=== PATIENT | female | born 1985 | race African-American/Black ===

== ENCOUNTER 2017-12-08 09:35 | Emergency (ER) | payer SELFPAY ==
[2017-12-08 10:33] LABS: Urine Blood 2+ (NEG); Urine Glucose NEGATIVE (NEG); Urine Protein 1+ (NEG); Urine Specific Gravity 1.025 (1.005-1.030); Urine pH 6.5 (5.0-7.0)
--- NOTE | 2017-12-08 11:09 | RAD REPORT ---
EXAM DESCRIPTION: US - Transvaginal Study Probe - 12/08/2017 10:53 am CLINICAL HISTORY: Vaginal bleeding, abdomen and pelvic pain COMPARISON: None. TECHNIQUE: Endovaginal sonography was performed. FINDINGS: Nabothian cysts are identifiable. No discrete endometrial mass or polyp identifiable. In t he anterior lower uterine segment of the uterus a a 2.2 x 1.5 cm oval mass is present slightly hypoec hoic to the remaining myometrium. This extends from serosal to submucosal margin. No mass effect on t he endometrial cavity. No additional myometrial mass is seen. This is most likely an incidental fibro id. No comparison is available to establish stability or growth. Both ovaries are identifiable. No suspicious ovarian or adnexal finding. Doppler evaluation shows a n ormal blood flow pattern within the ovarian stroma. IMPRESSION: Normal-sized uterus shows a 2.2 x 1.5 centimeter anterior lower uterine segment mass mos t likely an incidental fibroid. No comparison imaging available to establish stability or growth of this finding. No other endometrial or myometrial abnormality. No ovarian or adnexal significant finding.
[2017-12-08 11:19] LABS: Absolute Lymphocytes (CBC) 1.2 K/uL (0.7-4.9); Absolute Monocytes 0.5 K/uL (0.1-1.3); Absolute Neutrophil 3.8 K/uL (1.8-8.0); Basophils % 0.7 % (0-1.3); Eosinophils % 0.8 % (0-4.4); Hematocrit 34.5 % (36.0-45.0); Lymphocytes % 21.1 % (15.3-44.8); MCH 30.9 pg (27.0-35.0); MCV 94.4 fL (80-100); MPV 9.5 fL (7.6-11.3); Monocytes % 8.7 % (3.3-12.3); RBC Red Blood Cell Count 3.66 M/uL (3.86-4.86)
[2017-12-08 11:24] LABS: Urine Bacteria <20 /HPF (<20); Urine Culture Reflex Order NOT NEEDED; Urine RBC 20-50 /HPF (NONE SEEN)
[2017-12-08 11:37] LABS: BUN Blood Urea Nitrogen 9 mg/dL (6-20); Bicarbonate 28 mEq/L (21-31); Glucose Level 105 mg/dL (65-120); Potassium 3.6 mEq/L (3.6-5.0); Sodium Level 140 mEq/L (135-145)
[2017-12-08 11:38] LABS: Protime INR 1.1
--- NOTE | 2017-12-08 11:43 | EDPHYS ---
Physician Documentation [facility] Name: Steven Ortega Age: 32 yrs Sex: Female : 1985 Arrival Date: 12/08/2017 Time: 09:38 Bed 23 Private MD: ED Physician Alvarado Bass HPI: 12/08 10:32 This 32 yrs old Black Female presents to ER via Ambulatory with complaints of HEAVY rn PERIOD. 10:32 The patient presents with vaginal bleeding that is moderate, with clots. Onset: The rn symptoms/episode began/occurred 2 day(s) ago. Associated signs and symptoms: Pertinent positives: vaginal bleeding. Severity of symptoms: At their worst the symptoms were moderate, in the emergency department the symptoms are unchanged. The patient has not experienced similar symptoms in the past. 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 - Social history:: Smoking status: Patient uses tobacco products, denies chronic smoking, but will smoke occasionally. - Family history:: not pertinent. - Hospitalizations: : No recent hospitalization is reported. ROS: 10:32 Constitutional: Negative for fever, chills, and weight loss, Eyes: Negative for injury, rn pain, redness, and discharge, Cardiovascular: Negative for chest pain, palpitations, and edema, Respiratory: Negative for shortness of breath, cough, wheezing, and pleuritic chest pain, Abdomen/GI: Negative for nausea, vomiting, diarrhea, and constipation, Back: Negative for injury and pain, : + vaginal bleeding MS/Extremity: Negative for injury and deformity, Skin: Negative for injury, rash, and discoloration, Neuro: Negative for headache, weakness, numbness, tingling, and seizure. Exam: 10:32 Constitutional: This is a well developed, well nourished patient who is awake, alert, rn and in no acute distress. Abdomen/GI: Soft, non-tender, with normal bowel sounds. No distension or tympany. No guarding or rebound. No evidence of tenderness throughout. Back: No spinal tenderness. No costovertebral tenderness. Full range of motion. MS/ Extremity: Pulses equal, no cyanosis. Neurovascular intact. Full, normal range of motion. Equal circumference. Neuro: Awake and alert, GCS 15, oriented to person, place, time, and situation. Cranial nerves II-XII grossly intact. Motor strength 5/5 in all extremities. Sensory grossly intact. Cerebellar exam normal. Normal gait. Vital Signs: 10:09 BP 129 / 80; Pulse 62; Resp 18; Pulse Ox 99% on R/A; Weight 104.78 kg (R); Height 5 ft. aj1 7 in. (170.18 cm); Pain 10/10; 11:12 BP 117 / 72; Pulse 77; Resp 19; Pulse Ox 100% on R/A; aj1 12:11 BP 113 / 66; Pulse 82; Resp 18; Pulse Ox 100% on R/A; aj1 10:09 Body Mass Index 36.18 (104.78 kg, 170.18 cm) aj1 MDM: 10:08 Patient medically screened. rn 11:41 Differential diagnosis: dysmenorrhea, menometrorrhagia, uterine fibroids. Data rn reviewed: vital signs, nurses notes, lab test result(s), radiologic studies, and as a result, I will discharge patient. Counseling: I had a detailed discussion with the patient and/or guardian regarding: the historical points, exam findings, and any diagnostic results supporting the discharge/admit diagnosis, lab results, radiology results, the need for outpatient follow up, to return to the emergency department if symptoms worsen or persist or if there are any questions or concerns that arise at home. Special discussion: I discussed with the patient/guardian in detail that at this point there is no indication for admission to the hospital. It is understood, however, that if the symptoms persist or worsen the patient needs to return immediately for re-evaluation. Based on the history and exam findings, there is no indication for further emergent testing or inpatient evaluation. I discussed with the patient/guardian the need to see the OB Gyne specialist for further evaluation of the symptoms. 12/08 10:16 Order name: CBC with Diff; Complete Time: 11: rn 12/08 10:16 Order name: Basic Metabolic Panel; Complete Time: : rn 12/08 10:16 Order name: Protime (+inr); Complete Time: : rn 12/08 10:16 Order name: Ptt, Activated; Complete Time: rn 12/08 10:16 Order name: Urine Microscopic Only; Complete Time: 11: rn 12/08 10:28 Order name: Urine Dipstick--Ancillary (enter results); Complete Time: 11: bd 12/08 10:16 Order name: IV Start; Complete Time: 11: rn 12/08 10:16 Order name: Urine Test (obtain specimen); Complete Time: : rn 12/08 10:16 Order name: Urine Dipstick-Ancillary (obtain specimen); Complete Time: rn 12/08 10:28 Order name: Urine --Ancillary (enter results); Complete Time: 11: bd 12/08 10:53 Order name: Transvaginal Study Probe; Complete Time: 11:23 EDMS Administered Medications: No medications were administered Disposition: 12/08/17 11:42 Discharged to Home. Impression: Uterine Fibroid, Other specified abnormal uterine and vaginal bleeding. - Condition is Stable. - Prescriptions for Provera 10 mg Oral tablet - take 1 tablet by ORAL route once daily for 10 days; 10 tablet. - Work release form, Medication Reconciliation Form, Thank You Letter, Antibiotic Education, Prescription Opioid Use form. - Follow up: Timothy Rankin; When: 2 - 3 days; Reason: Recheck today's complaints, Re-evaluation by your physician. - Problem is new. - Symptoms have improved. Signatures: Dispatcher [employer] EDHI Betina Leonard RN RN aj1 Alvarado Bass MD MD modern languages professor: (The following items were deleted from the chart) 10:53 10:17 Pelvis Complete+US.RAD.BRZ ordered. [facility] EDHI 12:13 11:42 12/08/2017 11:42 Discharged to Home. Impression: Uterine Fibroid; Other specified aj1 abnormal uterine and vaginal bleeding. Condition is Stable. Prescriptions for Provera 10 mg Oral tablet - take 1 tablet by ORAL route once daily for 10 days; 10 tablet. and Forms are Medication Reconciliation Form, Thank You Letter, Antibiotic Education, Prescription Opioid Use. Follow up: Timothy Rankin; When: 2 - 3 days; Reason: Recheck today's complaints, Re-evaluation by your physician. Problem is new. Symptoms have improved. rn
--- NOTE | 2017-12-08 11:43 | ER ---
Nurse's Notes [facility] Name: Steven Ortega Age: 32 yrs Sex: Female : 1985 Arrival Date: 12/08/2017 Time: 09:38 Bed 23 Private MD: Diagnosis: Uterine Fibroid;Other specified abnormal uterine and vaginal bleeding Presentation: 12/08 10:06 Presenting complaint: Patient states: Heavy vaginal bleeding with large clots for the aj1 past 3 days. Reports urinary frequency, dizziness, and diffuse abdominal and pelvic pain that radiates to the buttocks. Denies dysuria, fever. Transition of care: patient was not received from another setting of care. Onset of symptoms was December 05, 2017. Initial Sepsis Screen: Does the patient meet any 2 criteria? No. Patient's initial sepsis screen is negative. Does the patient have a suspected source of infection? No. Patient's initial sepsis screen is negative. Care prior to arrival: None. 10:06 Method Of Arrival: Ambulatory aj1 10:06 Acuity: HOANG 3 aj1 Triage Assessment: 10:09 General: Appears in no apparent distress. uncomfortable, Behavior is calm, cooperative, aj1 appropriate for age. Pain: Complains of pain in abdomen diffusely and pelvis Pain radiates to buttocks Pain currently is 10 out of 10 on a pain scale. Quality of pain is described as sharp, Pain began 2-3 days ago. Is continuous, Alleviated by rest, Aggravated by walking. 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 - Social history:: Smoking status: Patient uses tobacco products, denies chronic smoking, but will smoke occasionally. - Family history:: not pertinent. - Hospitalizations: : No recent hospitalization is reported. Screenin:11 Abuse screen: Denies threats or abuse. Denies injuries from another. Nutritional aj1 screening: No deficits noted. Tuberculosis screening: No symptoms or risk factors identified. 12:11 Fall Risk None identified. aj1 Assessment: 10:11 General: Appears in no apparent distress. uncomfortable, Behavior is calm, cooperative, aj1 appropriate for age. Pain: Complains of pain in pelvis and abdomen diffusely Pain radiates to buttocks Pain currently is 10 out of 10 on a pain scale. Quality of pain is described as sharp, Pain began 2-3 days ago. Is continuous, Alleviated by rest, Aggravated by walking. Neuro: Level of Consciousness is awake, alert, obeys commands, Oriented to person, place, time, situation, Speech is normal, Facial symmetry appears normal, Reports dizziness. Cardiovascular: Patient's skin is warm and dry. Respiratory: Airway is patent Respiratory effort is even, unlabored, Respiratory pattern is regular, symmetrical. GI: Abdomen is non-distended, Bowel sounds present X 4 quads. Abd is soft X 4 quads Abdomen is tender to palpation X 4 quads. : Reports urinary frequency, vaginal bleeding that is bright red, with clots, heavy flow Denies burning with urination. EENT: No signs and/or symptoms were reported regarding the EENT system. Derm: No signs and/or symptoms reported regarding the dermatologic system. Skin is pink, warm \T\ dry. normal. Musculoskeletal: No signs and/or symptoms reported regarding the musculoskeletal system. Circulation, motion, and sensation intact. 10:28 Reassessment: Ultrasound at bedside. aj1 11:12 Reassessment: Patient appears in no apparent distress at this time. No changes from aj1 previously documented assessment. Patient and/or family updated on plan of care and expected duration. Pain level reassessed. Patient is alert, oriented x 3, equal unlabored respirations, skin warm/dry/pink. 12:10 Reassessment: Patient appears in no apparent distress at this time. No changes from aj1 previously documented assessment. Patient and/or family updated on plan of care and expected duration. Pain level reassessed. Patient is alert, oriented x 3, equal unlabored respirations, skin warm/dry/pink. Vital Signs: 10:09 BP 129 / 80; Pulse 62; Resp 18; Pulse Ox 99% on R/A; Weight 104.78 kg (R); Height 5 ft. aj1 7 in. (170.18 cm); Pain 10/10; 11:12 BP 117 / 72; Pulse 77; Resp 19; Pulse Ox 100% on R/A; aj1 12:11 BP 113 / 66; Pulse 82; Resp 18; Pulse Ox 100% on R/A; aj1 10:09 Body Mass Index 36.18 (104.78 kg, 170.18 cm) aj1 ED Course: 09:38 Patient arrived in ED. sb2 09:57 Betina Leonard, RN is Primary Nurse. aj1 10:08 Alvarado Bass MD is Attending Physician. rn 10:08 Triage completed. aj1 10:09 Arm band placed on. aj1 10:11 Patient has correct armband on for positive identification. Bed in low position. Call aj1 light in reach. Side rails up X 1. 10:11 No provider procedures requiring assistance completed. aj1 10:53 Ultrasound completed. hr 10:54 Transvaginal Study Probe In Process Unspecified. EDMS 11:05 Initial lab(s) drawn, by me, sent to lab. Inserted saline lock: 20 gauge in right aj1 antecubital area, using aseptic technique. Blood collected. 11:42 Timothy Rankin MD is Referral Physician. rn 11:58 IV discontinued, intact, bleeding controlled, No redness/swelling at site. Pressure em1 dressing applied. 12:13 IV discontinued, as documented above. aj1 Administered Medications: No medications were administered Outcome: 11:42 Discharge ordered by MD. rn 12:12 Discharged to home ambulatory. aj1 12:12 Condition: good 12:12 Discharge instructions given to patient, Instructed on discharge instructions, follow up and referral plans. medication usage, Demonstrated understanding of instructions, follow-up care, medications, Prescriptions given X 1. 12:13 Patient left the ED. aj1 Signatures: Dispatcher [employer] EDWV Betina Leonard, RN RN aj1 Jennifer Fish hr Alvarado Bass MD MD rn Martinez, Eric em1 Vanessa Ogden sb2 Corrections: (The following items were deleted from the chart) 11:13 11:12 BP 117 / 72; Pulse 50bpm; Resp 19bpm; Pulse Ox 100% RA; aj1 aj1
== END 2017-12-08 12:13 | disposition home or self-care (01) ==
LOC: ER 09:35
DX: D25.9 Leiomyoma of uterus, unspecified (principal); Z72.0 Tobacco use; Z88.8 Allergy status to other drugs, medicaments and biological substances
CPT/HCPCS: 36415; 76830; 80048; 81003; 81015; 81025; 85025; 85610; 85730; 99284

== ENCOUNTER 2018-02-15 07:53 | Emergency (ER) | payer SELFPAY ==
[2018-02-15] MEDS ORDERED: KETOROLAC 30 MG/ML INJ ONE (08:07)
[2018-02-15] MEDS ORDERED: DIAZEPAM 5 MG TABLET ONE (08:07)
--- NOTE | 2018-02-15 08:07 | EDPHYS ---
Physician Documentation [facility] Name: Steven Ortega Age: 32 yrs Sex: Female : 1985 Arrival Date: 02/15/2018 Time: 07:54 Bed 18 Private MD: None, None ED Physician Erick De Souza HPI: 02/15 08:03 This 32 yrs old Black Female presents to ER via Ambulatory with complaints of Back Pain.snw 08:03 The patient presents with pain that is acute, with no known mechanism of injury, and snw decreased range of motion. The symptoms are located in the low back. Onset: The symptoms/episode began/occurred suddenly, today. The pain radiates to the right gluteus raymundo. Associated signs and symptoms: The patient has no apparent associated signs or symptoms. The problem was sustained from unknown cause. Modifying factors: The patient symptoms are alleviated by nothing, the patient symptoms are aggravated by movement. Severity of symptoms: At their worst the symptoms were severe, incapacitating, in the emergency department the symptoms are unchanged. The patient has experienced similar episodes in the past, multiple times. The patient has not recently seen a physician. 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 - Social history:: Smoking status: Patient/guardian denies using tobacco. - Ebola Screening: : No symptoms or risks identified at this time. ROS: 08:03 Constitutional: Negative for fever, chills, and weight loss, Eyes: Negative for injury, snw pain, redness, and discharge, ENT: Negative for injury, pain, and discharge, Neck: Negative for injury, pain, and swelling, Cardiovascular: Negative for chest pain, palpitations, and edema, Respiratory: Negative for shortness of breath, cough, wheezing, and pleuritic chest pain, Abdomen/GI: Negative for abdominal pain, nausea, vomiting, diarrhea, and constipation, : Negative for injury, bleeding, discharge, and swelling, MS/Extremity: Negative for injury and deformity, Skin: Negative for injury, rash, and discoloration, Neuro: Negative for headache, weakness, numbness, tingling, and seizure. 08:03 Back: Positive for decreased range of motion, pain at rest, pain with movement, radiated pain, of the low back area and right low back, radiation down right buttock. Exam: 08:00 Constitutional: This is a well developed, well nourished patient who is awake, alert, snw and in no acute distress. Head/Face: Normocephalic, atraumatic. Eyes: Pupils equal round and reactive to light, extra-ocular motions intact. Lids and lashes normal. Conjunctiva and sclera are non-icteric and not injected. Cornea within normal limits. Periorbital areas with no swelling, redness, or edema. ENT: Nares patent. No nasal discharge, no septal abnormalities noted. Tympanic membranes are normal and external auditory canals are clear. Oropharynx with no redness, swelling, or masses, exudates, or evidence of obstruction, uvula midline. Mucous membranes moist. Neck: Trachea midline, no thyromegaly or masses palpated, and no cervical lymphadenopathy. Supple, full range of motion without nuchal rigidity, or vertebral point tenderness. No Meningismus. Chest/axilla: Normal chest wall appearance and motion. Nontender with no deformity. No lesions are appreciated. Cardiovascular: Regular rate and rhythm with a normal S1 and S2. No gallops, murmurs, or rubs. Normal PMI, no JVD. No pulse deficits. Respiratory: Lungs have equal breath sounds bilaterally, clear to auscultation and percussion. No rales, rhonchi or wheezes noted. No increased work of breathing, no retractions or nasal flaring. Abdomen/GI: Soft, non-tender, with normal bowel sounds. No distension or tympany. No guarding or rebound. No evidence of tenderness throughout. Skin: Warm, dry with normal turgor. Normal color with no rashes, no lesions, and no evidence of cellulitis. MS/ Extremity: Pulses equal, no cyanosis. Neurovascular intact. Full, normal range of motion. Neuro: Awake and alert, GCS 15, oriented to person, place, time, and situation. Cranial nerves II-XII grossly intact. Motor strength 5/5 in all extremities. Sensory grossly intact. Cerebellar exam normal. Normal gait. 08:00 Back: pain, that is moderate, that is severe, of the lumbar area, left low back and right low back, ROM is painful, decreased, with flexion, CVA tenderness, is absent, muscle spasm, is appreciated in the right low back. Vital Signs: 08:02 BP 104 / 81; Pulse 58; Resp 16; Temp 98.2; Pulse Ox 100% on R/A; Pain 10/10; hb MDM: 08:03 Patient medically screened. snw 08:08 Data reviewed: vital signs, nurses notes. Data interpreted: Pulse oximetry: on room air snw is 100 %. Interpretation: normal. Counseling: I had a detailed discussion with the patient and/or guardian regarding: the historical points, exam findings, and any diagnostic results supporting the discharge/admit diagnosis, the presence of at least one elevated blood pressure reading (>120/80) during this emergency department visit, the need for outpatient follow up, to return to the emergency department if symptoms worsen or persist or if there are any questions or concerns that arise at home. Special discussion: I have referred the patient to see his PCP for further evaluation of high blood pressure. Based on the history and exam findings, there is no indication for further emergent testing or inpatient evaluation. I discussed with the patient/guardian the need to see the back specialist for further evaluation of the symptoms. I discussed with the patient/guardian the need to see the primary care provider for further evaluation of the symptoms. 02/15 08:19 Order name: Urine Dipstick--Ancillary (enter results) ag 02/15 08:19 Order name: Urine --Ancillary (enter results) ag Administered Medications: 08:02 Drug: TORadol 60 mg Route: IM; Site: right deltoid; hj 08:14 Follow up: Response: No adverse reaction; Anxiety decreased hj 08:15 Follow up: Response: No adverse reaction; Pain is decreased hj 08:02 Drug: Valium 5 mg Route: PO; hj 08:15 Follow up: Response: No adverse reaction; Pain is decreased hj Disposition: 15:23 Co-signature as Attending Physician, Erick De Souza MD I agree with the assessment and darcie plan of care. Disposition: 02/15/18 08:07 Discharged to Home. Impression: Low back pain, Sciatica, right side. - Condition is Stable. - Discharge Instructions: Back Pain, Adult, Chronic Back Pain, Hypertension, Musculoskeletal Pain, Sciatica, Back Injury Prevention, Nmbk-[id number], Back Exercises, [id number], Cryotherapy, Heat Therapy. - Prescriptions for Diclofenac Sodium 75 mg Oral Tablet Sustained Release - take 1 tablet by ORAL route 2 times per day; 30 tablet. orphenadrine citrate 100 mg Oral Tablet Sustained Release - take 1 tablet by ORAL route 2 times per day As needed; 20 tablet. - Work release form, Medication Reconciliation Form, Thank You Letter, Antibiotic Education, Prescription Opioid Use form. - Follow up: Emergency Department; When: As needed; Reason: Worsening of condition. Follow up: Private Physician; When: 1 - 2 days; Reason: Recheck today's complaints, Continuance of care, Re-evaluation by your physician. Signatures: Dispatcher [employer] EDMS Erick De Souza MD MD cha Therrien, Shelly, FLASK MAKER-C FLASK MAKER-Csnw Kendall Gonzalez RN RN Nasra Rios RN RN Corrections: (The following items were deleted from the chart) 08:32 08:07 02/15/2018 08:07 Discharged to Home. Impression: Low back pain; Sciatica, right hj side. Condition is Stable. Forms are Medication Reconciliation Form, Thank You Letter, Antibiotic Education, Prescription Opioid Use. Follow up: Emergency Department; When: As needed; Reason: Worsening of condition. Follow up: Private Physician; When: 1 - 2 days; Reason: Recheck today's complaints, Continuance of care, Re-evaluation by your physician. snw
--- NOTE | 2018-02-15 08:07 | ER ---
Nurse's Notes [facility] Name: Steven Ortega Age: 32 yrs Sex: Female : 1985 Arrival Date: 02/15/2018 Time: 07:54 Bed 18 Private MD: None, None Diagnosis: Low back pain;Sciatica, right side Presentation: 02/15 07:57 Presenting complaint: Patient states: Low back pain, worse on right side since this hb morning. Hx sciatica. Transition of care: patient was not received from another setting of care. Onset of symptoms was February 15, 2018. Risk Assessment: Do you want to hurt yourself or someone else? Patient reports no desire to harm self or others. Initial Sepsis Screen: Does the patient meet any 2 criteria? No. Patient's initial sepsis screen is negative. Does the patient have a suspected source of infection? No. Patient's initial sepsis screen is negative. Care prior to arrival: None. 07:57 Method Of Arrival: Ambulatory hb 07:57 Acuity: HOANG 4 hb Triage Assessment: 07:57 General: Appears in no apparent distress. uncomfortable, Behavior is calm, cooperative, hj appropriate for age. Pain: Complains of pain in buttocks and right gluteus raymundo and low back area and right low back and left low back and lumbar area. EENT: No signs and/or symptoms were reported regarding the EENT system. Neuro: Level of Consciousness is awake, alert, obeys commands, Oriented to person, place, time, situation, Appropriate for age. Cardiovascular: Capillary refill < 3 seconds Patient's skin is warm and dry. Respiratory: Airway is patent Respiratory effort is even, unlabored, Respiratory pattern is regular, symmetrical. GI: No signs and/or symptoms were reported involving the gastrointestinal system. : No signs and/or symptoms were reported regarding the genitourinary system. Derm: No signs and/or symptoms reported regarding the dermatologic system. Musculoskeletal: Circulation, motion, and sensation intact. Capillary refill < 3 seconds, Reports pain in buttocks and right gluteus raymundo and low back area and right low back and left low back and lumbar area. 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 - Social history:: Smoking status: Patient/guardian denies using tobacco. - Ebola Screening: : No symptoms or risks identified at this time. Screenin:57 Abuse screen: Denies threats or abuse. Denies injuries from another. Nutritional hj screening: No deficits noted. Tuberculosis screening: No symptoms or risk factors identified. Fall Risk None identified. Assessment: 07:57 Reassessment: see triage assessment;. hj 08:31 Reassessment: D/C instructions given;. hj 08:31 Neuro: Level of Consciousness is awake, alert, obeys commands, Oriented to person, hj place, time, situation, Appropriate for age. Vital Signs: 08:02 BP 104 / 81; Pulse 58; Resp 16; Temp 98.2; Pulse Ox 100% on R/A; Pain 10/10; hb ED Course: 07:54 Patient arrived in ED. sb2 07:54 None, None is Private Physician. sb2 07:56 Kendall Gonzalez, OLEG is Primary Nurse. hj 08:00 Gabbie Regalado FNP-C is PHCP. snw 08:00 Erick De Souza MD is Attending Physician. snw 08:02 Triage completed. hb 08:02 Arm band placed on right wrist. hb 08:31 Patient has correct armband on for positive identification. Bed in low position. Call hj light in reach. Side rails up X 1. 08:31 No provider procedures requiring assistance completed. Patient did not have IV access hj during this emergency room visit. Administered Medications: 08:02 Drug: TORadol 60 mg Route: IM; Site: right deltoid; hj 08:14 Follow up: Response: No adverse reaction; Anxiety decreased hj 08:15 Follow up: Response: No adverse reaction; Pain is decreased hj 08:02 Drug: Valium 5 mg Route: PO; hj 08:15 Follow up: Response: No adverse reaction; Pain is decreased hj Outcome: 08:07 Discharge ordered by . snw 08:31 Discharged to home ambulatory. hj 08:31 Condition: stable 08:31 Discharge instructions given to patient, Instructed on discharge instructions, follow up and referral plans. medication usage, Demonstrated understanding of instructions, follow-up care, medications, Prescriptions given X 2. 08:32 Patient left the ED. hj Signatures: Gabbie Regalado, NURSERY RN-C NURSERY RN-Csnw Kendall Gonzalez RN RN Nasra Elizabeth, OLEG RN Vanessa Pace sb2
[2018-02-15 09:00] LABS: Urine Blood TRACE (NEG); Urine Glucose NEGATIVE (NEG); Urine Protein 1+ (NEG); Urine Specific Gravity >1.030 (1.005-1.030)
== END 2018-02-15 08:32 | disposition home or self-care (01) ==
LOC: ER 07:53
DX: M54.41 Lumbago with sciatica, right side (principal); Z91.048 Other nonmedicinal substance allergy status
CPT/HCPCS: 81003; 81025; 96372; 99283

== ENCOUNTER 2019-07-12 14:59 | Emergency (ER) | payer SELFPAY ==
--- NOTE | 2019-07-12 15:17 | ER ---
Nurse's Notes [facility] Name: Steven Ortega Age: 33 yrs Sex: Female : 1985 Arrival Date: 07/12/2019 Time: 15:02 Bed 28 Private MD: Diagnosis: Muscle spasm of back Presentation: 07/12 15:02 Presenting complaint: Patient states: i think i pulled a muscle in my back, i was using tw2 a jacquelyn lift to get a pt off the floor and i had to lift her manually, it happened last night sometime. Transition of care: patient was not received from another setting of care. Onset of symptoms was July 12, 2019. Risk Assessment: Do you want to hurt yourself or someone else? Patient reports no desire to harm self or others. Initial Sepsis Screen: Does the patient meet any 2 criteria? No. Patient's initial sepsis screen is negative. Does the patient have a suspected source of infection? No. Patient's initial sepsis screen is negative. Care prior to arrival: None. 15:02 Method Of Arrival: Wheelchair tw2 15:02 Acuity: HOANG 4 tw2 Triage Assessment: 15:04 General: Appears in no apparent distress. Behavior is calm, cooperative, appropriate tw2 for age. Pain: Complains of pain in lumbar area, right mid back and right low back. Musculoskeletal: Circulation, motion, and sensation intact. 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 - Social history:: Smoking status: . - Ebola Screening: : Patient denies travel to an Ebola-affected area in the 21 days before illness onset. Screenin:32 Abuse screen: Denies threats or abuse. Denies injuries from another. Nutritional mg2 screening: No deficits noted. Tuberculosis screening: No symptoms or risk factors identified. Fall Risk None identified. Assessment: 15:32 General: Appears in no apparent distress. comfortable, Behavior is calm, cooperative. mg2 Pain: Complains of pain in right low back and right mid back Pain does not radiate. Pain currently is 5 out of 10 on a pain scale. Quality of pain is described as aching, Pain began gradually. Neuro: Level of Consciousness is awake, alert, obeys commands, Oriented to person, place, time, situation. Cardiovascular: Capillary refill < 3 seconds Patient's skin is warm and dry. Respiratory: Airway is patent Respiratory effort is even, unlabored, Respiratory pattern is regular, symmetrical. GI: No signs and/or symptoms were reported involving the gastrointestinal system. : No signs and/or symptoms were reported regarding the genitourinary system. EENT: No deficits noted. Derm: Skin is intact, is healthy with good turgor, Skin is pink, warm \T\ dry. normal. Musculoskeletal: Circulation, motion, and sensation intact. Capillary refill < 3 seconds. Vital Signs: 15:03 BP 112 / 60; Pulse 67; Resp 17; Temp 97.8(O); Pulse Ox 100% on R/A; Weight 108.86 kg tw2 (R); Height 5 ft. 7 in. (170.18 cm); Pain 9/10; 15:03 Body Mass Index 37.59 (108.86 kg, 170.18 cm) tw2 ED Course: 15:02 Patient arrived in ED. am2 15:03 Triage completed. tw2 15:03 Arm band placed on. tw2 15:05 Toby Holley PA is PHCP. jr8 15:06 Zach Fuller MD is Attending Physician. jr8 15:06 José Miguel Perry, OLEG is Primary Nurse. mg2 15:33 Patient has correct armband on for positive identification. mg2 15:33 No provider procedures requiring assistance completed. Patient did not have IV access mg2 during this emergency room visit. Administered Medications: 15:24 Drug: TORadol - Ketorolac 15 mg Route: IM; Site: right gluteus; mg2 15:25 Follow up: Response: No adverse reaction; Medication administered at discharge. mg2 15:24 Drug: Burleson 10 mg-325 mg 1 tabs Route: PO; mg2 15:24 Follow up: Response: No adverse reaction; Medication administered at discharge. mg2 Outcome: 15:16 Discharge ordered by . jr8 15:33 Discharged to home via wheelchair. mg2 15:33 Condition: stable 15:33 Discharge instructions given to patient, Instructed on discharge instructions, follow up and referral plans. medication usage, Demonstrated understanding of instructions, follow-up care, medications, Prescriptions given X 3. 15:34 Patient left the ED. mg2 Signatures: Toby Holley PA PA jr8 Vilma Georges, RN RN tw2 Pina Daly am2 José Miguel Perry RN RN mg2
--- NOTE | 2019-07-12 15:17 | EDPHYS ---
Physician Documentation [facility] Name: Steven Ortega Age: 33 yrs Sex: Female : 1985 Arrival Date: 07/12/2019 Time: 15:02 Bed 28 Private MD: ED Physician Zach Fuller HPI: 07/12 15:13 This 33 yrs old Black Female presents to ER via Wheelchair with complaints of Back Pain.jr8 15:13 The patient presents with pain that is acute. The symptoms are located in the right mid jr8 back and right low back. Onset: The symptoms/episode began/occurred acutely, today. The pain does not radiate. Associated signs and symptoms: The patient has no apparent associated signs or symptoms. The problem was sustained when lifting patient. Modifying factors: The patient symptoms are alleviated by nothing, the patient symptoms are aggravated by any movement. Severity of symptoms: At their worst the symptoms were moderate, in the emergency department the symptoms are unchanged. The patient has not experienced similar symptoms in the past. The patient has not recently seen a physician. 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 - Social history:: Smoking status: . - Ebola Screening: : Patient denies travel to an Ebola-affected area in the 21 days before illness onset. ROS: 15:13 Eyes: Negative for injury, pain, redness, and discharge, ENT: Negative for injury, jr8 pain, and discharge, Neck: Negative for injury, pain, and swelling, Cardiovascular: Negative for chest pain, palpitations, and edema, Respiratory: Negative for shortness of breath, cough, wheezing, and pleuritic chest pain, Abdomen/GI: Negative for abdominal pain, nausea, vomiting, diarrhea, and constipation, MS/Extremity: Negative for injury and deformity, Skin: Negative for injury, rash, and discoloration, Neuro: Negative for headache, weakness, numbness, tingling, and seizure. 15:13 Back: Positive for pain at rest, pain with movement, Negative for radiated pain. Exam: 15:13 Eyes: Pupils equal round and reactive to light, extra-ocular motions intact. Lids and jr8 lashes normal. Conjunctiva and sclera are non-icteric and not injected. Cornea within normal limits. Periorbital areas with no swelling, redness, or edema. ENT: Nares patent. No nasal discharge, no septal abnormalities noted. Tympanic membranes are normal and external auditory canals are clear. Oropharynx with no redness, swelling, or masses, exudates, or evidence of obstruction, uvula midline. Mucous membranes moist. Neck: Trachea midline, no thyromegaly or masses palpated, and no cervical lymphadenopathy. Supple, full range of motion without nuchal rigidity, or vertebral point tenderness. No Meningismus. Cardiovascular: Regular rate and rhythm with a normal S1 and S2. No gallops, murmurs, or rubs. Normal PMI, no JVD. No pulse deficits. Respiratory: Lungs have equal breath sounds bilaterally, clear to auscultation and percussion. No rales, rhonchi or wheezes noted. No increased work of breathing, no retractions or nasal flaring. Abdomen/GI: Soft, non-tender, with normal bowel sounds. No distension or tympany. No guarding or rebound. No evidence of tenderness throughout. Skin: Warm, dry with normal turgor. Normal color with no rashes, no lesions, and no evidence of cellulitis. MS/ Extremity: Pulses equal, no cyanosis. Neurovascular intact. Full, normal range of motion. Neuro: Awake and alert, GCS 15, oriented to person, place, time, and situation. Cranial nerves II-XII grossly intact. Motor strength 5/5 in all extremities. Sensory grossly intact. Cerebellar exam normal. Normal gait. 15:13 Back: pain, that is moderate, of the right mid back, ROM is painful, normal spinal alignment noted, CVA tenderness, is absent, muscle spasm, is appreciated in the right mid back. Vital Signs: 15:03 BP 112 / 60; Pulse 67; Resp 17; Temp 97.8(O); Pulse Ox 100% on R/A; Weight 108.86 kg tw2 (R); Height 5 ft. 7 in. (170.18 cm); Pain 9/10; 15:03 Body Mass Index 37.59 (108.86 kg, 170.18 cm) tw2 MDM: 15:06 Patient medically screened. jr8 15:13 Data reviewed: vital signs, nurses notes, and as a result, I will discharge patient. jr8 Data interpreted: Pulse oximetry: on room air is 100 %. Interpretation: normal. Counseling: I had a detailed discussion with the patient and/or guardian regarding: the historical points, exam findings, and any diagnostic results supporting the discharge/admit diagnosis, the need for outpatient follow up, a family practitioner, to return to the emergency department if symptoms worsen or persist or if there are any questions or concerns that arise at home. 15:13 ED course: Discussed with patient. No heavy lifting for next few days. Utilize heating jr8 pad if she has one. Will treat with NSAIDs and muscle relaxant. If worse to come back. Otherwise to f/u with PCP . Administered Medications: 15:24 Drug: TORadol - Ketorolac 15 mg Route: IM; Site: right gluteus; mg2 15:25 Follow up: Response: No adverse reaction; Medication administered at discharge. mg2 15:24 Drug: Ashton 10 mg-325 mg 1 tabs Route: PO; mg2 15:24 Follow up: Response: No adverse reaction; Medication administered at discharge. mg2 Disposition: 17:20 Co-signature as Attending Physician, Zach Fuller MD. ma2 Disposition: 07/12/19 15:16 Discharged to Home. Impression: Muscle spasm of back. - Condition is Stable. - Discharge Instructions: Back Pain, Adult, Back Exercises, [id number], Heat Therapy. - Prescriptions for Ibuprofen 800 mg Oral Tablet - take 1 tablet by ORAL route every 12 hours As needed take with food; 20 tablet. Zanaflex 4 mg Oral Tablet - take 1 tablet by ORAL route every 8 hours As needed; 20 tablet. Medrol (Parveen) 4 mg Oral Tablets, Dose Pack - take 1 tablet by ORAL route as directed - follow package instructions; 1 packet. - Medication Reconciliation Form, Thank You Letter, Antibiotic Education, Prescription Opioid Use, Work release form form. - Follow up: Private Physician; When: 5 - 6 days; Reason: Recheck today's complaints, Continuance of care, Re-evaluation by your physician. - Problem is new. - Symptoms have improved. Signatures: Toby Holley PA PA jr8 Vilma Georges RN RN tw2 Zach Fuller MD MD ma2 José Miguel Perry RN RN mg2 Corrections: (The following items were deleted from the chart) 15:33 15:16 07/12/2019 15:16 Discharged to Home. Impression: Muscle spasm of back. Condition mg2 is Stable. Forms are Medication Reconciliation Form, Thank You Letter, Antibiotic Education, Prescription Opioid Use. Follow up: Private Physician; When: 5 - 6 days; Reason: Recheck today's complaints, Continuance of care, Re-evaluation by your physician. Problem is new. Symptoms have improved. jr8 15:34 15:33 07/12/2019 15:16 Discharged to Home. Impression: Muscle spasm of back. Condition mg2 is Stable. Discharge Instructions: Back Pain, Adult, Back Exercises, [id number], Heat Therapy. Prescriptions for Ibuprofen 800 mg Oral Tablet - take 1 tablet by ORAL route every 12 hours As needed take with food; 20 tablet, Zanaflex 4 mg Oral Tablet - take 1 tablet by ORAL route every 8 hours As needed; 20 tablet, Medrol (Parveen) 4 mg Oral Tablets, Dose Pack - take 1 tablet by ORAL route as directed - follow package instructions; 1 packet. and Forms are Medication Reconciliation Form, Thank You Letter, Antibiotic Education, Prescription Opioid Use, Work release form. Follow up: Private Physician; When: 5 - 6 days; Reason: Recheck today's complaints, Continuance of care, Re-evaluation by your physician. Problem is new. Symptoms have improved. mg2
[2019-07-12] MEDS ORDERED: KETOROLAC 30 MG/ML INJ ONE (15:19)
[2019-07-12] MEDS ORDERED: HYDROCODONE/APAP 10/325 TAB ONE (15:19)
[2019-07-12 15:40] VITALS: BP 112/60; TEMP 97.8; O2SAT 100
== END 2019-07-12 15:34 | disposition home or self-care (01) ==
LOC: ER 14:59
DX: M62.830 Muscle spasm of back (principal); X50.0XXA Overexertion from strenuous movement or load, initial encounter; Y93.89 Activity, other specified; Y92.9 Unspecified place or not applicable; Z87.820 Personal history of traumatic brain injury; Z91.048 Other nonmedicinal substance allergy status
CPT/HCPCS: 96372; 99283

== ENCOUNTER 2019-11-14 12:28 | Emergency (ER) | payer SELFPAY ==
[2019-11-14 13:06] LABS: Urine Blood NEGATIVE (NEG); Urine Glucose NEGATIVE (NEG); Urine Protein NEGATIVE (NEG); Urine Specific Gravity >1.030 (1.005-1.030); Urine pH 6.5 (5.0-7.0)
--- NOTE | 2019-11-14 13:28 | RAD REPORT ---
EXAM DESCRIPTION: CT - Stone Protocol - 11/14/2019 1:12 pm CLINICAL HISTORY: Abdominal pain. COMPARISON: None. TECHNIQUE: Computed axial tomography of the abdomen pelvis was obtained without oral or IV contrast. Lack of IV and oral contrast limits evaluation of solid organs, bowel, and vessels. Coronal reformat bakari images were obtained and reviewed. All CT scans are performed using dose optimization technique as appropriate and may include automated exposure control or mA/KV adjustment according to patient size. FINDINGS: A renal calculus is not seen. An ureteral calculus is not noted. A bladder calculus is not present. The liver, spleen, pancreas and adrenals appear grossly normal There is no evidence of diverticulitis. The appendix appears normal The inferior endplate of the L5 vertebral body is mostly sclerotic IMPRESSION: Negative for a genitourinary calculus Inferior vertebral endplate of the L5 vertebral body is mostly sclerotic. This probably is degenerati ve in nature. An inflammatory/infectious process can also result in this appearance and should be cor related clinically
[2019-11-14] MEDS ORDERED: KETOROLAC 30 MG/ML INJ ONE (13:55)
--- NOTE | 2019-11-14 13:58 | ER ---
Nurse's Notes [facility] Name: Steven Ortega Age: 33 yrs Sex: Female : 1985 Arrival Date: 11/14/2019 Time: 12:30 Bed 14 Private MD: Diagnosis: Low back pain;Muscle spasm Presentation: 11/13 12:40 Chief complaint: Patient states: L side and back pain x approx 3 weeks, reports hx of ph back pain, also c/o R upper arm pain. Coronavirus screen: Patient denies a cough. Patient denies shortness of breath or difficulty breathing. Patient denies measured and/or subjective temperature greater than 100.4F prior to today's visit. Patient denies travel on a cruise ship or to a country the [facility] currently lists as an affected area. Patient denies contact with known and/or suspected case of COVID-19. Ebola Screen: No symptoms or risks identified at this time. Initial Sepsis Screen: Does the patient meet any 2 criteria? No. Patient's initial sepsis screen is negative. Does the patient have a suspected source of infection? No. Patient's initial sepsis screen is negative. Risk Assessment: Do you want to hurt yourself or someone else? Patient reports no desire to harm self or others. Onset of symptoms was November 14, 2019. 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 - Social history:: Smoking status: Patient reports the use of cigarette tobacco products, denies chronic smoking, but will smoke occasionally. Screenin:43 Abuse screen: Denies threats or abuse. Denies injuries from another. Nutritional ph screening: No deficits noted. Tuberculosis screening: No symptoms or risk factors identified. Fall Risk None identified. Assessment: 13:38 General: Appears in no apparent distress. Behavior is calm, cooperative, appropriate ll1 for age. Pain: Complains of pain in left lower back Quality of pain is described as aching, Is intermittent. Neuro: No deficits noted. Level of Consciousness is awake, alert, obeys commands, Oriented to person, place, time, situation, Appropriate for age Director Data are equal bilaterally Moves all extremities. Full function Gait is steady, Speech is normal, Facial symmetry appears normal. Cardiovascular: No deficits noted. Respiratory: No deficits noted. : Reports pain flank(s), intermettant. Musculoskeletal: Reports pain in left lower back. 14:15 Reassessment: No changes from previously documented assessment. Patient and/or family ll1 updated on plan of care and expected duration. Pain level reassessed. Patient is alert, oriented x 3, equal unlabored respirations, skin warm/dry/pink. Vital Signs: 12:40 BP 113 / 96; Pulse 68; Resp 18; Temp 97.9(TE); Pulse Ox 98% on R/A; Weight 108.86 kg; ph Height 5 ft. 10 in. (177.80 cm); Pain 6/10; 14:12 BP 139 / 88; Pulse 55; Resp 16; Pulse Ox 98% ; Pain 5/10; ll1 12:40 Body Mass Index 34.44 (108.86 kg, 177.80 cm) ph ED Course: 12:30 Patient arrived in ED. mr 12:36 Cynthia Bustos, OLEG is Primary Nurse. ll1 12:39 Gabbie Regalado FNP-C is [facility]. snw 12:39 Alvarado Bass MD is Attending Physician. snw 12:43 Triage completed. ph 12:43 Arm band placed on Patient placed in an exam room, on a stretcher. ph 13:12 CT Stone Protocol In Process Unspecified. EDMS 13:40 Patient has correct armband on for positive identification. Bed in low position. Call ll1 light in reach. Side rails up X 1. 14:13 No provider procedures requiring assistance completed. Patient did not have IV access ll1 during this emergency room visit. Administered Medications: 13:54 Drug: TORadol 30 mg Route: IM; Site: right gluteus; ll1 14:12 Follow up: Response: No adverse reaction; RASS: Alert and Calm (0) ll1 14:14 Follow up: Response: No adverse reaction; Pain is decreased; RASS: Alert and Calm (0) ll1 Outcome: 13:57 Discharge ordered by . snw 14:13 Discharged to home ambulatory. ll1 14:13 Condition: stable 14:13 Discharge instructions given to patient, Instructed on discharge instructions, follow up and referral plans. medication usage, Demonstrated understanding of instructions, follow-up care, medications, Prescriptions given X 2. 14:15 Patient left the ED. ll1 Signatures: Dispatcher [employer] EDMS Gabbie Regalado, MAX-C MASTER SHIP-Adelaw Padma Dean Patricia, RN RN Cynthia Bustos RN RN 1
--- NOTE | 2019-11-14 13:58 | EDPHYS ---
Physician Documentation [facility] Name: Steven Ortega Age: 33 yrs Sex: Female : 1985 Arrival Date: 11/14/2019 Time: 12:30 Bed 14 Private MD: ED Physician Alvarado Bass HPI: 11/13 13:49 This 33 yrs old Black Female presents to ER via Ambulatory with complaints of Back Pain.snw 13:49 The patient presents with pain that is acute. The symptoms are located in the lateral snw left side and back. Onset: The symptoms/episode began/occurred gradually, 3 week(s) ago, and became worse 2 day(s) ago. The pain does not radiate. The problem was sustained when lifting patient. Modifying factors: The patient symptoms are alleviated by nothing, the patient symptoms are aggravated by movement. Severity of symptoms: At their worst the symptoms were moderate. It is unknown whether or not the patient has had similar symptoms in the past. It is unknown whether or not the patient has recently seen a physician. hx of TBI, partial left sided paralysis. 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 - Social history:: Smoking status: Patient reports the use of cigarette tobacco products, denies chronic smoking, but will smoke occasionally. ROS: 13:48 Constitutional: Negative for fever, chills, and weight loss, Eyes: Negative for injury, snw pain, redness, and discharge, ENT: Negative for injury, pain, and discharge, Neck: Negative for injury, pain, and swelling, Cardiovascular: Negative for chest pain, palpitations, and edema, Respiratory: Negative for shortness of breath, cough, wheezing, and pleuritic chest pain, Abdomen/GI: Negative for abdominal pain, nausea, vomiting, diarrhea, and constipation, : Negative for injury, bleeding, discharge, and swelling, MS/Extremity: Negative for injury and deformity, Skin: Negative for injury, rash, and discoloration, Neuro: Negative for headache, weakness, numbness, tingling, and seizure. 13:48 Back: Positive for pain at rest, pain with movement. 13:48 Abdomen/GI: Positive for lateral left chest, abdomen, back tenderness. snw Exam: 13:43 Constitutional: This is a well developed, well nourished patient who is awake, alert, snw and in no acute distress. Head/Face: Normocephalic, atraumatic. Eyes: Pupils equal round and reactive to light, extra-ocular motions intact. Lids and lashes normal. Conjunctiva and sclera are non-icteric and not injected. Cornea within normal limits. Periorbital areas with no swelling, redness, or edema. ENT: Nares patent. No nasal discharge, no septal abnormalities noted. Tympanic membranes are normal and external auditory canals are clear. Oropharynx with no redness, swelling, or masses, exudates, or evidence of obstruction, uvula midline. Mucous membranes moist. Neck: Trachea midline, no thyromegaly or masses palpated, and no cervical lymphadenopathy. Supple, full range of motion without nuchal rigidity, or vertebral point tenderness. No Meningismus. Chest/axilla: Normal chest wall appearance and motion. Nontender with no deformity. No lesions are appreciated. Cardiovascular: Regular rate and rhythm with a normal S1 and S2. No gallops, murmurs, or rubs. Normal PMI, no JVD. No pulse deficits. Respiratory: Lungs have equal breath sounds bilaterally, clear to auscultation and percussion. No rales, rhonchi or wheezes noted. No increased work of breathing, no retractions or nasal flaring. Skin: Warm, dry with normal turgor. Normal color with no rashes, no lesions, and no evidence of cellulitis. MS/ Extremity: Pulses equal, no cyanosis. Neurovascular intact. Full, normal range of motion. Neuro: Awake and alert, GCS 15, oriented to person, place, time, and situation. Cranial nerves II-XII grossly intact. Motor strength 5/5 in all extremities. Sensory grossly intact. Cerebellar exam normal. Normal gait. Psych: Awake, alert, with orientation to person, place and time. Behavior, mood, and affect are within normal limits. 13:43 Abdomen/GI: Inspection: abdomen appears normal, Bowel sounds: normal, Palpation: mild abdominal tenderness, moderate abdominal tenderness, in the posterior aspect of left lateral abdomen, anterior aspect of left lateral abdomen, left upper quadrant and left lower quadrant. 13:43 Back: pain, that is moderate, of the lumbar area, left low back and right low back, ROM is normal, normal spinal alignment noted, CVA tenderness, is absent, muscle spasm, is not present. Vital Signs: 12:40 BP 113 / 96; Pulse 68; Resp 18; Temp 97.9(TE); Pulse Ox 98% on R/A; Weight 108.86 kg; ph Height 5 ft. 10 in. (177.80 cm); Pain 6/10; 14:12 BP 139 / 88; Pulse 55; Resp 16; Pulse Ox 98% ; Pain 5/10; ll1 12:40 Body Mass Index 34.44 (108.86 kg, 177.80 cm) ph MDM: 12:39 Patient medically screened. snw 13:58 Data reviewed: vital signs, nurses notes. Data interpreted: Pulse oximetry: on room air snw is 98 %. Interpretation: normal. Counseling: I had a detailed discussion with the patient and/or guardian regarding: the historical points, exam findings, and any diagnostic results supporting the discharge/admit diagnosis, the presence of at least one elevated blood pressure reading (>120/80) during this emergency department visit, lab results, radiology results, the need for outpatient follow up, to return to the emergency department if symptoms worsen or persist or if there are any questions or concerns that arise at home. Response to treatment: the patient's symptoms have markedly improved after treatment. Special discussion: I have referred the patient to see his PCP for further evaluation of high blood pressure. Based on the history and exam findings, there is no indication for further emergent testing or inpatient evaluation. I discussed with the patient/guardian the need to see the primary care provider for further evaluation of the symptoms. 11/13 12:56 Order name: Urine Dipstick--Ancillary (enter results); Complete Time: 13:08 bd 11/13 12:56 Order name: Urine --Ancillary (enter results); Complete Time: 13:08 bd 11/13 12:57 Order name: CT Stone Protocol; Complete Time: 13:37 snw Administered Medications: 13:54 Drug: TORadol 30 mg Route: IM; Site: right gluteus; ll1 14:12 Follow up: Response: No adverse reaction; RASS: Alert and Calm (0) ll1 14:14 Follow up: Response: No adverse reaction; Pain is decreased; RASS: Alert and Calm (0) ll1 Disposition: 14:25 Co-signature as Attending Physician, Alvarado Bass MD. rn Disposition: 11/14/19 13:57 Discharged to Home. Impression: Low back pain, Muscle spasm. - Condition is Stable. - Discharge Instructions: Back Pain, Adult, Hypertension, Musculoskeletal Pain, Back Injury Prevention, Otbo-si-Dddr, Cryotherapy, Rehydration, Adult, Heat Therapy. - Prescriptions for Diclofenac Sodium 75 mg Oral Tablet Sustained Release - take 1 tablet by ORAL route 2 times per day; 30 tablet. orphenadrine citrate 100 mg Oral Tablet Sustained Release - take 1 tablet by ORAL route 2 times per day As needed; 20 tablet. - Work release form, Medication Reconciliation Form, Thank You Letter, Antibiotic Education, Prescription Opioid Use form. - Follow up: Emergency Department; When: As needed; Reason: Worsening of condition. Follow up: Private Physician; When: 1 week; Reason: Recheck today's complaints, Continuance of care, Re-evaluation by your physician. Signatures: Dispatcher [employer] EDMS Gabbie Regalado, STOCK SHAPER-C STOCK SHAPER-Csnw Alvarado Bass MD MD rn Hall, Patricia, RN RN ph Lewis, Lynsay, RN RN ll1 Corrections: (The following items were deleted from the chart) 14:15 13:57 11/14/2019 13:57 Discharged to Home. Impression: Low back pain; Muscle spasm. ll1 Condition is Stable. Forms are Medication Reconciliation Form, Thank You Letter, Antibiotic Education, Prescription Opioid Use. Follow up: Emergency Department; When: As needed; Reason: Worsening of condition. Follow up: Private Physician; When: 1 week; Reason: Recheck today's complaints, Continuance of care, Re-evaluation by your physician. snw
[2019-11-14 14:28] VITALS: TEMP 97.9; O2SAT 98
[2019-11-14 14:33] VITALS: BP 139/88
== END 2019-11-14 14:15 | disposition home or self-care (01) ==
LOC: ER 12:28
DX: M62.830 Muscle spasm of back (principal); F17.210 Nicotine dependence, cigarettes, uncomplicated; Z91.048 Other nonmedicinal substance allergy status; Z87.820 Personal history of traumatic brain injury
CPT/HCPCS: 74176; 76377; 81003; 81025; 96372; 99283

== ENCOUNTER 2019-12-27 15:07 | Emergency (ER) | payer SELFPAY ==
[2019-12-27] MEDS ORDERED: KETOROLAC 30 MG/ML INJ ONE (15:58)
--- NOTE | 2019-12-27 17:05 | RAD REPORT ---
EXAM DESCRIPTION: RAD - Humerus Right - 12/27/2019 4:49 pm CLINICAL HISTORY: Right arm pain FINDINGS: No fracture is seen. No bony lesion noted
--- NOTE | 2019-12-27 17:07 | RAD REPORT ---
EXAM DESCRIPTION: RAD - Lumbar Spine 3 Views - 12/27/2019 4:44 pm CLINICAL HISTORY: Back pain FINDINGS: The alignment of the lumbar spine is satisfactory. No fracture or dislocation is seen. Sclerosis involves the inferior vertebral endplate of L5 without obvious change from in October 2019 ca t scan
--- NOTE | 2019-12-27 17:29 | EDPHYS ---
Physician Documentation [facility] Name: Steven Ortega Age: 34 yrs Sex: Female : 1985 Arrival Date: 12/27/2019 Time: 15:09 Bed 17 Private MD: ED Physician Kyle Johnson HPI: 12/26 16:36 This 34 yrs old Black Female presents to ER via Ambulatory with complaints of Back mh7 Pain, Arm Pain. 16:36 The patient presents with pain that is acute, and an injury. The symptoms are located mh7 in the low back. 16:37 Onset: The symptoms/episode began/occurred 2 week(s) ago. The pain does not radiate. mh7 Associated signs and symptoms: Pertinent negatives: abdominal pain, chest pain, constipation, dysuria, fever, headache, hematuria, incontinence, nausea, numbness, tingling, urinary retention, vomiting, weakness. The problem was sustained when bending over, when lifting patient, from twisting. Modifying factors: The patient symptoms are alleviated by remaining still, the patient symptoms are aggravated by bending, lifting, movement. Severity of symptoms: At their worst the symptoms were moderate, yesterday, in the emergency department the symptoms are unchanged. Patient states she has lower back and right arm pain that started two weeks ago. 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 . Historical: - Allergies: 15:17 Niacin (Hives, burning all over); ph - PMHx: 15:17 partially paralyzed on left side; TBI; ph - PSHx: 15:17 right wrist; left ankle; ph - Immunization history:: Adult Immunizations unknown. ROS: 16:37 Constitutional: Negative for fever, chills, and weight loss, Eyes: Negative for injury, mh7 pain, redness, and discharge, ENT: Negative for injury, pain, and discharge, Neck: Negative for injury, pain, and swelling. 16:40 Cardiovascular: Negative for chest pain, palpitations, and edema, Respiratory: Negative mh7 for shortness of breath, cough, wheezing, and pleuritic chest pain, Abdomen/GI: Negative for abdominal pain, nausea, vomiting, diarrhea, and constipation, : Negative for injury, bleeding, discharge, and swelling, Skin: Negative for injury, rash, and discoloration, Neuro: Negative for headache, weakness, numbness, tingling, and seizure, Psych: Negative for depression, anxiety, suicide ideation, homicidal ideation, and hallucinations, Allergy/Immunology: Negative for hives, rash, and allergies, Endocrine: Negative for neck swelling, polydipsia, polyuria, polyphagia, and marked weight changes, Hematologic/Lymphatic: Negative for swollen nodes, abnormal bleeding, and unusual bruising. Exam: 16:40 Constitutional: This is a well developed, well nourished patient who is awake, alert, mh7 and in no acute distress. Head/Face: Normocephalic, atraumatic. Eyes: Pupils equal round and reactive to light, extra-ocular motions intact. Lids and lashes normal. Conjunctiva and sclera are non-icteric and not injected. Cornea within normal limits. Periorbital areas with no swelling, redness, or edema. Neck: Trachea midline, no thyromegaly or masses palpated, and no cervical lymphadenopathy. Supple, full range of motion without nuchal rigidity, or vertebral point tenderness. No Meningismus. Chest/axilla: Normal chest wall appearance and motion. Nontender with no deformity. No lesions are appreciated. Cardiovascular: Regular rate and rhythm with a normal S1 and S2. No gallops, murmurs, or rubs. Normal PMI, no JVD. No pulse deficits. Respiratory: Lungs have equal breath sounds bilaterally, clear to auscultation and percussion. No rales, rhonchi or wheezes noted. No increased work of breathing, no retractions or nasal flaring. Abdomen/GI: Soft, non-tender, with normal bowel sounds. No distension or tympany. No guarding or rebound. No evidence of tenderness throughout. 16:40 Neuro: Awake and alert, GCS 15, oriented to person, place, time, and situation. Cranial nerves II-XII grossly intact. Motor strength 5/5 in all extremities. Sensory grossly intact. Cerebellar exam normal. Normal gait. Psych: Awake, alert, with orientation to person, place and time. Behavior, mood, and affect are within normal limits. 16:40 Back: pain, that is moderate, of the lumbar area, ROM is painful, with all movement, normal spinal alignment noted, CVA tenderness, is absent, muscle spasm, is appreciated in the lumbar area, Straight leg raises: of both lower extremities does not illicit pain. 16:40 Musculoskeletal/extremity: Extremities: noted in the right arm: pain, tenderness, ROM: intact in all extremities, Circulation is intact in all extremities. Pulses: are normal with no appreciated deficits, Perfusion: the patient is normally perfused throughout, Perfusion: the extremity is normally perfused throughout, Calf tenderness, is absent, Edema, is not appreciated, Sensation intact. Compartment Syndrome exam of affected extremity: is normal. no numbness, no tingling, no sensation deficit, no palor, no weak pulses, Joints: All joints appear normal with full range of motion. Weight bearing: able to fully bear weight, without difficulty, Tendon exam: specific tendon testing normal through active and passive range of motion DVT Exam: no swelling, negative Homans' sign noted on exam, no appreciated bluish discoloration, no erythema, no increased warmth, Calves: are non-tender, have equal circumference. Vital Signs: 15:13 BP 122 / 76; Pulse 76; Resp 18; Temp 98.4; Pulse Ox 100% on R/A; ph MDM: 15:47 Patient medically screened. [facility] 17:26 Differential diagnosis: chronic back pain, Osteoarthritis ruptured disc, sprain, mh7 vertebral fracture. Data reviewed: vital signs, nurses notes, lab test result(s), radiologic studies, plain films. Data interpreted: Pulse oximetry: on room air is 100 %. Interpretation: normal. Counseling: I had a detailed discussion with the patient and/or guardian regarding: the historical points, exam findings, and any diagnostic results supporting the discharge/admit diagnosis, lab results, radiology results, the need for outpatient follow up, to return to the emergency department if symptoms worsen or persist or if there are any questions or concerns that arise at home. 19:56 Response to treatment: the patient's symptoms have markedly improved after treatment. [facility] 12/26 16:01 Order name: Urine Dipstick--Ancillary (enter results) 12/26 16:01 Order name: Urine --Ancillary (enter results) 12/26 15:47 Order name: Lumbar Spine (3 Views) XRAY; Complete Time: 17:11 [facility] 12/26 15:47 Order name: Humerus Right XRAY; Complete Time: 17:11 [facility] Administered Medications: 16:18 Drug: TORadol 60 mg Route: IM; Site: right ventrogluteal; ah Disposition: 12/27/19 17:29 Discharged to Home. Impression: Low back pain, Musculoskeletal pain. - Condition is Stable. - Discharge Instructions: Musculoskeletal Pain, Back Injury Prevention, [id number], Back Pain, Adult, [id number], Form - Excuse from Work, School, or Physical Activity. - Prescriptions for Ibuprofen 800 mg Oral Tablet - take 1 tablet by ORAL route every 8 hours As needed take with food; 15 tablet. Robaxin 500 mg Oral Tablet - take 2 tablets by ORAL route every 6 hours As needed; 40 tablet. - Work release form, Medication Reconciliation Form, Thank You Letter, Antibiotic Education, Prescription Opioid Use form. - Follow up: Private Physician; When: 1 - 2 days; Reason: Worsening of condition, Recheck today's complaints, Re-evaluation by your physician. - Problem is an ongoing problem. - Symptoms have improved. Signatures: Dispatcher [employer] Tiffany Jj RN RN ph Jackson, Kandis kj1 Key Landry RN RN Kyle Johnson MD MD mh7 Corrections: (The following items were deleted from the chart) 18:24 17:29 12/27/2019 17:29 Discharged to Home. Impression: Low back pain; Musculoskeletal kj1 pain. Condition is Stable. Forms are Medication Reconciliation Form, Thank You Letter, Antibiotic Education, Prescription Opioid Use. Follow up: Private Physician; When: 1 - 2 days; Reason: Worsening of condition, Recheck today's complaints, Re-evaluation by your physician. Problem is an ongoing problem. Symptoms have improved. mh7
--- NOTE | 2019-12-27 17:29 | ER ---
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 Coronavirus screen: Patient denies a cough. Patient denies shortness of breath or difficulty breathing. Patient denies measured and/or subjective temperature greater than 100.4F prior to today's visit. Patient denies travel on a cruise ship or to a country the [facility] currently lists as an affected area. Patient denies contact with known and/or suspected case of COVID-19. Ebola Screen: No symptoms or risks identified at this time. Initial Sepsis Screen: Does the patient meet any 2 criteria? No. Patient's initial sepsis screen is negative. Does the patient have a suspected source of infection? No. Patient's initial sepsis screen is negative. Risk Assessment: Do you want to hurt yourself or someone else? Patient reports no desire to harm self or others. Onset of symptoms was December 27, 2019. 15:13 Method Of Arrival: Ambulatory 15:13 Acuity: HOANG 4 ph Historical: - Allergies: 15:17 Niacin (Hives, burning all over); ph - PMHx: 15:17 partially paralyzed on left side; TBI; ph - PSHx: 15:17 right wrist; left ankle; ph - Immunization history:: Adult Immunizations unknown. Screenin:27 Abuse screen: Denies threats or abuse. Nutritional screening: No deficits noted. Tuberculosis screening: No symptoms or risk factors identified. Fall Risk None identified. Assessment: 15:25 General: Appears in no apparent distress. Behavior is calm, cooperative. Pain: Complains of pain in posterior aspect of right shoulder and right tricep Pain currently is 6 out of 10 on a pain scale. Aggravated by pulling/pushing. Neuro: Level of Consciousness is awake, alert, obeys commands. Cardiovascular: Capillary refill < 3 seconds Patient's skin is warm and dry. Respiratory: Respiratory effort is even, unlabored. Musculoskeletal: Circulation, motion, and sensation intact. Capillary refill < 3 seconds, Range of motion: limited in right shoulder Reports over use at work. 16:20 Reassessment: Medications given at this time for pain. Awaiting for xrays. No needs voiced. 17:20 Reassessment: Pt having decreased pain at this time. Awaiting on radiology results. Vital Signs: 15:13 BP 122 / 76; Pulse 76; Resp 18; Temp 98.4; Pulse Ox 100% on R/A; ph ED Course: 15:09 Patient arrived in ED. ag5 15:17 Triage completed. 15:17 Arm band placed on Patient placed in an exam room. 15:27 Key Landry, RN is Primary Nurse. 15:27 Patient has correct armband on for positive identification. Bed in low position. Call light in reach. Side rails up X 1. 15:31 Kyle Johnson MD is Attending Physician. [facility] 16:37 Lumbar Spine (3 Views) XRAY In Process Unspecified. EDMS 16:37 Humerus Right XRAY In Process Unspecified. EDMS 17:00 No provider procedures requiring assistance completed. Patient did not have IV access during this emergency room visit. Administered Medications: 16:18 Drug: TORadol 60 mg Route: IM; Site: right ventrogluteal; Outcome: 17:29 Discharge ordered by . [facility] 17:30 Discharged to home ambulatory. 17:30 Condition: good 17:30 Discharge instructions given to patient, Instructed on discharge instructions, follow up and referral plans. medication usage, Demonstrated understanding of instructions, follow-up care, medications, Prescriptions given X 2. 18:24 Patient left the ED. kj1 Signatures: Dispatcher [employer] EDTiffany Tang RN RN Brisa Wolfe [facility] Patria Irving kj1 Key Landry, RN RN Kyle Johnson MD MD [facility]
[2019-12-27 18:29] VITALS: BP 122/76; TEMP 98.4; O2SAT 100
[2019-12-27 20:46] LABS: Urine Blood NEGATIVE (NEG); Urine Glucose NEGATIVE (NEG); Urine Protein NEGATIVE (NEG)
== END 2019-12-27 18:24 | disposition home or self-care (01) ==
LOC: ER 15:07
DX: M54.9 Dorsalgia, unspecified (principal)
CPT/HCPCS: 72100; 81003; 81025; 96372; 99283

== ENCOUNTER 2020-06-15 03:49 | Emergency (ER) | payer SELFPAY ==
[2020-06-15 04:14] LABS: Urine Blood 3+ (NEG); Urine Glucose NEGATIVE (NEG); Urine Protein 3+ (NEG); Urine Specific Gravity >1.030 (1.005-1.030); Urine pH 6.5 (5.0-7.0)
[2020-06-15 04:21] LABS: Absolute Lymphocytes (CBC) 1.5 K/uL (0.7-4.9); Basophils % 0.6 % (0-1.3); Hematocrit 31.3 % (36.0-45.0); Lymphocytes % 19.5 % (15.3-44.8); RBC Red Blood Cell Count 3.41 M/uL (3.86-4.86)
[2020-06-15 04:29] LABS: Urine Bacteria >50 /HPF (<20); Urine Culture Reflex Order REFLEXED; Urine Mucus 2+ /HPF (NONE SEEN); Urine RBC TNTC /HPF (NONE SEEN)
[2020-06-15] MEDS ORDERED: MORPHINE 4 MG/ML SYR ONE ×2 (04:31→04:38)
[2020-06-15] MEDS ORDERED: NA CHLORIDE 0.9% 0 ML ONE (04:32)
[2020-06-15] MEDS ORDERED: ONDANSETRON 4 MG/2 ML VIAL ONE ×2 (04:32→04:38)
[2020-06-15 04:36] LABS: Albumin 3.6 g/dL (3.4-5.0); Bilirubin Direct 0.1 mg/dL (0-0.2); Bilirubin Total 0.3 mg/dL (0.2-1.0); Potassium 3.9 mmol/L (3.5-5.1); Protein, Total 8.4 g/dL (6.4-8.2)
[2020-06-15] MEDS ORDERED: NA CHLORIDE 0.9% 1,000 ML ONE (04:38)
--- NOTE | 2020-06-15 05:41 | EDPHYS ---
Physician Documentation [facility] Name: Steven Ortega Age: 34 yrs Sex: Female : 1985 Arrival Date: 06/15/2020 Time: 03:53 Bed 8 Private MD: None, None ED Physician Ivan Huang HPI: 06/15 04:24 This 34 yrs old Black Female presents to ER via Ambulatory with complaints of Abdominal pkl Pain. 04:24 The patient presents with abdominal pain in the upper abdomen. Onset: The pkl symptoms/episode began/occurred just prior to arrival, 4 hour(s) ago. The symptoms do not radiate. Associated signs and symptoms: Pertinent positives: diarrhea, for 2 days. 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 - Social history:: Smoking status: unknown. ROS: 04:24 Eyes: Negative for injury, pain, redness, and discharge, ENT: Negative for injury, pkl pain, and discharge, Neck: Negative for injury, pain, and swelling, Cardiovascular: Negative for chest pain, palpitations, and edema, Respiratory: Negative for shortness of breath, cough, wheezing, and pleuritic chest pain. 04:24 Abdomen/GI: Positive for abdominal pain, diarrhea, of the right upper quadrant and left upper quadrant. 04:24 Back: Negative for acute changes. 04:24 : Negative for urinary symptoms. 04:24 MS/extremity: Negative for acute changes. 04:24 Skin: Negative for rash. 04:24 Neuro: Negative for altered mental status, loss of consciousness. Exam: 04:24 Head/Face: Normocephalic, atraumatic. Eyes: Pupils equal round and reactive to light, pkl extra-ocular motions intact. Lids and lashes normal. Conjunctiva and sclera are non-icteric and not injected. Cornea within normal limits. Periorbital areas with no swelling, redness, or edema. ENT: Nares patent. No nasal discharge, no septal abnormalities noted. Tympanic membranes are normal and external auditory canals are clear. Oropharynx with no redness, swelling, or masses, exudates, or evidence of obstruction, uvula midline. Mucous membranes moist. Neck: Trachea midline, no thyromegaly or masses palpated, and no cervical lymphadenopathy. Supple, full range of motion without nuchal rigidity, or vertebral point tenderness. No Meningismus. Chest/axilla: Normal chest wall appearance and motion. Nontender with no deformity. No lesions are appreciated. Cardiovascular: Regular rate and rhythm with a normal S1 and S2. No gallops, murmurs, or rubs. Normal PMI, no JVD. No pulse deficits. Respiratory: Lungs have equal breath sounds bilaterally, clear to auscultation and percussion. No rales, rhonchi or wheezes noted. No increased work of breathing, no retractions or nasal flaring. 04:24 Abdomen/GI: Bowel sounds: active, Palpation: moderate abdominal tenderness, in the right upper quadrant and left upper quadrant. 04:24 Back: Exam negative for acute changes. 04:24 : Exam negative for acute changes. 04:24 Musculoskeletal/extremity: Exam is negative for acute changes. 04:24 Skin: Exam negative for rash. 04:24 Neuro: Orientation: is normal, Mentation: is normal, Cranial nerves: grossly normal, Motor: is normal. Vital Signs: 03:57 Temp 99.7; sg 03:59 BP 128 / 70; Pulse 60; Resp 18; Temp 98.2; Pulse Ox 98% ; ea 04:00 BP 128 / 70; Pulse 76; Resp 18; Temp 99.5(TE); Pulse Ox 100% on R/A; Weight 110.68 kg; oe 05:51 BP 117 / 62; Pulse 70; Resp 16; Temp 98; Pulse Ox 99% ; rr5 MDM: 04:08 Patient medically screened. pkl 05:34 Data reviewed: vital signs, nurses notes, lab test result(s), radiologic studies, CT pkl scan. ED course: Patient feeling better. Abdominal pain resolved. Discussed lab and CT Scan results with patient. Advised to follow up with her PCP in 2 to 3 days. Patient understood instructions. 06/15 04:01 Order name: Basic Metabolic Panel; Complete Time: 04:44 ea 06/15 04:01 Order name: CBC with Diff; Complete Time: 04:44 ea 06/15 04:01 Order name: Hepatic Function; Complete Time: 04:44 ea 06/15 04:01 Order name: Lipase; Complete Time: 04:44 ea 06/15 04:12 Order name: Urine --Ancillary (enter results); Complete Time: 04:18 tt3 06/15 04:12 Order name: Urine Dipstick--Ancillary (enter results); Complete Time: 04:18 tt3 06/15 04:12 Order name: Urine Microscopic Only; Complete Time: 04:44 rr5 06/15 04:23 Order name: CT Abd/Pelvis - IV Contrast Only pkl 06/15 04:31 Order name: Urine Culture EDMS 06/15 04:01 Order name: IV Saline Lock; Complete Time: 04:14 ea 06/15 04:01 Order name: Labs collected and sent; Complete Time: 04:14 ea 06/15 04:01 Order name: Urine Dipstick-Ancillary (obtain specimen); Complete Time: 04:14 ea Administered Medications: 04:25 Drug: Zofran (Ondansetron) 4 mg Route: IVP; Site: right antecubital; rr5 05:47 Follow up: Response: No adverse reaction ea 04:27 Drug: NS 0.9% 500 ml Route: IV; Rate: bolus; Site: right antecubital; rr5 04:45 Follow up: Response: No adverse reaction; IV Status: Completed infusion; IV Intake: rr5 500ml 04:27 Drug: morphine 4 mg {Note: rass 0.} Route: IVP; Site: right antecubital; rr5 05:47 Follow up: Response: No adverse reaction; Pain is decreased ea 04:45 Drug: NS 0.9% 1000 ml Route: IV; Rate: 125 ml/hr; Site: right antecubital; rr5 05:50 Follow up: Response: No adverse reaction; IV Status: Order to discontinue infusion; IV rr5 Intake: 125ml 05:46 Drug: Cipro 500 mg Route: PO; ea 05:50 Follow up: Response: Medication administered at discharge. rr5 05:46 Drug: Pyridium 200 mg Route: PO; ea 05:50 Follow up: Response: Medication administered at discharge. rr5 Disposition: 06/15/20 05:40 Discharged to Home. Impression: Abdominal pain. Cystitis. Gastreneritis. - Condition is Stable. - Prescriptions for Pyridium 200 mg Oral Tablet - take 1 tablet by ORAL route every 8 hours for 3 days; 9 tablet. Cipro 500 mg Oral Tablet - take 1 tablet by ORAL route every 12 hours for 7 days; 14 tablet. - Medication Reconciliation Form, Thank You Letter, Antibiotic Education, Prescription Opioid Use, Work release form form. - Follow up: Private Physician; When: 2 - 3 days; Reason: Re-evaluation by your physician. - Problem is new. - Symptoms have improved. Signatures: Dispatcher [employer] EDKY Ivan Huang MD MD pkl Puja Morales, RN RN Haroon Pascual RN RN rr5 Corrections: (The following items were deleted from the chart) 05:53 05:40 06/15/2020 05:40 Discharged to Home. Impression: Abdominal pain. Cystitis. rr5 Gastreneritis. Condition is Stable. Forms are Medication Reconciliation Form, Thank You Letter, Antibiotic Education, Prescription Opioid Use. Follow up: Private Physician; When: 2 - 3 days; Reason: Re-evaluation by your physician. Problem is new. Symptoms have improved. pkl
--- NOTE | 2020-06-15 05:41 | ER ---
Nurse's Notes [facility] Name: Steven Ortega Age: 34 yrs Sex: Female : 1985 Arrival Date: 06/15/2020 Time: 03:53 Bed 8 Private MD: None, None Diagnosis: Abdominal pain. Cystitis. Gastreneritis Presentation: 06/15 03:57 Chief complaint: Patient states: I woke up about an hour or two ago with worsening sg abdominal pain. pt states pain began yesterday and has just been getting worse, reports nausea that comes and goes, no other symptoms reported for triage at this time. Coronavirus screen: nausea, Client presents with at least one sign or symptom that may indicate coronavirus-19. Standard/surgical mask placed on the client. Provider contacted for isolation considerations. Ebola Screen: Patient negative for fever greater than or equal to 101.5 degrees Fahrenheit, and additional compatible Ebola Virus Disease symptoms Patient denies exposure to infectious person. Patient denies travel to an Ebola-affected area in the 21 days before illness onset. No symptoms or risks identified at this time. Initial Sepsis Screen: Does the patient meet any 2 criteria? No. Patient's initial sepsis screen is negative. Does the patient have a suspected source of infection? Yes: Acute abdominal pain. Risk Assessment: Do you want to hurt yourself or someone else? Patient reports no desire to harm self or others. Onset of symptoms was June 14, 2020. Care prior to arrival: None. Transition of care: patient was not received from another setting of care. 03:57 Acuity: HOANG 3 sg 03:57 Method Of Arrival: Ambulatory sg 03:59 Onset of symptoms was June 15, 2020. ea 04:01 Acuity: HOANG 3 ea 04:01 Ebola Screen: No symptoms or risks identified at this time. 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 - Social history:: Smoking status: unknown. Screenin:56 Abuse screen: Denies threats or abuse. Nutritional screening: No deficits noted. ea Tuberculosis screening: No symptoms or risk factors identified. Fall Risk None identified. Assessment: 03:58 General: Appears in no apparent distress. Behavior is appropriate for age. Pain: ea Complains of pain in abdomen. Neuro: Level of Consciousness is awake, alert, obeys commands, Oriented to person, place, time, situation. Cardiovascular: Patient's skin is warm and dry. Respiratory: Airway is patent Respiratory effort is even, unlabored, Respiratory pattern is regular, symmetrical. GI: Abdomen is non-distended. Derm: Skin is dry, Skin is normal, Skin temperature is warm. 04:46 Reassessment: Patient appears in no apparent distress at this time. Patient is alert, rr5 oriented x 3, equal unlabored respirations, skin warm/dry/pink. Patient states symptoms have improved. 05:50 Reassessment: Patient appears in no apparent distress at this time. Patient is alert, rr5 oriented x 3, equal unlabored respirations, skin warm/dry/pink. discharge instruction given and explained without complaints made Patient states feeling better. Patient states symptoms have improved. Vital Signs: 03:57 Temp 99.7; sg 03:59 BP 128 / 70; Pulse 60; Resp 18; Temp 98.2; Pulse Ox 98% ; ea 04:00 BP 128 / 70; Pulse 76; Resp 18; Temp 99.5(TE); Pulse Ox 100% on R/A; Weight 110.68 kg; oe 05:51 BP 117 / 62; Pulse 70; Resp 16; Temp 98; Pulse Ox 99% ; rr5 ED Course: 03:53 Patient arrived in ED. ag3 03:56 Puja Morales, RN is Primary Nurse. ea 03:56 Arm band placed on right wrist. Patient placed in an exam room, on a stretcher, on ea pulse oximetry. 03:57 Patient has correct armband on for positive identification. Bed in low position. Call ea light in reach. Side rails up X 1. Pulse ox on. NIBP on. 04:01 Triage completed. ea 04:08 Ivna Huang MD is Attending Physician. pkl 04:14 Inserted saline lock: 20 gauge in right antecubital area, using aseptic technique. ea Blood collected. 04:15 Urine collected: clean catch specimen, blood tinged, sediment noted. rr5 04:39 None, None is Private Physician. sg 05:11 CT Abd/Pelvis - IV Contrast Only In Process Unspecified. EDMS 05:47 No provider procedures requiring assistance completed. IV discontinued, intact, ea bleeding controlled, No redness/swelling at site. Pressure dressing applied. Administered Medications: 04:25 Drug: Zofran (Ondansetron) 4 mg Route: IVP; Site: right antecubital; rr5 05:47 Follow up: Response: No adverse reaction ea 04:27 Drug: NS 0.9% 500 ml Route: IV; Rate: bolus; Site: right antecubital; rr5 04:45 Follow up: Response: No adverse reaction; IV Status: Completed infusion; IV Intake: rr5 500ml 04:27 Drug: morphine 4 mg {Note: rass 0.} Route: IVP; Site: right antecubital; rr5 05:47 Follow up: Response: No adverse reaction; Pain is decreased ea 04:45 Drug: NS 0.9% 1000 ml Route: IV; Rate: 125 ml/hr; Site: right antecubital; rr5 05:50 Follow up: Response: No adverse reaction; IV Status: Order to discontinue infusion; IV rr5 Intake: 125ml 05:46 Drug: Cipro 500 mg Route: PO; ea 05:50 Follow up: Response: Medication administered at discharge. rr5 05:46 Drug: Pyridium 200 mg Route: PO; ea 05:50 Follow up: Response: Medication administered at discharge. rr5 Intake: 04:45 IV: 500ml; Total: 500ml. rr5 05:50 IV: 125ml; Total: 625ml. rr5 Outcome: 05:40 Discharge ordered by . pksindi 05:52 Discharged to home ambulatory. rr5 05:52 Condition: stable 05:52 Discharge instructions given to patient, Instructed on discharge instructions, follow up and referral plans. medication usage, Demonstrated understanding of instructions, follow-up care, medications, Prescriptions given X 2. 05:53 Patient left the ED. rr5 Addendum: 06/18/2020 07:31 Addendum: Culture Results: Positive urine culture. No further action required. Bacteria i w sensitive to prescribed antibiotic. Signatures: Dispatcher [employer] EDMS Gavin Khan RN RN sg Lam, Pin, MD MD pkCarol Lopez RN RN iw Espinosa, [place] oe Morales, Puja, RN Lenore Nath ea ag3 Haroon Cabrera RN RN rr5 Corrections: (The following items were deleted from the chart) 06/15 04:22 04:00 BP 128 / 70; Pulse 76bpm; Resp 18bpm; Pulse Ox 100% RA; Temp 99.5F Temporal; oe oe
[2020-06-15] MEDS ORDERED: CIPROFLOXACIN HCL 500 MG TAB ONE (05:57)
[2020-06-15] MEDS ORDERED: PHENAZOPYRIDINE 100MG TAB PO ONE (05:57)
--- NOTE | 2020-06-15 21:07 | RAD REPORT ---
EXAM DESCRIPTION: CT Abdomen and Pelvis With Intravenous Contrast CLINICAL HISTORY: The patient is 34 years old and is Female; ABD PAIN TECHNIQUE: Axial computed tomography images of the abdomen and pelvis with intravenous contrast. S agittal and coronal reformatted images were created and reviewed. This CT exam was performed using one or more of the following dose reduction techniques: automated exposure control, adjustment of t he mA and/or kV according to patient size, and/or use of iterative reconstruction technique. COMPARISON: CT of the abdomen and pelvis November 14, 2019 FINDINGS: LUNG BASES: Unremarkable. No mass. No consolidation. ABDOMEN: LIVER: Unremarkable. No mass. GALLBLADDER AND BILE DUCTS: No calcified stones. No ductal dilation. PANCREAS: No ductal dilation. No mass. SPLEEN: Unremarkable. ADRENALS: Unremarkable. No mass. KIDNEYS AND URETERS: Unremarkable. The kidneys enhance symmetrically. No obstructing renal or ure teral calculus is seen. No hydronephrosis or hydroureter. No perinephric fluid or stranding. STOMACH AND BOWEL: The stomach is distended with food contents. The small bowel is normal in anabell petr. A moderate amount stool is present throughout colon. There is no mucosal thickening or evidence of bowel obstruction. PELVIS: APPENDIX: The appendix is normal in caliber without surrounding inflammation. BLADDER: Diffuse bladder wall thickening is present. The bladder is not well distended. REPRODUCTIVE: Unremarkable as visualized. ABDOMEN and PELVIS: INTRAPERITONEAL SPACE: Unremarkable. No free air. No significant fluid collection. BONES/JOINTS: Minimal degenerative change at L5-S1 is present. SOFT TISSUES: The soft tissues are normal. VASCULATURE: Unremarkable. No abdominal aortic aneurysm. LYMPH NODES: Unremarkable. No enlarged lymph nodes. IMPRESSION: Diffuse bladder wall thickening out of proportion to the degree of distention and concer nikky for cystitis. Electronically signed by: Becca Rose MD 06/15/2020 5:20 AM RETAIL GENERAL MANAGER Due to temporary technical issues with the PACS/Fluency reporting system, reports are being signed by the in house radiologists without review as a courtesy to insure prompt reporting. The interpreting radiologist is fully responsible for the content of the report.
[2020-06-15 21:40] VITALS: BP 117/62; TEMP 98; O2SAT 99
== END 2020-06-15 05:53 | disposition home or self-care (01) ==
LOC: ER 03:49
DX: N30.90 Cystitis, unspecified without hematuria (principal); K52.9 Noninfective gastroenteritis and colitis, unspecified; Z91.048 Other nonmedicinal substance allergy status; Z87.820 Personal history of traumatic brain injury
CPT/HCPCS: 36415; 74177; 80048; 80076; 81003; 81015; 81025; 83690; 85025; 87077; 87086; 87088; 87186; 96361; 96374; 96375; 99284; J2405; J7030; Q9967

== ENCOUNTER 2020-12-03 08:44 | Emergency (ER) | payer SELFPAY ==
--- NOTE | 2020-12-03 11:49 | EDPHYS ---
Physician Documentation [facility] Name: Steven Ortega Age: 35 yrs Sex: Female : 1985 Arrival Date: 12/03/2020 Time: 08:47 Bed 23 Private MD: ED Physician Alvarado Bass HPI: 12/03 11:25 This 35 yrs old Black Female presents to ER via Ambulatory with complaints of Foot Pain.pm1 11:25 The patient presents with pain, that is acute. The complaints affect the ball of left pm1 foot. Context: The problem was sustained at an unknown site, resulted from an unknown cause, the patient can fully bear weight, the patient is able to ambulate, Patient with history of partial paralysis to left foot. Her lesser toes are flexed and she started walking at the age of [age]. Onset: The symptoms/episode began/occurred 1 month(s) ago. Modifying factors: The symptoms are alleviated by nothing. the symptoms are aggravated by weight bearing. Associated signs and symptoms: Pertinent negatives calf tenderness, fever, numbness, swelling, tingling. Treatment prior to arrival includes: over the counter medications, NSAIDS, are ineffective. Severity of symptoms: in the emergency department the symptoms are unchanged. The patient has not experienced similar symptoms in the past. The patient has not recently seen a physician. 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 - Social history:: Smoking status: Patient denies any tobacco usage or history of. ROS: 11:25 Constitutional: Negative for fever, chills, and weight loss, Cardiovascular: Negative pm1 for chest pain, palpitations, and edema, Respiratory: Negative for shortness of breath, cough, wheezing, and pleuritic chest pain. 11:25 Abdomen/GI: Negative for abdominal pain, nausea, vomiting, diarrhea, and constipation, Back: Negative for injury and pain, Skin: Negative for injury and discoloration, rash to soles of feet have been present for many months and her family members have the same rash on their feet. No rash present to hands Neuro: Negative for headache, weakness, numbness, tingling, and seizure. 11:25 MS/extremity: Positive for pain, of the ball of left foot, Negative for injury or acute deformity, deformity. Exam: 11:25 Constitutional: This is a well developed, well nourished patient who is awake, alert, pm1 and in no acute distress. Head/Face: Normocephalic, atraumatic. Eyes: Pupils equal round and reactive to light, extra-ocular motions intact. Lids and lashes normal. Conjunctiva and sclera are non-icteric and not injected. Cornea within normal limits. Periorbital areas with no swelling, redness, or edema. 11:25 Neck: Trachea midline, no thyromegaly or masses palpated, and no cervical lymphadenopathy. Supple, full range of motion without nuchal rigidity, or vertebral point tenderness. No Meningismus. 11:25 ENT: Mouth: Lips: normal, moist, Oral mucosa: normal, pink and intact, moist. 11:25 Cardiovascular: Rate: normal, Rhythm: regular, Pulses: no pulse deficits are appreciated. 11:25 Respiratory: Exam negative for Breath sounds: are clear throughout. 11:25 Musculoskeletal/extremity: Extremities: grossly normal except: noted in the ball of left foot: tenderness, There is no evidence of deformity, erythema, Circulation is intact in all extremities. 11:25 Skin: Appearance: normal except for affected area. 11:25 Neuro: Exam negative for acute changes, Orientation: is normal, Mentation: is normal, Motor: is normal, moves all fours. Vital Signs: 08:52 BP 119 / 71; Pulse 72; Resp 17 S; Temp 98.5(TE); Pulse Ox 99% on R/A; Weight 108.86 kg jd3 (R); Height 5 ft. 7 in. (170.18 cm) (R); Pain 10/10; 11:00 BP 109 / 71; Pulse 76; Resp 16 S; Pulse Ox 100% on R/A; ca1 08:52 Body Mass Index 37.59 (108.86 kg, 170.18 cm) jd3 MDM: 09:57 Patient medically screened. pm1 11:47 Data reviewed: vital signs. Data interpreted: Pulse oximetry: on room air is 100 %. pm1 Interpretation: normal. Counseling: I had a detailed discussion with the patient and/or guardian regarding: the historical points, exam findings, and any diagnostic results supporting the discharge/admit diagnosis, radiology results, the need for outpatient follow up, to return to the emergency department if symptoms worsen or persist or if there are any questions or concerns that arise at home. 12/03 10:26 Order name: Foot Left 3 View XRAY pm1 Administered Medications: 11:34 Drug: Decadron (dexamethasone) 10 mg Route: IM; Site: right gluteus; ca1 11:55 Follow up: Response: No adverse reaction ca1 11:34 Drug: [place] (HYDROcodone-acetaminophen) 5 mg-325 mg 1 tabs {Note: rass 0.} Route: PO; ca1 11:55 Follow up: Response: No adverse reaction; Pain is decreased; RASS: Alert and Calm (0) ca1 Disposition: 15:58 Co-signature as Attending Physician, Alvarado Bass MD. rn Disposition: 12/03/20 11:48 Discharged to Home. Impression: Pain in left foot. - Condition is Stable. - Discharge Instructions: Foot Sprain, Foot Pain. - Prescriptions for Tylenol- Codeine #3 300-30 mg Oral Tablet - take 2 tablets by ORAL route every 4-6 hours As needed; 20 tablet. Medrol (Parveen) 4 mg Oral Tablets, Dose Pack - take 1 tablet by ORAL route as directed - follow package instructions; 1 packet. - Medication Reconciliation Form, Thank You Letter, Antibiotic Education, Prescription Opioid Use, Work release form form. - Follow up: Emergency Department; When: As needed; Reason: Worsening of condition. Follow up: Private Physician; When: 2 - 3 days; Reason: Recheck today's complaints, Continuance of care, Re-evaluation by your physician. - Problem is new. - Symptoms have improved. Signatures: Dispatcher [employer] EDMS Alvarado Bass MD MD rn Marinas, Patrick, NP [employer] pm1 Braeden Galarza RN RN jd3 Atiya Rolon RN RN ca1 Corrections: (The following items were deleted from the chart) 11:57 11:48 12/03/2020 11:48 Discharged to Home. Impression: Pain in left foot. Condition is ca1 Stable. Forms are Medication Reconciliation Form, Thank You Letter, Antibiotic Education, Prescription Opioid Use. Follow up: Emergency Department; When: As needed; Reason: Worsening of condition. Follow up: Private Physician; When: 2 - 3 days; Reason: Recheck today's complaints, Continuance of care, Re-evaluation by your physician. Problem is new. Symptoms have improved. pm1
--- NOTE | 2020-12-03 11:49 | ER ---
Nurse's Notes [facility] Name: Steven Ortega Age: 35 yrs Sex: Female : 1985 Arrival Date: 12/03/2020 Time: 08:47 Bed 23 Private MD: Diagnosis: Pain in left foot Presentation: 12/03 08:50 Chief complaint: Patient states: "I haven't had a flair up in forever, but I do have jd3 gout. I am not sure that is what it is, but my left foot feels like it is on fire when standing or putting pressure on it.". Coronavirus screen: At this time, the client does not indicate any symptoms associated with coronavirus-19. Ebola Screen: Patient negative for fever greater than or equal to 101.5 degrees Fahrenheit, and additional compatible Ebola Virus Disease symptoms. Initial Sepsis Screen: Does the patient meet any 2 criteria? No. Patient's initial sepsis screen is negative. Does the patient have a suspected source of infection? No. Patient's initial sepsis screen is negative. Risk Assessment: Do you want to hurt yourself or someone else? Patient reports no desire to harm self or others. Onset of symptoms was November 30, 2020. 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 - Social history:: Smoking status: Patient denies any tobacco usage or history of. Screenin:05 Abuse screen: Denies threats or abuse. Denies injuries from another. Nutritional ca1 screening: No deficits noted. Tuberculosis screening: No symptoms or risk factors identified. Fall Risk None identified. Assessment: 10:05 General: Appears in no apparent distress. comfortable, Behavior is calm, cooperative, ca1 appropriate for age. Pain: Complains of pain in ball of left foot Pain currently is 10 out of 10 on a pain scale. Pain began 2 weeks. Pain: Aggravated by weight bearing. Neuro: Level of Consciousness is awake, alert, obeys commands, Oriented to person, place, time, situation. Derm: Skin is intact, is healthy with good turgor, Skin is pink, warm \\T\\ dry. Rash noted that is on right foot and left foot dark spots/patchy on sole of alok feet. Musculoskeletal: Circulation, motion, and sensation intact. Capillary refill < 3 seconds. 11:00 Reassessment: Patient appears in no apparent distress at this time. Patient and/or ca1 family updated on plan of care and expected duration. Pain level reassessed. Patient is alert, oriented x 3, equal unlabored respirations, skin warm/dry/pink. Vital Signs: 08:52 BP 119 / 71; Pulse 72; Resp 17 S; Temp 98.5(TE); Pulse Ox 99% on R/A; Weight 108.86 kg jd3 (R); Height 5 ft. 7 in. (170.18 cm) (R); Pain 10/10; 11:00 BP 109 / 71; Pulse 76; Resp 16 S; Pulse Ox 100% on R/A; ca1 08:52 Body Mass Index 37.59 (108.86 kg, 170.18 cm) jd3 ED Course: 08:47 Patient arrived in ED. am2 08:51 Triage completed. jd3 08:53 Arm band placed on. jd3 09:43 Abdullahi Manzano NP is PHCP. pm1 09:44 Alvarado Bass MD is Attending Physician. pm1 09:56 Atiya Rolon, OLEG is Primary Nurse. ca1 10:05 Patient has correct armband on for positive identification. Bed in low position. Call ca1 light in reach. Side rails up X 1. Pulse ox on. NIBP on. Warm blanket given. 11:17 Foot Left 3 View XRAY In Process Unspecified. EDMS 11:57 No provider procedures requiring assistance completed. Patient did not have IV access ca1 during this emergency room visit. Administered Medications: 11:34 Drug: Decadron (dexamethasone) 10 mg Route: IM; Site: right gluteus; ca1 11:55 Follow up: Response: No adverse reaction ca1 11:34 Drug: [place] (HYDROcodone-acetaminophen) 5 mg-325 mg 1 tabs {Note: rass 0.} Route: PO; ca1 11:55 Follow up: Response: No adverse reaction; Pain is decreased; RASS: Alert and Calm (0) ca1 Outcome: 11:48 Discharge ordered by . pm1 11:57 Discharged to home ambulatory, with family. ca1 11:57 Condition: stable 11:57 Discharge instructions given to patient, Instructed on discharge instructions, follow up and referral plans. no drinking with medication, no driving heavy equipment, medication usage, Demonstrated understanding of instructions, follow-up care, medications, Prescriptions given X 2. 11:57 Patient left the ED. ca1 Signatures: Dispatcher [employer] EDMS Abdullahi Manzano NP CUSTOMER SUPPORT ADVISOR pm1 Pina Daly am2 Braeden Galarza RN RN jd3 Atiya Rolon RN RN ca1
[2020-12-03] MEDS ORDERED: HYDROCODONE/APAP 5/325 MG TAB ONE (11:51)
[2020-12-03] MEDS ORDERED: dexAMETHasone 10 MG/ML VIAL ONE (11:51)
[2020-12-03 12:02] VITALS: TEMP 98.5
[2020-12-03 12:04] VITALS: BP 109/71; O2SAT 100
--- NOTE | 2020-12-03 13:34 | RAD REPORT ---
EXAM DESCRIPTION: RAD - Foot Left 3 View - 12/03/2020 11:17 am CLINICAL HISTORY: PAIN COMPARISON: No comparisons FINDINGS: No fracture, dislocation or periosteal reaction. No acute or destructive bony process. Pa tient indicates pain lateral aspect of foot at the fifth metatarsal base level. In this region no bon e or soft tissue abnormality seen. Patient indicates a history of gout. No radiographic evidence for that disease process. Plantar arch is partially flattening. No plantar spur. No air or foreign body in the soft tissues. IMPRESSION: Negative left foot examination for acute or significant finding.
== END 2020-12-03 11:57 | disposition home or self-care (01) ==
LOC: ER 08:44
DX: M79.672 Pain in left foot (principal); Z87.820 Personal history of traumatic brain injury; Z91.048 Other nonmedicinal substance allergy status
CPT/HCPCS: 96372; 99284; J1100

== ENCOUNTER 2021-01-25 01:02 | Emergency (ER) | payer SELFPAY ==
[2021-01-25] MEDS ORDERED: dexAMETHasone 10 MG/ML VIAL ONE (01:59)
[2021-01-25] MEDS ORDERED: KETOROLAC 30 MG/ML INJ ONE (01:59)
--- NOTE | 2021-01-25 02:00 | EDPHYS ---
Physician Documentation [facility] Name: Steven Ortega Age: 35 yrs Sex: Female : 1985 Arrival Date: 01/25/2021 Time: 01:04 Bed 8 Private MD: ED Physician Alvarado Bass HPI: 01/25 01:21 This 35 yrs old Black Female presents to ER via Unassigned with complaints of Toothache.rn 01:21 The patient presents with broken tooth/teeth, pain. The problem is located in the left rn lower mandibular teeth. Onset: The symptoms/episode began/occurred just prior to arrival. Duration: The symptoms are continuous. Modifying factors: The symptoms are alleviated by nothing, the symptoms are aggravated by chewing. Associated signs and symptoms: Pertinent positives: pain, Pertinent negatives: chills, dysphagia, fever, swelling, vomiting. Severity of symptoms: At their worst the symptoms were moderate, in the emergency department the symptoms are unchanged. The patient has experienced similar episodes in the past. The patient has not recently seen a physician. Reports left lower dental pain, noticed about a month or so ago broke/chipped her tooth, was doing ok recently, but 15 min ago began with acute pain again, no fever/chills/swelling/drainage. [place] pain after eating ice. . 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 - Family history:: not pertinent. - Social history:: Smoking status: Patient denies any tobacco usage or history of. - Hospitalizations: : No recent hospitalization is reported. ROS: 01:21 Constitutional: Negative for fever, chills, and weight loss, ENT: + left lower dental rn pain Neck: Negative for injury, pain, and swelling, Cardiovascular: Negative for chest pain, palpitations, and edema, Respiratory: Negative for shortness of breath, cough, wheezing, and pleuritic chest pain, Abdomen/GI: Negative for abdominal pain, nausea, vomiting, diarrhea, and constipation, MS/Extremity: Negative for injury and deformity, Skin: Negative for injury, rash, and discoloration. Exam: :21 Constitutional: This is a well developed, well nourished patient who is awake, alert, rn appears uncomfortable Head/Face: Normocephalic, atraumatic. Eyes: Pupils equal round and reactive to light, extra-ocular motions intact. Lids and lashes normal. Conjunctiva and sclera are non-icteric and not injected. Cornea within normal limits. Periorbital areas with no swelling, redness, or edema. ENT: + left lower mandibular tooth with large crack and 1/4 of tooth missing, central discoloration, no drainage or swelling. MMM Neck: No neck swelling or masses Vital Signs: 01:30 BP 130 / 62; Pulse 70; Resp 19; Temp 97.6; Pulse Ox 98% ; ea MDM: 01:06 Patient medically screened. rn 01:21 Differential diagnosis: dental caries, gingivitis, dental abscess. rn 01:59 Data reviewed: vital signs, nurses notes, and as a result, I will discharge patient. rn Counseling: I had a detailed discussion with the patient and/or guardian regarding: the historical points, exam findings, and any diagnostic results supporting the discharge/admit diagnosis, the need for outpatient follow up, to return to the emergency department if symptoms worsen or persist or if there are any questions or concerns that arise at home. Response to treatment: the patient's symptoms have mildly improved after treatment, and as a result, I will discharge patient. Special discussion: I discussed with the patient/guardian in detail that at this point there is no indication for admission to the hospital. It is understood, however, that if the symptoms persist or worsen the patient needs to return immediately for re-evaluation. Based on the history and exam findings, there is no indication for further emergent testing or inpatient evaluation. I discussed with the patient/guardian the need to see a dentist for further evaluation of the symptoms. 02:02 ED course: Patient states pain resolved. . rn 01/25 01:21 Order name: IV Start; Complete Time: :51 rn Administered Medications: :51 Drug: Ketorolac 30 mg Route: IVP; Site: right antecubital; ea 02:11 Follow up: Response: No adverse reaction ea 01:51 Drug: Decadron - Dexamethasone 10 mg Route: IVP; Site: right antecubital; ea 02:11 Follow up: Response: No adverse reaction ea Disposition Summary: 07/02/21 01:59 Discharge Ordered Location: Home rn Problem: new rn Symptoms: have improved rn Condition: Stable rn Diagnosis - Dental root caries rn Followup: rn - With: Private Physician - When: As needed - Reason: Recheck today's complaints, Re-evaluation by your physician Discharge Instructions: - Discharge Summary Sheet rn - Dental Caries, Adult rn - Dental Pain rn Forms: - Medication Reconciliation Form rn - Thank You Letter rn - Antibiotic sports management intern - Prescription Opioid Use rn - Work release form ea Signatures: Alvarado Bass MD MD rn Antunez, Elena, RN RN ea Corrections: (The following items were deleted from the chart) 01:25 01:21 Constitutional: This is a well developed, well nourished patient who is awake, rn alert, appears uncomfortable Head/Face: Normocephalic, atraumatic. Eyes: Pupils equal round and reactive to light, extra-ocular motions intact. Lids and lashes normal. Conjunctiva and sclera are non-icteric and not injected. Cornea within normal limits. Periorbital areas with no swelling, redness, or edema. ENT: + left lower mandibular tooth with large crack and 1/4 of tooth missing, central discoloration, no drainage or swelling. MMM rn
--- NOTE | 2021-01-25 02:00 | ER ---
Nurse's Notes [facility] Name: Steven Ortega Age: 35 yrs Sex: Female : 1985 Arrival Date: 01/25/2021 Time: 01:04 Bed 8 Private MD: Diagnosis: Dental root caries Presentation: 01/25 01:24 Coronavirus screen: At this time, the client does not indicate any symptoms associated ea with coronavirus-19. Ebola Screen: No symptoms or risks identified at this time. Initial Sepsis Screen: Does the patient meet any 2 criteria? No. Patient's initial sepsis screen is negative. Does the patient have a suspected source of infection? No. Patient's initial sepsis screen is negative. Risk Assessment: Do you want to hurt yourself or someone else? Patient reports no desire to harm self or others. Onset of symptoms was January 25, 2021. 01:24 Acuity: HOANG 5 ea 01:52 Chief complaint: Patient states: Reports tooth pain that woke her up from her sleep ea tonight. 01:52 Method Of Arrival: Ambulatory ea Triage Assessment: 01:26 General: Appears in no apparent distress. Behavior is calm, cooperative. Pain:. EENT: ea Reports pain. Respiratory: Airway is patent Respiratory effort is even, unlabored, Respiratory pattern is regular, symmetrical. Derm: Skin is pink, warm \T\ dry. 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 - Family history:: not pertinent. - Social history:: Smoking status: Patient denies any tobacco usage or history of. - Hospitalizations: : No recent hospitalization is reported. Screenin:24 Abuse screen: Denies threats or abuse. Nutritional screening: No deficits noted. ea Tuberculosis screening: No symptoms or risk factors identified. Fall Risk None identified. Assessment: 01:51 Reassessment: Patient and/or family updated on plan of care and expected duration. Pain ea level reassessed. Patient is alert, oriented x 3, equal unlabored respirations, skin warm/dry/pink. 02:09 Reassessment: Patient and/or family updated on plan of care and expected duration. Pain ea level reassessed. Patient is alert, oriented x 3, equal unlabored respirations, skin warm/dry/pink. Discharge instruction given to patient verbalized the understanding of instruction. Pt left ED ambulatory tolerating well. Vital Signs: 01:30 BP 130 / 62; Pulse 70; Resp 19; Temp 97.6; Pulse Ox 98% ; ea ED Course: 01:04 Patient arrived in ED. bp1 01:06 Alvarado Bass MD is Attending Physician. rn 01:24 Puja Morales RN is Primary Nurse. ea 01:24 Patient has correct armband on for positive identification. Bed in low position. Call ea light in reach. Side rails up X2. 01:24 Arm band placed on right wrist. Patient placed in an exam room, on a stretcher, on ea pulse oximetry. 01:25 Triage completed. ea 01:50 Inserted saline lock: 20 gauge in right antecubital area, using aseptic technique. ea 02:08 No provider procedures requiring assistance completed. IV discontinued, intact, ea bleeding controlled, No redness/swelling at site. Pressure dressing applied. Administered Medications: 01:51 Drug: Ketorolac 30 mg Route: IVP; Site: right antecubital; ea 02:11 Follow up: Response: No adverse reaction ea 01:51 Drug: Decadron - Dexamethasone 10 mg Route: IVP; Site: right antecubital; ea 02:11 Follow up: Response: No adverse reaction ea Outcome: 01:59 Discharge ordered by . rn 02:08 Discharged to home ambulatory. ea 02:08 Condition: stable 02:08 Discharge instructions given to patient, Instructed on discharge instructions, follow up and referral plans. Demonstrated understanding of instructions, follow-up care. 02:11 Patient left the ED. ea Signatures: Alvarado Bass MD MD rn Antunez, Elena, RN RN ea Pania[place], Brittany bp1 Corrections: (The following items were deleted from the chart) 01:51 01:50 Inserted saline lock: 20 gauge in right antecubital area, using aseptic ea technique. Blood collected. ea
[2021-01-25 05:59] VITALS: BP 130/62; TEMP 97.6; O2SAT 98
== END 2021-01-25 02:11 | disposition home or self-care (01) ==
LOC: ER 01:02
DX: K02.7 Dental root caries (principal); Z91.048 Other nonmedicinal substance allergy status
CPT/HCPCS: 96374; 96375; 99283; J1100

== ENCOUNTER 2021-02-10 22:59 | Emergency (ER) | payer SELFPAY ==
--- NOTE | 2021-02-11 02:19 | ER ---
Nurse's Notes [facility] Name: Steven Ortega Age: 35 yrs Sex: Female : 1985 Arrival Date: 02/10/2021 Time: 23:01 Bed External Waiting Private MD: Diagnosis: Presentation: 02/10 23:20 Chief complaint: Patient states: chest pain that started 1 hour ago, hx of anxiety, em denies any other symptoms, EKG done in triage, sinus rhythm. Coronavirus screen: Client denies travel out of the [place] in the last 14 days. Ebola Screen: Patient negative for fever greater than or equal to 101.5 degrees Fahrenheit, and additional compatible Ebola Virus Disease symptoms Patient denies exposure to infectious person. Patient denies travel to an Ebola-affected area in the 21 days before illness onset. No symptoms or risks identified at this time. Initial Sepsis Screen: Does the patient meet any 2 criteria? No. Patient's initial sepsis screen is negative. Does the patient have a suspected source of infection? No. Patient's initial sepsis screen is negative. Risk Assessment: Do you want to hurt yourself or someone else? Patient reports no desire to harm self or others. Onset of symptoms was February 10, 2021. 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 - Social history:: Smoking status: Patient denies any tobacco usage or history of. Vital Signs: 23:20 BP 112 / 68; Pulse 77; Resp 16; Temp 97.8; Pulse Ox 99% on R/A; Weight 111.13 kg; em Height 5 ft. 7 in. (170.18 cm); Pain 9/10; 23:20 Body Mass Index 38.37 (111.13 kg, 170.18 cm) em ED Course: 23:01 Patient arrived in ED. ag3 23:21 Triage completed. em 23:21 Arm band placed on. em Administered Medications: No medications were administered Outcome: 02/11 02:19 Patient left the ED. ca1 Signatures: Lawrence Mirza, RN RN em Lenore Granados ag3 Atiya Rolon, RN RN ca1
[2021-02-11 02:25] VITALS: BP 112/68; TEMP 97.8; O2SAT 99
== END 2021-02-11 02:19 | disposition left against medical advice (07) ==
LOC: ER 22:59
DX: Z53.21 Procedure and treatment not carried out due to patient leaving prior to being seen by health care provider (principal)
CPT/HCPCS: 93005; 99281

== ENCOUNTER 2021-02-13 17:51 | Emergency (ER) | payer SELFPAY ==
--- NOTE | 2021-02-13 20:58 | ER ---
Nurse's Notes [facility] Name: Steven Ortega Age: 35 yrs Sex: Female : 1985 Arrival Date: 02/13/2021 Time: 17:54 Bed External Waiting Private MD: Diagnosis: Presentation: 02/13 18:01 Chief complaint: Patient states: Sharp pain under the L breast x 3 days. Pain is worse ca1 when deep breathing, laughing or cough. SOB with exertion. Coronavirus screen: Client denies travel out of the [place] in the last 14 days. shortness of breath, Client presents with at least one sign or symptom that may indicate coronavirus-19. Standard/surgical mask placed on the client. Provider contacted for isolation considerations. Ebola Screen: Patient negative for fever greater than or equal to 101.5 degrees Fahrenheit, and additional compatible Ebola Virus Disease symptoms Patient denies exposure to infectious person. Patient denies travel to an Ebola-affected area in the 21 days before illness onset. No symptoms or risks identified at this time. Initial Sepsis Screen: Does the patient meet any 2 criteria? No. Patient's initial sepsis screen is negative. Does the patient have a suspected source of infection? No. Patient's initial sepsis screen is negative. Risk Assessment: Do you want to hurt yourself or someone else? Patient reports no desire to harm self or others. Onset of symptoms was February 13, 2021. 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 - Social history:: Smoking status: Patient reports the use of cigarette tobacco products, denies chronic smoking, but will smoke occasionally. Assessment: 20:22 Reassessment: called back into a room, no answer. em Vital Signs: 18:01 Pulse 62; Resp 15 S; Temp 97.6(TE); Pulse Ox 100% on R/A; Weight 108.86 kg (R); Height ca1 5 ft. 7 in. (170.18 cm) (R); Pain 7/10; 18:03 BP 119 / 72; ca1 18:01 Body Mass Index 37.59 (108.86 kg, 170.18 cm) ca1 ED Course: 17:54 Patient arrived in ED. mr 18:03 Triage completed. ca1 18:03 Arm band placed on right wrist. EKG completed in triage. Results shown to MD. ca1 20:20 Alvarado Bass MD is Attending Physician. rn Administered Medications: No medications were administered Outcome: 20:58 Patient left the ED. em Signatures: Padma Dean mr MirzaLawrence, RN RN em Alvarado Bass MD MD rn Acob, OLEG Rajput RN ca1
--- NOTE | 2021-02-13 20:58 | EDPHYS ---
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 - Social history:: Smoking status: Patient reports the use of cigarette tobacco products, denies chronic smoking, but will smoke occasionally. Vital Signs: 18:01 Pulse 62; Resp 15 S; Temp 97.6(TE); Pulse Ox 100% on R/A; Weight 108.86 kg (R); Height ca1 5 ft. 7 in. (170.18 cm) (R); Pain 7/10; 18:03 BP 119 / 72; ca1 18:01 Body Mass Index 37.59 (108.86 kg, 170.18 cm) ca1 MDM: 20:22 ED course: Pt was going to be brought back, eloped, never seen by provider.. rn 02/13 18:04 Order name: EKG; Complete Time: 18:05 ca1 02/13 18:04 Order name: EKG - Nurse/Tech; Complete Time: 18:04 ca1 Administered Medications: No medications were administered Disposition Summary: 02/13/21 20:58 Eloped Disposition: before being seen by provider em Reason: unknown em Signatures: Lawrence Mirza RN RN em Alvarado Bass MD MD rn AcobAtiya RN RN ca1 Corrections: (The following items were deleted from the chart) 20:22 20:20 Patient medically screened. rn rn
[2021-02-13 21:02] VITALS: TEMP 97.6; O2SAT 100
[2021-02-13 21:04] VITALS: BP 119/72
--- NOTE | 2021-02-14 11:00 | EKG ---
Test Date: 2021-02-13 Test Time: 18:08:04 Mussel Opener: MAGGIE MEASUREMENT RESULTS: Intervals: Rate: 71 MN: 118 QRSD: 94 QT: 394 QTc: 428 [place]: P: 0 MN: 118 QRS: 25 T: 24 INTERPRETIVE STATEMENTS: Normal sinus rhythm Normal ECG Compared to ECG 02/10/2021 23:18:23 No significant changes Electronically Signed On 02-14-21 10:58:44 CDT by Fortunato Sanches
== END 2021-02-13 20:58 | disposition left against medical advice (07) ==
LOC: ER 17:51
DX: Z53.21 Procedure and treatment not carried out due to patient leaving prior to being seen by health care provider (principal)
CPT/HCPCS: 93005; 99281

== ENCOUNTER 2021-02-22 03:08 | Emergency (ER) | payer SELFPAY ==
--- OUTSIDE RECORDS SUMMARY | 2021-02-22 03:11 | XMS REPORT | Continuity of Care Document ---
:1985 Author Organization [facility] t Address [address] [place] [address] Care Team Providers Name Role Phone Krys Saucedo DO Attending Clinician Problems This patient has no known problems. Allergies, Adverse Reactions, Alerts This patient has no known allergies or adverse reactions. Medications This patient has no known medications. Procedures This patient has no known procedures. Encounters Start End Encounter Admission Attending Care Care Encounter Source Date/Time Date/Time Type Type Clinicians Facility Department ID 2021-02-20 2021-02-20 Emergency [facility] [id number] 06:57:00 07:31:00 Clemencia Barron [id number] [place] [id number] [place] [id number] 2021-02-14 2021-02-14 Emergency [facility] [id number] 16:10:00 19:05:00 Clemencia Barron [id number] [place] [id number] [place] [id number] Results This patient has no known results.
--- NOTE | 2021-02-22 03:31 | EDPHYS ---
Physician Documentation [facility] Name: Steven Ortega Age: 35 yrs Sex: Female : 1985 Arrival Date: 02/22/2021 Time: 03:19 Bed Waiting Private MD: ED Physician Zach Fuller HPI: 02/22 03:29 This 35 yrs old Black Female presents to ER via Ambulatory with complaints of Toothache.ma2 03:29 Onset: The symptoms/episode began/occurred gradually, 3 day(s) ago. Associated signs ma2 and symptoms: Pertinent negatives: chills, fever, nausea, pain. Severity of symptoms: At their worst the symptoms were mild. The patient has not experienced similar symptoms in the past. 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 - Social history:: Smoking status: Patient reports the use of cigarette tobacco products, denies chronic smoking, but will smoke occasionally, Patient uses alcohol, occasionally. Patient/guardian denies using street drugs. - Family history:: not pertinent. ROS: 03:29 Constitutional: Negative for fever, chills, and weight loss. ma2 03:29 All other systems are negative. Exam: 03:29 Constitutional: This is a well developed, well nourished patient who is awake, alert, ma2 and in no acute distress. Head/Face: Normocephalic, atraumatic. Eyes: Pupils equal round and reactive to light, extra-ocular motions intact. Lids and lashes normal. Conjunctiva and sclera are non-icteric and not injected. Cornea within normal limits. Periorbital areas with no swelling, redness, or edema. ENT: Dental caries of left lower second molar, otherwise nares patent. No nasal discharge, no septal abnormalities noted. Tympanic membranes are normal and external auditory canals are clear. Oropharynx with no redness, swelling, or masses, exudates, or evidence of obstruction, uvula midline. Mucous membranes moist. Neck: Trachea midline, no thyromegaly or masses palpated, and no cervical lymphadenopathy. Supple, full range of motion without nuchal rigidity, or vertebral point tenderness. No Meningismus. Chest/axilla: Normal chest wall appearance and motion. Nontender with no deformity. No lesions are appreciated. Cardiovascular: Regular rate and rhythm with a normal S1 and S2. No gallops, murmurs, or rubs. Normal PMI, no JVD. No pulse deficits. Respiratory: Lungs have equal breath sounds bilaterally, clear to auscultation and percussion. No rales, rhonchi or wheezes noted. No increased work of breathing, no retractions or nasal flaring. Vital Signs: 03:19 BP 107 / 67; Pulse 72; Resp 16 S; Temp 97.9(TE); Pulse Ox 100% on R/A; Weight 108.86 kg bb (R); Height 5 ft. 7 in. (170.18 cm) (R); Pain 10/10; 03:19 Body Mass Index 37.59 (108.86 kg, 170.18 cm) bb MDM: 03:29 Differential diagnosis: dental caries, gingivitis, dental abscess, pericoronitis, ma2 aphthous ulcers. Data reviewed: vital signs, nurses notes. Counseling: I had a detailed discussion with the patient and/or guardian regarding: the historical points, exam findings, and any diagnostic results supporting the discharge/admit diagnosis, the presence of at least one elevated blood pressure reading (>120/80) during this emergency department visit, the need for outpatient follow up. 03:30 Patient medically screened. ma2 03:31 ED course: Patient has amoxicillin, started yesterday, however she does not have a pain ma2 medicine.. Administered Medications: 03:38 Drug: Ketorolac 60 mg Route: IM; Site: right gluteus; bb 03:38 Follow up: Response: Medication administered at discharge. bb Disposition Summary: 02/22/21 03:30 Discharge Ordered Location: Home ma2 Condition: Fair ma2 Diagnosis - Dental caries, unspecified ma2 Followup: ma2 - With: Private Physician - When: Tomorrow - Reason: Continuance of care Discharge Instructions: - Discharge Summary Sheet ma2 - Dental Caries, Adult ma2 Forms: - Medication Reconciliation Form ma2 - Thank You Letter ma2 - Antibiotic Education ma2 - Prescription Opioid Use ma2 - Work release form tt3 Prescriptions: - Diclofenac Sodium 75 mg Oral Tablet Sustained Release - take 1 tablet by ORAL route 2 times per day; 30 tablet; Refills: 0, Product ma2 Selection Permitted Signatures: Janet Tavera, RN RN Zach Sumner MD MD ma2
--- NOTE | 2021-02-22 03:31 | ER ---
Nurse's Notes [facility] Name: Steven Ortega Age: 35 yrs Sex: Female : 1985 Arrival Date: 02/22/2021 Time: 03:19 Bed Waiting Private MD: Diagnosis: Dental caries, unspecified Presentation: 02/22 03:19 Chief complaint: Patient states: she has a toothache which is painful to the left lower bb jaw was started on amoxicillin and cyclobenzaprine but it is not helping it just makes her go to sleep. Coronavirus screen: At this time, the client does not indicate any symptoms associated with coronavirus-19. Ebola Screen: No symptoms or risks identified at this time. Initial Sepsis Screen: Does the patient meet any 2 criteria? No. Patient's initial sepsis screen is negative. Does the patient have a suspected source of infection? No. Patient's initial sepsis screen is negative. Risk Assessment: Do you want to hurt yourself or someone else? Patient reports no desire to harm self or others. Onset of symptoms was February 22, 2021. 03:19 Method Of Arrival: Ambulatory bb 03:19 Acuity: HOANG 5 bb 03:[address] Fuller in triage for pt evaluation pt to receive IM injection for pain and bb discharged home pt verbalized understanding of and agrees to plan of care. Triage Assessment: 03:21 General: Appears in no apparent distress. uncomfortable, Behavior is calm, cooperative. bb Pain: Complains of pain in left lower jaw. EENT: Reports pain from toothache to left lower jaw. Neuro: Level of Consciousness is awake, alert, obeys commands, Oriented to person, place, time, situation. Cardiovascular: Capillary refill < 3 seconds Patient's skin is warm and dry. Respiratory: Respiratory effort is even, unlabored, Respiratory pattern is regular. GI: No signs and/or symptoms were reported involving the gastrointestinal system. Derm: Skin is dry, Skin is normal, Skin temperature is warm. Musculoskeletal: Circulation, motion, and sensation intact. 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 - Social history:: Smoking status: Patient reports the use of cigarette tobacco products, denies chronic smoking, but will smoke occasionally, Patient uses alcohol, occasionally. Patient/guardian denies using street drugs. - Family history:: not pertinent. Screenin:40 Abuse screen: Denies threats or abuse. Nutritional screening: No deficits noted. bb Tuberculosis screening: No symptoms or risk factors identified. Fall Risk None identified. Assessment: 03:38 Reassessment: pt discharged from triage. bb Vital Signs: 03:19 BP 107 / 67; Pulse 72; Resp 16 S; Temp 97.9(TE); Pulse Ox 100% on R/A; Weight 108.86 kg bb (R); Height 5 ft. 7 in. (170.18 cm) (R); Pain 10/10; 03:19 Body Mass Index 37.59 (108.86 kg, 170.18 cm) bb ED Course: 03:19 Patient arrived in ED. bb 03:21 Triage completed. bb 03:21 Arm band placed on. bb 03:29 Zach Fuller MD is Attending Physician. ma2 03:41 Patient has correct armband on for positive identification. bb 03:41 No provider procedures requiring assistance completed. Patient did not have IV access bb during this emergency room visit. Administered Medications: 03:38 Drug: Ketorolac 60 mg Route: IM; Site: right gluteus; bb 03:38 Follow up: Response: Medication administered at discharge. bb Outcome: 03:30 Discharge ordered by . ma2 03:40 Discharged to home ambulatory. bb 03:40 Condition: stable 03:40 Discharge instructions given to patient, Instructed on discharge instructions, follow up and referral plans. medication usage, Demonstrated understanding of instructions, follow-up care, medications, Prescriptions given X 1. 03:41 Patient left the ED. bb Signatures: Janet Tavera RN RN bb Alzahri, Mohammad, MD MD ma2
[2021-02-22] MEDS ORDERED: KETOROLAC 30 MG/ML INJ ONE (03:53)
[2021-02-22 06:00] VITALS: BP 107/67; TEMP 97.9; O2SAT 100
== END 2021-02-22 03:41 | disposition home or self-care (01) ==
LOC: ER 03:08
DX: K02.9 Dental caries, unspecified (principal); F17.210 Nicotine dependence, cigarettes, uncomplicated; Z87.820 Personal history of traumatic brain injury; G81.94 Hemiplegia, unspecified affecting left nondominant side
CPT/HCPCS: 96372; 99283

== ENCOUNTER 2021-03-23 09:42 | Emergency (ER) | payer SELFPAY ==
--- OUTSIDE RECORDS SUMMARY | 2021-03-23 09:44 | XMS REPORT | Continuity of Care Document ---
:1985 Author Organization [facility] t Address [address] [place] [address] Care Team Providers Name Role Phone Krys [...] Facility Department ID 2021-02-20 2021-02-20 Emergency [facility] [id number] 06:57:00 07:31:00 Clemencia Barron [id number] [place] [id number] [place] [phone] 2021-02-14 2021-02-14 Emergency [facility] [id number] 16:10:00 19:05:00 Clemencia Barron [id number] [place] [id number] [place] [phone] [phone] Results This patient has no known results.
[2021-03-23 10:11] LABS: Urine Blood 2+ (Negative); Urine Glucose Negative (Negative); Urine Protein 1+ (Negative); Urine Specific Gravity 1.025 (1.005-1.030)
--- NOTE | 2021-03-23 10:19 | ER ---
Nurse's Notes [facility] Name: Steven Ortega Age: 35 yrs Sex: Female : 1985 Arrival Date: 03/23/2021 Time: 09:45 Bed 10 Private MD: Diagnosis: UTI/ Urinary tract infection, site not specified Presentation: 03/23 09:57 Chief complaint: Patient states: feels like she still has a uti, was unable to get her iw abx from pharmacy , was diagnosed with UTI a few weeks ago but has been busy, symptoms resolved but now are back , is having pain in mid abd pain and cramping , LMP was 3 weeks ago. Coronavirus screen: At this time, the client does not indicate any symptoms associated with coronavirus-19. Ebola Screen: Patient negative for fever greater than or equal to 101.5 degrees Fahrenheit, and additional compatible Ebola Virus Disease symptoms Patient denies exposure to infectious person. Patient denies travel to an Ebola-affected area in the 21 days before illness onset. No symptoms or risks identified at this time. Initial Sepsis Screen: Does the patient meet any 2 criteria? No. Patient's initial sepsis screen is negative. Does the patient have a suspected source of infection? No. Patient's initial sepsis screen is negative. Risk Assessment: Do you want to hurt yourself or someone else? Patient reports no desire to harm self or others. Onset of symptoms was March 22, 2021. 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 - Social history:: Smoking status: Patient reports the use of cigarette tobacco products, denies chronic smoking, but will smoke occasionally. Vital Signs: 09:57 BP 127 / 62; Pulse 66; Resp 16; Temp 97.9; Pulse Ox 100% on R/A; Weight 113.4 kg; iw Height 5 ft. 7 in. (170.18 cm); 09:57 Body Mass Index 39.16 (113.40 kg, 170.18 cm) iw ED Course: 09:45 Patient arrived in ED. mr 09:55 Anna Irving FNP-C [facility]. kb 09:55 Erick De Souza MD is Attending Physician. kb 09:59 Triage completed. iw 10:00 Arm band placed on. iw 10:28 Carol Saucedo, RN is Primary Nurse. iw Administered Medications: 10:28 Drug: Augmentin (Amoxicillin-Clavulanate) 875 mg Route: PO; iw 10:35 Follow up: Response: No adverse reaction iw 10:29 Drug: Pyridium (phenazopyridine) 100 mg Route: PO; iw 10:35 Follow up: Response: No adverse reaction iw Outcome: 10:18 Discharge ordered by . kb 10:29 Patient left the ED. iw Signatures: Anna Irving FNP-C FNP-Latrice Padma Dean mr Carol Saucedo, RN RN iw
--- NOTE | 2021-03-23 10:19 | EDPHYS ---
Physician Documentation [facility] Name: Steven Ortega Age: 35 yrs Sex: Female : 1985 Arrival Date: 03/23/2021 Time: 09:45 Bed 10 Private MD: ED Physician Erick De Souza HPI: 03/23 10:26 This 35 yrs old Black Female presents to ER via Ambulatory with complaints of Urinary kb Problem. 10:26 The patient presents with urinary symptoms, dysuria, frequency. Onset: The kb symptoms/episode began/occurred last night. Modifying factors: The symptoms are alleviated by nothing, the symptoms are aggravated by urinating. Associated signs and symptoms: Pertinent positives: cramping, dysuria, urinary frequency. Severity of symptoms: At their worst the symptoms were moderate, in the emergency department the symptoms are unchanged. The patient has not experienced similar symptoms in the past. The patient has not recently seen a physician. Pt reports she was told she had a UTI 3 weeks ago, but never picked up the antibiotics. States she started having suprapubic cramping, dysuria and frequency last night. . 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 - Social history:: Smoking status: Patient reports the use of cigarette tobacco products, denies chronic smoking, but will smoke occasionally. ROS: 10:25 Constitutional: Negative for fever, chills, and weight loss. kb 10:25 Abdomen/GI: Positive for abdominal cramps, of the suprapubic area. 10:25 : Positive for urinary symptoms, urinary frequency, burning with urination. 10:25 All other systems are negative. Exam: 10:25 Constitutional: This is a well developed, well nourished patient who is awake, alert, kb and in no acute distress. Head/Face: Normocephalic, atraumatic. ENT: Moist Mucous membranes Respiratory: Respirations even and unlabored. No increased work of breathing, no retractions or nasal flaring. Abdomen/GI: Soft, non-tender. No distention Skin: Warm, dry with normal turgor. Normal color. MS/ Extremity: Pulses equal, no cyanosis. Neurovascular intact. Full, normal range of motion. Neuro: Awake and alert, GCS 15, oriented to person, place, time, and situation. Moves all extremities. Normal gait. Psych: Awake, alert, with orientation to person, place and time. Behavior, mood, and affect are within normal limits. Vital Signs: 09: BP 127 / 62; Pulse 66; Resp 16; Temp 97.9; Pulse Ox 100% on R/A; Weight 113.4 kg; iw Height 5 ft. 7 in. (170.18 cm); :57 Body Mass Index 39.16 (113.40 kg, 170.18 cm) iw MDM: 10:04 [facility] 10:17 Data reviewed: vital signs, nurses notes. Data interpreted: Pulse oximetry: on room air kb is 100 %. Interpretation: normal. Counseling: I had a detailed discussion with the patient and/or guardian regarding: the historical points, exam findings, and any diagnostic results supporting the discharge/admit diagnosis, lab results, the need for outpatient follow up, a family practitioner, to return to the emergency department if symptoms worsen or persist or if there are any questions or concerns that arise at home. 03/23 10:04 Order name: Urine Microscopic Only 03/23 10:10 Order name: Urine Dipstick-Ancillary; Complete Time: 10:15 EDMS 03/23 10:04 Order name: Urine Dipstick-Ancillary (obtain specimen); Complete Time: 10:13 kb 03/23 10:13 Order name: Urine --Ancillary (enter results) 03/23 10:04 Order name: Urine Test (obtain specimen); Complete Time: 10:13 kb Administered Medications: : Drug: Augmentin (Amoxicillin-Clavulanate) 875 mg Route: PO; iw 10:35 Follow up: Response: No adverse reaction iw : Drug: Pyridium (phenazopyridine) 100 mg Route: PO; iw 10:35 Follow up: Response: No adverse reaction iw Disposition: 03/24 08:30 Co-signature as Attending Physician, Erick De Souza MD I agree with the assessment and darcie plan of care. Disposition Summary: 03/23/21 10:18 Discharge Ordered Location: Home kb Condition: Stable kb Diagnosis - UTI/ Urinary tract infection, site not specified kb Followup: kb - With: Emergency Department - When: As needed - Reason: Worsening of condition Followup: kb - With: Private Physician - When: 2 - 3 days - Reason: Recheck today's complaints, Continuance of care, Re-evaluation by your physician Discharge Instructions: - Discharge Summary Sheet kb - Urinary Tract Infection, Adult, [id number] kb - Form - Excuse from Work, School, or Physical Activity 5 - Form - Return To Work mh5 Forms: - Medication Reconciliation Form kb - Thank You Letter kb - Antibiotic Education kb - Prescription Opioid Use kb - Work release form ss Prescriptions: - Augmentin 875-125 mg Oral Tablet - take 1 tablet by ORAL route every 12 hours for 10 days; 20 tablet; Refills: 0, kb Product Selection Permitted - Pyridium 200 mg Oral Tablet - take 1 tablet by ORAL route every 8 hours for 3 days; 9 tablet; Refills: 0, kb Product Selection Permitted Signatures: Dispatcher [employer] Anna Duarte, GEOPHYSICAL OPERATOR-C GEOPHYSICAL OPERATOR-Erick Haq MD MD cha Williams, Irene, RN RN iw
[2021-03-23 10:37] VITALS: BP 127/62; TEMP 97.9; O2SAT 100
[2021-03-23] MEDS ORDERED: AMOX/K CLAV 875 MG TAB ONE (10:44)
[2021-03-23] MEDS ORDERED: PHENAZOPYRIDINE 100MG TAB PO ONE (10:44)
[2021-03-23 11:07] LABS: Urine Bacteria LOADED /HPF (<20); Urine Mucus SLIGHT /HPF (NONE SEEN)
[2021-03-23 12:15] LABS: Urine Specific Gravity/Preg 1.025 (1.005-1.030)
== END 2021-03-23 10:29 | disposition home or self-care (01) ==
LOC: ER 09:42
DX: N39.0 Urinary tract infection, site not specified (principal); F17.210 Nicotine dependence, cigarettes, uncomplicated; Z87.820 Personal history of traumatic brain injury
CPT/HCPCS: 81003; 81015; 81025; 87077; 87086; 87088; 87186; 99282

== ENCOUNTER → 2021-03-31 | Emergency (ER) | payer SELFPAY ==
--- OUTSIDE RECORDS SUMMARY | 2021-03-31 09:05 | XMS REPORT | Continuity of Care Document ---
:1985 Author Organization [facility] t Address [address] [place] [address] Care Team Providers Name Role Phone Krys [...] Clinicians Facility Department ID 2021-02-20 2021-02-20 Emergency [facility] [id number] 06:57:00 07:31:00 Clemencia Barron [id number] [place] [id number] [place] [phone] 2021-02-14 2021-02-14 Emergency [facility] [id number] 16:10:00 19:05:00 Clemencia Barron [id number] [place] [id number] [place] [id number] [phone] Results This patient has no known results.
== END ==
LOC: ER 09:03
DX: Z02.9 Encounter for administrative examinations, unspecified (principal)

== ENCOUNTER 2021-08-01 10:03 | Emergency (ER) | payer SELFPAY ==
--- OUTSIDE RECORDS SUMMARY | 2021-08-01 10:08 | XMS REPORT | Continuity of Care Document ---
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 (test code = 0763592180) Negative Negative LEUK PRAVEEN (test code = Negative Negative 9589545576) RBC/HPF (test code = 8841659153) See_Comment H [Automated message] The system which ge nerated this result transmit bakari reference range: 0 - 3 HP F. The reference range was not used to interpret th is result as normal/abnormal . WBC/HPF (test code = 4811951583) See_Comment [Automated message] The system which ge nerated this result transmit bakari reference range: 0 - 5 HP F. The reference range was not used to interpret th is result as normal/abnormal . BACTERIA (test code = Negative Negative 6999902193) MUCOUS (test code = 9657479227) Slight Negative LPF A SQ EPITH (test code = <1 HPF 7617263137) Lab Interpretation (test code = Abnormal 93956-5) [facility] Test Item Value Reference Range Interpretation Comments APPEARANCE (test code = Clear Clear 5218471323) COLOR (test code = Yellow Yellow 9937152565) PH (test code = 4.8-8.0 8904342803) SP GRAVITY (test code = 1.003-1.030 9341018564) GLU U QUAL (test code = Normal Normal 9185348084) BLOOD (test code = 3+ Negative A 3428890412) KETONES (test code = Negative Negative 0308749280) PROTEIN (test code = Negative Negative 2887-8) UROBILIN (test code = Normal Normal 4206198793) BILIRUBIN (test code = Negative Negative 5765758671) NITRITE (test code = Negative Negative 6726835279) LEUK PRAVEEN (test code = Negative Negative 6422507725) RBC/HPF (test code = See_Comment H [Autom ated message] 9557180700) The system IGG generated this result transmitted ref erence range: 0 - 3 HP F. The reference range was not used to int erpret this result as normal/abnormal . WBC/HPF (test code = See_Comment [Autom ated message] 3768755251) The system IGG generated this result transmitted ref erence range: 0 - 5 HP F. The reference range was not used to int erpret this result as normal/abnormal . BACTERIA (test code = Negative Negative 4765363137) MUCOUS (test code = Slight Negative LPF A 2806853972) SQ EPITH (test code = <1 HPF 2440452713) Lab Interpretation (test Abnormal code = 00368-0) [id number] 15:56:00 Test Item Value Reference Range Interpretation Comments POCT PREG (test code = 1605) negative On board controls acceptable with present C Line (test code = 3574) POCT PREG LOT # (test code = 3575) [id number] POCT PREG TEST DATE (test code = 3576) Lab Interpretation (test code = Normal 38518-9) [facility] [id number] 15:56:00 Test Item Value Reference Range Interpretation Comments POCT PREG (test code = 1605) negative On board controls acceptable with present C Line (test code = 3574) POCT PREG LOT # (test code = 3575) [id number] POCT PREG TEST DATE (test code = 357) Lab Interpretation (test code = Normal 31270-4) [facility] 23:48:16 Test Item Value Reference Range Interpretation Comments APPEARANCE (test code = Cloudy Clear A 1276110181) COLOR (test code = Yellow Yellow 5848245004) PH (test code = 4.8-8.0 4822654571) SP GRAVITY (test code = 1.003-1.030 7670916482) GLU U QUAL (test code = Normal Normal 5187119845) BLOOD (test code = 3+ Negative A 4988102803) KETONES (test code = Negative Negative 4021053827) PROTEIN (test code = 100 mg/dL Negative A 2887-8) UROBILIN (test code = 2.0 mg/dL Normal A 0358153857) BILIRUBIN (test code = Negative Negative 6426925842) NITRITE (test code = Negative Negative 6833981227) LEUK PRAVEEN (test code = 500/uL Negative A 2248108179) RBC/HPF (test code = >182 See_Comment H [Autom ated message] 2677699129) The system IGG generated this result transmit bakari reference range : 0 - 3 HPF. The refe rence range was not u sed to interpret th is result as normal/abnormal . WBC/HPF (test code = >182 See_Comment H [Autom ated message] 7653064443) The system IGG generated this result transmit bakari reference range : 0 - 5 HPF. The refe rence range was not u sed to interpret th is result as normal/abnormal . BACTERIA (test code = Many Negative A 1466784181) MUCOUS (test code = Slight Negative LPF A 5969915021) SQ EPITH (test code = HPF 0756811257) Lab Interpretation (test Abnormal code = 69317-0) [facility] [id number] 23:17:00 Test Item Value Reference Range Interpretation Comments POCT PREG (test code = 1605) NEGATIVE On board controls acceptable with PRESENT C Line (test code = 3574) POCT PREG LOT # (test code = 3575) [id number] POCT PREG TEST DATE (test 07/26/2022 code = 3576) Lab Interpretation (test code = Normal 16358-3) [facility] [id number] 23:08:02 Test Item Value Reference Interpretation Comments Range TROPONIN I (test 0.001 ng/mL See_Comment [Automated code = 8184194214) message] The system which generated this result transmitted reference range : <=0.034. The reference range was not used to interpret this result as normal/abnormal . YAMILETH (test code = Reference (Normal) YAMILETH) Range (defined by the 99th percentile reference limit): <= 0.034 ng/mL Note: Cardiac troponin begins to rise 3-4 hours after the onset of ischemia. Repeat in 4-6 hours if the sample was drawn within 3-4 hours of the onset of the symptom and found normal. Diagnosis of myocardial injury is made with acute changes in cTn concentrations with at least one serial sample above the 99th percentile upper reference limit (URL), taken together with the patient's clinical presentation. Biotin has been reported to cause a negative bias, interpret results relative to patient's use of biotin. Lab Interpretation Normal (test code = 94879-6) [facility] [id number] 23:04:44 Test Item Value Reference Range Interpretation Comments NT-proBNP (test code 111 pg/mL See_Comment [Autom ated = 6086864333) message] The system which generated this result transmitted reference range : <=125. The reference range was not used to interpret this result as normal/abnormal . YAMILETH (test code = YAMILETH) Biotin has been reported to cause a negative bias, interpret results relative to patient's use of biotin. Lab Interpretation Normal (test code = 62184-0) [facility] METABOLIC PANEL (NA, K, CL, CO2, GLUCOSE, BUN, CREATININE, CA)2021-02-14 22:59:22 Test Item Value Reference Range Interpretation Comments NA (test code = 139 mmol/L 135-145 9285001216) K (test code = 3.7 mmol/L 3.5-5.0 1872584873) CL (test code = 104 mmol/L 98-108 5333111286) CO2 TOTAL (test code 26 mmol/L 23-31 = 3584153106) AGAP (test code = 2-16 3397920542) BUN (test code = 10 mg/dL 7-23 2454957005) GLUCOSE (test code = 88 mg/dL 70-110 1326601939) CREATININE (test code 0.76 mg/dL 0.50-1.04 = 8036904231) CALCIUM (test code = 9.7 mg/dL 8.6-10.6 5672728842) eGFR (test code = mL/min/1.73m2 2909791808) YAMILETH (test code = YAMILETH) Association of Glomerular Filtration Rate (GFR) and Staging of Kidney Disease* + + +- +| GFR (mL/min/1.73 m2) ?| With Kidney Damage ?| ?Without Kidney Damage+ ------+ ----+ ------+| ?>90 ?| ?Stage one ?| ? Normal ?+ -+ + -+| ?60-89 ?| ?Stage two ?| ? Decreased GFR ? + + +- +| ?30-59 ?| ?Stage three ?| ? Stage three ? + + +- +| ?15-29 ?| ?Stage four ? | ? Stage four ?+ -+ + -+| ?<15 (or dialysis) ? ?| ?Stage five ? | ? Stage five ?+ -+ + -+ *Each stage assumes the associated GFR level has been in effect for at least three months. ?Stages 1 to 5, with or without kidney disease, indicate chronic kidney disease. Notes: Determination of stages one and two (with eGFR >59mL/min/1.73 m2) requires estimation of kidney damage for at least three months as defined by structural or functional abnormalities of the kidney, manifested by either:Pathological abnormalities or Markers of kidney damage (including abnormalities in the composition of the blood or urine or abnormalities in imaging tests). [facility] (ALB,T.PRO,BILI T,BU/BC,ALT,AST,ALK PHOS)2021-02-14 22:59:22 Test Item Value Reference Range Interpretation Comments TOTAL BILI (test code = 3193478307) 0.5 mg/dL 0.1-1.1 BILI UNCON (test code = 1652104605) 0.3 mg/dL 0.1-1.1 BILI CONJ (test code = 9128518887) 0.0 mg/dL 0.0-0.3 T PROTEIN (test code = 8684174106) 8.6 g/dL 6.3-8.2 H ALBUMIN (test code = 9926744893) 4.6 g/dL 3.5-5.0 ALK PHOS (test code = 8152929949) 82 U/L 34-122 ALTv (test code = 1742-6) 12 U/L 5-35 AST(SGOT) (test code = 6900691801) 23 U/L 13-40 Lab Interpretation (test code = Abnormal 46411-1) [facility] WITH [id number] 22:47:40 Test Item Value Reference Range Interpretation Comments WBC (test code = See_Comment [Automated 5990-2) message] The sy stem which generated this result transmitted reference range : 4.30 - 11.10 10*3/?L. The reference range was not used to interpret this result as normal/abnormal . RBC (test code = See_Comment L [Automated 189-8) message] The sy stem which generated this result transmitted reference range : 3.93 - 5.25 10*6/?L. The reference range was not used to interpret this result as normal/abnormal . HGB (test code = 9.8 g/dL 11.6-15.0 L 718-7) HCT (test code = 30.6 % 35.7-45.2 L 4544-3) MCV (test code = 94.2 fL 80.6-95.5 787-2) MCH (test code = 30.2 pg 25.9-32.8 785-6) MCHC (test code = 32.0 g/dL 31.6-35.1 786-4) RDW-SD (test code = 48.9 fL 39.0-49.9 57833-1) RDW-CV (test code = 14.1 % 12.0-15.5 788-0) PLT (test code = See_Comment [Automated 777-3) message] The sy stem which generated this result transmitted reference range : 166 - 358 10*3/ ?L. The reference r pily was not used to interpret this result as normal/abnormal . MPV (test code = 10.0 fL 9.5-12.9 37004-3) NRBC/100 WBC (test See_Comment [Automat ed code = 2467311259) message] The system which generated this result transmitted reference range : 0.0 - 10.0 /100 WBCs. The refer ence range was not u sed to interpret th is result as normal/abnormal . NRBC x10^3 (test code <0.01 See_Comment [Auto mated = 0227662805) message] The s ystem which generated this result transmitted reference range : 10*3/?L. The reference range was not used to interpret this result as normal/abnormal . GRAN MAT (NEUT) % 76.4 % (test code = 770-8) IMM GRAN % (test code 0.30 % = 3518640634) LYMPH % (test code = 15.4 % 736-9) MONO % (test code = 7.0 % 5905-5) EOS % (test code = 0.4 % 713-8) BASO % (test code = 0.5 % 706-2) GRAN MAT x10^3(ANC) 5.71 10*3/uL 1.88-7.09 (test code = 0724820465) IMM GRAN x10^3 (test <0.03 0.00-0.06 code = 3177360200) LYMPH x10^3 (test code 1.15 10*3/uL 1.32-3.29 L = 731-0) MONO x10^3 (test code 0.52 10*3/uL 0.33-0.92 = 742-7) EOS x10^3 (test code = 0.03 10*3/uL 0.03-0.39 711-2) BASO x10^3 (test code 0.04 10*3/uL 0.01-0.07 = 704-7) Lab Interpretation Abnormal (test code = 42455-5) [facility]
--- NOTE | 2021-08-01 11:27 | ER ---
Nurse's Notes [facility] Name: Steven Ortega Age: 35 yrs Sex: Female : 1985 Arrival Date: 08/01/2021 Time: 10:05 Bed Waiting Private MD: Diagnosis: ED Course: 08/01 10:05 Patient arrived in ED. ds1 11:26 Patient's name was called from ER lobby. No response. Unable to locate patient. Will vg1 disposition as left without being seen by a provider. Administered Medications: No medications were administered Outcome: 11:27 Patient left the ED. vg1 Signatures: Andreea Carlson ds1 Karla Crowe, RN RN vg1
== END 2021-08-01 11:27 | disposition left against medical advice (07) ==
LOC: ER 10:03
DX: Z02.9 Encounter for administrative examinations, unspecified (principal)

== ENCOUNTER 2023-06-22 17:09 | Emergency (ER) | payer OTHER ==
--- OUTSIDE RECORDS SUMMARY | 2023-06-22 17:18 | XMS REPORT | Continuity of Care Document ---
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 400 mg/5 mL (after Branch suspension last 30 mL modificati on) on Thu01/20/23 at 0900, Until Discontinu ed, Routine simethicone 2023-0 Yes 160mg 160 mg, [facility] (GAS RELIEF 01-20 Oral, ity of (SIMETHICON 14:00: [place] E[place] 00 First dose Medical chewable (after Branch tablet 160 last mg modificati on) on Thu01/20/23 at 0900, Until Discontinu ed, Routine magnesium 2023-0 Yes 30mL 30 mL, Univer s hydroxide 01-20 Oral, ity of (MILK OF 14:00: DAILY, [place] MAGNESIA) 00 First dose Medi jose 400 mg/5 mL (after Branch suspension last 30 mL modificati on) on Thu01/20/23 at 0900, Until Discontinu ed, Routine simethicone 2023-0 Yes 160mg 160 mg, [facility] [place] (GAS RELIEF 01-20 Oral, ity of (SIMETHICON 14:00: [place]HS[place] E[place] 00 First dose Medical chewable (after Branch tablet 160 last mg modificati on) on Thu01/20/23 at 0900, Until Discontinu ed, Routine ibuprofen 2023-0 Yes 600mg 600 mg, Univ ers (IBU) 01-20 Oral, Q6H, [place]y of tablet 600 12:00: First dose [place] mg 00 (after Medical last Branch modificati on) on Thu01/20/23 at 0700, Until Discontinu ed, Routine ibuprofen Yes 600mg 600 mg, [facility] ers (IBU) 01-20 Oral, Q6H, [place]y of tablet 600 12:00: First dose [place] mg 00 (after Medical last Branch modificati on) on Thu01/20/23 at 0700, Until Discontinu ed, Routine SERTraline Yes 50mg 50 mg, [facility] (ZOLOFT) 01-19 Oral, ity of tablet 50 14:00: DAILY, [place] mg 00 First dose Medical on Thu01/19/23 at 0900, Until Discontinu ed, Routine SERTraline Yes 50mg 50 mg, [facility] (ZOLOFT) 01-19 Oral, ity of tablet 50 14:00: DAILY, [place] mg 00 First dose Medical on Thu01/19/23 at 0900, Until Discontinu ed, Routine lactated 202- No 1000mL at 125 [facility] ringers IV 01-19 06-26 mL/hr, ity of infusion 10:15: 10:00 1,000 mL, [place] 1,000 mL 00 :00 IV Medical Infusion, Branch ONCE, 1 dose, On Thu01/19/23 at 0515, Routine rho(D) Yes 300ug 300 mcg, [place] [facility] s immune 01-19 Intramuscu ity of globulin 10:04: lar, ONCE, [place] (RHOGAM) 12 For 1 Medical syringe 300 dose, Branch mcg Conditiona l, Routine rho(D) Yes 300ug 300 mcg, [facility] immune 01-19 Intramuscu ity of globulin 10:04: lar, ONCE, [place] (RHOGAM) 12 For 1 Medical syringe 300 dose, Branch mcg Conditiona l, Routine HYDROcodone Yes 2{tbl} 2 tablet, Univers -acetaminop 01-19 Oral, ity of hen (NORCO 10:04: Q6HPRN, [place] 5) 5-325 mg 07 Starting Medi jose tablet 2 on Thu tablet 01/19/23 at 0504, Until Discontinu ed, Routine, Pain (scale 7-10), Alternate with Ibuprofen HYDROcodone 2022-0 Yes 1{tbl} 1 tablet, Univers -acetaminop 01-19 Oral, ity of hen (NORCO 10:04: Q6HPRN, [place] 5) 5-325 mg 07 Starting Medi jose tablet 1 on Thu Branch tablet 01/19/23 at 0504, Until Discontinu ed, Routine, Pain (scale 4-6), Alternate with Ibuprofen diphenhydrA 2022-0 Yes 25mg 25 mg, Univ ers MINE 01-19 Slow IV ity of (BENADRYL) 10:04: Push, [place] injection 07 Q6HPRN, Medical 25 mg Starting Branch on Thu01/19/23 at 0504, Until Discontinu ed, Routine, Itching diphenhydrA 2022-0 Yes 25mg 25 mg, Univ ers MINE 01-19 Oral, ity of (BENADRYL) 10:04: Q6HPRN, [place] tablet 25 07 Starting Medica l mg on Thu Branch 01/19/23 at 0504, Until Discontinu ed, Routine, Sleep, Itching ondansetron 2022-0 Yes 4mg 4 mg, Slow Univers (ZOFRAN 01-19 IV Push, ity of (PF)) 10:04: Q8HPRN, [place] injection 4 07 Starting Medi jose mg on Thu Branch 01/19/23 at 0504, Until Discontinu ed, Routine, Nausea and Vomiting (N/V) bisacodyL 2022-0 Yes 10mg 10 mg, Univer s (DULCOLAX) 01-19 Rectal, ity of suppository 10:04: QDAILYPRN, [place] 10 mg 07 Starting Medical on Thu Branch 01/19/23 at 0504, Until Discontinu ed, Routine, Constipati on docusate 2022-0 Yes 200mg 200 mg, Unive rs (COLACE) 01-19 Oral, ity of capsule 200 10:04: QDAILYPRN, [place] mg 07 Starting Medical on Thu Branch 01/19/23 at 0504, Until Discontinu ed, Routine, Constipati on HYDROcodone 2022-0 Yes 2{tbl} 2 tablet, Univers -acetaminop 01-19 Oral, ity of hen (NORCO 10:04: Q6HPRN, [place] 5) 5-325 mg 07 Starting Medi jose tablet 2 on Thu tablet 01/19/23 at 0504, Until Discontinu ed, Routine, Pain (scale 7-10), Alternate with Ibuprofen HYDROcodone 202-0 Yes 1{tbl} 1 tablet, Univers -acetaminop 01-19 Oral, ity of hen (NORCO 10:04: Q6HPRN, [place] 5) 5-325 mg 07 Starting Medi jose tablet 1 on Thu Branch tablet 01/19/23 at 0504, Until Discontinu ed, Routine, Pain (scale 4-6), Alternate with Ibuprofen diphenhydrA 3-0 Yes 25mg 25 mg, Univ ers MINE 01-19 Slow IV ity of (BENADRYL) 10:04: Push, [place] injection 07 Q6HPRN, Medical 25 mg Starting Branch on Thu01/19/23 at 0504, Until Discontinu ed, Routine, Itching diphenhydrA 2022-0 Yes 25mg 25 mg, Univ ers MINE 01-19 Oral, ity of (BENADRYL) 10:04: Q6HPRN, [place] tablet 25 07 Starting Medica l mg on Thu Branch 01/19/23 at 0504, Until Discontinu ed, Routine, Sleep, Itching ondansetron 2022-0 Yes 4mg 4 mg, Slow Univers (ZOFRAN 01-19 IV Push, ity of (PF)) 10:04: Q8HPRN, [place] injection 4 07 Starting Medi jose mg on Thu Branch 01/19/23 at 0504, Until Discontinu ed, Routine, Nausea and Vomiting (N/V) bisacodyL 2022-0 Yes 10mg 10 mg, Univer s (DULCOLAX) 01-19 Rectal, ity of suppository 10:04: QDAILYPRN, [place] 10 mg 07 Starting Medical on Thu Branch 01/19/23 at 0504, Until Discontinu ed, Routine, Constipati on docusate 202-0 Yes 200mg 200 mg, Unive rs (COLACE) 01-19 Oral, ity of capsule 200 10:04: QDAILYPRN, [place] mg 07 Starting Medical on Thu Branch 01/19/23 at 0504, Until Discontinu ed, Routine, Constipati on ibuprofen 2022- No 600mg 600 mg, Uni vers (IBU) 01-19 Oral, ity of tablet 600 10:04: 11:51 Q6HPRN, [place] mg 07 :54 Starting Medical on Thu Branch 01/19/23 at 0504, Until Thu01/20/23 at 0651, Routine, Pain (scale 1-3) simethicone 2022- No 160mg 160 mg, U nivers (GAS RELIEF 01-19 Oral, ity of (SIMETHICON 10:04: 11:51 PC+HSPRN, [place] E)) 07 :54 Starting Medical chewable on Thu tablet 160 01/19/23 at mg 0504, Until Thu01/20/23 at 0651, Routine, Gas magnesium No 30mL 30 mL, Unive rs hydroxide 01-19 Oral, ity of (MILK OF 10:04: 11:51 QDAILYPRN, [place] MAGNESIA) 07 :54 Starting Medica l 400 mg/5 mL on Thu suspension 01/19/23 at 30 mL 0504, Until Thu01/20/23 at 0651, Routine, Constipati on lactated No 1000mL at 125 Univ ers ringers IV 01-19 mL/hr, ity of infusion 10:04: 20:33 1,000 mL, [place] 1,000 mL 07 :32 IV Medical Infusion, Branch PRN, 1 dose, Starting on Thu01/19/23 at 0504, Until Thu01/19/23 at 1533, Routine naloxone 2022- No .4mg 0.4 mg, Unive rs (NARCAN) 01-19 Slow IV ity of injection 06:57: 06:56 Push, PRN [place] 0.4 mg 01 :01 - SEE Medical INSTRUCTIO Branch NS, Starting on Thu01/19/23 at 0157, Until Thu01/21/23 at 0156, Routine, Analgesia Recovery, PACU diphenhydrA 2022- No 25mg 25 mg, Uni vers MINE 01-19 Slow IV ity of (BENADRYL) 06:57: 06:56 Push, [place] injection 01 :01 Q4HPRN, Medical 25 mg Starting Branch on Thu01/19/23 at 0157, Until Tu01/20/23 at 0156, Routine, Itching, PACU acetaminoph 2022- No 1000mg 1,000 mg, Univers en ADULT 01-19 IV ity of (OFIRMEV) 06:57: 07:38 Infusion, [place] injection 01 :00 at 400 Medical 1,000 mg mL/hr Branch Administer over 15 Minutes, ONCE PRN, 1 dose, Starting on Thu01/19/23 at 0157, Until Thu01/19/23 at 0238, Routine, Pain (scale 4-6), PACU
In dication: Perioperat raffi Patient HYDROcodone 2022- No 1{tbl} 1 tablet, Univers -acetaminop 01-19 Oral, ity of hen (NORCO) 06:52: 07:49 Q6HPRN, 1 [place] 10-325 mg 51 :00 dose, Medical tablet 1 Starting Branch tablet on Thu01/19/23 at 0152, Until Discontinu ed, Routine, Pain (scale 7-10) terbutaline 2022- No .25mg 0.25 mg, Univers (BRETHINE) 01-19 Subcutaneo it y of injection 05:30: 04:41 us, ONCE, [place] 0.25 mg 00 :00 1 dose, On Medica l [facility] Branch 01/19/23 at 0030, Routine alum-mag 2022- No 30mL 30 mL, Univer s hydroxide-s 01-19 Oral, ity of imeth 04:15: 03:41 ONCE, 1 [place] (MAALOX 00 :00 dose, On Medical PLUS / Sun Branch MAG-AL 01/18/23 at PLUS) 2315, 200-200-20 Routine mg/5 mL suspension 30 mL lactated 2022- No 500mL at 999 Unive rs ringers IV 01-19 mL/hr, 500 it y of infusion 04:15: 04:08 mL, [place] 500 mL 00 :00 Intravenou Medical s, ONCE, 1 Branch dose, On 01/18/23 at 2315, Routine acetaminoph No 1000mg 1,000 mg, Univers en 01-19 Oral, ity of (TYLENOL) 03:15: 02:34 ONCE, 1 [place] tablet 00 :00 dose, On Medical 1,000 mg [place] Branch 01/18/23 at 2215, Routine SERTraline 2022- No 50mg 50 mg, [facility] ers (ZOLOFT) 01-19 Oral, ity of tablet 50 02:45: 10:04 DAILY, [place] mg 00 :10 First dose Medical on [place] Branch 01/18/23 at 2145, Until Discontinu ed, Routine lactated No 1000mL at 125 [facility] ringers IV 01-19 mL/hr, ity of infusion 02:45: 10:04 1,000 mL, [place] 1,000 mL 00 :10 IV Medical Infusion, Branch CONTINUOUS , Starting on Thu01/18/23 at 2145, Until Thu01/19/23 at 0504, Routine ceFAZolin 2022- No 2000mg 2,000 mg, Univers (ANCEF) 01-19 IV ity of 2,000 mg in 02:33: 10:04 [facility], [place] NaCl 0.9% 16 :10 O.R. Medical (NS) 100 mL HOLDING Branc h MINI-BAG ONCE, Starting on 01/18/23 at 2133, Until 01/19/23 at 0504, Administer over 30 Minutes, 100 mL
Reas on for Anti-Infec tive: Surgical Prophylaxi s
[place] rgical Prophylaxi s: [employer]
Duration of therapy: within 24 hours of surgery sodium 2022- No 30mL 30 mL, Univers citrate-cit 01-19 Oral, ity of kike acid 02:33: 04:00 PRE-PROCED [place] (BICITRA) 16 :00 URE ONCE, Medic al 500-334 1 dose, Branch mg/5 mL Starting solution 30 on Sun mL 01/18/23 at 2133, Until 01/20/23 at 2359, Routine, Surgery/Pr ocedure fluconazole 2022- No [id number] 150mg Take 1 Univers (DIFLUCAN) 6-08 06-09 tablet by ity of 150 mg 00:00: 04:59 mouth [place] tablet 00 :00 now for 1 Medical dose. Branch acetaminoph No 650mg 650 mg, U nivers en -25 04-25 Oral, ity of (TYLENOL) 01:45: 00:48 ONCE, 1 [place] tablet 650 00 :00 dose, On Medic al mg Mon Branch 11/17/22 at 2045, Routine ascorbic 0 Yes [id number] 500mg Take 1 U nivers acid, 4-04 tablet by ity of vitamin C, 00:00: mouth in [place] 500 mg 00 the Medical tablet morning Branch and 1 tablet at noon and 1 tablet in the evening. ferrous Yes [id number] 325mg Take 1 [place] sulfate 325 4-04 tablet by ity of mg (65 mg 00:00: mouth [place] iron) 00 the Medical tablet morning Branch and 1 tablet in the evening. ascorbic Yes [id number] 500mg Take 1 U nivers acid, 4-04 tablet by ity of vitamin C, 00:00: mouth in [place] 500 mg 00 the Medical tablet morning Branch and 1 tablet at noon and 1 tablet in the evening. ferrous Yes [id number] 325mg Take 1 [place] sulfate 325 4-04 tablet by ity of mg (65 mg 00:00: mouth [place] iron) 00 the Medical tablet morning Branch and 1 tablet in the evening. ascorbic Yes [id number] 500mg Take 1 U nivers acid, 4-04 tablet by ity of vitamin C, 00:00: mouth in [place] 500 mg 00 the Medical tablet morning Branch and 1 tablet at noon and 1 tablet in the evening. ferrous 2022- Yes [id number] 325mg Take 1 [place] sulfate 325 4-04 tablet by ity of mg (65 mg 00:00: mouth [place] iron) 00 the Medical tablet morning Branch and 1 tablet in the evening. ascorbic 2022- Yes [id number] 500mg Take 1 U nivers acid, 4-04 tablet by ity of vitamin C, 00:00: mouth in [place] 500 mg 00 the Medical tablet morning Branch and 1 tablet at noon and 1 tablet in the evening. ferrous 2023-0 Yes [id number] 325mg Take 1 [place] sulfate 325 4-04 tablet by ity of mg (65 mg 00:00: mouth [place] iron) 00 the Medical tablet morning Branch and 1 tablet in the evening. ascorbic 2022-0 Yes [id number] 500mg Take 1 U nivers acid, 4-04 tablet by ity of vitamin C, 00:00: mouth in [place] 500 mg 00 the Medical tablet morning Branch and 1 tablet at noon and 1 tablet in the evening. ferrous 2022-0 Yes [id number] 325mg Take 1 [place] sulfate 325 4-04 tablet by ity of mg (65 mg 00:00: mouth [place] iron) 00 the Medical tablet morning Branch and 1 tablet in the evening. ascorbic 2022-0 Yes [id number] 500mg Take 1 U nivers acid, 4-04 tablet by ity of vitamin C, 00:00: mouth in [place] 500 mg 00 the Medical tablet morning Branch and 1 tablet at noon and 1 tablet in the evening. ferrous 2022-0 Yes [id number] 325mg Take 1 [place] sulfate 325 4-04 tablet by ity of mg (65 mg 00:00: mouth [place] iron) 00 the Medical tablet morning Branch and 1 tablet in the evening. ascorbic 2022-0 Yes [id number] 500mg Take 1 U nivers acid, 4-04 tablet by ity of vitamin C, 00:00: mouth in [place] 500 mg 00 the Medical tablet morning Branch and 1 tablet at noon and 1 tablet in the evening. ferrous 2022-0 Yes [id number] 325mg Take 1 [place] sulfate 325 4-04 tablet by ity of mg (65 mg 00:00: mouth [place] iron) 00 the Medical tablet morning Branch and 1 tablet in the evening. ascorbic 202-0 Yes [id number] 500mg Take 1 U nivers acid, 4-04 tablet by ity of vitamin C, 00:00: mouth in [place] 500 mg 00 the Medical tablet morning Branch and 1 tablet at noon and 1 tablet in the evening. ferrous 2023-0 Yes [id number] 325mg Take 1 [place] sulfate 325 4-04 tablet by ity of mg (65 mg 00:00: mouth [place] iron) 00 the Medical tablet morning Branch and 1 tablet in the evening. ascorbic 2023-0 Yes [id number] 500mg Take 1 U nivers acid, 4-04 tablet by ity of vitamin C, 00:00: mouth in [place] 500 mg 00 the Medical tablet morning Branch and 1 tablet at noon and 1 tablet in the evening. ferrous 2023-0 Yes [id number] 325mg Take 1 [place] sulfate 325 4-04 tablet by ity of mg (65 mg 00:00: mouth [place] iron) 00 the Medical tablet morning Branch and 1 tablet in the evening. ascorbic 2022-0 Yes [id number] 500mg Take 1 U nivers acid, 4-04 tablet by ity of vitamin C, 00:00: mouth in [place] 500 mg 00 the Medical tablet morning Branch and 1 tablet at noon and 1 tablet in the evening. ferrous 2022-0 Yes [id number] 325mg Take 1 [place] sulfate 325 4-04 tablet by ity of mg (65 mg 00:00: mouth [place] iron) 00 the Medical tablet morning Branch and 1 tablet in the evening. ascorbic 2022-0 Yes [id number] 500mg Take 1 U nivers acid, 4-04 tablet by ity of vitamin C, 00:00: mouth in [place] 500 mg 00 the Medical tablet morning Branch and 1 tablet at noon and 1 tablet in the evening. ferrous 2022-0 Yes [id number] 325mg Take 1 [place] sulfate 325 4-04 tablet by ity of mg (65 mg 00:00: mouth [place] iron) 00 the Medical tablet morning Branch and 1 tablet in the evening. ascorbic 2023-0 Yes [id number] 500mg Take 1 U nivers acid, 4-04 tablet by ity of vitamin C, 00:00: mouth in [place] 500 mg 00 the Medical tablet morning Branch and 1 tablet at noon and 1 tablet in the evening. ferrous 2023-0 Yes [id number] 325mg Take 1 [place] sulfate 325 4-04 tablet by ity of mg (65 mg 00:00: mouth [place] iron) 00 the Medical tablet morning Branch and 1 tablet in the evening. ascorbic 2023-0 Yes [id number] 500mg Take 1 U nivers acid, 4-04 tablet by ity of vitamin C, 00:00: mouth in [place] 500 mg 00 the Medical tablet morning Branch and 1 tablet at noon and 1 tablet in the evening. ferrous 2022-0 Yes [id number] 325mg Take 1 [place] sulfate 325 4-04 tablet by ity of mg (65 mg 00:00: mouth [place] iron) 00 the Medical tablet morning Branch and 1 tablet in the evening. ascorbic 2022-0 Yes [id number] 500mg Take 1 U nivers acid, 4-04 tablet by ity of vitamin C, 00:00: mouth in [place] 500 mg 00 the Medical tablet morning Branch and 1 tablet at noon and 1 tablet in the evening. ferrous 2022-0 Yes [id number] 325mg Take 1 [place] sulfate 325 4-04 tablet by ity of mg (65 mg 00:00: mouth [place] iron) 00 the Medical tablet morning Branch and 1 tablet in the evening. ascorbic 2022-0 Yes [id number] 500mg Take 1 U nivers acid, 4-04 tablet by ity of vitamin C, 00:00: mouth in [place] 500 mg 00 the Medical tablet morning Branch and 1 tablet at noon and 1 tablet in the evening. ferrous 2022-0 Yes [id number] 325mg Take 1 [place] sulfate 325 4-04 tablet by ity of mg (65 mg 00:00: mouth [place] iron) 00 the Medical tablet morning Branch and 1 tablet in the evening. ascorbic 2022-0 Yes [id number] 500mg Take 1 U nivers acid, 4-04 tablet by ity of vitamin C, 00:00: mouth in [place] 500 mg 00 the Medical tablet morning Branch and 1 tablet at noon and 1 tablet in the evening. ferrous 2022-0 Yes [id number] 325mg Take 1 [place] sulfate 325 4-04 tablet by ity of mg (65 mg 00:00: mouth [place] iron) 00 the Medical tablet morning Branch and 1 tablet in the evening. PNV 67-iron 2022-0 Yes [id number] 1{each} Take 1 Univers ps-folate 2-09 Each by ity of no.1-dha 00:00: mouth [place] (VITAFOL 00 daily. Medical ULTRA) 29 Branch mg iron- 1 mg-200 mg Cap SERTraline 2022-0 Yes [id number] 50mg Take 1 Univers (ZOLOFT) 50 2-09 100 tablet by ity of mg tablet 00:00: mouth [place] 00 the Medical morning. Branch PNV 67-iron 2023-0 Yes [id number] 1{each} Take 1 Univers ps-folate 2-09 Each by ity of no.1-dha 00:00: mouth [place] (VITAFOL 00 daily. Medical ULTRA) 29 Branch mg iron- 1 mg-200 mg Cap SERTraline 2023-0 Yes [id number] 50mg Take 1 Univers (ZOLOFT) 50 2-09 100 tablet by ity of mg tablet 00:00: mouth [place] the Medical morning. Branch PNV 67-iron 2023-0 Yes [id number] 1{each} Take 1 Univers ps-folate 2-09 Each by ity of no.1-dha 00:00: mouth [place] (VITAFOL 00 daily. Medical ULTRA) 29 Branch mg iron- 1 mg-200 mg Cap SERTraline 2023-0 Yes [id number] 50mg Take 1 Univers (ZOLOFT) 50 2-09 100 tablet by ity of mg tablet 00:00: mouth [place] the Medical morning. Branch PNV 67-iron 2023-0 Yes [id number] 1{each} Take 1 Univers ps-folate 2-09 Each by ity of no.1-dha 00:00: mouth [place] (VITAFOL 00 daily. Medical ULTRA) 29 Branch mg iron- 1 mg-200 mg Cap SERTraline 2023-0 Yes [id number] 50mg Take 1 Univers (ZOLOFT) 50 2-09 100 tablet by ity of mg tablet 00:00: mouth [place] 00 the Medical morning. Branch PNV 67-iron 2023-0 Yes [id number] 1{each} Take 1 Univers ps-folate 2-09 Each by ity of no.1-dha 00:00: mouth [place] (VITAFOL 00 daily. Medical ULTRA) 29 Branch mg iron- 1 mg-200 mg Cap SERTraline 2023-0 Yes [id number] 50mg Take 1 Univers (ZOLOFT) 50 2-09 100 tablet by ity of mg tablet 00:00: mouth [place] 00 the Medical morning. Branch PNV 67-iron 2023-0 Yes [id number] 1{each} Take 1 Univers ps-folate 2-09 Each by ity of no.1-dha 00:00: mouth [place] (VITAFOL 00 daily. Medical ULTRA) 29 Branch mg iron- 1 mg-200 mg Cap SERTraline 2023-0 Yes [id number] 50mg Take 1 Univers (ZOLOFT) 50 2-09 100 tablet by ity of mg tablet 00:00: mouth [place] 00 the Medical morning. Branch PNV 67-iron 2023-0 Yes [id number] 1{each} Take 1 Univers ps-folate 2-09 Each by ity of no.1-dha 00:00: mouth [place] (VITAFOL 00 daily. Medical ULTRA) 29 Branch mg iron- 1 mg-200 mg Cap SERTraline 2023-0 Yes [id number] 50mg Take 1 Univers (ZOLOFT) 50 2-09 100 tablet by ity of mg tablet 00:00: mouth [place] 00 the Medical morning. Branch PNV 67-iron 2023-0 Yes [id number] 1{each} Take 1 Univers ps-folate 2-09 Each by ity of no.1-dha 00:00: mouth [place] (VITAFOL 00 daily. Medical ULTRA) 29 Branch mg iron- 1 mg-200 mg Cap SERTraline 2023-0 Yes [id number] 50mg Take 1 Univers (ZOLOFT) 50 2-09 100 tablet by ity of mg tablet 00:00: mouth [place] 00 the Medical morning. Branch PNV 67-iron 2023-0 Yes [id number] 1{each} Take 1 Univers ps-folate 2-09 Each by ity of no.1-dha 00:00: mouth [place] (VITAFOL 00 daily. Medical ULTRA) 29 Branch mg iron- 1 mg-200 mg Cap SERTraline 2023-0 Yes [id number] 50mg Take 1 Univers (ZOLOFT) 50 2-09 100 tablet by ity of mg tablet 00:00: mouth [place] 00 the Medical morning. Branch PNV 67-iron 2023-0 Yes [id number] 1{each} Take 1 Univers ps-folate 2-09 Each by ity of no.1-dha 00:00: mouth [place] (VITAFOL 00 daily. Medical ULTRA) 29 Branch mg iron- 1 mg-200 mg Cap SERTraline 2023-0 Yes [id number] 50mg Take 1 Univers (ZOLOFT) 50 2-09 100 tablet by ity of mg tablet 00:00: mouth [place] 00 the Medical morning. Branch PNV 67-iron 2023-0 Yes [id number] 1{each} Take 1 Univers ps-folate 2-09 Each by ity of no.1-dha 00:00: mouth [place] (VITAFOL 00 daily. Medical ULTRA) 29 Branch mg iron- 1 mg-200 mg Cap SERTraline 2023-0 Yes [id number] 50mg Take 1 Univers (ZOLOFT) 50 2-09 100 tablet by ity of mg tablet 00:00: mouth [place] 00 the Medical morning. Branch PNV 67-iron 2023-0 Yes [id number] 1{each} Take 1 Univers ps-folate 2-09 Each by ity of no.1-dha 00:00: mouth [place] (VITAFOL 00 daily. Medical ULTRA) 29 Branch mg iron- 1 mg-200 mg Cap SERTraline 2023-0 Yes [id number] 50mg Take 1 Univers (ZOLOFT) 50 2-09 100 tablet by ity of mg tablet 00:00: mouth [place] 00 the Medical morning. Branch PNV 67-iron 3-0 Yes [id number] 1{each} Take 1 Univers ps-folate 2-09 Each by ity of no.1-dha 00:00: mouth [place] (VITAFOL 00 daily. Medical ULTRA) 29 Branch mg iron- 1 mg-200 mg Cap SERTraline 3-0 Yes [id number] 50mg Take 1 Univers (ZOLOFT) 50 2-09 100 tablet by ity of mg tablet 00:00: mouth [place] 00 the Medical morning. Branch PNV 67-iron 2023-0 Yes [id number] 1{each} Take 1 Univers ps-folate 2-09 Each by ity of no.1-dha 00:00: mouth [place] (VITAFOL 00 daily. Medical ULTRA) 29 Branch mg iron- 1 mg-200 mg Cap SERTraline 2023-0 Yes [id number] 50mg Take 1 Univers (ZOLOFT) 50 2-09 100 tablet by ity of mg tablet 00:00: mouth [place] 00 the Medical morning. Branch PNV 67-iron 2023-0 Yes [id number] 1{each} Take 1 [facility] ps-folate 2-09 Each by ity of no.1-dha 00:00: mouth [place] (VITAFOL 00 daily. Medical ULTRA) 29 Branch mg iron- 1 mg-200 mg Cap SERTraline 2023-0 Yes [id number] 50mg Take 1 [facility] (ZOLOFT) 50 2-09 100 tablet by ity of mg tablet 00:00: mouth [place] 00 the Medical morning. Branch PNV 67-iron 2023-0 Yes [id number] 1{each} Take 1 [facility] ps-folate 2-09 Each by ity of no.1-dha 00:00: mouth [place] (VITAFOL 00 daily. Medical ULTRA) 29 Branch mg iron- 1 mg-200 mg Cap SERTraline 2023-0 Yes [id number] 50mg Take 1 [facility] (ZOLOFT) 50 2-09 100 tablet by ity of mg tablet 00:00: mouth [place] 00 the Medical morning. Branch PNV 67-iron 2023-0 Yes [id number] 1{each} Take 1 [facility] ps-folate 2-09 Each by ity of no.1-dha 00:00: mouth [place] (VITAFOL 00 daily. Medical ULTRA) 29 Branch mg iron- 1 mg-200 mg Cap SERTraline 2023-0 Yes [id number] 50mg Take 1 [facility] (ZOLOFT) 50 2-09 100 tablet by ity of mg tablet 00:00: mouth [place] 00 the Medical morning. Branch PNV 67-iron 2023-0 Yes [id number] 1{each} Take 1 [facility] ps-folate 2-09 Each by ity of no.1-dha 00:00: mouth [place] (VITAFOL 00 daily. Medical ULTRA) 29 Branch mg iron- 1 mg-200 mg Cap SERTraline 2023-0 Yes [id number] 50mg Take 1 [facility] (ZOLOFT) 50 2-09 100 tablet by ity of mg tablet 00:00: mouth [place] 00 the Medical morning. Branch PNV 67-iron 2023-0 Yes [id number] 1{each} Take 1 [facility] ps-folate 2-09 Each by ity of no.1-dha 00:00: mouth [place] (VITAFOL 00 daily. Medical ULTRA) 29 Branch mg iron- 1 mg-200 mg Cap SERTraline 2023-0 Yes [id number] 50mg Take 1 Univers (ZOLOFT) 50 2-09 100 tablet by ity of mg tablet 00:00: mouth [place] 00 the Medical morning. Branch PNV 67-iron 2023-0 Yes [id number] 1{each} Take 1 [facility] ps-folate 2-09 Each by ity of no.1-dha 00:00: mouth [place] (VITAFOL 00 daily. Medical ULTRA) 29 Branch mg iron- 1 mg-200 mg Cap SERTraline 2023-0 Yes [id number] 50mg Take 1 Univers (ZOLOFT) 50 2-09 100 tablet by ity of mg tablet 00:00: mouth [place] 00 the Medical morning. Branch PNV 67-iron 2023-0 Yes [id number] 1{each} Take 1 [facility] ps-folate 2-09 Each by ity of no.1-dha 00:00: mouth [place] (VITAFOL 00 daily. Medical ULTRA) 29 Branch mg iron- 1 mg-200 mg Cap SERTraline 2023-0 Yes [id number] 50mg Take 1 Univers (ZOLOFT) 50 2-09 100 tablet by ity of mg tablet 00:00: mouth [place] 00 the Medical morning. Branch PNV 67-iron 2023-0 Yes [id number] 1{each} Take 1 [facility] ps-folate 2-09 Each by ity of no.1-dha 00:00: mouth [place] (VITAFOL 00 daily. Medical ULTRA) 29 Branch mg iron- 1 mg-200 mg Cap SERTraline 3-0 Yes [id number] 50mg Take 1 [facility] (ZOLOFT) 50 2-09 100 tablet by ity of mg tablet 00:00: [place] 00 the Medical morning. Branch PNV 67-iron 2023-0 Yes [id number] 1{each} Take 1 [facility] ps-folate 2-09 Each by ity of no.1-dha 00:00: mouth [place] (VITAFOL 00 daily. Medical ULTRA) 29 Branch mg iron- 1 mg-200 mg Cap SERTraline 2023-0 Yes [id number] 50mg Take 1 [facility] (ZOLOFT) 50 2-09 100 tablet by ity of mg tablet 00:00: mouth [place] 00 the Medical morning. Branch PNV 67-iron 2023-0 Yes [id number] 1{each} Take 1 [facility] ps-folate 2-09 Each by ity of no.1-dha 00:00: mouth [place] (VITAFOL 00 daily. Medical ULTRA) 29 Branch mg iron- 1 mg-200 mg Cap SERTraline 3-0 Yes [id number] 50mg Take 1 [facility] (ZOLOFT) 50 2-09 100 tablet by ity of mg tablet 00:00: mouth [place] 00 the Medical morning. Branch PNV 67-iron 3-0 Yes [id number] 1{each} Take 1 [facility] ps-folate 2-09 Each by ity of no.1-dha 00:00: mouth [place] (VITAFOL 00 daily. Medical ULTRA) 29 Branch mg iron- 1 mg-200 mg Cap SERTraline 3-0 Yes [id number] 50mg Take 1 [facility] (ZOLOFT) 50 2-09 100 tablet by ity of mg tablet 00:00: mouth [place] 00 the Medical morning. Branch PNV 67-iron 3-0 Yes [id number] 1{each} Take 1 [facility] ps-folate 2-09 Each by ity of no.1-dha 00:00: mouth [place] (VITAFOL 00 daily. Medical ULTRA) 29 Branch mg iron- 1 mg-200 mg Cap SERTraline 3-0 Yes [id number] 50mg Take 1 [facility] (ZOLOFT) 50 2-09 100 tablet by ity of mg tablet 00:00: mouth [place] 00 the Medical morning. Branch PNV 67-iron 3-0 Yes [id number] 1{each} Take 1 [facility] ps-folate 2-09 Each by ity of no.1-dha 00:00: mouth [place] (VITAFOL 00 daily. Medical ULTRA) 29 Branch mg iron- 1 mg-200 mg Cap SERTraline 2023-0 Yes [id number] 50mg Take 1 [facility] (ZOLOFT) 50 2-09 100 tablet by ity of mg tablet 00:00: mouth [place] 00 the Medical morning. Branch PNV 67-iron 2023-0 Yes [id number] 1{each} Take 1 [facility] ps-folate 2-09 Each by ity of no.1-dha 00:00: mouth [place] (VITAFOL 00 daily. Medical ULTRA) 29 Branch mg iron- 1 mg-200 mg Cap SERTraline 2023-0 Yes [id number] 50mg Take 1 [facility] (ZOLOFT) 50 2-09 100 tablet by ity of mg tablet 00:00: mouth [place] 00 the Medical morning. Branch PNV 67-iron 2023-0 Yes [id number] 1{each} Take 1 [facility] ps-folate 2-09 Each by ity of no.1-dha 00:00: mouth [place] (VITAFOL 00 daily. Medical ULTRA) 29 Branch mg iron- 1 mg-200 mg Cap SERTraline 3-0 Yes [id number] 50mg Take 1 [facility] (ZOLOFT) 50 2-09 100 tablet by ity of mg tablet 00:00: mouth [place] the Medical morning. Branch PNV 67-iron 2023-0 Yes [id number] 1{each} Take 1 [facility] ps-folate 2-09 Each by ity of no.1-dha 00:00: mouth [place] (VITAFOL 00 daily. Medical ULTRA) 29 Branch mg iron- 1 mg-200 mg Cap SERTraline 3-0 Yes [id number] 50mg Take 1 [facility] (ZOLOFT) 50 2-09 100 tablet by ity of mg tablet 00:00: mouth [place] the Medical morning. Branch PNV 67-iron 3-0 Yes [id number] 1{each} Take 1 [facility] ps-folate 2-09 Each by ity of no.1-dha 00:00: mouth [place] (VITAFOL 00 daily. Medical ULTRA) 29 Branch mg iron- 1 mg-200 mg Cap SERTraline 3-0 Yes [id number] 50mg Take 1 [facility] (ZOLOFT) 50 2-09 100 tablet by ity of mg tablet 00:00: mouth [place] 00 the Medical morning. Branch PNV 67-iron 2023-0 Yes [id number] 1{each} Take 1 [facility] ps-folate 2-09 Each by ity of no.1-dha 00:00: mouth [place] (VITAFOL 00 daily. Medical ULTRA) 29 Branch mg iron- 1 mg-200 mg Cap SERTraline 2023-0 Yes [id number] 50mg Take 1 [facility] (ZOLOFT) 50 2-09 100 tablet by ity of mg tablet 00:00: mouth [place] 00 the Medical morning. Branch PNV 67-iron 3-0 Yes [id number] 1{each} Take 1 [facility] ps-folate 2-09 Each by ity of no.1-dha 00:00: mouth [place] (VITAFOL 00 daily. Medical ULTRA) 29 Branch mg iron- 1 mg-200 mg Cap SERTraline 3-0 Yes [id number] 50mg Take 1 [facility] (ZOLOFT) 50 2-09 100 tablet by ity of mg tablet 00:00: mouth [place] 00 the Medical morning. Branch PNV 67-iron 3-0 Yes [id number] 1{each} Take 1 [facility] ps-folate 2-09 Each by ity of no.1-dha 00:00: mouth [place] (VITAFOL 00 daily. Medical ULTRA) 29 Branch mg iron- 1 mg-200 mg Cap SERTraline 3-0 Yes [id number] 50mg Take 1 [facility] (ZOLOFT) 50 2-09 100 tablet by ity of mg tablet 00:00: mouth [place] 00 the Medical morning. Branch PNV 67-iron 3-0 Yes [id number] 1{each} Take 1 [facility] ps-folate 2-09 Each by ity of no.1-dha 00:00: mouth [place] (VITAFOL 00 daily. Medical ULTRA) 29 Branch mg iron- 1 mg-200 mg Cap SERTraline 3-0 Yes [id number] 50mg Take 1 [facility] (ZOLOFT) 50 2-09 100 tablet by ity of mg tablet 00:00: mouth [place] 00 the Medical morning. Branch PNV 67-iron 3-0 Yes [id number] 1{each} Take 1 [facility] ps-folate 2-09 Each by ity of no.1-dha 00:00: mouth [place] (VITAFOL 00 daily. Medical ULTRA) 29 Branch mg iron- 1 mg-200 mg Cap SERTraline 3-0 Yes [id number] 50mg Take 1 [facility] (ZOLOFT) 50 2-09 100 tablet by ity of mg tablet 00:00: mouth [place] 00 the Medical morning. Branch PNV 67-iron 2023-0 2023- No [id number] 1{each} Take 1 [facility] ps-folate 2-09 06-29 Each by ity of no.1-dha 00:00: 00:00 mouth [place] (VITAFOL 00 :00 daily. Medical ULTRA) 29 Branch mg iron- 1 mg-200 mg Cap SERTraline 2022- No [id number] 50mg Take 1 [facility] (ZOLOFT) 50 09-04 100 tablet by it y of mg tablet 00:00: 00:00 mouth in [place] 00 :00 the Medical morning. Branch ampicillin 2022- No [id number] 500mg Take 1 [facility] 500 mg 09-04 capsule by ity of capsule 00:00: 05:59 mouth 4 [place] 00 :[facility] [place] daily for 10 days. ampicillin 2022- No [id number] 500mg Take 1 [facility] 500 mg 09-04 capsule by ity of capsule 00:00: 05:59 mouth 4 [place] 00 :00 [facility] [place] daily for 10 days. ampicillin 2022- No [id number] 500mg Take 1 [facility] 500 mg 09-04 capsule by ity of capsule 00:00: 05:59 mouth 4 [place] 00 :00 [facility] daily for 10 days. ampicillin 2022- No [id number] 500mg Take 1 [facility] 500 mg 09-04 capsule by ity of capsule 00:00: 05:59 mouth 4 [place] 00 :00 [facility] daily for 10 days. cephALEXin 2022- No [id number] 500mg Take 1 [facility] (KEFLEX) 08-06 capsule by ity of 500 mg 00:00: 05:59 mouth 4 [place] capsule 00 :00 [facility] daily for 10 days. SERTRALINE 2021-07 Yes [id number] TAKE 1 [facility] 50 mg 2-29 100 TABLET BY ity of tablet 00:00: MOUTH [place] 00 EVERY DAY Medical IN THE Branch MORNING SERTRALINE 2021-07 Yes [id number] TAKE 1 [facility] 50 mg 2-29 100 TABLET BY ity of tablet 00:00: MOUTH [place] 00 EVERY DAY Medical IN THE Branch MORNING SERTRALINE 2021-07 Yes [id number] TAKE 1 [facility] 50 mg 2-29 100 TABLET BY ity of tablet 00:00: MOUTH [place] 00 EVERY DAY Medical IN THE Branch MORNING SERTRALINE 2021-07 Yes [id number] TAKE 1 [facility] 50 mg 2-29 100 TABLET BY ity of tablet 00:00: MOUTH [place] 00 EVERY DAY Medical IN THE [facility] SERTRALINE 2021-07 Yes [id number] TAKE 1 [facility] 50 mg 2-29 100 TABLET BY ity of tablet 00:00: MOUTH [place] 00 EVERY DAY Medical IN THE [facility] SERTRALINE 2021-07 Yes [id number] TAKE 1 Univers 50 mg 2-29 100 TABLET BY ity of tablet 00:00: MOUTH [place] 00 EVERY DAY Medical IN THE [facility] SERTRALINE 2021-07 Yes [id number] TAKE 1 [facility] 50 mg 2-29 100 TABLET BY ity of tablet 00:00: MOUTH [place] 00 EVERY DAY Medical IN THE [facility] SERTRALINE 2021-07 Yes [id number] TAKE 1 [facility] 50 mg 2-29 100 TABLET BY ity of tablet 00:00: MOUTH [place] 00 EVERY DAY Medical IN THE [facility] SERTRALINE 2021-07 Yes [id number] TAKE 1 [facility] 50 mg 2-29 100 TABLET BY ity of tablet 00:00: MOUTH [place] 00 EVERY DAY Medical IN THE [facility] SERTRALINE 2021-07 Yes [id number] TAKE 1 [facility] 50 mg 2-29 100 TABLET BY ity of tablet 00:00: MOUTH [place] 00 EVERY DAY Medical IN THE [facility] SERTRALINE 2021-07 Yes [id number] TAKE 1 [facility] 50 mg 2-29 100 TABLET BY ity of tablet 00:00: MOUTH [place] 00 EVERY DAY Medical IN THE [facility] SERTRALINE 2021-07 Yes [id number] TAKE 1 [facility] 50 mg 2-29 100 TABLET BY ity of tablet 00:00: MOUTH [place] 00 EVERY DAY Medical IN THE [facility] SERTRALINE 2021-07 Yes [id number] TAKE 1 [facility] 50 mg 2-29 100 TABLET BY ity of tablet 00:00: MOUTH [place] 00 EVERY DAY Medical IN THE [facility] SERTRALINE 2021-07 Yes [id number] TAKE 1 [facility] 50 mg 2-29 100 TABLET BY ity of tablet 00:00: MOUTH [place] 00 EVERY DAY Medical IN THE [facility] SERTRALINE 2021-07 Yes [id number] TAKE 1 [facility] 50 mg 2-29 100 TABLET BY ity of tablet 00:00: MOUTH [place] 00 EVERY DAY Medical IN THE [facility] SERTRALINE 2021-07 Yes [id number] TAKE 1 [facility] 50 mg 2-29 100 TABLET BY ity of tablet 00:00: MOUTH [place] 00 EVERY DAY Medical IN THE [facility] SERTRALINE 2021-07 Yes [id number] TAKE 1 [facility] 50 mg 2-29 100 TABLET BY ity of tablet 00:00: MOUTH [place] 00 EVERY DAY Medical IN THE [facility] SERTRALINE 2021-07 Yes [id number] TAKE 1 [facility] 50 mg 2-29 100 TABLET BY ity of tablet 00:00: MOUTH [place] 00 EVERY DAY Medical IN THE [facility] SERTRALINE 2021-07 Yes [id number] TAKE 1 [facility] 50 mg 2-29 100 TABLET BY ity of tablet 00:00: MOUTH [place] 00 EVERY DAY Medical IN THE [facility] SERTRALINE 2021-07 Yes [id number] TAKE 1 [facility] 50 mg 2-29 100 TABLET BY ity of tablet 00:00: MOUTH [place] 00 EVERY DAY Medical IN THE [facility] SERTRALINE 2021-07 Yes [id number] TAKE 1 [facility] 50 mg 2-29 100 TABLET BY ity of tablet 00:00: MOUTH [place] 00 EVERY DAY Medical IN THE [facility] SERTRALINE 2021-07 Yes [id number] TAKE 1 [facility] 50 mg 2-29 100 TABLET BY ity of tablet 00:00: MOUTH [place] 00 EVERY DAY Medical IN THE [facility] SERTRALINE 2021-07 Yes [id number] TAKE 1 [facility] 50 mg 2-29 100 TABLET BY ity of tablet 00:00: MOUTH [place] 00 EVERY DAY Medical IN THE [facility] SERTRALINE 2021-07 Yes [id number] TAKE 1 [facility] 50 mg 2-29 100 TABLET BY ity of tablet 00:00: MOUTH [place] 00 EVERY DAY Medical IN THE [facility] SERTRALINE 2021-07 Yes [id number] TAKE 1 [facility] 50 mg 2-29 100 TABLET BY ity of tablet 00:00: MOUTH [place] 00 EVERY DAY Medical IN THE [facility] SERTRALINE 2021-07 Yes [id number] TAKE 1 [facility] 50 mg 2-29 100 TABLET BY ity of tablet 00:00: MOUTH [place] 00 EVERY DAY Medical IN THE [facility] SERTRALINE 2021-07 Yes [id number] TAKE 1 [facility] 50 mg 2-29 100 TABLET BY ity of tablet 00:00: MOUTH [place] 00 EVERY DAY Medical IN THE [facility] SERTRALINE 2021-07 Yes [id number] TAKE 1 [facility] 50 mg 2-29 100 TABLET BY ity of tablet 00:00: MOUTH [place] 00 EVERY DAY Medical IN THE [facility] SERTRALINE 2021-07 Yes [id number] TAKE 1 [facility] 50 mg 2-29 100 TABLET BY ity of tablet 00:00: MOUTH [place] 00 EVERY DAY Medical IN THE [facility] SERTRALINE 2021-07 Yes [id number] TAKE 1 [facility] 50 mg 2-29 100 TABLET BY ity of tablet 00:00: MOUTH [place] 00 EVERY DAY Medical IN THE [facility] SERTRALINE 2021-07 Yes [id number] TAKE 1 [facility] 50 mg 2-29 100 TABLET BY ity of tablet 00:00: MOUTH [place] 00 EVERY DAY Medical IN THE [facility] SERTRALINE 2021-07 Yes [id number] TAKE 1 [facility] 50 mg 2-29 100 TABLET BY ity of tablet 00:00: MOUTH [place] 00 EVERY DAY Medical IN THE [facility] SERTRALINE 2021-07 Yes [id number] TAKE 1 [facility] 50 mg 2-29 100 TABLET BY ity of tablet 00:00: MOUTH [place] 00 EVERY DAY Medical IN THE [facility] SERTRALINE 2021-07 Yes [id number] TAKE 1 [facility] 50 mg 2-29 100 TABLET BY ity of tablet 00:00: MOUTH [place] 00 EVERY DAY Medical IN THE [facility] SERTRALINE 2021-07 Yes [id number] TAKE 1 [facility] 50 mg 2-29 100 TABLET BY ity of tablet 00:00: MOUTH [place] 00 EVERY DAY Medical IN THE [facility] SERTRALINE 2021-07 Yes [id number] TAKE 1 [facility] 50 mg 2-29 100 TABLET BY ity of tablet 00:00: MOUTH [place] 00 EVERY DAY Medical IN THE [facility] SERTRALINE 2021-07 Yes [id number] TAKE 1 [facility] 50 mg 2-29 100 TABLET BY ity of tablet 00:00: MOUTH [place] 00 EVERY DAY Medical IN THE [facility] SERTRALINE 2021-07 Yes [id number] TAKE 1 [facility] 50 mg 2-29 100 TABLET BY ity of tablet 00:00: MOUTH [place] 00 EVERY DAY Medical IN THE [facility] SERTRALINE 2021-07 Yes [id number] TAKE 1 [facility] 50 mg 2-29 100 TABLET BY ity of tablet 00:00: MOUTH [place] 00 EVERY DAY Medical IN THE [facility] SERTRALINE 2021-07 Yes [id number] TAKE 1 [facility] 50 mg 2-29 100 TABLET BY ity of tablet 00:00: MOUTH [place] 00 EVERY DAY Medical IN THE [place] MORNING SERTRALINE 2021-07 Yes [id number] TAKE 1 [facility] 50 mg 2-29 100 TABLET BY ity of tablet 00:00: MOUTH [place] 00 EVERY DAY Medical IN THE [place] MORNING SERTRALINE 2021-07 Yes [id number] TAKE 1 [facility] 50 mg 2-29 100 TABLET BY ity of tablet 00:00: MOUTH [place] 00 EVERY DAY Medical IN THE [place] MORNING SERTRALINE 2021-07- No [id number] TAKE 1 [facility] 50 mg 2-29 06-29 100 TABLET BY ity of tablet 00:00: 00:00 MOUTH [place] 00 :00 EVERY DAY Medical IN THE [place] MORNING cephALEXin 2021-07- No [id number] 500mg Take 1 Univers (KEFLEX) 2-18 - capsule by ity of 500 mg 00:00: 05:59 mouth 4 [place] capsule 00 :00 (four) [facility] daily for 10 days. cephALEXin 2021-07- No [id number] 500mg Take 1 Univers (KEFLEX) 2-18 - capsule by ity of 500 mg 00:00: 05:59 mouth 4 [place] capsule 00 :00 (four) [facility] daily for 10 days. metroNIDAZO 2021-07- No [id number] 500mg Take 1 Univers LE 500 mg 2-18 - tablet by ity of tablet 00:00: 05:59 mouth in [place] 00 :00 the [facility] and 1 tablet in the evening. Do all this for 7 days. metroNIDAZO 2021-07- No [id number] 500mg Take 1 Univers LE 500 mg 2-18 - tablet by ity of tablet 00:00: 05:59 mouth in [place] 00 :00 the [facility] and 1 tablet in the evening. Do all this for 7 days. Iron Fum & 2021-07 Yes [id number] 1{capsu Take 1 Univers P-FA-Vit B 2-15 le} capsule by ity of & C No.9 00:00: mouth [place] (INTEGRA 00 daily. Medical PLUS) 125 Branch mg iron- 1 mg Cap Iron Fum & 2021-07 Yes [id number] 1{capsu Take 1 Univers P-FA-Vit B 2-15 le} capsule by ity of & C No.9 00:00: mouth [place] (INTEGRA 00 daily. Medical PLUS) 125 Branch mg iron- 1 mg Cap Iron Fum & 2021-07 Yes [id number] 1{capsu Take 1 Univers P-FA-Vit B 2-15 le} capsule by ity of & C No.9 00:00: mouth [place] (INTEGRA daily. Medical PLUS) 125 Branch mg iron- 1 mg Cap Iron Fum & 2021-07 Yes [id number] 1{capsu Take 1 Univers P-FA-Vit B 2-15 le} capsule by ity of & C No.9 00:00: mouth [place] (INTEGRA daily. Medical PLUS) 125 Branch mg iron- 1 mg Cap Iron Fum & 2021-07 Yes [id number] 1{capsu Take 1 Univers P-FA-Vit B 2-15 le} capsule by ity of & C No.9 00:00: mouth [place] (INTEGRA daily. Medical PLUS) 125 Branch mg iron- 1 mg Cap Iron Fum & 2021-07 Yes [id number] 1{capsu Take 1 Univers P-FA-Vit B 2-15 le} capsule by ity of & C No.9 00:00: mouth [place] (INTEGRA daily. Medical PLUS) 125 Branch mg iron- 1 mg Cap Iron Fum & 2021-07 Yes [id number] 1{capsu Take 1 Univers P-FA-Vit B 2-15 le} capsule by ity of & C No.9 00:00: mouth [place] (INTEGRA daily. Medical PLUS) 125 Branch mg iron- 1 mg Cap Iron Fum & 2021-07 Yes [id number] 1{capsu Take 1 Univers P-FA-Vit B 2-15 le} capsule by ity of & C No.9 00:00: mouth [place] (INTEGRA daily. Medical PLUS) 125 Branch mg iron- 1 mg Cap Iron Fum & 2021-07 Yes [id number] 1{capsu Take 1 Univers P-FA-Vit B 2-15 le} capsule by ity of & C No.9 00:00: mouth [place] (INTEGRA daily. Medical PLUS) 125 Branch mg iron- 1 mg Cap Iron Fum & 2021-07 Yes [id number] 1{capsu Take 1 Univers P-FA-Vit B 2-15 le} capsule by ity of & C No.9 00:00: mouth [place] (INTEGRA daily. Medical PLUS) 125 Branch mg iron- 1 mg Cap Iron Fum & 2021-07 Yes [id number] 1{capsu Take 1 Univers P-FA-Vit B 2-15 le} capsule by ity of & C No.9 00:00: mouth [place] (INTEGRA daily. Medical PLUS) 125 Branch mg iron- 1 mg Cap Iron Fum & 2021-07 Yes [id number] 1{capsu Take 1 Univers P-FA-Vit B 2-15 le} capsule by ity of & C No.9 00:00: mouth [place] (INTEGRA daily. Medical PLUS) 125 Branch mg iron- 1 mg Cap Iron Fum & 2021-07 Yes [id number] 1{capsu Take 1 Univers P-FA-Vit B 2-15 le} capsule by ity of & C No.9 00:00: mouth [place] (INTEGRA daily. Medical PLUS) 125 Branch mg iron- 1 mg Cap Iron Fum & 2021-07 Yes [id number] 1{capsu Take 1 Univers P-FA-Vit B 2-15 le} capsule by ity of & C No.9 00:00: mouth [place] (INTEGRA daily. Medical PLUS) 125 Branch mg iron- 1 mg Cap Iron Fum & 2021-07 Yes [id number] 1{capsu Take 1 Univers P-FA-Vit B 2-15 le} capsule by ity of & C No.9 00:00: mouth [place] (INTEGRA daily. Medical PLUS) 125 Branch mg iron- 1 mg Cap Iron Fum & 2021-07 Yes [id number] 1{capsu Take 1 Univers P-FA-Vit B 2-15 le} capsule by ity of & C No.9 00:00: mouth [place] (INTEGRA daily. Medical PLUS) 125 Branch mg iron- 1 mg Cap Iron Fum & 2021-07 Yes [id number] 1{capsu Take 1 Univers P-FA-Vit B 2-15 le} capsule by ity of & C No.9 00:00: mouth [place] (INTEGRA daily. Medical PLUS) 125 Branch mg iron- 1 mg Cap Iron Fum & 2021-07 Yes [id number] 1{capsu Take 1 Univers P-FA-Vit B 2-15 le} capsule by ity of & C No.9 00:00: mouth [place] (INTEGRA daily. Medical PLUS) 125 Branch mg iron- 1 mg Cap Iron Fum & 2021-07 Yes [id number] 1{capsu Take 1 Univers P-FA-Vit B 2-15 le} capsule by ity of & C No.9 00:00: mouth [place] (INTEGRA daily. Medical PLUS) 125 Branch mg iron- 1 mg Cap Iron Fum & 2021-07 Yes [id number] 1{capsu Take 1 Univers P-FA-Vit B 2-15 le} capsule by ity of & C No.9 00:00: mouth [place] (INTEGRA daily. Medical PLUS) 125 Branch mg iron- 1 mg Cap Iron Fum & 2021-07 Yes [id number] 1{capsu Take 1 Univers P-FA-Vit B 2-15 le} capsule by ity of & C No.9 00:00: mouth [place] (INTEGRA daily. Medical PLUS) 125 Branch mg iron- 1 mg Cap Iron Fum & 2021-07 Yes [id number] 1{capsu Take 1 Univers P-FA-Vit B 2-15 le} capsule by ity of & C No.9 00:00: mouth [place] (INTEGRA daily. Medical PLUS) 125 Branch mg iron- 1 mg Cap Iron Fum & 2021-07 Yes [id number] 1{capsu Take 1 Univers P-FA-Vit B 2-15 le} capsule by ity of & C No.9 00:00: mouth [place] (INTEGRA daily. Medical PLUS) 125 Branch mg iron- 1 mg Cap Iron Fum & 2021-07 Yes [id number] 1{capsu Take 1 Univers P-FA-Vit B 2-15 le} capsule by ity of & C No.9 00:00: mouth [place] (INTEGRA daily. Medical PLUS) 125 Branch mg iron- 1 mg Cap Iron Fum & 2021-07 Yes [id number] 1{capsu Take 1 Univers P-FA-Vit B 2-15 le} capsule by ity of & C No.9 00:00: mouth [place] (INTEGRA daily. Medical PLUS) 125 Branch mg iron- 1 mg Cap Iron Fum & 2021-07 Yes [id number] 1{capsu Take 1 Univers P-FA-Vit B 2-15 le} capsule by ity of & C No.9 00:00: mouth [place] (INTEGRA daily. Medical PLUS) 125 Branch mg iron- 1 mg Cap Iron Fum & 2021-07 Yes [id number] 1{capsu Take 1 Univers P-FA-Vit B 2-15 le} capsule by ity of & C No.9 00:00: mouth [place] (INTEGRA daily. Medical PLUS) 125 Branch mg iron- 1 mg Cap Iron Fum & 2021-07 Yes [id number] 1{capsu Take 1 Univers P-FA-Vit B 2-15 le} capsule by ity of & C No.9 00:00: mouth [place] (INTEGRA daily. Medical PLUS) 125 Branch mg iron- 1 mg Cap Iron Fum & 2021-07 Yes [id number] 1{capsu Take 1 Univers P-FA-Vit B 2-15 le} capsule by ity of & C No.9 00:00: mouth [place] (INTEGRA daily. Medical PLUS) 125 Branch mg iron- 1 mg Cap Iron Fum & 2021-07 Yes [id number] 1{capsu Take 1 Univers P-FA-Vit B 2-15 le} capsule by ity of & C No.9 00:00: mouth [place] (INTEGRA daily. Medical PLUS) 125 Branch mg iron- 1 mg Cap Iron Fum & 2021-07 Yes [id number] 1{capsu Take 1 Univers P-FA-Vit B 2-15 le} capsule by ity of & C No.9 00:00: mouth [place] (INTEGRA daily. Medical PLUS) 125 Branch mg iron- 1 mg Cap Iron Fum & 2021-07 Yes [id number] 1{capsu Take 1 Univers P-FA-Vit B 2-15 le} capsule by ity of & C No.9 00:00: mouth [place] (INTEGRA daily. Medical PLUS) 125 Branch mg iron- 1 mg Cap Iron Fum & 2021-07 Yes [id number] 1{capsu Take 1 Univers P-FA-Vit B 2-15 le} capsule by ity of & C No.9 00:00: mouth [place] (INTEGRA daily. Medical PLUS) 125 Branch mg iron- 1 mg Cap Iron Fum & 2021-07 Yes [id number] 1{capsu Take 1 Univers P-FA-Vit B 2-15 le} capsule by ity of & C No.9 00:00: mouth [place] (INTEGRA daily. Medical PLUS) 125 Branch mg iron- 1 mg Cap Iron Fum & 2021-07 Yes [id number] 1{capsu Take 1 Univers P-FA-Vit B 2-15 le} capsule by ity of & C No.9 00:00: mouth [place] (INTEGRA daily. Medical PLUS) 125 Branch mg iron- 1 mg Cap Iron Fum & 2021-07 Yes [id number] 1{capsu Take 1 Univers P-FA-Vit B 2-15 le} capsule by ity of & C No.9 00:00: mouth [place] (INTEGRA daily. Medical PLUS) 125 Branch mg iron- 1 mg Cap Iron Fum & 2021-07 Yes [id number] 1{capsu Take 1 Univers P-FA-Vit B 2-15 le} capsule by ity of & C No.9 00:00: mouth [place] (INTEGRA daily. Medical PLUS) 125 Branch mg iron- 1 mg Cap Iron Fum & 2021-07 Yes [id number] 1{capsu Take 1 Univers P-FA-Vit B 2-15 le} capsule by ity of & C No.9 00:00: mouth [place] (INTEGRA daily. Medical PLUS) 125 Branch mg iron- 1 mg Cap Iron Fum & 2021-07 Yes [id number] 1{capsu Take 1 Univers P-FA-Vit B 2-15 le} capsule by ity of & C No.9 00:00: mouth [place] (INTEGRA daily. Medical PLUS) 125 Branch mg iron- 1 mg Cap Iron Fum & 2021-07 Yes [id number] 1{capsu Take 1 [facility] P-FA-Vit B 2-15 le} capsule by ity of & C No.9 00:00: mouth [place] (INTEGRA daily. Medical PLUS) 125 Branch mg iron- 1 mg Cap Iron Fum & 2021-07 Yes [id number] 1{capsu Take 1 [facility] P-FA-Vit B 2-15 le} capsule by ity of & C No.9 00:00: mouth [place] (INTEGRA daily. Medical PLUS) 125 Branch mg iron- 1 mg Cap Iron Fum & 2021-07 Yes [id number] 1{capsu Take 1 [facility] P-FA-Vit B 2-15 le} capsule by ity of & C No.9 00:00: mouth [place] (INTEGRA daily. Medical PLUS) 125 Branch mg iron- 1 mg Cap Iron Fum & 2021-07 Yes [id number] 1{capsu Take 1 Univers P-FA-Vit B 2-15 le} capsule by ity of & C No.9 00:00: mouth [place] (INTEGRA 00 daily. Medical PLUS) 125 Branch mg iron- 1 mg Cap Iron Fum & 2021-07 Yes [id number] 1{capsu Take 1 Univers P-FA-Vit B 2-15 le} capsule by ity of & C No.9 00:00: mouth [place] (INTEGRA 00 daily. Medical PLUS) 125 Branch mg iron- 1 mg Cap Iron Fum & 2021-07 Yes [id number] 1{capsu Take 1 Univers P-FA-Vit B 2-15 le} capsule by ity of & C No.9 00:00: mouth [place] (INTEGRA 00 daily. Medical PLUS) 125 Branch mg iron- 1 mg Cap Iron Fum & 2021-07- No [id number] 1{capsu Take 1 Univers P-FA-Vit B 2-15 06-29 le} capsule by it y of & C No.9 00:00: 00:00 mouth [place] (INTEGRA 00 :00 daily. Medical PLUS) 125 Branch mg iron- 1 mg Cap proMETHazin 2021-07 Yes [id number] 25mg Take 1 Univers e 25 mg 2-14 tablet by ity of tablet 00:00: mouth [place] 00 every 4 Medical (four) Branch hours as needed for Nausea and Vomiting (N/V). clotrimazol 2021-07 Yes [id number] 1{appli Insert 1 Univers e 1 % 2-14 cator} Applicator ity of vaginal 00:00: into [place] cream 00 vagina at Medical bedtime. Branch proMETHazin 2021-07 Yes [id number] 25mg Take 1 Univers e 25 mg 2-14 tablet by ity of tablet 00:00: mouth [place] 00 every 4 Medical (four) Branch hours as needed for Nausea and Vomiting (N/V). clotrimazol 2021-07 Yes [id number] 1{appli Insert 1 Univers e 1 % 2-14 cator} Applicator ity of vaginal 00:00: into [place] cream 00 vagina at Medical bedtime. Branch proMETHazin 2021-07 Yes [id number] 25mg Take 1 Univers e 25 mg 2-14 tablet by ity of tablet 00:00: mouth [place] 00 every 4 Medical (four) Branch hours as needed for Nausea and Vomiting (N/V). clotrimazol 2021-07 Yes [id number] 1{appli Insert 1 Univers e 1 % 2-14 cator} Applicator ity of vaginal 00:00: into [place] cream 00 vagina at Medical bedtime. Branch proMETHazin 2021-07 Yes [id number] 25mg Take 1 [facility] e 25 mg 2-14 tablet by ity of tablet 00:00: mouth [place] 00 every 4 Medical (four) Branch hours as needed for Nausea and Vomiting (N/V). clotrimazol 2021-07 Yes [id number] 1{appli Insert 1 Univers e 1 % 2-14 cator} Applicator ity of vaginal 00:00: into [place] cream 00 vagina at Medical bedtime. Branch proMETHazin 2021-07 Yes [id number] 25mg Take 1 Univers e 25 mg 2-14 tablet by ity of tablet 00:00: mouth [place] 00 every 4 Medical (four) Branch hours as needed for Nausea and Vomiting (N/V). clotrimazol 2021-07 Yes [id number] 1{appli Insert 1 [facility] 1 % 2-14 cator} Applicator ity of vaginal 00:00: into [place] cream 00 vagina at Medical bedtime. Branch proMETHazin 2021-07 Yes [id number] 25mg Take 1 [facility] e 25 mg 2-14 tablet by ity of tablet 00:00: mouth [place] 00 every 4 Medical (four) Branch hours as needed for Nausea and Vomiting (N/V). clotrimazol 2021-07 Yes [id number] 1{appli Insert 1 [facility] e 1 % 2-14 cator} Applicator ity of vaginal 00:00: into [place] cream 00 vagina at Medical bedtime. Branch proMETHazin 2021-07 Yes [id number] 25mg Take 1 [facility] e 25 mg 2-14 tablet by ity of tablet 00:00: mouth [place] 00 every 4 Medical (four) Branch hours as needed for Nausea and Vomiting (N/V). clotrimazol 2021-07 Yes [id number] 1{appli Insert 1 [facility] e 1 % 2-14 cator} Applicator ity of vaginal 00:00: into [place] cream 00 vagina at Medical bedtime. Branch proMETHazin 2021-07 Yes [id number] 25mg Take 1 [facility] e 25 mg 2-14 tablet by ity of tablet 00:00: mouth [place] 00 every 4 Medical (four) Branch hours as needed for Nausea and Vomiting (N/V). clotrimazol 2021-07 Yes [id number] 1{appli Insert 1 [facility] e 1 % 2-14 cator} Applicator ity of vaginal 00:00: into [place] cream 00 vagina at Medical bedtime. Branch proMETHazin 2021-07 Yes [id number] 25mg Take 1 [facility] e 25 mg 2-14 tablet by ity of tablet 00:00: mouth [place] 00 every 4 Medical (four) Branch hours as needed for Nausea and Vomiting (N/V). clotrimazol 2021-07 Yes [id number] 1{appli Insert 1 [facility] e 1 % 2-14 cator} Applicator ity of vaginal 00:00: into [place] cream 00 vagina at Medical bedtime. Branch proMETHazin 2021-07 Yes [id number] 25mg Take 1 [facility] e 25 mg 2-14 tablet by ity of tablet 00:00: mouth [place] 00 every 4 Medical (four) Branch hours as needed for Nausea and Vomiting (N/V). clotrimazol 2021-07 Yes [id number] 1{appli Insert 1 [facility] e 1 % 2-14 cator} Applicator ity of vaginal 00:00: into [place] cream 00 vagina at Medical bedtime. Branch proMETHazin 2021-07 Yes [id number] 25mg Take 1 [facility] e 25 mg 2-14 tablet by ity of tablet 00:00: mouth [place] 00 every 4 Medical (four) Branch hours as needed for Nausea and Vomiting (N/V). proMETHazin 2021-07 Yes [id number] 25mg Take 1 [facility] e 25 mg 2-14 tablet by ity of tablet 00:00: mouth [place] 00 every 4 Medical (four) Branch hours as needed for Nausea and Vomiting (N/V). proMETHazin 2021-07 Yes [id number] 25mg Take 1 [facility] e 25 mg 2-14 tablet by ity of tablet 00:00: mouth [place] 00 every 4 Medical (four) Branch hours as needed for Nausea and Vomiting (N/V). proMETHazin 2021-07 Yes [id number] 25mg Take 1 [facility] e 25 mg 2-14 tablet by ity of tablet 00:00: mouth [place] 00 every 4 Medical (four) Branch hours as needed for Nausea and Vomiting (N/V). proMETHazin 2021-07 Yes [id number] 25mg Take 1 [facility] e 25 mg 2-14 tablet by ity of tablet 00:00: mouth [place] 00 every 4 Medical (four) Branch hours as needed for Nausea and Vomiting (N/V). proMETHazin 2021-07 Yes [id number] 25mg Take 1 [facility] e 25 mg 2-14 tablet by ity of tablet 00:00: mouth [place] 00 every 4 Medical (four) Branch hours as needed for Nausea and Vomiting (N/V). proMETHazin 2021-07 Yes [id number] 25mg Take 1 [facility] e 25 mg 2-14 tablet by ity of tablet 00:00: mouth [place] 00 every 4 Medical (four) Branch hours as needed for Nausea and Vomiting (N/V). clotrimazol 2021-07 Yes [id number] 1{appli Insert 1 [facility] e 1 % 2-14 cator} Applicator ity of vaginal 00:00: into [place] cream 00 vagina at Medical bedtime. Branch proMETHazin 2021-07 Yes [id number] 25mg Take 1 [facility] e 25 mg 2-14 tablet by ity of tablet 00:00: mouth [place] 00 every 4 Medical (four) Branch hours as needed for Nausea and Vomiting (N/V). SERTraline 2021-07 Yes [id number] 50mg Take 1 [facility] (ZOLOFT) 50 2-14 100 tablet by [facility] mg tablet 00:00: mouth [place] 00 the Medical morning. Branch clotrimazol 2021-07 Yes [id number] 1{appli Insert 1 [facility] e 1 % 2-14 cator} Applicator ity of vaginal 00:00: into [place] cream 00 vagina at Medical bedtime. Branch proMETHazin 2021-07 Yes [id number] 25mg Take 1 [facility] e 25 mg 2-14 tablet by ity of tablet 00:00: mouth [place] 00 every 4 Medical (four) Branch hours as needed for Nausea and Vomiting (N/V). SERTraline 2021-07 Yes [id number] 50mg Take 1 [facility] (ZOLOFT) 50 2-14 100 tablet by [facility] mg tablet 00:00: mouth [place] 00 the Medical morning. Branch clotrimazol 2021-07 Yes [id number] 1{appli Insert 1 [facility] e 1 % 2-14 cator} Applicator ity of vaginal 00:00: into [place] cream 00 vagina at Medical bedtime. Branch proMETHazin 2021-07 Yes [id number] 25mg Take 1 [facility] 25 mg 2-14 tablet by ity of tablet 00:00: mouth [place] 00 every 4 Medical (four) Branch hours as needed for Nausea and Vomiting (N/V). SERTraline 2021-07 Yes [id number] 50mg Take 1 [facility] (ZOLOFT) 50 2-14 100 tablet by [facility] mg tablet 00:00: mouth [place] 00 the Medical morning. Branch clotrimazol 2021-07 Yes [id number] 1{appli Insert 1 [facility] e 1 % 2-14 cator} Applicator ity of vaginal 00:00: into [place] cream 00 vagina at Medical bedtime. Branch proMETHazin 2021-07 Yes [id number] 25mg Take 1 [facility] 25 mg 2-14 tablet by ity of tablet 00:00: mouth [place] 00 every 4 Medical (four) Branch hours as needed for Nausea and Vomiting (N/V). SERTraline 2021-07 Yes [id number] 50mg Take 1 [facility] (ZOLOFT) 50 2-14 100 tablet by [facility] mg tablet 00:00: mouth [place] 00 the Medical morning. Branch clotrimazol 2021-07 Yes [id number] 1{appli Insert 1 [facility] 1 % 2-14 cator} Applicator ity of vaginal 00:00: into [place] cream 00 vagina at Medical bedtime. Branch proMETHazin 2021-07 Yes [id number] 25mg Take 1 [facility] 25 mg 2-14 tablet by ity of tablet 00:00: mouth [place] 00 every 4 Medical (four) Branch hours as needed for Nausea and Vomiting (N/V). SERTraline 2021-07 Yes [id number] 50mg Take 1 [facility] (ZOLOFT) 50 2-14 100 tablet by [facility] mg tablet 00:00: mouth [place] 00 the Medical morning. Branch clotrimazol 2021-07 Yes [id number] 1{appli Insert 1 [facility] 1 % 2-14 cator} Applicator ity of vaginal 00:00: into [place] cream 00 vagina at Medical bedtime. Branch proMETHazin 2021-07 Yes [id number] 25mg Take 1 [facility] 25 mg 2-14 tablet by ity of tablet 00:00: mouth [place] 00 every 4 Medical (four) Branch hours as needed for Nausea and Vomiting (N/V). clotrimazol 2021-07 Yes [id number] 1{appli Insert 1 [facility] 1 % 2-14 cator} Applicator ity of vaginal 00:00: into [place] cream 00 vagina at Medical bedtime. Branch proMETHazin 2021-07 Yes [id number] 25mg Take 1 [facility] 25 mg 2-14 tablet by ity of tablet 00:00: mouth [place] 00 every 4 Medical (four) Branch hours as needed for Nausea and Vomiting (N/V). clotrimazol 2021-07 Yes [id number] 1{appli Insert 1 [facility] 1 % 2-14 cator} Applicator ity of vaginal 00:00: into [place] cream 00 vagina at Medical bedtime. Branch proMETHazin 2021-07 Yes [id number] 25mg Take 1 [facility] 25 mg 2-14 tablet by ity of tablet 00:00: mouth [place] 00 every 4 Medical (four) Branch hours as needed for Nausea and Vomiting (N/V). clotrimazol 2021-07 Yes [id number] 1{appli Insert 1 [facility] 1 % 2-14 cator} Applicator ity of vaginal 00:00: into [place] cream 00 vagina at Medical bedtime. Branch proMETHazin 2021-07 Yes [id number] 25mg Take 1 [facility] 25 mg 2-14 tablet by ity of tablet 00:00: mouth [place] 00 every 4 Medical (four) Branch hours as needed for Nausea and Vomiting (N/V). clotrimazol 2021-07 Yes [id number] 1{appli Insert 1 [facility] 1 % 2-14 cator} Applicator ity of vaginal 00:00: into [place] cream 00 vagina at Medical bedtime. Branch proMETHazin 2021-07 Yes [id number] 25mg Take 1 [facility] 25 mg 2-14 tablet by ity of tablet 00:00: mouth [place] 00 every 4 Medical (four) Branch hours as needed for Nausea and Vomiting (N/V). clotrimazol 2021-07 Yes [id number] 1{appli Insert 1 [facility] 1 % 2-14 cator} Applicator ity of vaginal 00:00: into [place] cream 00 vagina at Medical bedtime. Branch proMETHazin 2021-07 Yes [id number] 25mg Take 1 [facility] 25 mg 2-14 tablet by ity of tablet 00:00: mouth [place] 00 every 4 Medical (four) Branch hours as needed for Nausea and Vomiting (N/V). clotrimazol 2021-07 Yes [id number] 1{appli Insert 1 [facility] 1 % 2-14 cator} Applicator ity of vaginal 00:00: into [place] cream 00 vagina at Medical bedtime. Branch proMETHazin 2021-07 Yes [id number] 25mg Take 1 [facility] 25 mg 2-14 tablet by ity of tablet 00:00: mouth [place] 00 every 4 Medical (four) Branch hours as needed for Nausea and Vomiting (N/V). clotrimazol 2021-07 Yes [id number] 1{appli Insert 1 [facility] 1 % 2-14 cator} Applicator ity of vaginal 00:00: into [place] cream 00 vagina at Medical bedtime. Branch proMETHazin 2021-07 Yes [id number] 25mg Take 1 [facility] 25 mg 2-14 tablet by ity of tablet 00:00: mouth [place] 00 every 4 Medical (four) Branch hours as needed for Nausea and Vomiting (N/V). clotrimazol 2021-07 Yes [id number] 1{appli Insert 1 [facility] 1 % 2-14 cator} Applicator ity of vaginal 00:00: into [place] cream 00 vagina at Medical bedtime. Branch proMETHazin 2021-07 Yes [id number] 25mg Take 1 [facility] 25 mg 2-14 tablet by ity of tablet 00:00: mouth [place] 00 every 4 Medical (four) Branch hours as needed for Nausea and Vomiting (N/V). clotrimazol 2021-07 Yes [id number] 1{appli Insert 1 [facility] 1 % 2-14 cator} Applicator ity of vaginal 00:00: into [place] cream 00 vagina at Medical bedtime. Branch proMETHazin 2021-07 Yes [id number] 25mg Take 1 [facility] 25 mg 2-14 tablet by ity of tablet 00:00: mouth [place] 00 every 4 Medical (four) Branch hours as needed for Nausea and Vomiting (N/V). clotrimazol 2021-07 Yes [id number] 1{appli Insert 1 [facility] 1 % 2-14 cator} Applicator ity of vaginal 00:00: into [place] cream 00 vagina at Medical bedtime. Branch proMETHazin 2021-07 Yes [id number] 25mg Take 1 [facility] 25 mg 2-14 tablet by ity of tablet 00:00: mouth [place] 00 every 4 Medical (four) Branch hours as needed for Nausea and Vomiting (N/V). clotrimazol 2021-07 Yes [id number] 1{appli Insert 1 [facility] 1 % 2-14 cator} Applicator ity of vaginal 00:00: into [place] cream 00 vagina at Medical bedtime. Branch proMETHazin 2021-07 Yes [id number] 25mg Take 1 [facility] 25 mg 2-14 tablet by ity of tablet 00:00: mouth [place] 00 every 4 Medical (four) Branch hours as needed for Nausea and Vomiting (N/V). clotrimazol 2021-07 Yes [id number] 1{appli Insert 1 [facility] 1 % 2-14 cator} Applicator ity of vaginal 00:00: into [place] cream 00 vagina at Medical bedtime. Branch proMETHazin 2021-07 Yes [id number] 25mg Take 1 [facility] 25 mg 2-14 tablet by ity of tablet 00:00: mouth [place] 00 every 4 Medical (four) Branch hours as needed for Nausea and Vomiting (N/V). clotrimazol 2021-07 Yes [id number] 1{appli Insert 1 [facility] 1 % 2-14 cator} Applicator ity of vaginal 00:00: into [place] cream 00 vagina at Medical bedtime. Branch proMETHazin 2021-07 Yes [id number] 25mg Take 1 [facility] 25 mg 2-14 tablet by ity of tablet 00:00: mouth [place] 00 every 4 Medical (four) Branch hours as needed for Nausea and Vomiting (N/V). clotrimazol 2021-07 Yes [id number] 1{appli Insert 1 [facility] 1 % 2-14 cator} Applicator ity of vaginal 00:00: into [place] cream 00 vagina at Medical bedtime. Branch proMETHazin 2021-07 Yes [id number] 25mg Take 1 [facility] 25 mg 2-14 tablet by ity of tablet 00:00: mouth [place] 00 every 4 Medical (four) Branch hours as needed for Nausea and Vomiting (N/V). clotrimazol 2021-07 Yes [id number] 1{appli Insert 1 [facility] 1 % 2-14 cator} Applicator ity of vaginal 00:00: into [place] cream 00 vagina at Medical bedtime. Branch proMETHazin 2021-07 Yes [id number] 25mg Take 1 [facility] 25 mg 2-14 tablet by ity of tablet 00:00: mouth [place] 00 every 4 Medical (four) Branch hours as needed for Nausea and Vomiting (N/V). clotrimazol 2021-07 Yes [id number] 1{appli Insert 1 [facility] 1 % 2-14 cator} Applicator ity of vaginal 00:00: into [place] cream 00 vagina at Medical bedtime. Branch proMETHazin 2021-07 Yes [id number] 25mg Take 1 [facility] 25 mg 2-14 tablet by ity of tablet 00:00: mouth [place] 00 every 4 Medical (four) Branch hours as needed for Nausea and Vomiting (N/V). clotrimazol 2021-07 Yes [id number] 1{appli Insert 1 [facility] 1 % 2-14 cator} Applicator ity of vaginal 00:00: into [place] cream 00 vagina at Medical bedtime. Branch proMETHazin 2021-07 Yes [id number] 25mg Take 1 [facility] 25 mg 2-14 tablet by ity of tablet 00:00: mouth [place] 00 every 4 Medical (four) Branch hours as needed for Nausea and Vomiting (N/V). clotrimazol 2021-07 Yes [id number] 1{appli Insert 1 [facility] 1 % 2-14 cator} Applicator ity of vaginal 00:00: into [place] cream 00 vagina at Medical bedtime. Branch proMETHazin 2021-07 Yes [id number] 25mg Take 1 [facility] 25 mg 2-14 tablet by ity of tablet 00:00: mouth [place] 00 every 4 Medical (four) Branch hours as needed for Nausea and Vomiting (N/V). clotrimazol 2021-07 Yes [id number] 1{appli Insert 1 [facility] 1 % 2-14 cator} Applicator ity of vaginal 00:00: into [place] cream 00 vagina at Medical bedtime. Branch proMETHazin 2021-07 Yes [id number] 25mg Take 1 [facility] 25 mg 2-14 tablet by ity of tablet 00:00: mouth [place] 00 every 4 Medical (four) Branch hours as needed for Nausea and Vomiting (N/V). clotrimazol 2021-07 Yes [id number] 1{appli Insert 1 [facility] 1 % 2-14 cator} Applicator ity of vaginal 00:00: into [place] cream 00 vagina at Medical bedtime. Branch proMETHazin 2021-07 Yes [id number] 25mg Take 1 [facility] 25 mg 2-14 tablet by ity of tablet 00:00: mouth [place] 00 every 4 Medical (four) Branch hours as needed for Nausea and Vomiting (N/V). clotrimazol 2021-07 Yes [id number] 1{appli Insert 1 [facility] 1 % 2-14 cator} Applicator ity of vaginal 00:00: into [place] cream 00 vagina at Medical bedtime. Branch proMETHazin 2021-07 Yes [id number] 25mg Take 1 [facility] 25 mg 2-14 tablet by ity of tablet 00:00: mouth [place] 00 every 4 Medical (four) Branch hours as needed for Nausea and Vomiting (N/V). clotrimazol 2021-07 Yes [id number] 1{appli Insert 1 [facility] 1 % 2-14 cator} Applicator ity of vaginal 00:00: into [place] cream 00 vagina at Medical bedtime. Branch proMETHazin 2021-07 Yes [id number] 25mg Take 1 [facility] 25 mg 2-14 tablet by ity of tablet 00:00: mouth [place] 00 every 4 Medical (four) Branch hours as needed for Nausea and Vomiting (N/V). clotrimazol 2021-07 Yes [id number] 1{appli Insert 1 [facility] 1 % 2-14 cator} Applicator ity of vaginal 00:00: into [place] cream 00 vagina at Medical bedtime. Branch proMETHazin 2021-07 Yes [id number] 25mg Take 1 [facility] 25 mg 2-14 tablet by ity of tablet 00:00: mouth [place] 00 every 4 Medical (four) Branch hours as needed for Nausea and Vomiting (N/V). clotrimazol 2021-07 Yes [id number] 1{appli Insert 1 [facility] 1 % 2-14 cator} Applicator ity of vaginal 00:00: into [place] cream 00 vagina at Medical bedtime. Branch proMETHazin 2021-07 Yes [id number] 25mg Take 1 [facility] 25 mg 2-14 tablet by ity of tablet 00:00: mouth [place] 00 every 4 Medical (four) Branch hours as needed for Nausea and Vomiting (N/V). clotrimazol 2021-07 Yes [id number] 1{appli Insert 1 [facility] 1 % 2-14 cator} Applicator ity of vaginal 00:00: into [place] cream 00 vagina at Medical bedtime. Branch proMETHazin 2021-07- No [id number] 25mg Take 1 [facility] 25 mg 2-14 06-29 tablet by ity of tablet 00:00: 00:00 mouth [place] 00 :00 every 4 Medical (four) Branch hours as needed for Nausea and Vomiting (N/V). clotrimazol 2021-07- No [id number] 1{appli Insert 1 [facility] 1 % 2-14 06-07 cator} Applicator ity o f vaginal 00:00: 00:00 into [place] cream 00 :00 vagina at Medical bedtime. Branch SERTraline 2021-07- No [id number] 50mg Take 1 [facility] (ZOLOFT) 50 2-14 12-29 100 tablet by it y of mg tablet 00:00: 00:00 mouth [place] 00 :00 the Medical morning. Branch ferrous 2021-0 Yes [id number] 325mg Take 1 [facility] [place] sulfate 325 8-10 tablet by ity of mg (65 mg 00:00: mouth [place] iron) 00 the Medical tablet morning Branch and 1 tablet in the evening. ascorbic Yes [id number] 500mg Take 1 [facility] acid, 8-10 tablet by ity of vitamin C, 00:00: mouth in [place] 500 mg 00 the Medical tablet morning Branch and 1 tablet at noon and 1 tablet in the evening. ferrous Yes [id number] 325mg Take 1 [facility] [place] sulfate 325 8-10 tablet by ity of mg (65 mg 00:00: mouth [place] iron) 00 the Medical tablet morning Branch and 1 tablet in the evening. ascorbic Yes [id number] 500mg Take 1 [facility] acid, 8-10 tablet by ity of vitamin C, 00:00: mouth in [place] 500 mg 00 the Medical tablet morning Branch and 1 tablet at noon and 1 tablet in the evening. ferrous 2021- No [id number] 325mg Take 1 [facility] nivers sulfate 325 8-10 12-14 tablet by it y of mg (65 mg 00:00: 00:00 mouth in [place] iron) 00 :00 the Medical tablet morning Branch and 1 tablet in the evening. ascorbic 2021- No [id number] 500mg Take 1 [facility] acid, 8-10 12-14 tablet by ity of vitamin C, 00:00: 00:00 mouth in [place] 500 mg 00 :00 the Medical tablet morning Branch and 1 tablet at noon and 1 tablet in the evening. 0 Yes [id number] 1{tbl} Take 1 U nivers multivitami 8-09 tablet by ity of n ( 00:00: mouth in [place] VITAMIN) 00 the Medical tablet morning. Branch PNV 67-iron Yes [id number] 1{each} Take 1 [facility] ps-folate 8-09 Each by ity of no.1-dha 00:00: mouth [place] (VITAFOL 00 daily. Medical ULTRA) 29 Branch mg iron- 1 mg-200 mg Cap 0 Yes [id number] 1{tbl} Take 1 U nivers multivitami 8-09 tablet by ity of n ( 00:00: mouth in [place] VITAMIN) 00 the Medical tablet morning. Branch PNV 67-iron Yes [id number] 1{each} Take 1 [facility] ps-folate 8-09 Each by ity of no.1-dha 00:00: mouth [place] (VITAFOL 00 daily. Medical ULTRA) 29 Branch mg iron- 1 mg-200 mg Cap PNV 67-iron 2022-0 Yes [id number] 1{each} Take 1 [facility] ps-folate 8-09 Each by ity of no.1-dha 00:00: mouth [place] (VITAFOL 00 daily. Medical ULTRA) 29 Branch mg iron- 1 mg-200 mg Cap PNV 67-iron 2-0 Yes [id number] 1{each} Take 1 [facility] ps-folate 8-09 Each by ity of no.1-dha 00:00: mouth [place] (VITAFOL 00 daily. Medical ULTRA) 29 Branch mg iron- 1 mg-200 mg Cap PNV 67-iron 2-0 Yes [id number] 1{each} Take 1 [facility] ps-folate 8-09 Each by ity of no.1-dha 00:00: mouth [place] (VITAFOL 00 daily. Medical ULTRA) 29 Branch mg iron- 1 mg-200 mg Cap PNV 67-iron 2-0 Yes [id number] 1{each} Take 1 [facility] ps-folate 8-09 Each by ity of no.1-dha 00:00: mouth [place] (VITAFOL 00 daily. Medical ULTRA) 29 Branch mg iron- 1 mg-200 mg Cap PNV 67-iron 2021-0 Yes [id number] 1{each} Take 1 [facility] ps-folate 8-09 Each by ity of no.1-dha 00:00: mouth [place] (VITAFOL 00 daily. Medical ULTRA) 29 Branch mg iron- 1 mg-200 mg Cap PNV 67-iron 2021-0 Yes [id number] 1{each} Take 1 [facility] ps-folate 8-09 Each by ity of no.1-dha 00:00: mouth [place] (VITAFOL 00 daily. Medical ULTRA) 29 Branch mg iron- 1 mg-200 mg Cap PNV 67-iron 2-0 Yes [id number] 1{each} Take 1 [facility] ps-folate 8-09 Each by ity of no.1-dha 00:00: mouth [place] (VITAFOL 00 daily. Medical ULTRA) 29 Branch mg iron- 1 mg-200 mg Cap PNV 67-iron 2-0 Yes [id number] 1{each} Take 1 [facility] ps-folate 8-09 Each by ity of no.1-dha 00:00: mouth [place] (VITAFOL 00 daily. Medical ULTRA) 29 Branch mg iron- 1 mg-200 mg Cap PNV 67-iron 2021-0 Yes [id number] 1{each} Take 1 [facility] ps-folate - Each by ity of no.1-dha 00:00: mouth [place] (VITAFOL 00 daily. Medical ULTRA) 29 Branch mg iron- 1 mg-200 mg Cap PNV 67-iron 2021-0 Yes [id number] 1{each} Take 1 [facility] ps-folate - Each by ity of no.1-dha 00:00: mouth [place] (VITAFOL 00 daily. Medical ULTRA) 29 Branch mg iron- 1 mg-200 mg Cap PNV 67-iron 2021-0 Yes [id number] 1{each} Take 1 [facility] ps-folate - Each by ity of no.1-dha 00:00: mouth [place] (VITAFOL 00 daily. Medical ULTRA) 29 Branch mg iron- 1 mg-200 mg Cap PNV 67-iron 2021-0 2022- No [id number] 1{each} Take 1 [facility] ps-folate 03-04- Each by ity of no.1-dha 00:00: 00:00 mouth [place] (VITAFOL 00 :00 daily. Medical ULTRA) 29 Branch mg iron- 1 mg-200 mg Cap PNV 67-iron 2021-0 2022- No [id number] 1{each} Take 1 [facility] ps-folate 03-04- Each by ity of no.1-dha 00:00: 00:00 mouth [place] (VITAFOL 00 :00 daily. Medical ULTRA) 29 Branch mg iron- 1 mg-200 mg Cap 2021-0 2021- No [id number] 1{tbl} Take 1 [facility] multivitami 03-04 12-14 tablet by it y of n ( 00:00: 00:00 mouth in [place] VITAMIN) 00 :00 the Medical tablet morning. Branch Immunizations Ordered Filled Date Status Comments Source Immunization Name Immunization Name [facility] 2022-11-26 Completed [facility] of 00:00:00 [facility] TDAP 2022-11-26 Completed [facility] of 00:00:00 [facility] TDAP 2022-11-26 Completed [facility] of 00:00:00 [facility] TDAP 2022-11-26 Completed [facility] of 00:00:00 [facility] TDAP 2022-11-26 Completed [facility] of 00:00:00 [place] [facility] TDAP 2022-11-26 Completed [facility] 00:00:00 [facility] TDAP 2022-11-26 Completed [facility] 00:00:00 [facility] TDAP 2022-11-26 Completed [facility] 00:00:00 [facility] TDAP 2022-11-26 Completed [facility] 00:00:00 [facility] TDAP 2022-11-26 Completed [facility] 00:00:00 [facility] TDAP 2022-11-26 Completed [facility] 00:00:00 [facility] TDAP 2022-11-26 Completed [facility] 00:00:00 [facility] TDAP 2022-11-26 Completed [facility] 00:00:00 [facility] TDAP 2022-11-26 Completed [facility] 00:00:00 [facility] TDAP 2022-11-26 Completed [facility] of 00:00:00 [facility] TDAP 2022-11-26 Completed [facility] of 00:00:00 [facility] TDAP 2022-11-26 Completed [facility] of 00:00:00 [facility] TDAP 2014-01-06 Completed [facility] of 00:00:00 [facility] Branch TDAP 2014-01-06 Completed [facility] of 00:00:00 [facility] Branch TDAP 2014-01-06 Completed [facility] of 00:00:00 [facility] Branch TDAP 2014-01-06 Completed [facility] of 00:00:00 [facility] TDAP 2014-01-06 Completed [facility] of 00:00:00 [facility] Branch TDAP 2014-01-06 Completed [facility] of 00:00:00 [facility] TDAP 2014-01-06 Completed [facility] of 00:00:00 [facility] TDAP 2014-01-06 Completed [facility] of 00:00:00 [facility] TDAP 2014-01-06 Completed [facility] of 00:00:00 [facility] TDAP 2014-01-06 Completed [facility] of 00:00:00 [facility] TDAP 2014-01-06 Completed [facility] of 00:00:00 [facility] TDAP 2014-01-06 Completed [facility] of 00:00:00 [facility] TDAP 2014-01-06 Completed [facility] of 00:00:00 [facility] TDAP 2014-01-06 Completed [facility] of 00:00:00 [facility] TDAP 2014-01-06 Completed [facility] of 00:00:00 [place] [facility] TDAP 2014-01-06 Completed [facility] of 00:00:00 [facility] TDAP 2014-01-06 Completed [facility] of 00:00:00 [place] [facility] TDAP 2014-01-06 Completed [facility] of 00:00:00 [facility] TDAP 2014-01-06 Completed [facility] of 00:00:00 [facility] TDAP 2014-01-06 Completed [facility] of 00:00:00 [facility] TDAP 2014-01-06 Completed [facility] of 00:00:00 [facility] TDAP 2014-01-06 Completed [facility] of 00:00:00 [facility] TDAP 2014-01-06 Completed [facility] of 00:00:00 [facility] TDAP 2014-01-06 Completed [facility] of 00:00:00 [facility] TDAP 2014-01-06 Completed [facility] of 00:00:00 [facility] TDAP 2014-01-06 Completed [facility] of 00:00:00 [facility] TDAP 2014-01-06 Completed [facility] of 00:00:00 [facility] TDAP 2014-01-06 Completed [facility] of 00:00:00 [facility] TDAP 2014-01-06 Completed [facility] of 00:00:00 [facility] TDAP 2014-01-06 Completed [facility] of 00:00:00 [facility] TDAP 2014-01-06 Completed [facility] of 00:00:00 [facility] TDAP 2014-01-06 Completed [facility] of 00:00:00 [facility] TDAP 2014-01-06 Completed [facility] of 00:00:00 [facility] TDAP 2014-01-06 Completed [facility] of 00:00:00 [facility] TDAP 2014-01-06 Completed University of 00:00:00 [facility] TDAP 2014-01-06 Completed [facility] 00:00:00 [facility] TDAP 2014-01-06 Completed [facility] 00:00:00 [facility] TDAP 2014-01-06 Completed [facility] 00:00:00 [facility] TDAP 2014-01-06 Completed [facility] 00:00:00 [facility] TDAP 2014-01-06 Completed [facility] 00:00:00 [facility] TDAP 2014-01-06 Completed [facility] 00:00:00 [facility] TDAP 2014-01-06 Completed [facility] 00:00:00 [facility] TDAP 2014-01-06 Completed [facility] 00:00:00 [facility] TDAP 2014-01-06 Completed [facility] 00:00:00 [facility] TDAP 2014-01-06 Completed [facility] 00:00:00 [facility] TDAP 2014-01-06 Completed [facility] 00:00:00 [facility] TDAP 2014-01-06 Completed [facility] 00:00:00 [facility] TDAP 2014-01-06 Completed [facility] 00:00:00 [facility] TDAP 2014-01-06 Completed [facility] 00:00:00 [facility] TDAP 2014-01-06 Completed [facility] 00:00:00 [facility] TDAP 2014-01-06 Completed [facility] 00:00:00 [facility] TDAP 2014-01-06 Completed [facility] 00:00:00 [facility] TDAP 2014-01-06 Completed [facility] 00:00:00 [facility] TDAP 2014-01-06 Completed [facility] 00:00:00 [facility] TDAP 2014-01-06 Completed [facility] 00:00:00 [facility] TDAP 2014-01-06 Completed [facility] 00:00:00 [facility] TD, NOS 2002-07-27 Completed [facility] 00:00:00 [facility] TD, NOS 2002-07-27 Completed [facility] 00:00:00 [facility] TD, NOS 2002-07-27 Completed [facility] 00:00:00 [facility] TD, NOS 2002-07-27 Completed [facility] 00:00:00 [facility] TD, NOS 2002-07-27 Completed [facility] 00:00:00 [facility] TD, NOS 2002-07-27 Completed [facility] 00:00:00 [facility] TD, NOS 2002-07-27 Completed [facility] 00:00:00 [facility] TD, NOS 2002-07-27 Completed [facility] 00:00:00 [facility] TD, NOS 2002-07-27 Completed [facility] 00:00:00 [facility] TD, NOS 2002-07-27 Completed [facility] 00:00:00 [facility] TD, NOS 2002-07-27 Completed [facility] 00:00:00 [facility] TD, NOS 2002-07-27 Completed [facility] 00:00:00 [facility] TD, NOS 2002-07-27 Completed [facility] 00:00:00 [facility] TD, NOS 2002-07-27 Completed [facility] 00:00:00 [facility] TD, NOS 2002-07-27 Completed [facility] 00:00:00 [facility] TD, NOS 2002-07-27 Completed [facility] 00:00:00 [facility] TD, NOS 2002-07-27 Completed [facility] 00:00:00 [facility] TD, NOS 2002-07-27 Completed [facility] 00:00:00 [facility] TD, NOS 2002-07-27 Completed [facility] 00:00:00 [facility] TD, NOS 2002-07-27 Completed [facility] 00:00:00 [facility] TD, NOS 2002-07-27 Completed [facility] 00:00:00 [facility] TD, NOS 2002-07-27 Completed [facility] 00:00:00 [facility] TD, NOS 2002-07-27 Completed [facility] 00:00:00 [facility] TD, NOS 2002-07-27 Completed [facility] 00:00:00 [facility] TD, NOS 2002-07-27 Completed [facility] 00:00:00 [facility] TD, NOS 2002-07-27 Completed [facility] 00:00:00 [facility] TD, NOS 2002-07-27 Completed [facility] 00:00:00 [facility] TD, NOS 2002-07-27 Completed [facility] 00:00:00 [facility] TD, NOS 2002-07-27 Completed [facility] 00:00:00 [facility] TD, NOS 2002-07-27 Completed [facility] 00:00:00 [facility] TD, NOS 2002-07-27 Completed [facility] 00:00:00 [facility] TD, NOS 2002-07-27 Completed [facility] 00:00:00 [facility] TD, NOS 2002-07-27 Completed [facility] 00:00:00 [facility] TD, NOS 2002-07-27 Completed [facility] 00:00:00 [facility] TD, NOS 2002-07-27 Completed [facility] 00:00:00 [facility] TD, NOS 2002-07-27 Completed [facility] 00:00:00 [facility] TD, NOS 2002-07-27 Completed [facility] 00:00:00 [facility] Td 2002-07-27 Completed [facility] 00:00:00 [facility] Td 2002-07-27 Completed [facility] 00:00:00 [facility] Td 2002-07-27 Completed [facility] 00:00:00 [facility] Td 2002-07-27 Completed [facility] 00:00:00 [facility] Td 2002-07-27 Completed [facility] 00:00:00 [facility] Td 2002-07-27 Completed [facility] 00:00:00 [facility] Td 2002-07-27 Completed [facility] 00:00:00 [facility] TD, NOS 2002-07-27 Completed [facility] 00:00:00 [facility] TD, NOS 2002-07-27 Completed [facility] 00:00:00 [facility] TD, NOS 2002-07-27 Completed [facility] 00:00:00 [facility] TD, NOS 2002-07-27 Completed [facility] 00:00:00 [facility] TD, NOS 2002-07-27 Completed [facility] 00:00:00 [facility] TD, NOS 2002-07-27 Completed [facility] 00:00:00 [facility] TD, NOS 2002-07-27 Completed [facility] 00:00:00 [facility] TD, NOS 2002-07-27 Completed [facility] 00:00:00 [facility] TD, NOS 2002-07-27 Completed [facility] 00:00:00 [facility] TD, NOS 2002-07-27 Completed [facility] 00:00:00 [facility] TD, NOS 2002-07-27 Completed [facility] 00:00:00 [facility] TD, NOS 2002-07-27 Completed [facility] 00:00:00 [facility] TD, NOS Unknown Completed [facility] TDAP Unknown Completed [facility] TDAP Unknown Completed [facility] TD, NOS Unknown Completed [facility] TDAP Unknown Completed [facility] TDAP Unknown Completed [facility] TD, NOS Unknown Completed [facility] TDAP Unknown Completed [facility] TD, NOS Unknown Completed [facility] TDAP Unknown Completed [facility] TD, NOS Unknown Completed [facility] TDAP Unknown Completed [facility] TD, NOS Unknown Completed [facility] TDAP Unknown Completed [facility] TDAP Unknown Completed [facility] TD, NOS Unknown Completed [facility] TDAP Unknown Completed [facility] TDAP Unknown Completed [facility] Vital Signs Vital Name Observation Time Observation Value Comments Source Systolic blood 2023-06-20 16:37:00 142 mm[Hg] Univer [facility] Diastolic blood 2023-06-20 16:37:00 74 mm[Hg] Unive rsity of [facility] Heart rate 2023-06-20 16:37:00 84 /min [facility] Body temperature 2023-06-20 16:37:00 36.61 Leanna [facility] Respiratory rate 2023-06-20 16:37:00 12 /min Univ ersity [facility] Body height 2023-06-20 16:37:00 170.2 cm [facility] Body weight 2023-06-20 16:37:00 128.822 kg [facility] BMI 2023-06-20 16:37:00 44.48 kg/m2 [facility] Oxygen saturation in 2023-06-20 16:37:00 99 /min University of Arterial blood by [place] [facility] Systolic blood 2023-06-13 18:03:00 127 mm[Hg] Univer sity of pressure [facility] Diastolic blood 2023-06-13 18:03:00 78 mm[Hg] Unive rsity of pressure [facility] Heart rate 2023-06-13 18:03:00 66 /min [facility] Body temperature 2023-06-13 18:03:00 37 Leanna [facility] Respiratory rate 2023-06-13 18:03:00 16 /min Univ [facility] Body height 2023-06-13 18:03:00 170.2 cm [facility] Body weight 2023-06-13 18:03:00 131.498 kg [facility] BMI 2023-06-13 18:03:00 45.40 kg/m2 [facility] Oxygen saturation in 2023-06-13 18:03:00 100 /min [facility] of Arterial blood by [employer] [facility] Systolic blood 2023-04-24 15:25:00 127 mm[Hg] Univer sity of pressure [facility] Diastolic blood 2023-04-24 15:25:00 77 mm[Hg] Unive rsity of pressure [facility] Heart rate 2023-04-24 15:25:00 63 /min [facility] Body temperature 2023-04-24 15:25:00 36.61 Leanna [facility] Respiratory rate 2023-04-24 15:25:00 14 /min Univ [facility] Body height 2023-04-24 15:25:00 170.2 cm [facility] Body weight 2023-04-24 15:25:00 125.147 kg [facility] BMI 2023-04-24 15:25:00 43.21 kg/m2 [facility] Oxygen saturation in 2023-04-24 15:25:00 100 /min University Arterial blood by [facility] Systolic blood 2023-01-30 14:51:00 128 mm[Hg] Univer sity of pressure [facility] Diastolic blood 2023-01-30 14:51:00 71 mm[Hg] Unive rsity of pressure [facility] Heart rate 2023-01-30 14:41:00 79 /min [facility] Body temperature 2023-01-30 14:41:00 36.89 Leanna [facility] Respiratory rate 2023-01-30 14:41:00 20 /min Univ [facility] Body height 2023-01-30 14:41:00 170.2 cm [facility] Body weight 2023-01-30 14:41:00 111.993 kg [facility] BMI 2023-01-30 14:41:00 38.67 kg/m2 [facility] Systolic blood 2023-01-30 14:29:00 128 mm[Hg] [facility] s[facility] of pressure [facility] Diastolic blood 2023-01-30 14:29:00 71 mm[Hg] Unive rsity of pressure [facility] Heart rate 2023-01-30 14:29:00 71 /min [facility] Body temperature 2023-01-30 14:28:00 36.89 Leanna [facility] Respiratory rate 2023-01-30 14:28:00 20 /min Univ [facility] Body height 2023-01-30 14:28:00 170.2 cm [facility] Body weight 2023-01-30 14:28:00 111.84 kg [facility] BMI 2023-01-30 14:28:00 38.62 kg/m2 [facility] Systolic blood 2023-01-22 17:47:00 145 mm[Hg] [facility] of pressure [facility] Diastolic blood 2023-01-22 17:47:00 76 mm[Hg] Unive rsity of pressure [facility] Heart rate 2023-01-22 17:47:00 84 /min [facility] Body temperature 2023-01-22 17:47:00 36.83 Leanna [facility] Respiratory rate 2023-01-22 17:47:00 18 /min Univ [facility] Oxygen saturation in 2023-01-22 17:47:00 97 /min [facility] Arterial blood by [place] [employer] [facility] Body height 2023-01-19 01:24:00 170.2 cm [facility] Body weight 2023-01-19 01:24:00 112.038 kg [facility] BMI 2023-01-19 01:24:00 38.69 kg/m2 [facility] Systolic blood 2023-01-19 12:52:00 107 mm[Hg] Un[facility] pressure [facility] Diastolic blood 2023-01-19 12:52:00 70 mm[Hg] Unive rsity of pressure [facility] Heart rate 2023-01-19 12:52:00 75 /min [facility] Body temperature 2023-01-19 12:52:00 36.72 Leanna [facility] Respiratory rate 2023-01-19 12:52:00 18 /min [facility] Oxygen saturation in 2023-01-19 12:52:00 98 /min [facility] Arterial blood by [place] [facility] Body height 2023-01-19 01:24:00 170.2 cm [facility] Body weight 2023-01-19 01:24:00 112.038 kg [facility] BMI 2023-01-19 01:24:00 38.69 kg/m2 [facility] Systolic blood 2023-01-16 14:16:00 116 mm[Hg] [facility] Diastolic blood 2023-01-16 14:16:00 73 mm[Hg] Unive rsity of [facility] Heart rate 2023-01-16 14:16:00 77 /min [facility] Body temperature 2023-01-16 14:16:00 35.94 Leanna [facility] Respiratory rate 2023-01-16 14:16:00 18 /min [facility] Body height 2023-01-16 14:16:00 170.2 cm [facility] Body weight 2023-01-16 14:16:00 112.628 kg [facility] BMI 2023-01-16 14:16:00 38.89 kg/m2 [facility] Systolic blood 2023-01-09 13:50:00 124 mm[Hg] Univer sity of pressure [facility] Diastolic blood 2023-01-09 13:50:00 75 mm[Hg] Unive rsity of [facility] Heart rate 2023-01-09 13:50:00 87 /min [facility] Body temperature 2023-01-09 13:50:00 36 Leanna [facility] Respiratory rate 2023-01-09 13:50:00 18 /min Univ [facility] Body height 2023-01-09 13:50:00 170.2 cm [facility] Body weight 2023-01-09 13:50:00 112.719 kg [facility] BMI 2023-01-09 13:50:00 38.92 kg/m2 [facility] Systolic blood 2022-12-31 14:39:00 124 mm[Hg] Univer sity of [facility] Diastolic blood 2022-12-31 14:39:00 77 mm[Hg] Unive rsity of [facility] Heart rate 2022-12-31 14:39:00 83 /min [facility] Body temperature 2022-12-31 14:39:00 36.11 Leanna [facility] Respiratory rate 2022-12-31 14:39:00 18 /min Univ [facility] Body height 2022-12-31 14:39:00 170.2 cm [facility] Body weight 2022-12-31 14:39:00 114.505 kg [facility] BMI 2022-12-31 14:39:00 39.54 kg/m2 [facility] Systolic blood 2022-11-26 16:22:00 123 mm[Hg] Univer sity of pressure [facility] Diastolic blood 2022-11-26 16:22:00 80 mm[Hg] Unive rsity of pressure [facility] Heart rate 2022-11-26 16:22:00 81 /min [facility] Body temperature 2022-11-26 16:22:00 36.17 Leanna [facility] Respiratory rate 2022-11-26 16:22:00 18 /min Univ [facility] Body height 2022-11-26 16:22:00 170.2 cm [facility] Body weight 2022-11-26 16:22:00 115.032 kg [facility] BMI 2022-11-26 16:22:00 39.72 kg/m2 [facility] Systolic blood 2022-11-18 00:18:00 119 mm[Hg] Univer sity of pressure [facility] Diastolic blood 2022-11-18 00:18:00 55 mm[Hg] Unive rsity of pressure [facility] Heart rate 2022-11-18 00:18:00 95 /min [facility] Body temperature 2022-11-18 00:18:00 36.61 Leanna [facility] Respiratory rate 2022-11-18 00:18:00 18 /min Univ [facility] Body height 2022-11-18 00:18:00 170.2 cm [facility] Body weight 2022-11-18 00:18:00 117.935 kg [facility] BMI 2022-11-18 00:18:00 40.72 kg/m2 [facility] Oxygen saturation in 2022-11-18 00:18:00 100 /min [facility] of Arterial blood by [facility] Branch Systolic blood 2022-10-23 14:50:00 127 mm[Hg] Univer sity of pressure [facility] Diastolic blood 2022-10-23 14:50:00 71 mm[Hg] Unive rsity of pressure [facility] Heart rate 2022-10-23 14:50:00 87 /min [facility]i ty [facility] Body temperature 2022-10-23 14:50:00 36.11 Leanna [facility] Respiratory rate 2022-10-23 14:50:00 18 /min Univ [facility] Body height 2022-10-23 14:50:00 170.2 cm [facility] Body weight 2022-10-23 14:50:00 119.024 kg [facility] BMI 2022-10-23 14:50:00 41.10 kg/m2 [facility] Systolic blood 2022-10-02 16:17:00 117 mm[Hg] Univer sity of pressure [facility] Diastolic blood 2022-10-02 16:17:00 70 mm[Hg] Unive rsity of pressure [facility] Heart rate 2022-10-02 16:17:00 85 /min [facility] Body temperature 2022-10-02 16:17:00 35.94 Leanna [facility] Respiratory rate 2022-10-02 16:17:00 18 /min [facility] Body height 2022-10-02 16:17:00 170.2 cm [facility] Body weight 2022-10-02 16:17:00 114.034 kg [facility] BMI 2022-10-02 16:17:00 39.37 kg/m2 [facility] ty [facility] Systolic blood 2022-09-17 05:00:00 132 mm[Hg] Univer sity of pressure [facility] Diastolic blood 2022-09-17 05:00:00 75 mm[Hg] [facility]ive [facility]ity of [facility] Heart rate 2022-09-17 05:00:00 82 /min [facility] Oxygen saturation in 2022-09-17 05:00:00 100 /min [facility] of Arterial blood by [facility] Body temperature 2022-09-17 04:46:00 36.72 Leanna [facility] Respiratory rate 2022-09-17 04:46:00 17 /min Univ ers[facility] of [facility] Body height 2022-09-17 04:46:00 170.2 cm [facility]i [facility] Body weight 2022-09-17 04:46:00 112.946 kg Universi ty of [facility] BMI 2022-09-17 04:46:00 39.00 kg/m2 [facility] Systolic blood 2022-09-04 16:03:00 115 mm[Hg] Univer sity of pressure [facility] Diastolic blood 2022-09-04 16:03:00 67 mm[Hg] Unive rsity of pressure [facility] Heart rate 2022-09-04 16:03:00 83 /min [facility] ty [facility] Body temperature 2022-09-04 16:03:00 36.94 Leanna [facility] Respiratory rate 2022-09-04 16:03:00 20 /min Univ [facility] Body height 2022-09-04 16:03:00 170.2 cm [facility] Body weight 2022-09-04 16:03:00 110.587 kg [facility] BMI 2022-09-04 16:03:00 38.18 kg/m2 [facility] Systolic blood 2022-08-06 16:19:00 119 mm[Hg] Univer sity of pressure [facility] Diastolic blood 2022-08-06 16:19:00 70 mm[Hg] Unive rsity of pressure [facility] Heart rate 2022-08-06 16:19:00 81 /min [facility] Body temperature 2022-08-06 16:19:00 36.94 Leanna [facility] Respiratory rate 2022-08-06 16:19:00 18 /min Univ [facility] Body height 2022-08-06 16:19:00 170.2 cm [facility] Body weight 2022-08-06 16:19:00 113.881 kg [facility] BMI 2022-08-06 16:19:00 39.32 kg/m2 Universi [facility] Systolic blood 2022-07-09 20:30:00 124 mm[Hg] Univer sity of pressure [facility] Diastolic blood 2022-07-09 20:30:00 71 mm[Hg] Unive rsity of [facility] Heart rate 2022-07-09 20:30:00 69 /min [facility] Body temperature 2022-07-09 20:30:00 36.39 Leanna [facility] Respiratory rate 2022-07-09 20:30:00 18 /min [facility] Body height 2022-07-09 20:30:00 170.2 cm [facility] Body weight 2022-07-09 20:30:00 113.581 kg [facility] BMI 2022-07-09 20:30:00 39.22 kg/m2 [facility] Procedures Procedure Date / Time Performing Clinician Source Performed CONSENT/REFUSAL FOR 2023-06-20 16:33:31 Doctor Unassigned, No [facility] [place] [facility] Name [facility] ASSIGNMENT OF BENEFITS 2023-06-13 20:13:09 Doctor Unassigned, No [facility] XR SPINE THORACIC 2 2023-06-13 20:09:00 Royce Santiago [facility] XR CERVICAL SPINE 3 2023-06-13 20:09:00 Royce Santiago [facility] CONSENT/REFUSAL FOR 2023-06-13 17:58:40 Doctor Unassigned, No [facility] [place] [facility] Name [facility] CONSENT/REFUSAL FOR 2023-04-24 14:53:47 Doctor Unassigned, No [facility] [place] [facility] Name [facility] CBC WITH DIFF 2023-01-20 08:38:00 Mary Mg [facility] CBC WITH DIFF 2023-01-20 08:38:00 Mary Mg [facility] VENOUS CORD GAS 2023-01-19 05:38:00 Mary Mg [facility] VENOUS CORD GAS 2023-01-19 05:38:00 Mary Mg [facility] SECTION 2023-01-19 04:37:00 Lauromolly [facility] SECTION 2023-01-19 04:37:00 Dusty [facility] CBC WITH DIFF 2023-01-19 02:39:00 Mary Mg [facility] HEPATITIS B SURFACE 2023-01-19 02:39:00 [facility] 2023-01-19 02:39:00 Mary Mg [facility] RHO (D) IMMUNE GLOBULIN 2023-01-19 02:39[facility]-AB WITH 2023-01-19 02:39:00 Mary Mg [facility] SYPHILIS IGG/IGM 2023-01-19 02:39:00 Mary Mg [facility] CBC WITH DIFF 2023-01-19 02:39:00 Mary Mg [facility] HEPATITIS B SURFACE 2023-01-19 02:39:00 Mary Mg Uni [facility] HB ABO GROUPING 2023-01-19 02:39:00 Mary Mg [facility] RHO (D) IMMUNE GLOBULIN 2023-01-19 02:39:00 Mary Mg [facility] HIV 1/2 AG-AB WITH 2023-01-19 02:39:00 Lisa Mgsaanay Kaur [facility] SYPHILIS IGG/IGM 2023-01-19 02:39:00 Mary Mg [facility] HOSPITAL ADMISSION 2023-01-18 05:01:00 Doctor Unassigned, No [facility] POCT URINALYSIS 2023-01-16 14:17:00 Janet De Jesus [facility] POCT URINALYSIS 2023-01-09 13:52:00 Janet De Jesus [facility] POCT URINALYSIS 2022-12-31 14:43:00 Janet De Jesus [facility] POCT URINALYSIS 2022-11-26 17:51:00 Janet De Jesus [facility] TDAP VACCINE, >11 YRS, 2022-11-26 16:50:04 Evert [facility] ASSIGNMENT OF BENEFITS 2022-11-17 23:49:27 Doctor Unassigned, No [facility] GLUCOSE 1 HOUR POST 2022-10-23 15:48:00 Evert Wisdom [facility] CBC WITH DIFF 2022-10-23 15:48:00 Evert Wisdom [facility] POCT URINALYSIS 2022-10-23 14:54:00 Janet De Jesus [facility] NOTICE OF RESEARCH 2022-10-06 05:01:00 Doctor Unassigned, No [facility] POCT URINALYSIS 2022-10-02 00:00:00 Evert Wisdom [facility] ASSIGNMENT OF BENEFITS 2022-09-17 04:31:51 Doctor Unassigned, No [facility] NOTICE OF PRIVACY 2022-09-17 04:30:55 Doctor Unassigned, No [facility] CONSENT/REFUSAL FOR 2022-09-17 04:30:29 [facility] Health) POCT URINALYSIS 2022-09-04 00:00:00 Janet De Jesus [facility] SECOND AND THIRD 2022-08-22 20:58:00 Janet De Jesus [facility] TRIMESTER ULTRASOUND Medical [facility] SECOND AND THIRD 2022-08-22 20:45:00 Janet De Jesus [facility] TRIMESTER ULTRASOUND Medical [facility] POCT URINALYSIS 2022-08-06 16:20:00 Evert Wisdom [facility] REPORT OF 2022-07-09 06:01:00 Doctor Unassigned, No Un [facility] POCT TEST 2022-07-09 00:00:00 Janet De Jesus [facility] POCT URINALYSIS W/O 2022-07-09 00:00:00 Janet De Jesus [facility] SPECIFIC GRAVITY [facility] Encounters Start End Encounter Admission Attending Care Care Encounter Source Date/Time Date/Time Type Type Clinicians Facility Department ID 2022-10-28 Outpatient [facility] [id number] [place] 14:25:34 [id number] [facility] 2023-06-24 2023-06-24 Outpatient R ALYX, [facility] [id number] Univers 10:30:00 10:30:00 EVERT ledezma [facility] 2023-06-20 2023-06-20 Emergency [facility] ERT [id number] Univers 10:38:00 11:10:00 CLEMENCIA blood [facility] 2023-06-20 2023-06-20 Emergency [facility] 1.2.840.114 10 [id number] Univers 10:38:00 11:10:00 Clemencia RANGEL 350.1.13.10 ity [facility] 4.2.7.2.686 [facility] [id number] [address] 2023-06-13 2023-06-13 Emergency X PAMELA, [facility] ERT [id number] Univers 12:05:00 15:27:00 ROYCE blood [facility] 2023-06-13 2023-06-13 Emergency Pamela, [facility] 1.2.080.782 [id number] Univers 12:05:00 15:27:00 Royce RANGEL 350.1.13.10 ity [facility] 4.2.7.2.686 [facility] [id number] [address] 2023-04-24 2023-04-24 Emergency X Jaycee DAMON [facility] ERT [id number] Univers 10:27:00 13:30:00 ity of [facility] 2023-04-24 2023-04-24 Emergency Jaycee Damon [facility] 1.2.840.114 10 [id number] Univers 10:27:00 13:30:00 Maria Luz [place] 350.1.13.10 i ty [facility] 4.2.7.2.686 [facility] [id number] [address] 2023-03-02 2023-03-02 Outpatient R TRISTIAN GAXIOLA [facility] [id number] Univers 09:00:00 09:00:00 ity of [facility] 2023-02-22 2023-02-22 Refill Alyx [facility] 1.2.416.864 [id number] Univers 00:00:00 00:00:00 Evert C [employer] 350.1.13.10 ity of [facility] 4.2.7.2.686 Trae as MATERNAL [id number] Med ical & CHILD [address] [place] [address] 2023-02-06 2023-02-06 Patient Doctor [facility] 1.2.840.114 [id number] Univers 00:00:00 00:00:00 Secure Msg Unassigned, FAMILY 350.1.13.10 ity of [place] MEDICINE 4.2.7.2.686 Trae as CLINIC - [id number] [address] 2023-01-30 2023-01-30 Routine Alyx [facility] 1.2.848.409 [id number] [id number] Univers 09:45:00 09:59:37 Evert C [employer] 350.1.13.10 ity of Visit [facility] 4.2.7.2.686 Trae as MATERNAL [id number] [facility] & CHILD [address] [place] [address] 2023-01-30 2023-01-30 Nurse Visit, Tommy-Rmchp Nurse [facility] 1.2 .840.114 [id number] Univers 09:00:00 09:15:00 Visit Evert Wisdom C [employer] 350.1.13. 10 ity of REGIONAL 4.2.7.2.686 Trae as MATERNAL [id number] [facility] ical & CHILD [facility] 2023-01-30 2023-01-30 Outpatient R AKINJOHNPE, [facility] [id number] Univers 09:00:00 09:00:00 EVERT blood o f [facility] 2023-01-18 2023-01-22 Hospital Dusty ONOFRE 1.2.840.114 [id number] Univers 20:06:00 15:19:00 Encounter Chasey HENRRY 350.1.13.10 ity of [facility] 4.2.7.2.[place] [id number] [facility] [address] 2023-01-18 2023-01-22 Inpatient P LAUROMOLLY [facility] CAYDEN [id number] Univers 20:06:00 15:19:00 CHASEY ity of [facility] 2023-01-19 2023-01-19 Anesthesia Lawrence [place] 1.2.840.114 [id number] Univers 20:01:47 20:01:47 Event HENRRY 350.1.13.10 it y of HOSPITAL 4.2.7.2.686 Trae as [id number] [facility] [address] 2023-01-19 2023-01-19 Surgery ONOFRE Cao 1.2.840.114 [id number] Univers 07:30:00 09:12:00 Chasey HENRRY 350.1.13.10 it y of [facility] 4.2.7.2.686 [place] [id number] [facility] [address] 2023-01-18 2023-01-18 Orders Doctor ONOFRE 1.2.840.114 [id number] Univers 00:00:00 00:00:00 Only Unassigned, HENRRY 350.1.13.10 ity of [place] [facility] 4.2.7.2.686 Trae as [id number] [facility] [address] 2023-01-16 2023-01-16 Outpatient R AKINSIPE, [facility] [id number] Univers 09:15:00 09:47:35 EVERT wright f [facility] 2023-01-16 2023-01-16 [facility] 1.2.919.581 [id number] [id number] [facility] 09:15:00 09:47:35 Evert C [employer] 350.1.13.10 ity of Visit REGIONAL 4.2.7.2.686 Trae as MATERNAL [id number] [address] 2023-01-09 2023-01-09 [facility] [id number] Univers 09:00:00 09:38:22 EVERT ity o f [facility] 2023-01-09 2023-01-09 Routine [facility] 1.2.553.141 [id number] [id number] Univers 09:00:00 09:38:22 Evert C [employer] 350.1.13.10 ity of Visit REGIONAL 4.2.7.2.686 Trae as MATERNAL [id number] [address] 2023-01-01 2023-01-01 Case [facility] 1.2.840.114 103 [id number] Univers 00:00:00 00:00:00 Management Janet A [employer] 350.1.13.10 ity of REGIONAL 4.2.7.2.686 Trae as MATERNAL [id number] [address] 2022-12-31 2022-12-31 [facility] [id number] Univers 09:45:00 10:03:21 JANET ity [facility] 2022-12-31 2022-12-31 [facility] 1.2.840.114 103 [id number] Univers 09:45:00 10:03:21 Janet A [employer] 350.1.13.10 ity of Visit REGIONAL 4.2.7.2.686 [place]e as MATERNAL [id number] [address] 2022-12-30 2022-12-30 Outpatient [facility] [id number] Univers 12:45:00 12:45:00 JANET ity [facility] 2022-12-25 2022-12-25 Pbx Operator 2, [facility] Usg Room UNIVERSIT 1 .2.840.114 [id number] Univers 10:00:00 10:30:00 Visit Angie GonzalezellenMaura [facility] 350.1 .13.10 ity of [facility] 4.2.7.2.686 [place] [id number] [address] 2022-12-25 2022-12-25 Outpatient P ANGIE [facility] [id number] Univers 10:00:00 10:00:00 SOFÍA it y of S, LORENZO [facility] 2022-12-25 2022-12-25 Case [facility] 1.2.840.114 103 [id number] Univers 00:00:00 00:00:00 Management Janet Woodward [employer] 350.1.13.10 ity of [facility] 4.2.7.2.686 Trae as MATERNAL [id number] [facility] ical & CHILD [address] [place] [address] 2022-12-23 2022-12-23 Telephone [facility] 1.2.840.114 10 [id number] Univers 00:00:00 00:00:00 Evert Farr [employer] 350.1.13.10 ity of [facility] 4.2.7.2.686 Trae as MATERNAL [id number] [facility] & [address] 2022-12-15 2022-12-15 Outpatient P [facility] [id number] Univers 15:15:00 15:[facility]-12-15 2022-12-15 Outpatient P [facility] [id number] Univers 09:00:00 09:00:00 ity [facility] 2022-12-11 2022-12-11 Outpatient R AKINSIPE, [facility] [id number] Univers 11:00:00 11:00:00 EVERT ledezma [facility] 2022-11-26 2022-11-26 Outpatient R AKINSIPE, [facility] [id number] Univers 10:45:00 12:11:47 EVERT ledezma [facility] 2022-11-26 2022-11-26 [facility]ine [facility] 1.2.641.558 [id number] [id number] Univers 10:45:00 12:11:47 Evert Farr [employer] 350.1.13.10 ity of Visit [facility] 4.2.7.2.686 Trae as MATERNAL [id number] [facility] & CHILD [address] [place] [address] 2022-11-26 2022-11-26 Outpatient R ALYX [facility] [id number] Univers 10:45:00 10:45:00 EVERT blood o f [facility] 2022-11-19 2022-11-19 Patient Doctor ONOFRE 1.2.840.114 [id number] Univers 00:00:00 00:00:00 Secure Msg Unassigned, HENRRY 350.1.13.10 ity of [place] [facility] 4.2.7.2.686 Trae as [id number] [facility] [address] 2022-11-17 2022-11-17 Outpatient X HERNANDEZ-BRIELLE WILKERSONL [facility] O BY [id number] Univers 18:56:00 20:30:00 HERNANDEZ-WILKERSON, DAISY ity of [facility] 2022-11-17 2022-11-17 Emergency [facility] 1.2.840.114 [id number] Univers 18:56:00 20:30:00 Daisy oliva [place] 350.1.13.10 ity of [place] 4.2.7.2.686 [facility] [id number] [facility] [address] 2022-11-17 2022-11-17 Orders Doctor ONOFRE 1.2.840.114 [id number] Univers 00:00:00 00:00:00 Only Unassigned, HENRRY 350.1.13.10 ity of [place] HOSPITAL 4.2.7.2.686 Trae as [id number] [facility] [address] 2022-11-13 2022-11-13 Outpatient R ALYX [facility] [id number] Univers 15:45:00 15:45:00 EVERT blood o f [facility] 2022-11-10 2022-11-10 Kamilla De Jesus [facility] 1.2.840.114 102 [id number] Univers 00:00:00 00:00:00 Janet A [employer] 350.1.13.10 i ty of REGIONAL 4.2.7.2.686 Trae as MATERNAL [id number] [facility] & CHILD [address] [place] [address] 2022-11-10 2022-11-10 Telephone [facility] 1.2.840.114 10 [id number] Univers 00:00:00 00:00:00 Evert C [employer] 350.1.13.10 ity of REGIONAL 4.2.7.2.686 Trae as MATERNAL [id number] [facility] & CHILD [address] [place] [address] 2022-11-05 2022-11-05 [facility] [id number] Univers 10:00:00 10:00:00 EVERT wright [facility] 2022-10-28 2022-10-28 Telephone [facility] 1.2.840.114 10 [id number] Univers 00:00:00 00:00:00 Evert C [employer] 350.1.13.10 ity of REGIONAL 4.2.7.2.686 Trae as MATERNAL [id number] [address] 2022-10-23 2022-10-23 Routine [facility] 1.2.730.276 [id number] [id number] Univers 10:15:00 10:30:31 Evert C [employer]NA[employer] 350.1.13.10 ity of Visit REGIONAL 4.2.7.2.686 Trae as MATERNAL [id number] [facility] & CHILD [address] [place] [address] 2022-10-23 2022-10-23 Outpatient R ALYX, [facility] [id number] Univers 10:15:00 10:30:31 EVERT wright [facility] 2022-10-23 2022-10-23 Letter [facility] 1.2.375.995 [id number] Univers 00:00:00 00:00:00 (Out) Evert C [employer] 350.1.13.10 ity of REGIONAL 4.2.7.2.686 Trae as MATERNAL [phone] [facility] & CHILD [address] [place] [address] 2022-10-07 2022-10-07 Case [facility] 1.2.840.114 101 [id number] Univers 00:00:00 00:00:00 Management Janet Woodward [employer] 350.1.13.10 ity of REGIONAL 4.2.7.2.686 Trae as MATERNAL [id number] [facility] & CHILD [address] [place] [address] 2022-10-06 2022-10-06 Pbx Operator 1, [facility] Us Room UNIVERSIT 1 .2.840.114 [id number] Univers 13:30:00 14:41:29 [facility] 350.1.13. 10 ity of CLINICS 4.2.7.2.[place] [id number] [facility] [address] 2022-10-06 2022-10-06 Outpatient P MARTIN [facility] [id number] Univers 13:30:00 13:30:00 RIK ity [facility] 2022-10-06 2022-10-06 Letter Martin, [facility] 1.2.840.114 101 [id number] Univers 00:00:00 00:00:00 (Out) Rik [facility] 350.1.13.10 ity of CLINICS 4.2.7.2.[place] [id number] [facility] [address] 2022-10-06 2022-10-06 Orders Doctor ONOFRE 1.2.840.114 [id number] Univers 00:00:00 00:00:00 Only Unassigned, HENRRY 350.1.13.10 ity of [place] [facility] 4.2.7.2.686 Trae as [id number] [facility] [address] 2022-10-02 2022-10-02 Routine [facility]ed[facility] 1.2.133.223 5734 [id number] Univers 10:30:00 10:49:38 Evert Farr [employer] 350.1.13.10 ity of Visit REGIONAL 4.2.7.2.686 Trae as MATERNAL [id number] [facility] & CHILD [address] [place] [address] 2022-10-02 2022-10-02 [facility] [id number] Univers 10:30:00 10:49:38 EVERT wright f [facility] 2022-10-02 2022-10-02 Letter [facility] 1.2.727.158 [id number] Univers 00:00:00 00:00:00 (Out) Evert Farr [employer] 350.1.13.10 ity of [facility] 4.2.7.2.686 Trae as MATERNAL [id number] Med ical & CHILD [address] [place] [address] 2022-09-26 2022-09-26 Emergency E MALLORIE, [facility] 7502 03:45:00 05:35:00 ANIBALTULIO [facility] 2022-09-16 2022-09-16 Outpatient P LUCIUS ALBA [facility] [place] [id number] [id number] Univers 22:42:00 23:30:00 ity of [facility] 2022-09-16 2022-09-16 Hospital Lucius Alba [facility] 1.2.840.114 100 [id number] Univers 22:42:00 23:30:00 Encounter Cam [place] 350.1.13.10 ity of [place] 4.2.7.2.686 [facility] [id number] [facility] [address] 2022-09-16 2022-09-16 Orders Doctor ONOFRE 1.2.840.114 [id number] Univers 00:00:00 00:00:00 Only Unassigned, HENRRY 350.1.13.10 ity of [place] [facility] 4.2.7.2.686 Trae as [id number] [facility] [address] 2022-09-04 2022-09-04 Outpatient [facility] [id number] Univers 09:45:00 10:52:21 EVERT wright f [facility] 2022-09-04 2022-09-04 Routine [facility] 1.2.720.529 [id number] [id number] Univers 09:45:00 10:52:21 Evert Farr [employer] 350.1.13.10 ity of Visit [facility] 4.2.7.2.686 Trae as MATERNAL [id number] [facility] & CHILD [address] [place] [address] 2022-09-04 2022-09-04 [facility] 1.2.840.114 100 [id number] Univers 00:00:00 00:00:00 Janet Woodward [employer]NA[employer] 350.1.13.10 i ty of REGIONAL 4.2.7.2.686 Trae as MATERNAL [id number] [facility] & CHILD [address] [place] [address] 2022-09-04 2022-09-04 Kamilla [facility] 1.2.235.763 [id number] Univers 00:00:00 00:00:00 Evert Farr [employer] 350.1.13.10 ity of REGIONAL 4.2.7.2.686 Trae as MATERNAL [id number] [facility] & CHILD [address] [place] [address] 2022-08-25 2022-08-25 Sonny [facility]Upstate [facility] 1.2.840.114 100 [id number] Univers 00:00:00 00:00:00 Management Janet Woodward [employer] 350.1.13.10 ity of REGIONAL 4.2.7.2.686 Trae as MATERNAL [id number] [address] 2022-08-22 2022-08-22 Pbx Operator 3, [facility] Room UNIVERSIT 1 .2.840.114 [id number] Univers 13:45:00 15:00:37 Visit Eliezer [facility] 350.1.13.10 ity of CLINICS [place] [id number] [address] 2022-08-22 2022-08-22 Outpatient P ELIEZER [facility] [id number] Univers 13:45:00 13:45:00 PRISCILA blood [facility] 2022-08-22 2022-08-22 Letter AGUSTIN Martins 1.2.858.567 [id number] [id number] Univers 00:00:00 00:00:00 (Out) [facility] 350.1.13.10 ity of CLINICS [id number] [address] 2022-08-22 2022-08-22 Telephone [facility] 1.2.840.114 10 [id number] Univers 00:00:00 00:00:00 Evert C [employer]NA[employer] 350.1.13.10 ity of REGIONAL 4.2.7.2.686 Trae as MATERNAL [id number] Med ical & CHILD [address] [place] [address] 2022-08-06 2022-08-06 Outpatient [facility] [id number] [id number] Univers 10:45:00 11:00:38 EVERT ity o f [facility] 2022-08-06 2022-08-06 Routine [facility] 1.2.514.469 [id number] [id number] Univers 10:45:00 11:00:38 Evert C [employer]NA[employer] 350.1.13.10 ity of Visit REGIONAL 4.2.7.2.686 Trae as MATERNAL [id number] Med ical & CHILD [address] [place] [address] 2022-07-23 2022-07-23 [facility] 1.2.840.114 [id number] Univers 00:00:00 00:00:00 Janet A [employer]NA[employer] 350.1.13.10 i ty of REGIONAL 4.2.7.2.686 Trae as MATERNAL [id number] [facility] CHILD [address] [place] [address] 2022-07-14 2022-07-14 [facility] 1.2.840.114 [id number] Univers 00:00:00 00:00:00 Janet A [employer] MANAGER 350.1.13.10 i ty of REGIONAL 4.2.7.2.686 Trae as MATERNAL [id number] [facility] ical & CHILD [address] [place] [address] 2022-07-13 2022-07-13 Case [facility]Upstate [facility] 1.2.840.114 [id number] Univers 00:00:00 00:00:00 Management Janet A [employer] MANAGER 350.1.13.10 ity of REGIONAL 4.2.7.2.686 Trae as MATERNAL [id number] Med ical & CHILD [address] [place] [address] 2022-07-10 2022-07-10 Case [facility] 1.2.840.114 [id number] Univers 00:00:00 00:00:00 Management Janet Woodward [employer]NAGER 350.1.13.10 ity of [facility] 4.2.7.2.686 Trae as MATERNAL [id number] [facility] & CHILD [address] [place] [address] 2022-07-09 2022-07-09 Outpatient R GRICELDA [facility] [id number] Univers 14:45:00 15:49:21 JANET itanay of [facility] 2022-07-09 2022-07-09 Initial Provider, Nolvia [facility] 1 .2.840.114 [id number] Univers 14:45:00 15:49:21 Janet De Jesus [employer] 350.1.13. 10 ity of Visit [facility] 4.2.7.2.686 Trae as MATERNAL [id number] [facility] & CHILD [address] [place] [address] 2022-07-09 2022-07-09 Orders Doctor ONOFRE 1.2.840.114 [id number] Univers 00:00:00 00:00:00 Only Unassigned, HENRRY 350.1.13.10 ity of [place] [facility] 4.2.7.2.686 Trae as [id number] [facility] [address] 2022-06-29 2022-06-29 Emergency EM Nikita, HCACL AERS [id number] [facility] 18:51:00 20:09:00 Rios Est[facility] 2022-06-06 2022-06-06 Nurse ONOFRE Teixeira 1.2.840.114 [id number] Univers 00:00:00 00:00:00 Triage Nina NOWAKY 350.1.13.10 it y of HOSPITAL 4.2.7.2.686 Trae as 554.0302322 [facility] [address] 2022-04-09 2022-04-09 Outpatient R ALYX [facility] [id number] Univers 11:00:00 11:00:00 EVERT wright f [facility] 2022-04-01 2022-04-01 [facility] [id number] Univers 10:45:00 10:45:00 EVERT ity o f [facility] 2022-04-01 2022-04-01 Telephone [facility] 1.2.840.114 [id number] Univers 00:00:00 00:00:00 Evert Farr [employer]NA[employer] 350.1.13.10 ity of [facility] 4.2.7.2.686 Trae as MATERNAL [id number] Med ical & CHILD [address] [place] [address] 2022-03-27 2022-03-27 Outpatient R [facility] [id number] Univers 09:30:00 09:30:00 ity [facility] 2022-03-20 2022-03-20 Outpatient R [facility] [id number] Univers 09:00:00 09:00:00 ity [facility] 2022-03-16 2022-03-16 Emergency X [facility] ERT [id number] Univers 20:29:00 21:24:00 CLEMENCIA ity [facility] 2022-03-16 2022-03-16 Emergency [facility] 1.2.840.114 [id number] Univers 20:29:00 21:24:00 Clemencia RANGEL 350.1.13.10 ity of [place] 4.2.7.2.686 [facility] [id number] [place] [id number] [place] 2022-03-13 2022-03-13 Emergency X CHUCK [facility] ERT [id number] Univers 06:52:00 10:26:00 NADIM ity [facility] 2022-03-13 2022-03-13 Emergency [facility] 1.2.691.862 [id number] Univers 06:52:00 10:26:00 [facility] 350.1.13.10 it y of [place] 4.2.7.2.686 [facility] [id number] [address] ([facility]) 2022-03-11 2022-03-11 Outpatient R [facility] [id number] Univers 09:00:00 09:00:00 ity of [facility] 2022-03-10 2022-03-10 Patient Doctor AGUSTIN 1.2.114.578 [id number] Univers 00:00:00 00:00:00 Secure Msg Unassigned, [facility] 350.1.13.10 ity of [place] [facility] 4.2.7.2.[place] [id number] [facility] [address] 2022-03-07 2022-03-07 Telephone [facility] 1.2.840.114 [id number] Univers 00:00:00 00:00:00 Evert Farr [employer] 350.1.13.10 ity of [facility] 4.2.7.2.686 Trae as MATERNAL [phone] Med ical & CHILD 107 [facility] 2022-03-06 2022-03-06 Outpatient [facility] [id number] Univers 10:30:00 10:30:00 EVERT ledezma [facility] 2022-03-06 2022-03-06 Outpatient R [facility] [id number] Univers 10:30:00 10:30:00 EVERT wright f [facility] 2022-03-06 2022-03-06 Patient Doctor ONOFRE 1.2.840.114 [id number] Univers 00:00:00 00:00:00 Secure Msg Unassigned, HENRRY 350.1.13.10 ity of Leonidas [facility] 4.2.7.2.686 Trae as [phone] [facility] [address] [place] 2022-03-05 2022-03-05 Emergency [facility] [id number] Univers 19:09:00 23:09:00 CLEMENCIA blood of [facility] 2022-03-05 2022-03-05 [facility] 1.2.840.114 [id number] Univers 19:09:00 23:09:00 Clemencia RANGEL 350.1.13.10 ity of [place]7.2.[place] [id number] [facility] [address] [place] 2022-03-05 2022-03-05 Emergency [facility] E[facility] [id number] Univers 19:09:00 23:09:00 CLEMENCIA ity of [facility] 2022-03-05 2022-03-05 [facility] 1.2.840.114 [id number] Univers 00:00:00 00:00:00 Evert C [employer] 350.1.13.10 ity of REGIONAL 4.2.7.2.686 Trae as MATERNAL [id number] [facility] ical & CHILD [address] [place] [address] 2022-03-04 2022-03-04 Outpatient R AKINSIPE, [facility] [id number] Univers 15:00:00 16:38:45 EVERT ity o [facility] 2022-03-04 2022-03-04 Initial [facility] [id number] Univers 15:00:00 16:38:45 Evert C [employer] 350.1.13.10 ity of Visit [facility] 4.2.7.2.686 Trae as MATERNAL [id number] [facility] & CHILD [address] [place] [address] 2022-03-04 2022-03-04 Outpatient R AKINSIPE, [facility] [id number] Univers 15:00:00 16:38:45 EVERT ity o [facility] 2022-03-04 2022-03-04 Outpatient R AKINSIPE, [facility] [id number] Univers 15:00:00 16:38:45 EVERT ity o [facility] 2022-03-04 2022-03-04 Outpatient R AKINSIPE, [facility] [id number] Univers 15:00:00 16:38:45 EVERT ity o [facility] 2022-03-04 2022-03-04 Orders Doctor ADHIKARI 1.2.840.114 [id number] Univers 00:00:00 00:00:00 Only Unassigned, HENRRY 350.1.13.10 ity of Leonidas [facility] 4.2.7.2.686 Trae as [id number] [address] 2022-01-03 2022-01-03 Emergency E REBECCA[id number] BL 16:32:00 19:45:00 YOAN 2021-08-01 2021-08-01 Emergency X AVALOS, [facility] ERT [id number] Univers 18:30:00 21:27:00 JANEL itanay [facility] 2021-08-01 2021-08-01 Emergency Avalos, [facility] [id number] Univers 18:30:00 21:27:00 Janel RANGEL 350.1.13.10 i ty of [place] 4.2.7.2.686 [facility] [id number] [address] 2021-05-08 2021-05-09 Emergency Irizarry, [facility] [id number] Univers 23:11:00 00:20:00 Senthil Rangel 350.1.13.10 i ty of [place] 4.2.7.2.686 [facility] [id number] [address] 2021-05-08 2021-05-09 [facility] [id number] Univers 23:11:00 00:20:00 SENTHIL itanay [facility] 2021-05-08 2021-05-09 Emergency [facility] [id number] Univers 23:11:00 00:20:00 SENTHIL itanay [facility] 2021-05-08 2021-05-09 Emergency X IRIZARRY, [facility] ERT [id number] Univers 23:11:00 00:20:00 SENTHIL blood [facility] 2021-03-31 2021-03-31 Emergency X AMBER, [facility] ERT [id number] Univers 10:56:00 12:56:00 ESTHER itanay [facility] 2021-03-31 2021-03-31 Emergency Drever, [facility] [id number] Univers 10:56:00 12:56:00 Esther Woody Beatrice 350.1.13.10 ity of [place] 4.2.7.2.686 [facility] [id number] [address] 2021-03-31 2021-03-31 Emergency X DREVER, [facility] ERT [id number] Univers 10:56:00 12:56:00 ESTHER anay [facility] 2021-03-31 2021-03-31 Emergency X DREPASCUAL, [facility] ERT [id number] Univers 10:56:00 12:56:00 ESTHER anay [facility] 2021-03-14 2021-03-14 Emergency Avalos, [facility] [id number] Univers 17:54:00 20:59:00 Janel Rangel 350.1.13.10 i ty of [place] 4.2.7.2.686 [facility] [id number] [address] 2021-03-14 2021-03-14 Emergency X [facility] ERT [id number] Univers 17:43:00 17:43:00 itanay [facility] 2021-02-20 2021-02-20 Emergency [facility] 1.2.840.114 [id number] Univers 06:57:00 07:31:00 Clemencia Rangel [id number] ity [place] 4.2.7.2.686 [facility] [id number] [address] 2021-02-20 2021-02-20 Emergency [facility] [id number] Univers 06:57:00 07:31:00 CLEMENCIA lobatoanay [facility] 2021-02-20 2021-02-20 Emergency [facility] 1.2.840.114 [id number] 06:57:00 07:31:00 Clemencia Rangel 350.1.13.10 [place] [address] [place] [address] [id number] [facility] 2021-02-14 2021-02-14 Emergency [facility] 1.2.840.114 [id number] Univers 16:10:00 19:05:00 Clemencia Rangel 350.1.13.10 ity of [place] 4.2.7.2.[address] [place] [id number] 2021-02-14 2021-02-14 Emergency [facility] 1.2.840.114 [id number] 16:10:00 19:05:00 Clemencia Rangel 350.1.13.10 [place] 4.2.7.2.686 [place] [id number] 2021-02-14 2021-02-14 Emergency X [facility] ERT [id number] Univers 15:52:00 15:52:00 [facility] Results Test Description Test Time Test Comments Results Result Comments Source [facility] ONLY - SYPHILIS IGG/IGM 2023-01-19 16:47:56 Test Item Value Reference Range Interpretation Comme nts Syphilis IgG/IgM (test code = Non-reactive Non-reactive 42170-1) YAMILETH (test code = YAMILETH) Non-reactive - No serologic evidence of T. pallidum infection. Cannot exclude incubating or early syphilis. Submit a second specimen in 2-4 weeks if syphilis is clinically suspected. Equivocal - Further testing to follow. Reactive - Further testing to follow. Lab Interpretation (test code = Normal 03755-9) [facility] ONLY - SYPHILIS [id number] 16:47:56 Test Item Value Reference Range Interpretation Comments Syphilis IgG/IgM (test Non-reactive Non-reactive code = 35307-4) YAMILETH (test code = YAMILETH) Non-reactive - No serologic evidence of T. pallidum infection. Cannot exclude incubating or early syphilis. Submit a second specimen in 2-4 weeks if syphilis is clinically suspected. Equivocal - Further testing to follow. Reactive - Further testing to follow. Lab Interpretation (test Normal code = 91436-4) [facility] [id number] 10:45:19 Test Item Value Reference Range Interpretation Comments RHIG CANDIDATE? No- see comment Patient i s not a (test code = candidate for R hIg- 5188) Patient is Rh Positive.Perfor med at [facility] Laboratory Services - [facility] Blood [address] [place] [address]Olja Free: [phone] A No. [id number] [facility] (D) IMMUNE [id number] 10:45:19 Test Item Value Reference Range Interpretation Comments RHIG CANDIDATE? No- see comment Patient i s not a (test code = candidate for R hIg- 5188) Patient is Rh Positive.Perfor med at [facility] Laboratory Services - [facility] Blood [address] [address]Jstx Free: [phone] A No. [id number] [facility] Cord [id number] 06:03:38 Test Item Value Reference Range Interpretation Comments VENOUS BASE EXCESS, CORD -5.3 mEq/L (test code = 1518003318) VENOUS PH, CORD (test 7.25 7.25-7.45 code = 0301487612) VENOUS PC02, CORD (test 53 See_Comment H [Au tomated message] code = 1042503251) The syste m which generated this result transmitted ref erence range: 27 - 49 mmHg. The reference r pily was not used to interpret this result as normal/abnor mal. VENOUS PO2, CORD (test See_Comment L [Aut omated message] code = 5794894586) The syste m which generated this result transmitted ref erence range: 17 - 41 mmHg. The reference r pily was not used to interpret this result as normal/abnor mal. VENOUS BICARBONATE, CORD 23 See_Comment [A utomated message] (test code = 3244834635) The system which generated this result transmitted ref erence range: 12 - 29 mEq/L. The reference r pily was not used to interpret this result as normal/abnor mal. Lab Interpretation (test Abnormal code = 33855-1) [facility] Cord [id number] 06:03:38 Test Item Value Reference Range Interpretation Comments VENOUS BASE EXCESS, CORD -5.3 mEq/L (test code = 4564995068) VENOUS PH, CORD (test 7.25 7.25-7.45 code = 9907967265) VENOUS PC02, CORD (test 53 See_Comment H [Au tomated message] code = 0621939007) The syste m which generated this result transmitted ref erence range: 27 - 49 mmHg. The reference r pily was not used to interpret this result as normal/abnor mal. VENOUS PO2, CORD (test See_Comment L [Aut omated message] code = 8029261272) The syste m which generated this result transmitted ref erence range: 17 - 41 mmHg. The reference r pily was not used to interpret this result as normal/abnor mal. VENOUS BICARBONATE, CORD 23 See_Comment [A utomated message] (test code = 6873794373) The system which generated this result transmitted ref erence range: 12 - 29 mEq/L. The reference r pily was not used to interpret this result as normal/abnor mal. Lab Interpretation (test Abnormal code = 31933-7) [facility] 1/2 AG-AB WITH [id number] 05:08:06 Test Item Value Reference Range Interpretation Comments HIV 0.09 Negative Semi-quantitative (test code = 85712-9) YAMILETH (test code = Non-reactive for HIV-1 YAMILETH) antigen and HIV-1/HIV-2 antibodies. ?No laboratory evidence of HIV infection. ?Repeat in 2-4 weeks if acute HIV infection is suspected. [facility] 1/2 AG-AB WITH [id number] 05:08:06 Test Item Value Reference Range Interpretation Comments HIV 0.09 Negative Semi-quantitative (test code = 24460-4) YAMILETH (test code = Non-reactive for HIV-1 YAMILETH) antigen and HIV-1/HIV-2 antibodies. ?No laboratory evidence of HIV infection. ?Repeat in 2-4 weeks if acute HIV infection is suspected. [facility] B Surface [id number] 04:12:23 Test Item Value Reference Range Interpretation Comments HBsAg Semi-Quantitative (test code = 0.04 Negative 5195-3) [facility] B Surface [id number] 04:12:23 Test Item Value Reference Range Interpretation Comments HBsAg Semi-Quantitative (test code = 0.04 Negative 5195-3) [facility] with [id number] 02:52:03 Test Item Value Reference Range Interpretation Comments WBC (test code = 7.72 See_Comment [Automated 9678-2) message] The sy stem which generated this result transmitted reference range : 4.30 - 11.10 10*3/?L. The reference range was not used to interpret this result as normal/abnormal . RBC (test code = 3.05 See_Comment L [Automated 005-7) message] The sy stem which generated this result transmitted reference range : 3.93 - 5.25 10*6/?L. The reference range was not used to interpret this result as normal/abnormal . HGB (test code = 9.3 g/dL 11.6-15.0 L 718-7) HCT (test code = 28.3 % 35.7-45.2 L 4544-3) MCV (test code = 92.8 fL 80.6-95.5 787-2) MCH (test code = 30.5 pg 25.9-32.8 785-6) MCHC (test code = 32.9 g/dL 31.6-35.1 786-4) RDW-SD (test code = 44.8 fL 39.0-49.9 52571-7) RDW-CV (test code = 13.3 % 12.0-15.5 788-0) PLT (test code = 284 See_Comment [Automated 777-3) message] The sy stem which generated this result transmitted reference range : 166 - 358 10*3/ ?L. The reference r pily was not used to interpret this result as normal/abnormal . MPV (test code = 10.5 fL 9.5-12.9 35766-8) NRBC/100 WBC (test 0.0 See_Comment [Automat ed code = 9210284011) message] The system which generated this result transmitted reference range : 0.0 - 10.0 /100 WBCs. The refer ence range was not u sed to interpret th is result as normal/abnormal . NRBC x10^3 (test code See_Comment [Auto mated = 6342259442) message] The s ystem which generated this result transmitted reference range : 10*3/?L. The reference range was not used to interpret this result as normal/abnormal . GRAN MAT (NEUT) % 79.3 % (test code = 770-8) IMM GRAN % (test code 0.40 % = 7984619517) LYMPH % (test code = 14.1 % 736-9) MONO % (test code = 6.0 % 5905-5) EOS % (test code = 0.1 % 713-8) BASO % (test code = 0.1 % 706-2) GRAN MAT x10^3(ANC) 6.12 10*3/uL 1.88-7.09 (test code = 8487935916) IMM GRAN x10^3 (test 0.03 10*3/uL 0.00-0.06 code = 6434487153) LYMPH x10^3 (test code 1.09 10*3/uL 1.32-3.29 L = 731-0) MONO x10^3 (test code 0.46 10*3/uL 0.33-0.92 = 742-7) EOS x10^3 (test code = 0.03-0.39 L 711-2) BASO x10^3 (test code 0.01-0.07 = 704-7) Lab Interpretation Abnormal (test code = 86544-1) [facility] with [id number] 02:52:03 Test Item Value Reference Range Interpretation Comments WBC (test code = 7.72 See_Comment [Automated 9590-2) message] The sy stem which generated this result transmitted reference range : 4.30 - 11.10 10*3/?L. The reference range was not used to interpret this result as normal/abnormal . RBC (test code = 3.05 See_Comment L [Automated 719-8) message] The sy stem which generated this result transmitted reference range : 3.93 - 5.25 10*6/?L. The reference range was not used to interpret this result as normal/abnormal . HGB (test code = 9.3 g/dL 11.6-15.0 L 718-7) HCT (test code = 28.3 % 35.7-45.2 L 4544-3) MCV (test code = 92.8 fL 80.6-95.5 787-2) MCH (test code = 30.5 pg 25.9-32.8 785-6) MCHC (test code = 32.9 g/dL 31.6-35.1 786-4) RDW-SD (test code = 44.8 fL 39.0-49.9 58334-2) RDW-CV (test code = 13.3 % 12.0-15.5 788-0) PLT (test code = 284 See_Comment [Automated 457-3) message] The sy stem which generated this result transmitted reference range : 166 - 358 10*3/ ?L. The reference r pily was not used to interpret this result as normal/abnormal . MPV (test code = 10.5 fL 9.5-12.9 70569-0) NRBC/100 WBC (test 0.0 See_Comment [Automat ed code = 1581699776) message] The system which generated this result transmitted reference range : 0.0 - 10.0 /100 WBCs. The refer ence range was not u sed to interpret th is result as normal/abnormal . NRBC x10^3 (test code See_Comment [Auto mated = 9809696521) message] The s ystem which generated this result transmitted reference range : 10*3/?L. The reference range was not used to interpret this result as normal/abnormal . GRAN MAT (NEUT) % 79.3 % (test code = 770-8) IMM GRAN % (test code 0.40 % = 2157289597) LYMPH % (test code = 14.1 % 736-9) MONO % (test code = 6.0 % 5905-5) EOS % (test code = 0.1 % 713-8) BASO % (test code = 0.1 % 706-2) GRAN MAT x10^3(ANC) 6.12 10*3/uL 1.88-7.09 (test code = 8986886126) IMM GRAN x10^3 (test 0.03 10*3/uL 0.00-0.06 code = 5380430687) LYMPH x10^3 (test code 1.09 10*3/uL 1.32-3.29 L = 731-0) MONO x10^3 (test code 0.46 10*3/uL 0.33-0.92 = 742-7) EOS x10^3 (test code = 0.03-0.39 L 711-2) BASO x10^3 (test code 0.01-0.07 = 704-7) Lab Interpretation Abnormal (test code = 07563-4) [facility] BranchType and Screen - ONCE [id number] 02:45:00 Test Item Value Reference Range Interpretation Comments ABO & RH (test code = 20) O POSITIVE IAT (test code = 1185) [facility] [id number] 02:45:00 Test Item Value Reference Range Interpretation Comments ABO & RH (test code = 20) O POSITIVE IAT (test code = 1185) Negative [facility] URINALYSIS W SPECIFIC [id number] 14:17:00 Test Item Value Reference Range Interpretation Comments POCT U SP GRAV (test code = 3255) . 1.005-1.025 POCT PH U (test code = 3254) . 5-8 POCT U LEUK EST (test code = 3263) . Negative - Negative POCT U NIT (test code = 3262) . Negative - Negative POCT U PROT (test code = 3259) trace Negative - Negative POCT U GLU (test code = 3256) neg Negative - Negative POCT U KETONE (test code = 3258) . Negative - Negative POCT U UROBILI (test code = 3260) . 0.2-1 POCT U BILI (test code = 3261) . Negative - Negative POCT U BLD (test code = 3257) . Negative - Negative POCT U COLOR (test code = 3266) . POCT U APPEAR (test code = 3267) . [facility] URINALYSIS W SPECIFIC [id number] 13:53:00 Test Item Value Reference Range Interpretation Comments POCT U SP GRAV (test code = 3255) . 1.005-1.025 POCT PH U (test code = 3254) . 5-8 POCT U LEUK EST (test code = 3263) . Negative - Negative POCT U NIT (test code = 3262) . Negative - Negative POCT U PROT (test code = 3259) trace Negative - Negative POCT U GLU (test code = 3256) neg Negative - Negative POCT U KETONE (test code = 3258) . Negative - Negative POCT U UROBILI (test code = 3260) . 0.2-1 POCT U BILI (test code = 3261) . Negative - Negative POCT U BLD (test code = 3257) . Negative - Negative POCT U COLOR (test code = 3266) . POCT U APPEAR (test code = 3267) . [facility] URINALYSIS W SPECIFIC [id number] 14:44:00 Test Item Value Reference Range Interpretation Comments POCT U SP GRAV (test code = 3255) . 1.005-1.025 POCT PH U (test code = 3254) 6 mg/dl 5-8 POCT U LEUK EST (test code = Trace Negative - Negative 3263) POCT U NIT (test code = 3262) Neg Negative - Negative POCT U PROT (test code = 3259) Trace Negative - Negative POCT U GLU (test code = 3256) Neg Negative - Negative POCT U KETONE (test code = 3258) None Negative - Negative POCT U UROBILI (test code = 3260) . 0.2-1 POCT U BILI (test code = 3261) . Negative - Negative POCT U BLD (test code = 3257) Trace Negative - Negative POCT U COLOR (test code = 3266) . POCT U APPEAR (test code = 3267) [facility] URINALYSIS W SPECIFIC [id number] 17:51:00 Test Item Value Reference Range Interpretation Comments POCT U SP GRAV (test code = 3255) . 1.005-1.025 POCT PH U (test code = 3254) . 5-8 POCT U LEUK EST (test code = 3263) . Negative - Negative POCT U NIT (test code = 3262) . Negative - Negative POCT U PROT (test code = 3259) TRACE Negative - Negative POCT U GLU (test code = 3256) NEG Negative - Negative POCT U KETONE (test code = 3258) . Negative - Negative POCT U UROBILI (test code = 3260) . 0.2-1 POCT U BILI (test code = 3261) . Negative - Negative POCT U BLD (test code = 3257) . Negative - Negative POCT U COLOR (test code = 3266) . POCT U APPEAR (test code = 3267) . [facility] URINALYSIS W SPECIFIC [id number] 14:55:00 Test Item Value Reference Range Interpretation Comments POCT U SP GRAV (test code = 3255) . 1.005-1.025 POCT PH U (test code = 3254) . 5-8 POCT U LEUK EST (test code = 3263) . Negative - Negative POCT U NIT (test code = 3262) . Negative - Negative POCT U PROT (test code = 3259) TRACE Negative - Negative POCT U GLU (test code = 3256) NEG Negative - Negative POCT U KETONE (test code = 3258) . Negative - Negative POCT U UROBILI (test code = 3260) . 0.2-1 POCT U BILI (test code = 3261) . Negative - Negative POCT U BLD (test code = 3257) . Negative - Negative POCT U COLOR (test code = 3266) . POCT U APPEAR (test code = 3267) . [facility] URINALYSIS W SPECIFIC [id number] 14:55:00 Test Item Value Reference Range Interpretation Comments POCT U SP GRAV (test code = 3255) . 1.005-1.025 POCT PH U (test code = 3254) . 5-8 POCT U LEUK EST (test code = 3263) . Negative - Negative POCT U NIT (test code = 3262) . Negative - Negative POCT U PROT (test code = 3259) TRACE Negative - Negative POCT U GLU (test code = 3256) NEG Negative - Negative POCT U KETONE (test code = 3258) . Negative - Negative POCT U UROBILI (test code = 3260) . 0.2-1 POCT U BILI (test code = 3261) . Negative - Negative POCT U BLD (test code = 3257) . Negative - Negative POCT U COLOR (test code = 3266) . POCT U APPEAR (test code = 3267) . [facility] URINALYSIS W SPECIFIC [id number] 14:55:00 Test Item Value Reference Range Interpretation Comments POCT U SP GRAV (test code = 3255) . 1.005-1.025 POCT PH U (test code = 3254) . 5-8 POCT U LEUK EST (test code = 3263) . Negative - Negative POCT U NIT (test code = 3262) . Negative - Negative POCT U PROT (test code = 3259) TRACE Negative - Negative POCT U GLU (test code = 3256) NEG Negative - Negative POCT U KETONE (test code = 3258) . Negative - Negative POCT U UROBILI (test code = 3260) . 0.2-1 POCT U BILI (test code = 3261) . Negative - Negative POCT U BLD (test code = 3257) . Negative - Negative POCT U COLOR (test code = 3266) . POCT U APPEAR (test code = 3267) . [facility] URINALYSIS W SPECIFIC [id number] 14:55:00 Test Item Value Reference Range Interpretation Comments POCT U SP GRAV (test code = 3255) . 1.005-1.025 POCT PH U (test code = 3254) . 5-8 POCT U LEUK EST (test code = 3263) . Negative - Negative POCT U NIT (test code = 3262) . Negative - Negative POCT U PROT (test code = 3259) TRACE Negative - Negative POCT U GLU (test code = 3256) NEG Negative - Negative POCT U KETONE (test code = 3258) . Negative - Negative POCT U UROBILI (test code = 3260) . 0.2-1 POCT U BILI (test code = 3261) . Negative - Negative POCT U BLD (test code = 3257) . Negative - Negative POCT U COLOR (test code = 3266) . POCT U APPEAR (test code = 3267) . [facility] URINALYSIS W SPECIFIC [id number] 14:55:00 Test Item Value Reference Range Interpretation Comments POCT U SP GRAV (test code = 3255) . 1.005-1.025 POCT PH U (test code = 3254) . 5-8 POCT U LEUK EST (test code = 3263) . Negative - Negative POCT U NIT (test code = 3262) . Negative - Negative POCT U PROT (test code = 3259) TRACE Negative - Negative POCT U GLU (test code = 3256) NEG Negative - Negative POCT U KETONE (test code = 3258) . Negative - Negative POCT U UROBILI (test code = 3260) . 0.2-1 POCT U BILI (test code = 3261) . Negative - Negative POCT U BLD (test code = 3257) . Negative - Negative POCT U COLOR (test code = 3266) . POCT U APPEAR (test code = 3267) . [facility] URINALYSIS W SPECIFIC [id number] 14:55:00 Test Item Value Reference Range Interpretation Comments POCT U SP GRAV (test code = 3255) . 1.005-1.025 POCT PH U (test code = 3254) . 5-8 POCT U LEUK EST (test code = 3263) . Negative - Negative POCT U NIT (test code = 3262) . Negative - Negative POCT U PROT (test code = 3259) TRACE Negative - Negative POCT U GLU (test code = 3256) NEG Negative - Negative POCT U KETONE (test code = 3258) . Negative - Negative POCT U UROBILI (test code = 3260) . 0.2-1 POCT U BILI (test code = 3261) . Negative - Negative POCT U BLD (test code = 3257) . Negative - Negative POCT U COLOR (test code = 3266) . POCT U APPEAR (test code = 3267) . [facility] URINALYSIS W SPECIFIC [id number] 16:22:00 Test Item Value Reference Range Interpretation Comments POCT U SP GRAV (test code = . 1.005-1.025 3255) POCT PH U (test code = 3254) . 5-8 POCT U LEUK EST (test code = . Negative - Negative 3263) POCT U NIT (test code = 3262) . Negative - Negative POCT U PROT (test code = 3259) 1+ Negative - Negative POCT U GLU (test code = 3256) negative Negative - Negative POCT U KETONE (test code = 3258) . Negative - Negative POCT U UROBILI (test code = . 0.2-1 3260) POCT U BILI (test code = 3261) . Negative - Negative POCT U BLD (test code = 3257) . Negative - Negative POCT U COLOR (test code = 3266) . POCT U APPEAR (test code = 3267) . [facility] URINALYSIS W SPECIFIC [id number] 16:09:00 Test Item Value Reference Range Interpretation Comments POCT U SP GRAV (test code = . 1.005-1.025 3255) POCT PH U (test code = 3254) . 5-8 POCT U LEUK EST (test code = . Negative - Negative 3263) POCT U NIT (test code = 3262) . Negative - Negative POCT U PROT (test code = 3259) 1+ Negative - Negative POCT U GLU (test code = 3256) negative Negative - Negative POCT U KETONE (test code = 3258) . Negative - Negative POCT U UROBILI (test code = . 0.2-1 3260) POCT U BILI (test code = 3261) . Negative - Negative POCT U BLD (test code = 3257) . Negative - Negative POCT U COLOR (test code = 3266) . POCT U APPEAR (test code = 3267) . [facility] URINALYSIS W SPECIFIC [id number] 16:09:00 Test Item Value Reference Range Interpretation Comments POCT U SP GRAV (test code = . 1.005-1.025 3255) POCT PH U (test code = 3254) . 5-8 POCT U LEUK EST (test code = . Negative - Negative 3263) POCT U NIT (test code = 3262) . Negative - Negative POCT U PROT (test code = 3259) 1+ Negative - Negative POCT U GLU (test code = 3256) negative Negative - Negative POCT U KETONE (test code = 3258) . Negative - Negative POCT U UROBILI (test code = . 0.2-1 3260) POCT U BILI (test code = 3261) . Negative - Negative POCT U BLD (test code = 3257) . Negative - Negative POCT U COLOR (test code = 3266) . POCT U APPEAR (test code = 3267) . [facility] URINALYSIS W SPECIFIC [id number] 16:20:00 Test Item Value Reference Range Interpretation Comments POCT U SP GRAV (test code = 3255) . 1.005-1.025 POCT PH U (test code = 3254) . 5-8 POCT U LEUK EST (test code = 3263) . Negative - Negative POCT U NIT (test code = 3262) . Negative - Negative POCT U PROT (test code = 3259) Neg Negative - Negative POCT U GLU (test code = 3256) Neg Negative - Negative POCT U KETONE (test code = 3258) . Negative - Negative POCT U UROBILI (test code = 3260) . 0.2-1 POCT U BILI (test code = 3261) . Negative - Negative POCT U BLD (test code = 3257) . Negative - Negative POCT U COLOR (test code = 3266) POCT U APPEAR (test code = 3267) [facility] [id number] 20:36:00 Test Item Value Reference Range Interpretation Comments POCT PREG (test code = 1605) Positive On board controls acceptable with C Yes Line (test code = 3574) POCT PREG LOT # (test code = 3575) POCT PREG TEST DATE (test code = 3576) [facility] URINALYSIS W/O SPECIFIC [id number] 20:35:00 Test Item Value Reference Range Interpretation Comments POCT PH U (test code = 3254) 7 mg/dl 5-8 POCT U LEUK EST (test code = 2+ Negative - Negative 3263) POCT U NIT (test code = 3262) negative Negative - Negative POCT U PROT (test code = 3259) trace Negative - Negative POCT U GLU (test code = 3256) normal Negative - Negative POCT U KETONE (test code = 3258) negative Negative - Negative POCT U BLD (test code = 3257) trace Negative - Negative [facility]2022-06-30 08:09:00 Test Item Value Reference Range Interpretation Comments URINE HCG TRIAGE (ER ONLY) (test POSITIVE Negative code = HCGTRIAGE) Urine Test Result: POSITIVEAre internal controls (presence of a control line & clear background) OK? 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 [facility] UA PH DIPSTIC POC (test 7 5.0-7.0 N code = PHUP) UA PROTEIN DIPSTICK POC NEGATIVE NEGATIVE (test code = DPROUP) UA UROBILINIOGEN QUAL 2+ 0.2-1.0 A (test code = UROQL) UA NITRITE DIPSTICK POC NEGATIVE Negative (test code = NITUP) UA LEUKOCYTE ESTERASE W TRACE NEGATIVE A REFLEX (test code = LEUUR) Notes Date/Time Note Provider Source 2022-06-29 18:57:00 [id number] [facility] ([facility])EMERGENCY PROVIDER REPORTREPORT#:[id number] REPORT STATUS: SignedDATE:06/29/22 TIME: 1856 PATIENT: ALEXANDRIA ORTEGA UNIT #: [id number]#: [id number] ROOM/BED:AGE: 36 SEX: F PCP PHYS:SERVICE DT: AUTHOR: Rios Shelton MD * CUATE Beebe edits or amendments must be made on the electronic/computer document * HPI-Nausea/Vomit/Diarrhea GeneralInitial Greet Date/Time 06/29/221856 PresentationChief Complaint Nausea, Vomiting Free Text HPI NotesFree Text HPI Notes36 female here with abou t a week of morning nausea and vomiting which improved to the day. She has concern that she ma y be . Denies vaginal bleeding. No belly pain. Last menstrual cycle was mid March. Sh gary did have a positive test on urinalysis today. UA did not show evidence of infection. Patient has normal examination. 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 Review of Systems ROS StatementsAll system s rev neg except as marked. Focused Review of SystemsGIReports: Nausea, Vomiting. Past Medical History - AdultStated Complaint N/V,HAAllergiesCoded Allergies:No Known Allergie s (06/29/22) Calculated Suicide Risk (nurs) No riskPt reports no significant: Past medical history, Past surgical history, Family history, Social historySmoking status for patients 13 years old or older: Never Smoker Physical Exam Vital SignsVital SignsFirst Documented: Result Date Time Pulse Ox 100 06/29 1853 B/P 109/57 06/29 1853 B/P Mean 74 06/29 1853 O2 Delivery Room air 06/29 1853 Temp 36.8 06/29 1853 Pulse 85 06/29 1853 Resp 18 06/29 1853 Last Documented : Result Date Time Pulse Ox 100 06/29 1853 B/P 109/57 06/29 1853 B/P Mean 74 06/29 1853 O2 Delivery Room air 06/29 1853 Temp 36.8 06/29 185 Pulse 85 06/29 1853 Resp 18 06/29 1853 Review o f Vital Signs Reviewed Basic Physical ExamBasic PE HEAD: Atraumatic/NC, EYES: PERRL, conj clear, ENT: Membranes moist, RESP: No resp distress, CV : Reg rate rhythm, EXT: No gross abnormality, SKIN : No rashes, warm/dry, NEURO: alert oriented, NEURO: gross movement NL, PSYCH: NL thought content Interpretation Diagnostics Lab Results InterpretationResultsLaboratory Tests: 06/29 195 0 Urines POC Urine pH (5.0 - 7.0) 7 Ur Specific [place] (1.005 - 1.030) 1.015 POC Urine Protein (NEGATIVE) NEGATIVE POC Ur Glucose (UA) (NEGATIVE) NEGATIVE POC Urine Ketones (NEGATIVE) NEGATIVE POC Urine Blood (NEGATIVE) NEGATIVE POC Urine Nitrite (Negative) NEGATIVE Urine Bilirubi n (NEGATIVE) 1+ H POC Urine Urobilinogen (0.2 - 1.0) 2+ H POC U Leukocyte Esteras (NEGATIVE) TRACE H Re-Evaluation MDM ED CourseMedication(s) OrderedMedication(s) Ordered:Gastrointestinal Drugs Sig/Home Start time Last Medication Dose Route Stop Time Status Admin Ondansetron HCl 4 M G X1ED STA 06/29 1946 DC PO 06/29 1947 Patient Discharge Departure Vital Signs/ConditionVital SignsFirst Documented: Result Date Time Pulse Ox 100 06/29 1853 B/P 109/57 06/29 1853 B/P Mean 7 4 06/29 1853 O2 Delivery Room air 06/29 1853 Temp 36.8 06/29 1853 Pulse 85 06/29 1853 Resp 18 12/0 1852 Last Documented: Result Date Time Pulse Ox 100 06/29 1853 B/P 109/57 06/29 1853 B/P Mean 74 06/29 1853 O2 Delivery Room air 06/29 1853 Temp 36.8 06/29 1853 Pulse 85 06/29 1853 Resp 18 /0 185 All vital signs available at the time of this entry have been reviewed. Clinical ImpressionClinical ImpressionPrimary Impression: Early stage of pregnancySecondary Impressions: Morning sickness Disposition DecisionDischarge ) ( Discharged to Home Yes )( Time 1955 )( Date 06/29/22 Discharge/Care Plan(Auto) PrescriptionsCurrent Visit ScriptsDOXYLAMINE/PYRIDOXINE (GUNNER BRAGA 05/05) 1 EACH PO ASDIR DOXYLAMINE/PYRIDOXINE (GUNNER BRAGA 05/05) 1 EACH PO ASDIR #15 TABS Two tablets a t bedtime on day 1 and 2; if symptoms persist, adriane e 1 tablet in morning and 2 tablets at bedtime on day 3; if symptoms persist, may increase to 1 tablet in morning, 1 tablet mid-afternoon, and 2 tablets at bedtime on day 4 (maximum: 4 tablets per day). Patient Instructions ED , New Dx Discharge NoteI have spoken with the patient and/or caregivers. I have explained the patient'scondition, diagnoses and treatment plan based on the information available to meat this time. I have answered the patient's and/or caregiver's questions and addressed any concerns . The patient and/or caregivers have as good an understanding of the patient's diagnosis, condition and treatment plan as can beexpected a t this point. The vital signs have been stable. Th e patient's condition is stable and appropriate fo r discharge from the emergency department. The patient will pursue further outpatient evaluatio n with the primary care physician or other designated or consulting physician as outlined i n the discharge instructions. The patient and/or caregivers are agreeable to this planof care and follow-up instructions have been explained in detail. The patient and/or caregivers have received these instructions in written format an d have expressed an understanding of the discharge instructions. The patient and/or caregivers are aware that any significant change in condition o r worsening of symptoms should prompt an immediate return to this or the closest emergency department or a call to 911. at [id number] #:[id number] OF REPORTEDEmerpresbyterian intercommunity hospital department [id number] a ilable for patient [id number]:45
--- NOTE | 2023-06-22 17:32 | EDPHYS ---
Physician Documentation 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 The patient rt denies other discrete injury. Denies numbness, tingling, new weakness although she does have pre-existing weakness due to a prior injury. Denies other acute complaints at this time. Pain is aching nature, nonradiating, mild in severity, no other aggravating elevating factors.. 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 - Social history:: Smoking status: Patient denies any tobacco usage or history of. ROS: 21:46 Constitutional: Negative for fever, chills, and weight loss, Cardiovascular: Negative rt for chest pain, palpitations, and edema, Respiratory: Negative for shortness of breath, cough, wheezing, and pleuritic chest pain, Abdomen/GI: Negative for abdominal pain, nausea, vomiting, diarrhea, and constipation, Skin: Negative for injury, rash, and discoloration, Psych: Negative for depression, anxiety, suicide ideation, homicidal ideation, and hallucinations, 21:46 Back: Positive for pain with movement, Negative for injury or acute deformity, Exam: 21:46 Constitutional: This is a well developed, well nourished patient who is awake, alert, rt and in no acute distress. Head/Face: Normocephalic, atraumatic. Chest/axilla: Normal chest wall appearance and motion. Nontender with no deformity. No lesions are appreciated. Cardiovascular: Regular rate and rhythm with a normal S1 and S2. No gallops, murmurs, or rubs. Normal PMI, no JVD. No pulse deficits. Respiratory: Lungs have equal breath sounds bilaterally, clear to auscultation and percussion. No rales, rhonchi or wheezes noted. No increased work of breathing, no retractions or nasal flaring. Abdomen/GI: Soft, non-tender, with normal bowel sounds. No distension or tympany. No guarding or rebound. No evidence of tenderness throughout. Skin: Warm, dry with normal turgor. Normal color with no rashes, no lesions, and no evidence of cellulitis. MS/ Extremity: Pulses equal, no cyanosis. Neurovascular intact. Full, normal range of motion. Neuro: Awake and alert, GCS 15, oriented to person, place, time, and situation. Cranial nerves II-XII grossly intact. Motor strength 5/5 in all extremities. Sensory grossly intact. Cerebellar exam normal. Normal gait. Psych: Awake, alert, with orientation to person, place and time. Behavior, mood, and affect are within normal limits. 21:46 Back: Tenderness to the lower lumbar region bilaterally, no midline tenderness, no step-offs, Vital Signs: 17:20 BP 120 / 63; Pulse 70; Resp 18; Temp 97.4; Pulse Ox 100% on R/A; Weight 128.82 kg; mb9 Height 5 ft. 7 in. ; 17:20 Body Mass Index 44.48 (128.82 kg, 170.18 cm) mb9 MDM: 17:27 Patient medically screened. rt 21:46 Differential diagnosis: Also spasm, muscle strain. Data reviewed: vital signs, nurses rt notes. Test considered but Not performed: Other Details No red flag symptoms suggestive of cauda equina syndrome, spinal epidural abscess, MRI not indicated. Counseling: I had a detailed discussion with the patient and/or guardian regarding the historical points, exam findings, and any diagnostic results supporting the discharge/admit diagnosis, the need for outpatient follow up, to return to the emergency department if symptoms worsen or persist or if there are any questions or concerns that arise at home. Administered Medications: 17:32 Drug: Ketorolac IM 15 mg IM once Route: IM; Site: right deltoid; mb9 17:42 Follow up: Response: No adverse reaction mb9 Disposition Summary: 06/22/23 17:31 Discharge Ordered Notes: Location: Home rt Problem: new rt Symptoms: are unchanged rt Condition: Stable rt Diagnosis - Low back pain rt Followup: rt - With: Private Physician - When: 5 - 6 days - Reason: Discharge Instructions: - Discharge Summary Sheet mb9 - Acute Back Pain, Adult rt Forms: - Work release form mb9 - Medication Reconciliation Form rt - Thank You Letter rt - Antibiotic Education rt - Prescription Opioid Use rt - Patient Portal Instructions rt - Leadership Thank You Letter rt Prescriptions: - Cyclobenzaprine 10 mg Oral tablet - take 1 tablet ORAL route every 8 hours As needed; 18 tablet; Refills: 0, rt Product Selection Permitted Signatures: Padma Tam RN RN mb9 Maximo Sierra MD MD rt
--- NOTE | 2023-06-22 17:32 | ER ---
Nurse's Notes [facility] Name: Steven Ortega Age: 37 yrs Sex: Female : 1985 Arrival Date: 06/22/2023 Time: 17:09 Bed IW3 Private MD: Diagnosis: Low back pain Presentation: 06/22 17:20 Chief complaint: Patient states: "I'm having left back pain after pulling a muscle mb9 while working 3 days ago.". Coronavirus screen: Vaccine status: Patient reports receiving the 2nd dose of the covid vaccine. Ebola Screen: No symptoms or risks identified at this time. Initial Sepsis Screen: Does the patient meet any 2 criteria? No. Patient's initial sepsis screen is negative. Does the patient have a suspected source of infection? No. Patient's initial sepsis screen is negative. Risk Assessment: Do you want to hurt yourself or someone else? Patient reports no desire to harm self or others. Onset of symptoms was June 22, 2023. 17:20 Method Of Arrival: Ambulatory mb9 17:20 Acuity: HOANG 4 mb9 Triage Assessment: 17:21 General: Appears in no apparent distress. Behavior is calm, cooperative. Pain: mb9 Complains of pain in back. EENT: No signs and/or symptoms were reported regarding the EENT system. Neuro: Liu Agitation-Sedation Scale (RASS): 0 - Alert and Calm Level of Consciousness is awake, alert, obeys commands, Oriented to person, place, time, situation, Appropriate for age. Cardiovascular: Patient's skin is warm and dry. Respiratory: Airway is patent Respiratory effort is even, unlabored, Respiratory pattern is regular, symmetrical. GI: No signs and/or symptoms were reported involving the gastrointestinal system. : No signs and/or symptoms were reported regarding the genitourinary system. Derm: Skin is pink, warm \\T\\ dry. Musculoskeletal: Range of motion: intact in all extremities. 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 - Social history:: Smoking status: Patient denies any tobacco usage or history of. Vital Signs: 17:20 BP 120 / 63; Pulse 70; Resp 18; Temp 97.4; Pulse Ox 100% on R/A; Weight 128.82 kg; mb9 Height 5 ft. 7 in. ; 17:20 Body Mass Index 44.48 (128.82 kg, 170.18 cm) mb9 ED Course: 17:14 Patient arrived in ED. mr 17:15 Gabbie Moore FNP-C [facility]. snw 17:15 Chester Dumont DO is Attending Physician. snw 17:20 Attending Physician role handed off by Chester Dumont DO rt 17:20 Maximo Sierra MD is Attending Physician. rt 17:21 Triage completed. mb9 17:21 Arm band placed on. mb9 Administered Medications: 17:32 Drug: Ketorolac IM 15 mg IM once Route: IM; Site: right deltoid; mb9 17:42 Follow up: Response: No adverse reaction mb9 Outcome: 17:31 Discharge ordered by . rt 17:43 Discharged to home ambulatory, with family, mb9 17:43 Condition: stable 17:43 Discharge instructions given to patient, family, Instructed on discharge instructions, follow up and referral plans. Demonstrated understanding of instructions, follow-up care, medications, Prescriptions given X 1, 17:43 Patient left the ED. mb9 Signatures: Gabbie Moore FNP-C FNP-Csnw Padma Dean, Reg Reg mr TamPadma, OLEG RN mb9 Maximo Sierra MD MD rt
[2023-06-22] MEDS ORDERED: KETOROLAC 30 MG/ML INJ ONE (17:50)
[2023-06-22 17:54] VITALS: BP 120/63; TEMP 97.4; O2SAT 100
== END 2023-06-22 17:43 | disposition home or self-care (01) ==
LOC: ER 17:09
DX: M54.50 Low back pain, unspecified (principal)
CPT/HCPCS: 96372; 99284

== ENCOUNTER 2023-06-26 17:50 | Emergency (ER) | payer OTHER ==
--- OUTSIDE RECORDS SUMMARY | 2023-06-26 17:59 | XMS REPORT | Continuity of Care Document ---
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 Medical tablet (six) Branch hours as needed for Pain (scale 4-6) or Pain (scale 1-3). acetaminoph 2022-0 4- No [id number] 650mg Take 2 [facility] en 6-29 06-29 tablets by ity of (TYLENOL) 00:00: 04:59 mouth [place] 325 mg 00 :00 every 6 Medical tablet (six) Branch hours as needed for Pain (scale 4-6) or Pain (scale 1-3). acetaminoph 2022-0 4- No [id number] 650mg Take 2 [facility] en 6-29 06-29 tablets by ity of (TYLENOL) 00:00: 04:59 mouth [place] 325 mg 00 :00 every 6 Medical tablet (six) Branch hours as needed for Pain (scale 4-6) or Pain (scale 1-3). acetaminoph 2022-0 4- No [id number] 650mg Take 2 [facility] en 01-22-29 tablets by ity of (TYLENOL) 00:00: 04:59 mouth [place] 325 mg 00 :00 every 6 Medical tablet (six) Branch hours as needed for Pain (scale 4-6) or Pain (scale 1-3). acetaminoph 2022-0 2024- No [id number] 650mg Take 2 [facility] en 01-22-29 tablets by ity of (TYLENOL) 00:00: 04:59 mouth [place] 325 mg 00 :00 every 6 Medical tablet (six) Branch hours as needed for Pain (scale 4-6) or Pain (scale 1-3). acetaminoph 2022-0 4- No [id number] 650mg Take 2 [facility] en 01-22- tablets by ity of (TYLENOL) 00:00: 04:59 mouth [place] 325 mg 00 :00 every 6 Medical tablet (six) Branch hours as needed for Pain (scale 4-6) or Pain (scale 1-3). acetaminoph 2022-0 4- No [id number] 650mg Take 2 [facility] en 01-22- tablets by ity of (TYLENOL) 00:00: 04:59 mouth [place] 325 mg 00 :00 every 6 Medical tablet (six) Branch hours as needed for Pain (scale 4-6) or Pain (scale 1-3). acetaminoph 2022-0 3- No [id number] 650mg Take 2 [facility] en 01-22 11-25 tablets by ity of (TYLENOL) 00:00: 00:00 mouth [place] 325 mg 00 :00 every 6 Medical tablet (six) Branch hours as needed for Pain (scale 4-6) or Pain (scale 1-3). ibuprofen 3-0 2022- No [id number] 600mg Take 1 [facility] 600 mg 01-22 11-18 tablet by ity of tablet 00:00: 00:00 mouth [place] 00 :00 every 6 Medical (six) Branch hours as needed (Pain). Take with food or milk. SERTraline 2022-0 3- No [id number] 50mg Take 1 [facility] (ZOLOFT) 50 01-22 tablet by it y of mg tablet 00:00: 04:59 mouth [place] 00 :00 the Medical morning Branch for 90 days. SERTraline 2022- No [id number] 50mg Take 1 [facility] (ZOLOFT) 50 01-22 tablet by it y of mg tablet 00:00: 04:59 mouth [place] 00 :00 the Medical morning Branch for 90 days. SERTraline 2022- No [id number] 50mg Take 1 [facility] (ZOLOFT) 50 01-22 tablet by it y of mg tablet 00:00: 04:59 mouth [place] 00 :00 the Medical morning Branch for 90 days. SERTraline 2022- No [id number] 50mg Take 1 [facility] (ZOLOFT) 50 01-22 tablet by it y of mg tablet 00:00: 04:59 mouth [place] 00 :00 the Medical morning Branch for 90 days. SERTraline 2022- No [id number] 50mg Take 1 [facility] (ZOLOFT) 50 01-22 tablet by it y of mg tablet 00:00: 04:59 mouth [place] 00 :00 the Medical morning Branch for 90 days. SERTraline 2022- No [id number] 50mg Take 1 [facility] (ZOLOFT) 50 01-22 tablet by it y of mg tablet 00:00: 04:59 mouth [place] 00 :00 the Medical morning Branch for 90 days. SERTraline 2022- No [id number] 50mg Take 1 [facility] (ZOLOFT) 50 01-22 [...] 17 g 00 :00 dose, On Medical [facility] Branch 01/20/23 at 1145, Routine acetaminoph 2022- No 650mg 650 mg, U nivers en 01-20 Oral, Q6H, ity of (TYLENOL) 15:00: 10:59 12 doses, [place] tablet 650 00 :00 First dose Med ical mg on [facility] Branch 01/20/23 at 1000, Last dose on Thu01/23/23 at 0000, Routine acetaminoph 2022- No 650mg 650 mg, U nivers en 01-20 Oral, Q6H, ity of (TYLENOL) 15:00: 10:59 12 doses, [place] tablet 650 00 :00 First dose Med ical mg on [facility] Branch 01/20/23 at 1000, Last dose on Thu01/23/23 at 0000, Routine magnesium 2022-0 Yes 30mL 30 mL, Univer s hydroxide 01-20 Oral, ity of (MILK OF 14:00: DAILY, [place] MAGNESIA) 00 First dose Medi jose 400 mg/5 mL (after Branch suspension last 30 mL modificati on) on Thu01/20/23 at 0900, Until Discontinu ed, Routine simethicone 2022-0 Yes 160mg 160 mg, [facility] [place] (GAS RELIEF 01-20 Oral, ity of (SIMETHICON 14:00: PC+HS, [place] E)) 00 First dose Medical chewable (after Branch tablet 160 last mg modificati on) on Thu01/20/23 at 0900, Until Discontinu ed, Routine magnesium 2022-0 Yes 30mL 30 mL, Univer s hydroxide 01-20 Oral, ity of (MILK OF 14:00: DAILY, [place] MAGNESIA) 00 First dose Medi jose 400 mg/5 mL (after Branch suspension last 30 mL modificati on) on Thu01/20/23 at 0900, Until Discontinu ed, Routine simethicone 2022-0 Yes 160mg 160 mg, [facility] [place] (GAS RELIEF 01-20 Oral, ity of (SIMETHICON 14:00: PC+HS, [place] E)) 00 First dose Medical chewable (after Branch tablet 160 last mg modificati on) on Thu01/20/23 at 0900, Until Discontinu ed, Routine ibuprofen 2022-0 Yes 600mg 600 mg, Univ ers (IBU) 01-20 Oral, Q6H, ity of tablet 600 12:00: First dose [place] mg 00 (after Medical last Branch modificati on) on Thu01/20/23 at 0700, Until Discontinu ed, Routine ibuprofen 2022-0 Yes 600mg 600 mg, Univ ers (IBU) 01-20 Oral, Q6H, ity of tablet 600 12:00: First dose [place] mg 00 (after Medical last Branch modificati on) on Thu01/20/23 at 0700, Until Discontinu ed, Routine SERTraline 0 Yes 50mg 50 mg, Unive rs (ZOLOFT) 01-19 Oral, ity of tablet 50 14:00: DAILY, [place] mg 00 First dose Medical on Thu01/19/23 at 0900, Until Discontinu ed, Routine SERTraline 0 Yes 50mg 50 mg, Unive rs (ZOLOFT) 01-19 Oral, ity of tablet 50 14:00: DAILY, [place] mg 00 First dose Medical on Thu01/19/23 at 0900, Until Discontinu ed, Routine lactated 2022-0 202- No 1000mL at 125 Univ ers ringers IV 01-19 06-26 mL/hr, ity of infusion 10:15: 10:00 1,000 mL, [place] 1,000 mL 00 :00 IV Medical Infusion, Branch ONCE, 1 dose, On Thu01/19/23 at 0515, Routine rho(D) 2023-0 Yes 300ug 300 mcg, Univer s immune 01-19 Intramuscu ity of globulin 10:04: lar, ONCE, [place] (RHOGAM) 12 For 1 Medical syringe 300 dose, Branch mcg Conditiona l, Routine rho(D) 0 Yes 300ug 300 mcg, Univ s immune - Intramuscu ity of globulin 10:04: lar, ONCE, [place] (RHOGAM) 12 For 1 Medical syringe 300 dose, Branch mcg Conditiona l, Routine HYDROcodone 2022-0 Yes 2{tbl} 2 tablet, Univers -acetaminop 6-26 Oral, ity of hen (NORCO 10:04: Q6HPRN, [place] 5) 5-325 mg 07 Starting Medi jose tablet 2 on Thu Branch tablet 01/19/23 at 0504, Until Discontinu ed, Routine, Pain (scale 7-10), Alternate with Ibuprofen HYDROcodone 2022-0 Yes 1{tbl} 1 tablet, Univers -acetaminop 6-26 Oral, ity of hen (NORCO 10:04: Q6HPRN, [place] 5) 5-325 mg 07 Starting Medi jose tablet 1 on Thu Branch tablet 01/19/23 at 0504, Until Discontinu ed, Routine, Pain (scale 4-6), Alternate with Ibuprofen diphenhydrA 0 Yes 25mg 25 mg, Univ ers MINE [...] Yes 4mg 4 mg, Slow Univers (ZOFRAN 6 IV Push, ity of (PF)) 10:04: Q8HPRN, [...] Starting Medi jose tablet 2 on Thu [place] tablet 01/19/23 at 0504, Until Discontinu ed, Routine, Pain (scale 7-10), Alternate with Ibuprofen HYDROcodone 2022-0 Yes 1{tbl} 1 tablet, Univers -acetaminop 01-19 Oral, ity of hen (NORCO 10:04: Q6HPRN, [place] 5) 5-325 mg 07 Starting Medi jose tablet 1 on Thu [place] tablet 01/19/23 at 0504, Until Discontinu ed, Routine, Pain (scale 4-6), Alternate with Ibuprofen diphenhydrA 2022-0 Yes 25mg 25 mg, Univ ers MINE 01-19 Slow IV ity of (BENADRYL) 10:04: Push, [place] injection 07 Q6HPRN, Medical 25 mg Starting Branch on Thu01/19/23 at 0504, Until Discontinu ed, Routine, Itching diphenhydrA 2023-0 Yes 25mg 25 mg, Univ ers MINE 01-19 Oral, ity of (BENADRYL) 10:04: Q6HPRN, [place] tablet 25 07 Starting Medica l mg on Thu Branch 01/19/23 at 0504, Until Discontinu ed, Routine, Sleep, Itching ondansetron 2022-0 Yes 4mg 4 mg, Slow Univers (ZOFRAN 01-19 IV Push, ity of (PF)) 10:04: Q8HPRN, [place] injection 4 07 Starting Medi jose mg on Thu01/19/23 at 0504, Until Discontinu ed, Routine, Nausea and Vomiting (N/V) bisacodyL Yes 10mg 10 mg, Univer s (DULCOLAX) 01-19 Rectal, ity of suppository 10:04: QDAILYPRN, [place] 10 mg 07 Starting Medical on Thu01/19/23 at 0504, Until Discontinu ed, Routine, Constipati on docusate Yes 200mg 200 mg, Unive rs (COLACE) 01-19 Oral, ity of capsule 200 10:04: QDAILYPRN, [place] mg 07 Starting Medical on Thu01/19/23 at 0504, Until Discontinu ed, Routine, Constipati on ibuprofen No 600mg 600 mg, Uni vers (IBU) 01-19 Oral, ity of tablet 600 10:04: 11:51 Q6HPRN, [place] mg 07 :54 Starting Medical on Thu01/19/23 at 0504, Until 01/20/23 at 0651, Routine, Pain (scale 1-3) simethicone No 160mg 160 mg, U nivers (GAS RELIEF 01-19 Oral, ity of (SIMETHICON 10:04: 11:51 PC+HSPRN, [place] E)) 07 :54 Starting Medical chewable on Thu tablet 160 01/19/23 at mg 0504, Until 01/20/23 at 0651, Routine, Gas magnesium No 30mL 30 mL, Unive rs hydroxide 01-19 Oral, ity of (MILK OF 10:04: 11:51 QDAILYPRN, [place] MAGNESIA) 07 :54 Starting Medica l 400 mg/5 mL on Thu suspension 01/19/23 at 30 mL 0504, Until 01/20/23 at 0651, Routine, Constipati on lactated 2022- No 1000mL at 125 Univ ers ringers [...] Starting Branch on Thu01/19/23 at 0157, Until Thu01/20/23 at 0156, Routine, Itching, PACU acetaminoph 2022- [...] of hen (NORCO) 06:52: 07:49 Q6HPRN, 1 [place] 10-325 mg 51 :00 dose, Medical tablet 1 Starting Branch tablet on Thu01/19/23 at 0152, Until Discontinu ed, Routine, Pain (scale 7-10) terbutaline 2022- No .25mg 0.25 mg, Univers (BRETHINE) 01-19 Subcutaneo it y of injection 05:30: 04:41 us, ONCE, [place] 0.25 mg 00 :00 1 dose, On Medica l [facility] 01/19/23 at 0030, Routine alum-mag 2022- No 30mL 30 mL, Univer s hydroxide-s 01-19 Oral, ity of imeth 04:15: 03:41 ONCE, 1 [place] (MAALOX 00 :00 dose, On Medical PLUS / [place] Branch MAG-AL 01/18/23 at PLUS) 2315, 200-200-20 Routine mg/5 mL suspension 30 mL lactated 2022- No 500mL at 999 Unive rs ringers IV 01-19 mL/hr, 500 it y of infusion 04:15: 04:08 mL, [place] 500 mL 00 :00 Intravenou Medical s, ONCE, 1 Branch dose, On [place] 01/18/23 at 2315, Routine acetaminoph 2022- No 1000mg 1,000 mg, Univers en 01-19 Oral, ity of (TYLENOL) 03:15: 02:34 ONCE, 1 [place] tablet 00 :00 dose, On Medical 1,000 mg [facility] 01/18/23 at 2215, Routine SERTraline 2022- No 50mg 50 mg, Univ ers (ZOLOFT) 01-19 Oral, ity of tablet 50 02:45: 10:04 DAILY, [place] mg 00 :10 First dose Medical on [facility] 01/18/23 at 2145, Until Discontinu ed, Routine lactated 2022- No 1000mL at 125 Univ ers ringers IV 01-19 mL/hr, ity of infusion 02:45: 10:04 1,000 mL, [place] 1,000 mL 00 :10 IV Medical Infusion, Branch CONTINUOUS , Starting on [place] 01/18/23 at 2145, Until [facility] 01/19/23 at 0504, Routine ceFAZolin 2022- No 2000mg 2,000 mg, Univers (ANCEF) 01-19 IV ity of 2,000 mg in 02:33: 10:04 Piggyback, [place] NaCl 0.9% 16 :10 O.R. Medical (NS) 100 mL HOLDING Bran h MINI-BAG ONCE, Starting on [place] 01/18/23 at 2133, Until 01/19/23 at 0504, Administer over 30 Minutes, 100 mL
Reas on for Anti-Infec tive: Surgical Prophylaxi s
[place] rgical Prophylaxi s: [employer]
Duration of therapy: within 24 hours of surgery sodium No 30mL 30 mL, Univers citrate-cit 01-19 Oral, ity of kike acid 02:33: 04:00 PRE-PROCED [place] (BICITRA) 16 :00 URE ONCE, Medic al 500-334 1 dose, Branch mg/5 mL Starting solution 30 on Sun mL 01/18/23 at 2133, Until 01/20/23 at 2359, Routine, Surgery/Pr ocedure fluconazole 2022- No [id number] 150mg Take 1 Univers (DIFLUCAN) 01-01 06-09 tablet by ity of 150 mg 00:00: 04:59 mouth [place] tablet 00 :00 now for 1 Medical dose. Branch acetaminoph No 650mg 650 mg, U nivers en 11-18 Oral, ity of (TYLENOL) 01:45: 00:48 ONCE, 1 [place] tablet 650 00 :00 dose, On Medic al mg [facility] 11/17/22 at 2045, Routine ascorbic Yes [id number] 500mg Take 1 U nivers acid, 4-04 tablet by ity of vitamin C, 00:00: mouth in [place] 500 mg 00 the Medical tablet morning Branch and 1 tablet at noon and 1 tablet in the evening. ferrous Yes [id number] 325mg Take 1 [place] sulfate 325 4-04 tablet by ity of mg (65 mg 00:00: [place] iron) 00 the Medical tablet morning Branch and 1 tablet in the evening. ascorbic 0 Yes [id number] 500mg Take 1 U nivers acid, 4-04 tablet by ity of vitamin C, 00:00: mouth in [place] 500 mg 00 the Medical tablet morning Branch and 1 tablet at noon and 1 tablet in the evening. ferrous 2022-0 Yes [id number] 325mg Take 1 [place] sulfate 325 4-04 tablet by ity of mg (65 mg 00:00: [place] iron) 00 the Medical tablet morning Branch and 1 tablet in the evening. ascorbic 2023-0 Yes [id number] 500mg Take 1 U nivers acid, 4-04 tablet by ity of vitamin C, 00:00: mouth in [place] 500 mg 00 the Medical tablet morning Branch and 1 tablet at noon and 1 tablet in the evening. ferrous 2022-0 Yes [id number] 325mg Take 1 [place] sulfate 325 4-04 tablet by ity of mg (65 mg 00:00: [place] iron) 00 the Medical tablet morning Branch and 1 tablet in the evening. ascorbic 2022-0 Yes [id number] 500mg Take 1 U nivers acid, 4-04 tablet by ity of vitamin C, 00:00: mouth in [place] 500 mg 00 the Medical tablet morning Branch and 1 tablet at noon and 1 tablet in the evening. ferrous 2022-0 Yes [id number] 325mg Take 1 [place] sulfate 325 4-04 tablet by ity of mg (65 mg 00:00: mouth [place] iron) 00 the Medical tablet morning Branch and 1 tablet in the evening. ascorbic 2022-0 Yes [id number] 500mg Take 1 U nivers acid, 4-04 tablet by ity of vitamin C, 00:00: mouth [place] 500 mg 00 the Medical tablet morning Branch and 1 tablet at noon and 1 tablet in the evening. ferrous 2022-0 Yes [id number] 325mg Take 1 [place] sulfate 325 4-04 tablet by ity of mg (65 mg 00:00: mouth [place] iron) 00 the Medical tablet morning Branch and 1 tablet in the evening. ascorbic 2022-0 Yes [id number] 500mg Take 1 U nivers acid, 4-04 tablet by ity of vitamin C, 00:00: mouth in [place] 500 mg 00 the Medical tablet morning Branch and 1 tablet at noon and 1 tablet in the evening. ferrous 2023-0 Yes [id number] 325mg Take 1 [place] sulfate 325 4-04 tablet by ity of mg (65 mg 00:00: mouth [place] iron) 00 the Medical tablet morning Branch and 1 tablet in the evening. ascorbic 2023-0 Yes [id number] 500mg Take 1 U nivers acid, 4-04 tablet by ity of vitamin C, 00:00: mouth in [place] 500 mg 00 the Medical tablet morning Branch and 1 tablet at noon and 1 tablet in the evening. ferrous 2023-0 Yes [id number] 325mg Take 1 [place] sulfate 325 4-04 tablet by ity of mg (65 mg 00:00: mouth [place] iron) 00 the Medical tablet morning Branch and 1 tablet in the evening. ascorbic 2022-0 Yes [id number] 500mg Take 1 U nivers acid, 4-04 tablet by ity of vitamin C, 00:00: mouth in [place] 500 mg 00 the Medical tablet morning Branch and 1 tablet at noon and 1 tablet in the evening. ferrous 2022-0 Yes [id number] 325mg Take 1 [place] sulfate 325 4-04 tablet by ity of mg (65 mg 00:00: [place] iron) 00 the Medical tablet morning Branch and 1 tablet in the evening. ascorbic 2022-0 Yes [id number] 500mg Take 1 U nivers acid, 4-04 tablet by ity of vitamin C, 00:00: mouth in [place] 500 mg 00 the Medical tablet morning Branch and 1 tablet at noon and 1 tablet in the evening. ferrous 2022-0 Yes [id number] 325mg Take 1 [place] sulfate 325 4-04 tablet by ity of mg (65 mg 00:00: mouth [place] iron) 00 the Medical tablet morning Branch and 1 tablet in the evening. ascorbic 2022-0 Yes [id number] 500mg Take 1 U nivers acid, 4-04 tablet by ity of vitamin C, 00:00: mouth in [place] 500 mg 00 the Medical tablet morning Branch and 1 tablet at noon and 1 tablet in the evening. ferrous 2022-0 Yes [id number] 325mg Take 1 [place] sulfate 325 4-04 tablet by ity of mg (65 mg 00:00: mouth [place] iron) 00 the Medical tablet morning Branch and 1 tablet in the evening. ascorbic 2023-0 Yes [id number] 500mg Take 1 U nivers acid, 4-04 tablet by ity of vitamin C, 00:00: mouth in [place] 500 mg 00 the Medical tablet morning Branch and 1 tablet at noon and 1 tablet in the evening. ferrous 2023-0 Yes [id number] 325mg Take 1 [place] sulfate 325 4-04 tablet by ity of mg (65 mg 00:00: mouth [place] iron) 00 the Medical tablet morning Branch and 1 tablet in the evening. ascorbic 2023-0 Yes [id number] 500mg Take 1 U nivers acid, 4-04 tablet by ity of vitamin C, 00:00: mouth in [place] 500 mg 00 the Medical tablet morning Branch and 1 tablet at noon and 1 tablet in the evening. ferrous 202-0 Yes [id number] 325mg Take 1 [place] sulfate 325 4-04 tablet by ity of mg (65 mg 00:00: mouth [place] iron) 00 the Medical tablet morning Branch and 1 tablet in the evening. ascorbic 2022-0 Yes [id number] 500mg Take 1 U nivers acid, 4-04 tablet by ity of vitamin C, 00:00: mouth in [place] 500 mg 00 the Medical tablet morning Branch and 1 tablet at noon and 1 tablet in the evening. ferrous 2022-0 Yes [id number] 325mg Take 1 [place] sulfate 325 4-04 tablet by ity of mg (65 mg 00:00: mouth [place] iron) 00 the Medical tablet morning Branch and 1 tablet in the evening. ascorbic 2022-0 Yes [id number] 500mg Take 1 U nivers acid, 4-04 tablet by ity of vitamin C, 00:00: mouth in [place] 500 mg 00 the Medical tablet morning Branch and 1 tablet at noon and 1 tablet in the evening. ferrous 2022-0 Yes [id number] 325mg Take 1 [place] sulfate 325 4-04 tablet by ity of mg (65 mg 00:00: mouth [place] iron) 00 the Medical tablet morning Branch and 1 tablet in the evening. ascorbic 2022-0 Yes [id number] 500mg Take 1 U nivers acid, 4-04 tablet by ity of vitamin C, 00:00: mouth in [place] 500 mg 00 the Medical tablet morning Branch and 1 tablet at noon and 1 tablet in the evening. ferrous 2023-0 Yes [id number] 325mg Take 1 [place] sulfate 325 4-04 tablet by ity of mg (65 mg 00:00: mouth [place] iron) 00 the Medical tablet morning Branch and 1 tablet in the evening. ascorbic 2023-0 Yes [id number] 500mg Take 1 U nivers acid, 4-04 tablet by ity of vitamin C, 00:00: mouth in [place] 500 mg 00 the Medical tablet morning Branch and 1 tablet at noon and 1 tablet in the evening. ferrous 3-0 Yes [id number] 325mg Take 1 [place] sulfate 325 4-04 tablet by ity of mg (65 mg 00:00: [place] iron) 00 the Medical tablet morning Branch and 1 tablet in the evening. PNV 67-iron 3-0 Yes [id number] 1{each} Take 1 Univers ps-folate 2-09 Each by ity of no.1-dha 00:00: mouth [place] (VITAFOL 00 daily. Medical ULTRA) 29 Branch mg iron- 1 mg-200 mg Cap SERTraline 2023-0 Yes [id number] 50mg Take 1 [facility] (ZOLOFT) 50 2-09 100 tablet by ity of mg tablet 00:00: mouth [place] 00 the Medical morning. Branch PNV 67-iron 3-0 Yes [id number] 1{each} Take 1 [facility] ps-folate 2-09 Each by ity of no.1-dha 00:00: mouth [place] (VITAFOL 00 daily. Medical ULTRA) 29 Branch mg iron- 1 mg-200 mg Cap SERTraline 2023-0 Yes [id number] 50mg Take 1 [facility] (ZOLOFT) 50 2-09 100 tablet by ity of mg tablet 00:00: mouth [place] 00 the Medical morning. Branch PNV 67-iron 3-0 Yes [id number] 1{each} Take 1 [facility] ps-folate 2-09 Each by ity of no.1-dha 00:00: mouth [place] (VITAFOL 00 daily. Medical ULTRA) 29 Branch mg iron- 1 mg-200 mg Cap SERTraline 2023-0 Yes [id number] 50mg Take 1 [facility] (ZOLOFT) 50 2-09 100 tablet by ity of mg tablet 00:00: mouth [place] 00 the Medical morning. Branch PNV 67-iron 2023-0 Yes [id number] 1{each} Take 1 [facility] ps-folate 2-09 Each by ity of no.1-dha 00:00: mouth [place] (VITAFOL 00 daily. Medical ULTRA) 29 Branch mg iron- 1 mg-200 mg Cap SERTraline 2023-0 Yes [id number] 50mg Take 1 [facility] (ZOLOFT) 50 2-09 100 tablet by ity of mg tablet 00:00: mouth [place] 00 the Medical morning. Branch PNV 67-iron 2023-0 Yes [id number] 1{each} Take 1 [facility] ps-folate 2-09 Each by ity of no.1-dha 00:00: mouth [place] (VITAFOL 00 daily. Medical ULTRA) 29 Branch mg iron- 1 mg-200 mg Cap SERTraline 2023-0 Yes [id number] 50mg Take 1 [facility] (ZOLOFT) 50 2-09 100 tablet by ity of mg tablet 00:00: mouth [place] 00 the Medical morning. Branch PNV 67-iron 2023-0 Yes [id number] 1{each} Take 1 [facility] ps-folate 2-09 Each by ity of no.1-dha 00:00: mouth [place] (VITAFOL 00 daily. Medical ULTRA) 29 Branch mg iron- 1 mg-200 mg Cap SERTraline 2023-0 Yes [id number] 50mg Take 1 [facility] (ZOLOFT) 50 2-09 100 tablet by ity of mg tablet 00:00: mouth [place] 00 the Medical morning. Branch PNV 67-iron 2023-0 Yes [id number] 1{each} Take 1 [facility] ps-folate 2-09 Each by ity of no.1-dha 00:00: mouth [place] (VITAFOL 00 daily. Medical ULTRA) 29 Branch mg iron- 1 mg-200 mg Cap SERTraline 2023-0 Yes [id number] 50mg Take 1 [facility] (ZOLOFT) 50 2-09 100 tablet by ity of mg tablet 00:00: mouth [place] 00 the Medical morning. Branch PNV 67-iron 2023-0 Yes [id number] 1{each} Take 1 [facility] ps-folate 2-09 Each by ity of no.1-dha 00:00: mouth [place] (VITAFOL 00 daily. Medical ULTRA) 29 Branch mg iron- 1 mg-200 mg Cap SERTraline 2023-0 Yes [id number] 50mg Take 1 [facility] (ZOLOFT) 50 2-09 100 tablet by ity of mg tablet 00:00: mouth [place] 00 the Medical morning. Branch PNV 67-iron 2023-0 Yes [id number] 1{each} Take 1 [facility] ps-folate 2-09 Each by ity of no.1-dha 00:00: mouth [place] (VITAFOL 00 daily. Medical ULTRA) 29 Branch mg iron- 1 mg-200 mg Cap SERTraline 3-0 Yes [id number] 50mg Take 1 [facility] (ZOLOFT) 50 2-09 100 tablet by ity of mg tablet 00:00: mouth [place] 00 the Medical morning. Branch PNV 67-iron 3-0 Yes [id number] 1{each} Take 1 [facility] ps-folate 2-09 Each by ity of no.1-dha 00:00: mouth [place] (VITAFOL 00 daily. Medical ULTRA) 29 Branch mg iron- 1 mg-200 mg Cap SERTraline 3-0 Yes [id number] 50mg Take 1 [facility] (ZOLOFT) 50 2-09 100 tablet by ity of mg tablet 00:00: mouth [place] 00 the Medical morning. Branch PNV 67-iron 3-0 Yes [id number] 1{each} Take 1 [facility] ps-folate 2-09 Each by ity of no.1-dha 00:00: mouth [place] (VITAFOL 00 daily. Medical ULTRA) 29 Branch mg iron- 1 mg-200 mg Cap SERTraline 3-0 Yes [id number] 50mg Take 1 [facility] (ZOLOFT) 50 2-09 100 tablet by ity of mg tablet 00:00: mouth [place] 00 the Medical morning. Branch PNV 67-iron 3-0 Yes [id number] 1{each} Take 1 [facility] ps-folate 2-09 Each by ity of no.1-dha 00:00: mouth [place] (VITAFOL 00 daily. Medical ULTRA) 29 Branch mg iron- 1 mg-200 mg Cap SERTraline 2023-0 Yes [id number] 50mg Take 1 [facility] (ZOLOFT) 50 2-09 100 tablet by ity of mg tablet 00:00: mouth [place] 00 the Medical morning. Branch PNV 67-iron 2023-0 Yes [id number] 1{each} Take 1 [facility] ps-folate 2-09 Each by ity of no.1-dha 00:00: mouth [place] (VITAFOL 00 daily. Medical ULTRA) 29 Branch mg iron- 1 mg-200 mg Cap SERTraline 2023-0 Yes [id number] 50mg Take 1 Univers (ZOLOFT) 50 2-09 100 tablet by ity of mg tablet 00:00: mouth [place] 00 the Medical morning. Branch PNV 67-iron 2023-0 Yes [id number] 1{each} Take 1 [facility] ps-folate 2-09 Each by ity of no.1-dha 00:00: mouth [place] (VITAFOL 00 daily. Medical ULTRA) 29 Branch mg iron- 1 mg-200 mg Cap SERTraline 2023-0 Yes [id number] 50mg Take 1 [facility] (ZOLOFT) 50 2-09 100 tablet by ity of mg tablet 00:00: mouth [place] 00 the Medical morning. Branch PNV 67-iron 2023-0 Yes [id number] 1{each} Take 1 [facility] ps-folate 2-09 Each by ity of no.1-dha 00:00: mouth [place] (VITAFOL 00 daily. Medical ULTRA) 29 Branch mg iron- 1 mg-200 mg Cap SERTraline 3-0 Yes [id number] 50mg Take 1 [facility] (ZOLOFT) 50 2-09 100 tablet by ity of mg tablet 00:00: mouth [place] the Medical morning. Branch PNV 67-iron 3-0 Yes [id number] 1{each} Take 1 [facility] ps-folate 2-09 Each by ity of no.1-dha 00:00: mouth [place] (VITAFOL 00 daily. Medical ULTRA) 29 Branch mg iron- 1 mg-200 mg Cap SERTraline 3-0 Yes [id number] 50mg Take 1 [facility] (ZOLOFT) 50 2-09 100 tablet by ity of mg tablet 00:00: mouth [place] 00 the Medical morning. Branch PNV 67-iron 2023-0 Yes [id number] 1{each} Take 1 [facility] ps-folate 2-09 Each by ity of no.1-dha 00:00: mouth [place] (VITAFOL 00 daily. Medical ULTRA) 29 Branch mg iron- 1 mg-200 mg Cap SERTraline 2023-0 Yes [id number] 50mg Take 1 [facility] (ZOLOFT) 50 2-09 100 tablet by ity of mg tablet 00:00: mouth [place] 00 the Medical morning. Branch PNV 67-iron 2023-0 Yes [id number] 1{each} Take 1 [facility] ps-folate 2-09 Each by ity of no.1-dha 00:00: mouth [place] (VITAFOL 00 daily. Medical ULTRA) 29 Branch mg iron- 1 mg-200 mg Cap SERTraline 3-0 Yes [id number] 50mg Take 1 [facility] (ZOLOFT) 50 2-09 100 tablet by ity of mg tablet 00:00: mouth [place] 00 the Medical morning. Branch PNV 67-iron 2023-0 Yes [id number] 1{each} Take 1 [facility] ps-folate 2-09 Each by ity of no.1-dha 00:00: mouth [place] (VITAFOL 00 daily. Medical ULTRA) 29 Branch mg iron- 1 mg-200 mg Cap SERTraline 3-0 Yes [id number] 50mg Take 1 [facility] (ZOLOFT) 50 2-09 100 tablet by ity of mg tablet 00:00: mouth [place] 00 the Medical morning. Branch PNV 67-iron 3-0 Yes [id number] 1{each} Take 1 [facility] ps-folate 2-09 Each by ity of no.1-dha 00:00: mouth [place] (VITAFOL 00 daily. Medical ULTRA) 29 Branch mg iron- 1 mg-200 mg Cap SERTraline 3-0 Yes [id number] 50mg Take 1 [facility] (ZOLOFT) 50 2-09 100 tablet by ity of mg tablet 00:00: mouth [place] 00 the Medical morning. Branch PNV 67-iron 3-0 Yes [id number] 1{each} Take 1 [facility] ps-folate 2-09 Each by ity of no.1-dha 00:00: mouth [place] (VITAFOL 00 daily. Medical ULTRA) 29 Branch mg iron- 1 mg-200 mg Cap SERTraline 2023-0 Yes [id number] 50mg Take 1 [facility] (ZOLOFT) 50 2-09 100 tablet by ity of mg tablet 00:00: mouth [place] 00 the Medical morning. Branch PNV 67-iron 2023-0 Yes [id number] 1{each} Take 1 [facility] ps-folate 2-09 Each by ity of no.1-dha 00:00: mouth [place] (VITAFOL 00 daily. Medical ULTRA) 29 Branch mg iron- 1 mg-200 mg Cap SERTraline 2023-0 Yes [id number] 50mg Take 1 [facility] (ZOLOFT) 50 2-09 100 tablet by ity of mg tablet 00:00: mouth [place] 00 the Medical morning. Branch PNV 67-iron 2023-0 Yes [id number] 1{each} Take 1 [facility] ps-folate 2-09 Each by ity of no.1-dha 00:00: mouth [place] (VITAFOL 00 daily. Medical ULTRA) 29 Branch mg iron- 1 mg-200 mg Cap SERTraline 2023-0 Yes [id number] 50mg Take 1 [facility] (ZOLOFT) 50 2-09 100 tablet by ity of mg tablet 00:00: mouth [place] 00 the Medical morning. Branch PNV 67-iron 2023-0 Yes [id number] 1{each} Take 1 [facility] ps-folate 2-09 Each by ity of no.1-dha 00:00: mouth [place] (VITAFOL 00 daily. Medical ULTRA) 29 Branch mg iron- 1 mg-200 mg Cap SERTraline 2023-0 Yes [id number] 50mg Take 1 [facility] (ZOLOFT) 50 2-09 100 tablet by ity of mg tablet 00:00: mouth [place] 00 the Medical morning. Branch PNV 67-iron 2023-0 Yes [id number] 1{each} Take 1 [facility] ps-folate 2-09 Each by ity of no.1-dha 00:00: mouth [place] (VITAFOL 00 daily. Medical ULTRA) 29 Branch mg iron- 1 mg-200 mg Cap SERTraline 2023-0 Yes [id number] 50mg Take 1 [facility] (ZOLOFT) 50 2-09 100 tablet by ity of mg tablet 00:00: mouth [place] 00 the Medical morning. Branch PNV 67-iron 2023-0 Yes [id number] 1{each} Take 1 [facility] ps-folate 2-09 Each by ity of no.1-dha 00:00: mouth [place] (VITAFOL 00 daily. Medical ULTRA) 29 Branch mg iron- 1 mg-200 mg Cap SERTraline 2023-0 Yes [id number] 50mg Take 1 [facility] (ZOLOFT) 50 2-09 100 tablet by ity of mg tablet 00:00: mouth [place] 00 the Medical morning. Branch PNV 67-iron 2023-0 Yes [id number] 1{each} Take 1 [facility] ps-folate 2-09 Each by ity of no.1-dha 00:00: mouth [place] (VITAFOL 00 daily. Medical ULTRA) 29 Branch mg iron- 1 mg-200 mg Cap SERTraline 3-0 Yes [id number] 50mg Take 1 [facility] (ZOLOFT) 50 2-09 100 tablet by ity of mg tablet 00:00: mouth [place] the Medical morning. Branch PNV 67-iron 2023-0 Yes [id number] 1{each} Take 1 [facility] ps-folate 2-09 Each by ity of no.1-dha 00:00: mouth [place] (VITAFOL 00 daily. Medical ULTRA) 29 Branch mg iron- 1 mg-200 mg Cap SERTraline 3-0 Yes [id number] 50mg Take 1 [facility] (ZOLOFT) 50 2-09 100 tablet by ity of mg tablet 00:00: mouth [place] the Medical morning. Branch PNV 67-iron 2023-0 Yes [id number] 1{each} Take 1 [facility] ps-folate 2-09 Each by ity of no.1-dha 00:00: mouth [place] (VITAFOL 00 daily. Medical ULTRA) 29 Branch mg iron- 1 mg-200 mg Cap SERTraline 3-0 Yes [id number] 50mg Take 1 [facility] (ZOLOFT) 50 2-09 100 tablet by ity of mg tablet 00:00: mouth [place] the Medical morning. Branch PNV 67-iron 2023-0 Yes [id number] 1{each} Take 1 [facility] ps-folate 2-09 Each by ity of no.1-dha 00:00: mouth [place] (VITAFOL 00 daily. Medical ULTRA) 29 Branch mg iron- 1 mg-200 mg Cap SERTraline 2023-0 Yes [id number] 50mg Take 1 [facility] (ZOLOFT) 50 2-09 100 tablet by ity of mg tablet 00:00: mouth [place] 00 the Medical morning. Branch PNV 67-iron 2023-0 Yes [id number] 1{each} Take 1 [facility] ps-folate 2-09 Each by ity of no.1-dha 00:00: mouth [place] (VITAFOL 00 daily. Medical ULTRA) 29 Branch mg iron- 1 mg-200 mg Cap SERTraline 2023-0 Yes [id number] 50mg Take 1 [facility] (ZOLOFT) 50 2-09 100 tablet by ity of mg tablet 00:00: mouth [place] 00 the Medical morning. Branch PNV 67-iron 2023-0 Yes [id number] 1{each} Take 1 [facility] ps-folate 2-09 Each by ity of no.1-dha 00:00: mouth [place] (VITAFOL 00 daily. Medical ULTRA) 29 Branch mg iron- 1 mg-200 mg Cap SERTraline 2023-0 Yes [id number] 50mg Take 1 [facility] (ZOLOFT) 50 2-09 100 tablet by ity of mg tablet 00:00: mouth [place] the Medical morning. Branch PNV 67-iron 2023-0 Yes [id number] 1{each} Take 1 [facility] ps-folate 2-09 Each by ity of no.1-dha 00:00: mouth [place] (VITAFOL 00 daily. Medical ULTRA) 29 Branch mg iron- 1 mg-200 mg Cap SERTraline 3-0 Yes [id number] 50mg Take 1 [facility] (ZOLOFT) 50 2-09 100 tablet by ity of mg tablet 00:00: mouth [place] 00 the Medical morning. Branch PNV 67-iron 2023-0 Yes [id number] 1{each} Take 1 [facility] ps-folate 2-09 Each by ity of no.1-dha 00:00: mouth [place] (VITAFOL 00 daily. Medical ULTRA) 29 Branch mg iron- 1 mg-200 mg Cap SERTraline 2023-0 Yes [id number] 50mg Take 1 [facility] (ZOLOFT) 50 2-09 100 tablet by ity of mg tablet 00:00: mouth [place] 00 the Medical morning. Branch PNV 67-iron 2023-0 Yes [id number] 1{each} Take 1 [facility] ps-folate 2-09 Each by ity of no.1-dha 00:00: mouth [place] (VITAFOL 00 daily. Medical ULTRA) 29 Branch mg iron- 1 mg-200 mg Cap SERTraline 2023-0 Yes [id number] 50mg Take 1 [facility] (ZOLOFT) 50 2-09 100 tablet by ity of mg tablet 00:00: mouth [place] 00 the Medical morning. Branch PNV 67-iron 2022-0 Yes [id number] 1{each} Take 1 [facility] ps-folate 2- Each by ity of no.1-dha 00:00: mouth [place] (VITAFOL 00 daily. Medical ULTRA) 29 Branch mg iron- 1 mg-200 mg Cap SERTraline 2022-0 Yes [id number] 50mg Take 1 [facility] (ZOLOFT) 50 - 100 tablet by ity of mg tablet 00:00: mouth [place] 00 the Medical morning. Branch PNV 67-iron 2022-0 2023- No [id number] 1{each} Take 1 [facility] ps-folate 09-04- Each by ity of no.1-dha 00:00: 00:00 mouth [place] (VITAFOL 00 :00 daily. Medical ULTRA) 29 Branch mg iron- 1 mg-200 mg Cap SERTraline 2022-3- No [id number] 50mg Take 1 [facility] (ZOLOFT) 50 09-04- 100 tablet by it y of mg tablet 00:00: 00:00 mouth [place] 00 :00 the Medical morning. Branch ampicillin 2022-0 2022- No [id number] 500mg Take 1 [facility] 500 mg 09-04-20 capsule by ity of capsule 00:00: 05:59 mouth 4 [place] 00 :00 (four) Medical times Branch daily for 10 days. ampicillin 3-0 2022- No [id number] 500mg Take 1 [facility] 500 mg 09-04-20 capsule by ity of capsule 00:00: 05:59 mouth 4 [place] 00 :00 (four) Medical times Branch daily for 10 days. ampicillin 2022-0 2022- No [id number] 500mg Take 1 [facility] 500 mg 09-04-20 capsule by ity of capsule 00:00: 05:59 mouth 4 [place] 00 :00 (four) Medical times Branch daily for 10 days. ampicillin 2023-0 2022- No [id number] 500mg Take 1 [facility] 500 mg 09-04-20 capsule by ity of capsule 00:00: 05:59 mouth 4 [place] 00 :00 (four) Medical times Branch daily for 10 days. cephALEXin 3-0 2022- No [id number] 500mg Take 1 [facility] (KEFLEX) 08-06 capsule by ity of 500 mg 00:00: 05:59 mouth 4 [place] capsule 00 :00 (four) Medical times [place] daily for 10 days. SERTRALINE 2021-07 Yes [id number] TAKE 1 [facility] 50 mg 2-29 100 TABLET BY ity of tablet 00:00: MOUTH [place] 00 EVERY DAY Medical IN THE [facility] SERTRALINE 2021-07 Yes [id number] TAKE 1 [facility] 50 mg 2-29 100 TABLET BY ity of tablet 00:00: MOUTH [place] 00 EVERY DAY Medical IN THE [facility] SERTRALINE 2021-07 Yes [id number] TAKE 1 [facility] 50 mg 2-29 100 TABLET BY ity of tablet 00:00: MOUTH [place] 00 EVERY DAY Medical IN THE [facility] SERTRALINE 2021-07 Yes [id number] TAKE 1 [facility] 50 mg 2-29 100 TABLET BY ity of tablet 00:00: MOUTH [place] 00 EVERY DAY Medical IN THE [facility] SERTRALINE 2021-07 Yes [id number] TAKE 1 [facility] 50 mg 2-29 100 TABLET BY ity of tablet 00:00: MOUTH [place] 00 EVERY DAY Medical IN THE [facility] SERTRALINE 2021-07 Yes [id number] TAKE 1 [facility] 50 mg 2-29 100 TABLET BY ity of tablet 00:00: MOUTH [place] 00 EVERY DAY Medical IN THE [facility] SERTRALINE 2021-07 Yes [id number] TAKE 1 [facility] 50 mg 2-29 100 TABLET BY ity of tablet 00:00: MOUTH [place] 00 EVERY DAY Medical IN THE [facility] SERTRALINE 2021-07 Yes [id number] TAKE 1 [facility] 50 mg 2-29 100 TABLET BY ity of tablet 00:00: MOUTH [place] 00 EVERY DAY Medical IN THE [facility] SERTRALINE 2021-07 Yes [id number] TAKE 1 [facility] 50 mg 2-29 100 TABLET BY ity of tablet 00:00: MOUTH [place] 00 EVERY DAY Medical IN THE [facility] SERTRALINE 2021-07 Yes [id number] TAKE 1 [facility] 50 mg 2-29 100 TABLET BY ity of tablet 00:00: MOUTH [place] 00 EVERY DAY Medical IN THE [facility] SERTRALINE 2021-07 Yes [id number] TAKE 1 [facility] 50 mg 2-29 100 TABLET BY ity of tablet 00:00: MOUTH [place] 00 EVERY DAY Medical IN THE Branch MORNING SERTRALINE 2021-07 Yes [id number] TAKE 1 [facility] 50 mg 2-29 100 TABLET BY ity of tablet 00:00: MOUTH [place] 00 EVERY DAY Medical IN THE [facility] SERTRALINE 2021-07 Yes [id number] TAKE 1 [facility] 50 mg 2-29 100 TABLET BY ity of tablet 00:00: MOUTH [place] 00 EVERY DAY Medical IN THE [facility] SERTRALINE 2021-07 Yes [id number] TAKE 1 [facility] 50 mg 2-29 100 TABLET BY ity of tablet 00:00: MOUTH [place] 00 EVERY DAY Medical IN THE [facility] SERTRALINE 2021-07 Yes [id number] TAKE 1 [facility] 50 mg 2-29 100 TABLET BY ity of tablet 00:00: MOUTH [place] 00 EVERY DAY Medical IN THE [facility] SERTRALINE 2021-07 Yes [id number] TAKE 1 [facility] 50 mg 2-29 100 TABLET BY ity of tablet 00:00: MOUTH [place] 00 EVERY DAY Medical IN THE [facility] SERTRALINE 2021-07 Yes [id number] TAKE 1 [facility] 50 mg 2-29 100 TABLET BY ity of tablet 00:00: MOUTH [place] 00 EVERY DAY Medical IN THE [facility] SERTRALINE 2021-07 Yes [id number] TAKE 1 [facility] 50 mg 2-29 100 TABLET BY ity of tablet 00:00: MOUTH [place] 00 EVERY DAY Medical IN THE [facility] SERTRALINE 2021-07 Yes [id number] TAKE 1 [facility] 50 mg 2-29 100 TABLET BY ity of tablet 00:00: MOUTH [place] 00 EVERY DAY Medical IN THE [facility] SERTRALINE 2021-07 Yes [id number] TAKE 1 [facility] 50 mg 2-29 100 TABLET BY ity of tablet 00:00: MOUTH [place] 00 EVERY DAY Medical IN THE [facility] SERTRALINE 2021-07 Yes [id number] TAKE 1 [facility] 50 mg 2-29 100 TABLET BY ity of tablet 00:00: MOUTH [place] 00 EVERY DAY Medical IN THE [facility] SERTRALINE 2021-07 Yes [id number] TAKE 1 [facility] 50 mg 2-29 100 TABLET BY ity of tablet 00:00: MOUTH [place] 00 EVERY DAY Medical IN THE [facility] SERTRALINE 2021-07 Yes [id number] TAKE 1 [facility] 50 mg 2-29 100 TABLET BY ity of tablet 00:00: MOUTH [place] 00 EVERY DAY Medical IN THE [facility] SERTRALINE 2021-07 Yes [id number] TAKE 1 [facility] 50 mg 2-29 100 TABLET BY ity of tablet 00:00: MOUTH [place] 00 EVERY DAY Medical IN THE [facility] SERTRALINE 2021-07 Yes [id number] TAKE 1 [facility] 50 mg 2-29 100 TABLET BY ity of tablet 00:00: MOUTH [place] 00 EVERY DAY Medical IN THE [facility] SERTRALINE 2021-07 Yes [id number] TAKE 1 [facility] 50 mg 2-29 100 TABLET BY ity of tablet 00:00: MOUTH [place] 00 EVERY DAY Medical IN THE [facility] SERTRALINE 2021-07 Yes [id number] TAKE 1 [facility] 50 mg 2-29 100 TABLET BY ity of tablet 00:00: MOUTH [place] 00 EVERY DAY Medical IN THE [facility] SERTRALINE 2021-07 Yes [id number] TAKE 1 [facility] 50 mg 2-29 100 TABLET BY ity of tablet 00:00: MOUTH [place] 00 EVERY DAY Medical IN THE [facility] SERTRALINE 2021-07 Yes [id number] TAKE 1 [facility] 50 mg 2-29 100 TABLET BY ity of tablet 00:00: MOUTH [place] 00 EVERY DAY Medical IN THE [facility] SERTRALINE 2021-07 Yes [id number] TAKE 1 [facility] 50 mg 2-29 100 TABLET BY ity of tablet 00:00: MOUTH [place] 00 EVERY DAY Medical IN THE [facility] SERTRALINE 2021-07 Yes [id number] TAKE 1 [facility] 50 mg 2-29 100 TABLET BY ity of tablet 00:00: MOUTH [place] 00 EVERY DAY Medical IN THE [facility] SERTRALINE 2021-07 Yes [id number] TAKE 1 [facility] 50 mg 2-29 100 TABLET BY ity of tablet 00:00: MOUTH [place] 00 EVERY DAY Medical IN THE [facility] SERTRALINE 2021-07 Yes [id number] TAKE 1 [facility] 50 mg 2-29 100 TABLET BY ity of tablet 00:00: MOUTH [place] 00 EVERY DAY Medical IN THE [facility] SERTRALINE 2021-07 Yes [id number] TAKE 1 [facility] 50 mg 2-29 100 TABLET BY ity of tablet 00:00: MOUTH [place] 00 EVERY DAY Medical IN THE [facility] SERTRALINE 2021-07 Yes [id number] TAKE 1 [facility] 50 mg 2-29 100 TABLET BY ity of tablet 00:00: MOUTH [place] 00 EVERY DAY Medical IN THE [facility] SERTRALINE 2021-07 Yes [id number] TAKE 1 [facility] 50 mg 2-29 100 TABLET BY ity of tablet 00:00: MOUTH [place] 00 EVERY DAY Medical IN THE [place] MORNING SERTRALINE 2021-07 Yes [id number] TAKE 1 [facility] 50 mg 2-29 100 TABLET BY ity of tablet 00:00: MOUTH [place] 00 EVERY DAY Medical IN THE [place] MORNING SERTRALINE 2021-07 Yes [id number] TAKE 1 [facility] 50 mg 2-29 100 TABLET BY ity of tablet 00:00: MOUTH [place] 00 EVERY DAY Medical IN THE [facility] SERTRALINE 2021-07 Yes [id number] TAKE 1 [facility] 50 mg 2-29 100 TABLET BY ity of tablet 00:00: MOUTH [place] 00 EVERY DAY Medical IN THE [facility] SERTRALINE 2021-07 Yes [id number] TAKE 1 [facility] 50 mg 2-29 100 TABLET BY ity of tablet 00:00: MOUTH [place] 00 EVERY DAY Medical IN THE [facility] SERTRALINE 2021-07 Yes [id number] TAKE 1 [facility] 50 mg 2-29 100 TABLET BY ity of tablet 00:00: MOUTH [place] 00 EVERY DAY Medical IN THE [facility] SERTRALINE 2021-07 Yes [id number] TAKE 1 [facility] 50 mg 2-29 100 TABLET BY ity of tablet 00:00: MOUTH [place] 00 EVERY DAY Medical IN THE [facility] SERTRALINE 2021-07- No [id number] TAKE 1 [facility] 50 mg 2-29 06-29 100 TABLET BY ity of tablet 00:00: 00:00 MOUTH [place] 00 :00 EVERY DAY Medical IN THE [facility] cephALEXin 2021-07- No [id number] 500mg Take 1 [facility] (KEFLEX) 2-18 12-29 capsule by ity of 500 mg 00:00: 05:59 mouth 4 [place] capsule 00 :00 (four) [facility] daily for 10 days. cephALEXin 2021-07- No [id number] 500mg Take 1 [facility] (KEFLEX) 2-18 12-29 capsule by ity of 500 mg 00:00: 05:59 mouth 4 [place] capsule 00 :00 (four) [facility] daily for 10 days. metroNIDAZO 2021-07- No [id number] 500mg Take 1 [facility] LE 500 mg 2-18 12-26 tablet by ity of tablet 00:00: 05:59 mouth in [place] 00 :00 the [facility] Branch and 1 tablet in the evening. Do all this for 7 days. metroNIDAZO 2021-07- No [id number] 500mg Take 1 [facility] LE 500 mg 2-18 12-26 tablet by ity of tablet 00:00: 05:59 mouth in [place] 00 :00 the Medical morning Branch and 1 tablet in the evening. Do all this for 7 days. Iron Fum & 2021-07 Yes [id number] 1{capsu Take 1 Univers P-FA-Vit B 2-15 le} capsule by ity of & C No.9 00:00: mouth [place] (INTEGRA daily. Medical PLUS) 125 Branch mg iron- 1 mg Cap Iron Fum & 2021-07 Yes [id number] 1{capsu Take 1 [facility] P-FA-Vit B 2-15 le} capsule by ity of & C No.9 00:00: mouth [place] (INTEGRA daily. Medical PLUS) 125 Branch mg iron- 1 mg Cap [place]um & 2021-07 Yes [id number] 1{capsu Take 1 [facility] P-FA-Vit B 2-15 le} capsule by ity of & C No.9 00:00: mouth [place] (INTEGRA daily. Medical PLUS) 125 Branch mg iron- 1 mg Cap Iron Fum & 2021-07 Yes [id number] 1{capsu Take 1 [facility] P-FA-Vit B 2-15 le} capsule by ity of & C No.9 00:00: mouth [place] (INTEGRA daily. Medical PLUS) 125 Branch mg iron- 1 mg Cap [place]um & 2021-07 Yes [id number] 1{capsu Take 1 [facility] P-FA-Vit B 2-15 le} capsule by ity of & C No.9 00:00: mouth [place] (INTEGRA daily. Medical PLUS) 125 Branch mg iron- 1 mg Cap [place]um & 2021-07 Yes [id number] 1{capsu Take 1 [facility] P-FA-Vit B 2-15 le} capsule by ity of & C No.9 00:00: mouth [place] (INTEGRA daily. Medical PLUS) 125 Branch mg iron- 1 mg Cap Iron Fum & 2021-07 Yes [id number] 1{capsu Take 1 [facility] P-FA-Vit B 2-15 le} capsule by ity of & C No.9 00:00: mouth [place] (INTEGRA daily. Medical PLUS) 125 Branch mg iron- 1 mg Cap [place]um & 2021-07 Yes [id number] 1{capsu Take 1 [facility] P-FA-Vit B 2-15 le} capsule by ity of & C No.9 00:00: mouth [place] (INTEGRA daily. Medical PLUS) 125 Branch mg iron- 1 mg Cap Iron Fum & 2021-07 Yes [id number] 1{capsu Take 1 [facility] P-FA-Vit B 2-15 le} capsule by ity of & C No.9 00:00: mouth [place] (INTEGRA daily. Medical PLUS) 125 Branch mg iron- 1 mg Cap [place] Fum & 2021-07 Yes [id number] 1{capsu Take 1 [facility] P-FA-Vit B 2-15 le} capsule by ity of & C No.9 00:00: mouth [place] (INTEGRA daily. Medical PLUS) 125 Branch mg iron- 1 mg Cap Iron Fum & 2021-07 Yes [id number] 1{capsu Take 1 [facility] P-FA-Vit B 2-15 le} capsule by ity of & C No.9 00:00: mouth [place] (INTEGRA daily. Medical PLUS) 125 Branch mg iron- 1 mg Cap Iron Fum & 2021-07 Yes [id number] 1{capsu Take 1 [facility] P-FA-Vit B 2-15 le} capsule by ity of & C No.9 00:00: mouth [place] (INTEGRA daily. Medical PLUS) 125 Branch mg iron- 1 mg Cap Iron Fum & 2021-07 Yes [id number] 1{capsu Take 1 [facility] P-FA-Vit B 2-15 le} capsule by ity of & C No.9 00:00: mouth [place] (INTEGRA daily. Medical PLUS) 125 Branch mg iron- 1 mg Cap Iron Fum & 2021-07 Yes [id number] 1{capsu Take 1 [facility] P-FA-Vit B 2-15 le} capsule by ity of & C No.9 00:00: mouth [place] (INTEGRA daily. Medical PLUS) 125 Branch mg iron- 1 mg Cap Iron Fum & 2021-07 Yes [id number] 1{capsu Take 1 [facility] P-FA-Vit B 2-15 le} capsule by ity of & C No.9 00:00: mouth [place] (INTEGRA daily. Medical PLUS) 125 Branch mg iron- 1 mg Cap Iron Fum & 2021-07 Yes [id number] 1{capsu Take 1 [facility] P-FA-Vit B 2-15 le} capsule by ity of & C No.9 00:00: mouth [place] (INTEGRA daily. Medical PLUS) 125 Branch mg iron- 1 mg Cap Iron Fum & 2021-07 Yes [id number] 1{capsu Take 1 [facility] P-FA-Vit B 2-15 le} capsule by ity of & C No.9 00:00: mouth [place] (INTEGRA daily. Medical PLUS) 125 Branch mg iron- 1 mg Cap Iron Fum & 2021-07 Yes [id number] 1{capsu Take 1 [facility] P-FA-Vit B 2-15 le} capsule by ity of & C No.9 00:00: mouth [place] (INTEGRA daily. Medical PLUS) 125 Branch mg iron- 1 mg Cap Iron Fum & 2021-07 Yes [id number] 1{capsu Take 1 [facility] P-FA-Vit B 2-15 le} capsule by ity of & C No.9 00:00: mouth [place] (INTEGRA daily. Medical PLUS) 125 Branch mg iron- 1 mg Cap Iron Fum & 2021-07 Yes [id number] 1{capsu Take 1 [facility] P-FA-Vit B 2-15 le} capsule by ity of & C No.9 00:00: mouth [place] (INTEGRA daily. Medical PLUS) 125 Branch mg iron- 1 mg Cap Iron Fum & 2021-07 Yes [id number] 1{capsu Take 1 [facility] P-FA-Vit B 2-15 le} capsule by ity of & C No.9 00:00: mouth [place] (INTEGRA daily. Medical PLUS) 125 Branch mg iron- 1 mg Cap Iron Fum & 2021-07 Yes [id number] 1{capsu Take 1 [facility] P-FA-Vit B 2-15 le} capsule by ity of & C No.9 00:00: mouth [place] (INTEGRA daily. Medical PLUS) 125 Branch mg iron- 1 mg Cap Iron Fum & 2021-07 Yes [id number] 1{capsu Take 1 [facility] P-FA-Vit B 2-15 le} capsule by ity of & C No.9 00:00: mouth [place] (INTEGRA daily. Medical PLUS) 125 Branch mg iron- 1 mg Cap Iron Fum & 2021-07 Yes [id number] 1{capsu Take 1 [facility] P-FA-Vit B 2-15 le} capsule by ity of & C No.9 00:00: mouth [place] (INTEGRA daily. Medical PLUS) 125 Branch mg iron- 1 mg Cap Iron Fum & 2021-07 Yes [id number] 1{capsu Take 1 Univers P-FA-Vit B 2-15 le} capsule by ity of & C No.9 00:00: mouth [place] (INTEGRA daily. Medical PLUS) 125 Branch mg iron- 1 mg Cap Iron Fum & 2021-07 Yes [id number] 1{capsu Take 1 Univers P-FA-Vit B 2-15 le} capsule by ity of & C No.9 00:00: mouth [place] (INTEGRA daily. Medical PLUS) 125 Branch mg iron- 1 mg Cap Iron Fum & 2021-07 Yes [id number] 1{capsu Take 1 Univers P-FA-Vit B 2-15 le} capsule by ity of & C No.9 00:00: mouth [place] (INTEGRA daily. Medical PLUS) 125 Branch mg iron- 1 mg Cap Iron Fum & 2021-07 Yes [id number] 1{capsu Take 1 Univers P-FA-Vit B 2-15 le} capsule by ity of & C No.9 00:00: mouth [place] (INTEGRA daily. Medical PLUS) 125 Branch mg iron- 1 mg Cap Iron Fum & 2021-07 Yes [id number] 1{capsu Take 1 [facility] P-FA-Vit B 2-15 le} capsule by ity of & C No.9 00:00: mouth [place] (INTEGRA daily. Medical PLUS) 125 Branch mg iron- 1 mg Cap Iron Fum & 2021-07 Yes [id number] 1{capsu Take 1 [facility] P-FA-Vit B 2-15 le} capsule by ity of & C No.9 00:00: mouth [place] (INTEGRA daily. Medical PLUS) 125 Branch mg iron- 1 mg Cap Iron Fum & 2021-07 Yes [id number] 1{capsu Take 1 [facility] P-FA-Vit B 2-15 le} capsule by ity of & C No.9 00:00: mouth [place] (INTEGRA daily. Medical PLUS) 125 Branch mg iron- 1 mg Cap Iron Fum & 2021-07 Yes [id number] 1{capsu Take 1 [facility] P-FA-Vit B 2-15 le} capsule by ity of & C No.9 00:00: mouth [place] (INTEGRA daily. Medical PLUS) 125 Branch mg iron- 1 mg Cap Iron Fum & 2021- Yes [id number] 1{capsu Take 1 [facility] P-FA-Vit B 2-15 le} capsule by ity of & C No.9 00:00: mouth [place] (INTEGRA daily. Medical PLUS) 125 Branch mg iron- 1 mg Cap Iron Fum & 2021-07 Yes [id number] 1{capsu Take 1 [facility] P-FA-Vit B 2-15 le} capsule by ity of & C No.9 00:00: mouth [place] (INTEGRA daily. Medical PLUS) 125 Branch mg iron- 1 mg Cap Iron Fum & 2021-07 Yes [id number] 1{capsu Take 1 [facility] P-FA-Vit B 2-15 le} capsule by ity of & C No.9 00:00: mouth [place] (INTEGRA daily. Medical PLUS) 125 Branch mg iron- 1 mg Cap Iron Fum & 2021-07 Yes [id number] 1{capsu Take 1 Univers P-FA-Vit B 2-15 le} capsule by ity of & C No.9 00:00: mouth [place] (INTEGRA daily. Medical PLUS) 125 Branch mg iron- 1 mg Cap Iron Fum & 2021-07 Yes [id number] 1{capsu Take 1 [facility] P-FA-Vit B 2-15 le} capsule by ity of & C No.9 00:00: mouth [place] (INTEGRA daily. Medical PLUS) 125 Branch mg iron- 1 mg Cap Iron Fum & 2021-07 Yes [id number] 1{capsu Take 1 [facility] P-FA-Vit B 2-15 le} capsule by ity of & C No.9 00:00: mouth [place] (INTEGRA daily. Medical PLUS) 125 Branch mg iron- 1 mg Cap Iron Fum & 2021-07 Yes [id number] 1{capsu Take 1 [facility] P-FA-Vit B 2-15 le} capsule by ity of & C No.9 00:00: mouth [place] (INTEGRA daily. Medical PLUS) 125 Branch mg iron- 1 mg Cap Iron Fum & 2021- Yes [id number] 1{capsu Take 1 [facility] P-FA-Vit B 2-15 le} capsule by ity of & C No.9 00:00: mouth [place] (INTEGRA 00 daily. Medical PLUS) 125 Branch mg iron- 1 mg Cap Iron Fum & 2021-07 Yes [id number] 1{capsu Take 1 [facility] P-FA-Vit B 2-15 le} capsule by ity of & C No.9 00:00: mouth [place] (INTEGRA 00 daily. Medical PLUS) 125 Branch mg iron- 1 mg Cap Iron Fum & 2021-07 Yes [id number] 1{capsu Take 1 [facility] P-FA-Vit B 2-15 le} capsule by ity of & C No.9 00:00: mouth [place] (INTEGRA daily. Medical PLUS) 125 Branch mg iron- 1 mg Cap Iron Fum & 2021-07 Yes [id number] 1{capsu Take 1 [facility] P-FA-Vit B 2-15 le} capsule by ity of & C No.9 00:00: mouth [place] (INTEGRA daily. Medical PLUS) 125 Branch mg iron- 1 mg Cap Iron Fum & 2021-07 Yes [id number] 1{capsu Take 1 [facility] P-FA-Vit B 2-15 le} capsule by ity of & C No.9 00:00: mouth [place] (INTEGRA daily. Medical PLUS) 125 Branch mg iron- 1 mg Cap Iron Fum & 2021-07 Yes [id number] 1{capsu Take 1 [facility] P-FA-Vit B 2-15 le} capsule by ity of & C No.9 00:00: mouth [place] (INTEGRA daily. Medical PLUS) 125 Branch mg iron- 1 mg Cap Iron Fum & 2021-07- No [id number] 1{capsu Take 1 [facility] P-FA-Vit B 2-15 06-29 le} capsule by it y of & C No.9 00:00: 00:00 mouth [place] (INTEGRA 00 :00 daily. Medical PLUS) 125 Branch mg iron- 1 mg Cap clotrimazol 2021-07 Yes [id number] 1{appli Insert 1 [facility] e 1 % 2-14 cator} Applicator ity of vaginal 00:00: into [place] cream 00 vagina at Medical bedtime. Branch proMETHazin 2021-07 Yes [id number] 25mg Take 1 [facility] e 25 mg 2-14 tablet by ity of tablet 00:00: mouth [place] 00 every 4 Medical (four) Branch hours as needed for Nausea and Vomiting (N/V). clotrimazol 2021-07 Yes [id number] 1{appli Insert 1 [facility] e 1 % 2-14 cator} Applicator ity of vaginal 00:00: into [place] cream 00 vagina at Medical bedtime. Branch proMETHazin 2021-07 Yes [id number] 25mg Take 1 [facility] e 25 mg 2-14 tablet by ity of tablet 00:00: mouth [place] 00 every 4 Medical (four) Branch hours as needed for Nausea and Vomiting (N/V). clotrimazol 2021-07 Yes [id number] 1{appli Insert 1 [facility] e 1 % 2-14 cator} Applicator ity of vaginal 00:00: into [place] cream 00 vagina at Medical bedtime. Branch proMETHazin 2021-07 Yes [id number] 25mg Take 1 [facility] e 25 mg 2-14 tablet by ity of tablet 00:00: mouth [place] 00 every 4 Medical (four) Branch hours as needed for Nausea and Vomiting (N/V). clotrimazol 2021-07 Yes [id number] 1{appli Insert 1 [facility] e 1 % 2-14 cator} Applicator ity of vaginal 00:00: into [place] cream 00 vagina at Medical bedtime. Branch proMETHazin 2021-07 Yes [id number] 25mg Take 1 [facility] e 25 mg 2-14 tablet by ity of tablet 00:00: mouth [place] 00 every 4 Medical (four) Branch hours as needed for Nausea and Vomiting (N/V). clotrimazol 2021-07 Yes [id number] 1{appli Insert 1 [facility] e 1 % 2-14 cator} Applicator ity of vaginal 00:00: into [place] cream 00 vagina at Medical bedtime. Branch proMETHazin 2021-07 Yes [id number] 25mg Take 1 [facility] e 25 mg 2-14 tablet by ity of tablet 00:00: mouth [place] 00 every 4 Medical (four) Branch hours as needed for Nausea and Vomiting (N/V). clotrimazol 2021-07 Yes [id number] 1{appli Insert 1 [facility] e 1 % 2-14 cator} Applicator ity of vaginal 00:00: into [place] cream 00 vagina at Medical bedtime. Branch proMETHazin 2021-07 Yes [id number] 25mg Take 1 [facility] e 25 mg 2-14 tablet by ity of tablet 00:00: mouth [place] 00 every 4 Medical (four) Branch hours as needed for Nausea and Vomiting (N/V). clotrimazol 2021-07 Yes [id number] 1{appli Insert 1 [facility] e 1 % 2-14 cator} Applicator ity of vaginal 00:00: into [place] cream 00 vagina at Medical bedtime. Branch proMETHazin 2021-07 Yes [id number] 25mg Take 1 [facility] e 25 mg 2-14 tablet by ity of tablet 00:00: mouth [place] 00 every 4 Medical (four) Branch hours as needed for Nausea and Vomiting (N/V). clotrimazol 2021-07 Yes [id number] 1{appli Insert 1 [facility] e 1 % 2-14 cator} Applicator ity of vaginal 00:00: into [place] cream 00 vagina at Medical bedtime. Branch proMETHazin 2021-07 Yes [id number] 25mg Take 1 [facility] e 25 mg 2-14 tablet by ity of tablet 00:00: mouth [place] 00 every 4 Medical (four) Branch hours as needed for Nausea and Vomiting (N/V). clotrimazol 2021-07 Yes [id number] 1{appli Insert 1 [facility] e 1 % 2-14 cator} Applicator ity of vaginal 00:00: into [place] cream 00 vagina at Medical bedtime. Branch proMETHazin 2021-07 Yes [id number] 25mg Take 1 [facility] e 25 mg 2-14 tablet by ity of tablet 00:00: mouth [place] 00 every 4 Medical (four) Branch hours as needed for Nausea and Vomiting (N/V). clotrimazol 2021-07 Yes [id number] 1{appli Insert 1 [facility] e 1 % 2-14 cator} Applicator ity of vaginal 00:00: into [place] cream 00 vagina at Medical bedtime. Branch proMETHazin 2021-07 Yes [id number] 25mg Take 1 [facility] e 25 mg 2-14 tablet by ity of tablet 00:00: mouth [place] 00 every 4 Medical (four) Branch hours as needed for Nausea and Vomiting (N/V). clotrimazol 2021-07 Yes [id number] 1{appli Insert 1 [facility] e 1 % 2-14 cator} Applicator ity of vaginal 00:00: into [place] cream 00 vagina at Medical bedtime. Branch proMETHazin 2021-07 Yes [id number] 25mg Take 1 [facility] e 25 mg 2-14 tablet by ity of tablet 00:00: mouth [place] 00 every 4 Medical (four) Branch hours as needed for Nausea and Vomiting (N/V). clotrimazol 2021-07 Yes [id number] 1{appli Insert 1 [facility] e 1 % 2-14 cator} Applicator ity of vaginal 00:00: into [place] cream 00 vagina at Medical bedtime. Branch proMETHazin 2021-07 Yes [id number] 25mg Take 1 [facility] e 25 mg 2-14 tablet by ity of tablet 00:00: mouth [place] 00 every 4 Medical (four) Branch hours as needed for Nausea and Vomiting (N/V). clotrimazol 2021-07 Yes [id number] 1{appli Insert 1 [facility] e 1 % 2-14 cator} Applicator ity of vaginal 00:00: into [place] cream 00 vagina at Medical bedtime. Branch proMETHazin 2021-07 Yes [id number] 25mg Take 1 [facility] e 25 mg 2-14 tablet by ity of tablet 00:00: mouth [place] 00 every 4 Medical (four) Branch hours as needed for Nausea and Vomiting (N/V). clotrimazol 2021-07 Yes [id number] 1{appli Insert 1 [facility] e 1 % 2-14 cator} Applicator ity of vaginal 00:00: into [place] cream 00 vagina at Medical bedtime. Branch proMETHazin 2021-07 Yes [id number] 25mg Take 1 [facility] e 25 mg 2-14 tablet by ity of tablet 00:00: mouth [place] 00 every 4 Medical (four) Branch hours as needed for Nausea and Vomiting (N/V). clotrimazol 2021-07 Yes [id number] 1{appli Insert 1 [facility] e 1 % 2-14 cator} Applicator ity of vaginal 00:00: into [place] cream 00 vagina at Medical bedtime. Branch proMETHazin 2021-07 Yes [id number] 25mg Take 1 [facility] e 25 mg 2-14 tablet by ity of tablet 00:00: mouth [place] 00 every 4 Medical (four) Branch hours as needed for Nausea and Vomiting (N/V). clotrimazol 2021-07 Yes [id number] 1{appli Insert 1 [facility] e 1 % 2-14 cator} Applicator ity of vaginal 00:00: into [place] cream 00 vagina at Medical bedtime. Branch proMETHazin 2021-07 Yes [id number] 25mg Take 1 [facility] e 25 mg 2-14 tablet by ity of tablet 00:00: mouth [place] 00 every 4 Medical (four) Branch hours as needed for Nausea and Vomiting (N/V). clotrimazol 2021-07 Yes [id number] 1{appli Insert 1 [facility] e 1 % 2-14 cator} Applicator ity of vaginal 00:00: into [place] cream 00 vagina at Medical bedtime. Branch proMETHazin 2021-07 Yes [id number] 25mg Take 1 [facility] e 25 mg 2-14 tablet by ity of tablet 00:00: mouth [place] 00 every 4 Medical (four) Branch hours as needed for Nausea and Vomiting (N/V). clotrimazol 2021-07 Yes [id number] 1{appli Insert 1 [facility] e 1 % 2-14 cator} Applicator ity of vaginal 00:00: into [place] cream 00 vagina at Medical bedtime. Branch proMETHazin 2021-07 Yes [id number] 25mg Take 1 [facility] e 25 mg 2-14 tablet by ity of tablet 00:00: mouth [place] 00 every 4 Medical (four) Branch hours as needed for Nausea and Vomiting (N/V). clotrimazol 2021-07 Yes [id number] 1{appli Insert 1 [facility] e 1 % 2-14 cator} Applicator ity of vaginal 00:00: into [place] cream 00 vagina at Medical bedtime. Branch proMETHazin 2021-07 Yes [id number] 25mg Take 1 [facility] e 25 mg 2-14 tablet by ity of tablet 00:00: mouth [place] 00 every 4 Medical (four) Branch hours as needed for Nausea and Vomiting (N/V). clotrimazol 2021-07 Yes [id number] 1{appli Insert 1 [facility] e 1 % 2-14 cator} Applicator ity of vaginal 00:00: into [place] cream 00 vagina at Medical bedtime. Branch proMETHazin 2021-07 Yes [id number] 25mg Take 1 [facility] e 25 mg 2-14 tablet by ity of tablet 00:00: mouth [place] 00 every 4 Medical (four) Branch hours as needed for Nausea and Vomiting (N/V). clotrimazol 2021-07 Yes [id number] 1{appli Insert 1 [facility] e 1 % 2-14 cator} Applicator ity of vaginal 00:00: into [place] cream 00 vagina at Medical bedtime. Branch proMETHazin 2021-07 Yes [id number] 25mg Take 1 [facility] e 25 mg 2-14 tablet by ity of tablet 00:00: mouth [place] 00 every 4 Medical (four) Branch hours as needed for Nausea and Vomiting (N/V). clotrimazol 2021-07 Yes [id number] 1{appli Insert 1 [facility] e 1 % 2-14 cator} Applicator ity of vaginal 00:00: into [place] cream 00 vagina at Medical bedtime. Branch proMETHazin 2021-07 Yes [id number] 25mg Take 1 [facility] e 25 mg 2-14 tablet by ity of tablet 00:00: mouth [place] 00 every 4 Medical (four) Branch hours as needed for Nausea and Vomiting (N/V). clotrimazol 2021-07 Yes [id number] 1{appli Insert 1 [facility] e 1 % 2-14 cator} Applicator ity of vaginal 00:00: into [place] cream 00 vagina at Medical bedtime. Branch proMETHazin 2021-07 Yes [id number] 25mg Take 1 [facility] e 25 mg 2-14 tablet by ity of tablet 00:00: mouth [place] 00 every 4 Medical (four) Branch hours as needed for Nausea and Vomiting (N/V). proMETHazin 2021-07 Yes [id number] 25mg Take 1 [facility] e 25 mg 2-14 tablet by ity of tablet 00:00: mouth [place] 00 every 4 Medical (four) Branch hours as needed for Nausea and Vomiting (N/V). proMETHazin 2021-07 Yes [id number] 25mg Take 1 [facility] e 25 mg 2-14 tablet by ity of tablet 00:00: mouth [place] 00 every 4 Medical (four) Branch hours as needed for Nausea and Vomiting (N/V). proMETHazin 2021-07 Yes [id number] 25mg Take 1 [facility] e 25 mg 2-14 tablet by ity of tablet 00:00: mouth [place] 00 every 4 Medical (four) Branch hours as needed for Nausea and Vomiting (N/V). proMETHazin 2021-07 Yes [id number] 25mg Take 1 [facility] e 25 mg 2-14 tablet by ity of tablet 00:00: mouth [place] 00 every 4 Medical (four) Branch hours as needed for Nausea and Vomiting (N/V). proMETHazin 2021-07 Yes [id number] 25mg Take 1 [facility] e 25 mg 2-14 tablet by ity of tablet 00:00: mouth [place] 00 every 4 Medical (four) Branch hours as needed for Nausea and Vomiting (N/V). proMETHazin 2021-07 Yes [id number] 25mg Take 1 [facility] e 25 mg 2-14 tablet by ity of tablet 00:00: mouth [place] 00 every 4 Medical (four) Branch hours as needed for Nausea and Vomiting (N/V). clotrimazol 2021-07 Yes [id number] 1{appli Insert 1 [facility] e 1 % 2-14 cator} Applicator ity of vaginal 00:00: into [place] cream 00 vagina at Medical bedtime. Branch proMETHazin 2021-07 Yes [id number] 25mg Take 1 [facility] e 25 mg 2-14 tablet by ity of tablet 00:00: mouth [place] 00 every 4 Medical (four) Branch hours as needed for Nausea and Vomiting (N/V). SERTraline 2021-07 Yes [id number] 50mg Take 1 [facility] (ZOLOFT) 50 2-14 100 tablet by ity of mg tablet 00:00: mouth [place] 00 the Medical morning. Branch clotrimazol 2021-07 Yes [id number] 1{appli Insert 1 [facility] e 1 % 2-14 cator} Applicator ity of vaginal 00:00: into [place] cream 00 vagina at Medical bedtime. Branch proMETHazin 2021-07 Yes [id number] 25mg Take 1 [facility] e 25 mg 2-14 tablet by ity of tablet 00:00: mouth [place] 00 every 4 Medical (four) Branch hours as needed for Nausea and Vomiting (N/V). SERTraline 2021-07 Yes [id number] 50mg Take 1 [facility] (ZOLOFT) 50 2-14 100 tablet by ity of mg tablet 00:00: mouth [place] 00 the Medical morning. Branch clotrimazol 2021-07 Yes [id number] 1{appli Insert 1 [facility] e 1 % 2-14 cator} Applicator ity of vaginal 00:00: into [place] cream 00 vagina at Medical bedtime. Branch proMETHazin 2021-07 Yes [id number] 25mg Take 1 [facility] e 25 mg 2-14 tablet by ity of tablet 00:00: mouth [place] 00 every 4 Medical (four) Branch hours as needed for Nausea and Vomiting (N/V). SERTraline 2021-07 Yes [id number] 50mg Take 1 [facility] (ZOLOFT) 50 2-14 100 tablet by ity of mg tablet 00:00: mouth [place] 00 the Medical morning. Branch clotrimazol 2021-07 Yes [id number] 1{appli Insert 1 [facility] e 1 % 2-14 cator} Applicator ity of vaginal 00:00: into [place] cream 00 vagina at Medical bedtime. Branch proMETHazin 2021-07 Yes [id number] 25mg Take 1 [facility] e 25 mg 2-14 tablet by ity of tablet 00:00: mouth [place] 00 every 4 Medical (four) Branch hours as needed for Nausea and Vomiting (N/V). SERTraline 2021-07 Yes [id number] 50mg Take 1 [facility] (ZOLOFT) 50 2-14 100 tablet by ity of mg tablet 00:00: mouth [place] 00 the Medical morning. Branch clotrimazol 2021-07 Yes [id number] 1{appli Insert 1 [facility] e 1 % 2-14 cator} Applicator ity of vaginal 00:00: into [place] cream 00 vagina at Medical bedtime. Branch proMETHazin 2021-07 Yes [id number] 25mg Take 1 [facility] e 25 mg 2-14 tablet by ity of tablet 00:00: mouth [place] 00 every 4 Medical (four) Branch hours as needed for Nausea and Vomiting (N/V). SERTraline 2021-07 Yes [id number] 50mg Take 1 [facility] (ZOLOFT) 50 2-14 100 tablet by ity of mg tablet 00:00: mouth [place] 00 the Medical morning. Branch clotrimazol 2021-07 Yes [id number] 1{appli Insert 1 [facility] e 1 % 2-14 cator} Applicator ity of vaginal 00:00: into [place] cream 00 vagina at Medical bedtime. Branch proMETHazin 2021-07 Yes [id number] 25mg Take 1 [facility] e 25 mg 2-14 tablet by ity of tablet 00:00: mouth [place] 00 every 4 Medical (four) Branch hours as needed for Nausea and Vomiting (N/V). clotrimazol 2021-07 Yes [id number] 1{appli Insert 1 [facility] e 1 % 2-14 cator} Applicator ity of vaginal 00:00: into [place] cream 00 vagina at Medical bedtime. Branch proMETHazin 2021-07 Yes [id number] 25mg Take 1 [facility] e 25 mg 2-14 tablet by ity of tablet 00:00: mouth [place] 00 every 4 Medical (four) Branch hours as needed for Nausea and Vomiting (N/V). clotrimazol 2021-07 Yes [id number] 1{appli Insert 1 [facility] e 1 % 2-14 cator} Applicator ity of vaginal 00:00: into [place] cream 00 vagina at Medical bedtime. Branch proMETHazin 2021-07 Yes [id number] 25mg Take 1 [facility] e 25 mg 2-14 tablet by ity of tablet 00:00: mouth [place] 00 every 4 Medical (four) Branch hours as needed for Nausea and Vomiting (N/V). clotrimazol 2021-07 Yes [id number] 1{appli Insert 1 [facility] e 1 % 2-14 cator} Applicator ity of vaginal 00:00: into [place] cream 00 vagina at Medical bedtime. Branch proMETHazin 2021-07 Yes [id number] 25mg Take 1 [facility] e 25 mg 2-14 tablet by ity of tablet 00:00: mouth [place] 00 every 4 Medical (four) Branch hours as needed for Nausea and Vomiting (N/V). clotrimazol 2021-07 Yes [id number] 1{appli Insert 1 [facility] e 1 % 2-14 cator} Applicator ity of vaginal 00:00: into [place] cream 00 vagina at Medical bedtime. Branch proMETHazin 2021-07 Yes [id number] 25mg Take 1 [facility] e 25 mg 2-14 tablet by ity of tablet 00:00: mouth [place] 00 every 4 Medical (four) Branch hours as needed for Nausea and Vomiting (N/V). clotrimazol 2021-07 Yes [id number] 1{appli Insert 1 [facility] e 1 % 2-14 cator} Applicator ity of vaginal 00:00: into [place] cream 00 vagina at Medical bedtime. Branch proMETHazin 2021-07 Yes [id number] 25mg Take 1 [facility] e 25 mg 2-14 tablet by ity of tablet 00:00: mouth [place] 00 every 4 Medical (four) Branch hours as needed for Nausea and Vomiting (N/V). clotrimazol 2021-07 Yes [id number] 1{appli Insert 1 [facility] e 1 % 2-14 cator} Applicator ity of vaginal 00:00: into [place] cream 00 vagina at Medical bedtime. [place] proMETHazin 2021-07 Yes [id number] 25mg Take 1 [facility] e 25 mg 2-14 tablet by ity of tablet 00:00: mouth [place] 00 every 4 Medical (four) Branch hours as needed for Nausea and Vomiting (N/V). clotrimazol 2021-07 Yes [id number] 1{appli Insert 1 [facility] e 1 % 2-14 cator} Applicator ity of vaginal 00:00: into [place] cream 00 vagina at Medical bedtime. [place] proMETHazin 2021-07 Yes [id number] 25mg Take 1 [facility] e 25 mg 2-14 tablet by ity of tablet 00:00: mouth [place] 00 every 4 Medical (four) Branch hours as needed for Nausea and Vomiting (N/V). clotrimazol 2021-07 Yes [id number] 1{appli Insert 1 [facility] e 1 % 2-14 cator} Applicator ity of vaginal 00:00: into [place] cream 00 vagina at Medical bedtime. Branch proMETHazin 2021-07 Yes [id number] 25mg Take 1 [facility] e 25 mg 2-14 tablet by ity of tablet 00:00: mouth [place] 00 every 4 Medical (four) Branch hours as needed for Nausea and Vomiting (N/V). clotrimazol 2021-07 Yes [id number] 1{appli Insert 1 [facility] e 1 % 2-14 cator} Applicator ity of vaginal 00:00: into [place] cream 00 vagina at Medical bedtime. Branch proMETHazin 2021-07 Yes [id number] 25mg Take 1 [facility] e 25 mg 2-14 tablet by ity of tablet 00:00: mouth [place] 00 every 4 Medical (four) Branch hours as needed for Nausea and Vomiting (N/V). clotrimazol 2021-07 Yes [id number] 1{appli Insert 1 [facility] e 1 % 2-14 cator} Applicator ity of vaginal 00:00: into [place] cream 00 vagina at Medical bedtime. Branch proMETHazin 2021-07 Yes [id number] 25mg Take 1 [facility] e 25 mg 2-14 tablet by ity of tablet 00:00: mouth [place] 00 every 4 Medical (four) Branch hours as needed for Nausea and Vomiting (N/V). clotrimazol 2021-07 Yes [id number] 1{appli Insert 1 [facility] e 1 % 2-14 cator} Applicator ity of vaginal 00:00: into [place] cream 00 vagina at Medical bedtime. Branch proMETHazin 2021-07 Yes [id number] 25mg Take 1 [facility] e 25 mg 2-14 tablet by ity of tablet 00:00: mouth [place] 00 every 4 Medical (four) Branch hours as needed for Nausea and Vomiting (N/V). clotrimazol 2021-07 Yes [id number] 1{appli Insert 1 [facility] e 1 % 2-14 cator} Applicator ity of vaginal 00:00: into [place] cream 00 vagina at Medical bedtime. Branch proMETHazin 2021-07 Yes [id number] 25mg Take 1 [facility] e 25 mg 2-14 tablet by ity of tablet 00:00: mouth [place] 00 every 4 Medical (four) Branch hours as needed for Nausea and Vomiting (N/V). proMETHazin 2021-07- No [id number] 25mg Take 1 [facility] e 25 mg 2-14 -29 tablet by ity of tablet 00:00: 00:00 mouth [place] 00 :00 every 4 Medical (four) Branch hours as needed for Nausea and Vomiting (N/V). clotrimazol 2021-07- No [id number] 1{appli Insert 1 [facility] e 1 % 2-14 06- cator} Applicator ity o f vaginal 00:00: 00:00 into [place] cream 00 :00 vagina at Medical bedtime. Branch SERTraline 2021-07- No [id number] 50mg Take 1 [facility] (ZOLOFT) 50 2-14 07-24 100 tablet by it y of mg tablet 00:00: 00:00 mouth [place] 00 :00 the Medical morning. Branch ferrous Yes [id number] 325mg Take 1 [facility] [place] sulfate 325 8-10 tablet by ity of mg (65 mg 00:00: mouth [place] iron) 00 the Medical tablet morning Branch and 1 tablet in the evening. ascorbic Yes [id number] 500mg Take 1 [facility] n[facility] acid, 8-10 tablet by ity of vitamin C, 00:00: mouth in [place] 500 mg 00 the Medical tablet morning Branch and 1 tablet at noon and 1 tablet in the evening. ferrous Yes [id number] 325mg Take 1 [facility] [place] sulfate 325 8-10 tablet by ity of mg (65 mg 00:00: mouth [place] iron) 00 the Medical tablet morning Branch and 1 tablet in the evening. ascorbic Yes [id number] 500mg Take 1 [facility] nivers acid, 8-10 tablet by ity of vitamin C, 00:00: mouth in [place] 500 mg 00 the Medical tablet morning Branch and 1 tablet at noon and 1 tablet in the evening. ferrous 2021- No [id number] 325mg Take 1 U nivers sulfate 325 8-10 12-14 tablet by it y of mg (65 mg 00:00: 00:00 mouth in [place] iron) 00 :00 the Medical tablet morning Branch and 1 tablet in the evening. ascorbic 2021- No [id number] 500mg Take 1 [facility] acid, 8-10 12-14 tablet by ity of vitamin C, 00:00: 00:00 mouth in [place] 500 mg 00 :00 the Medical tablet morning Branch and 1 tablet at noon and 1 tablet in the evening. Yes [id number] 1{tbl} Take 1 U nivers multivitami 8-09 tablet by ity of n ( 00:00: mouth in [place] VITAMIN) 00 the Medical tablet morning. Branch PNV 67-iron 2021-0 Yes [id number] 1{each} Take 1 [facility] ps-folate 8-09 Each by ity of no.1-dha 00:00: mouth [place] (VITAFOL 00 daily. Medical ULTRA) 29 Branch mg iron- 1 mg-200 mg Cap 2021-0 Yes [id number] 1{tbl} Take 1 U nivers multivitami 8-09 tablet by ity of n ( 00:00: mouth in [place] VITAMIN) 00 the Medical tablet morning. Branch PNV 67-iron 2021-0 Yes [id number] 1{each} Take 1 [facility] ps-folate 8-09 Each by ity of no.1-dha 00:00: mouth [place] (VITAFOL 00 daily. Medical ULTRA) 29 Branch mg iron- 1 mg-200 mg Cap PNV 67-iron 2021-0 Yes [id number] 1{each} Take 1 [facility] ps-folate 8-09 Each by ity of no.1-dha 00:00: mouth [place] (VITAFOL 00 daily. Medical ULTRA) 29 Branch mg iron- 1 mg-200 mg Cap PNV 67-iron 2021-0 Yes [id number] 1{each} Take 1 [facility] ps-folate 8-09 Each by ity of no.1-dha 00:00: mouth [place] (VITAFOL 00 daily. Medical ULTRA) 29 Branch mg iron- 1 mg-200 mg Cap PNV 67-iron 2021-0 Yes [id number] 1{each} Take 1 [facility] ps-folate 8-09 Each by ity of no.1-dha 00:00: mouth [place] (VITAFOL 00 daily. Medical ULTRA) 29 Branch mg iron- 1 mg-200 mg Cap PNV 67-iron 2021-0 Yes [id number] 1{each} Take 1 [facility] ps-folate 8-09 Each by ity of no.1-dha 00:00: mouth [place] (VITAFOL 00 daily. Medical ULTRA) 29 Branch mg iron- 1 mg-200 mg Cap PNV 67-iron 2-0 Yes [id number] 1{each} Take 1 [facility] ps-folate 8-09 Each by ity of no.1-dha 00:00: mouth [place] (VITAFOL 00 daily. Medical ULTRA) 29 Branch mg iron- 1 mg-200 mg Cap PNV 67-iron 2022-0 Yes [id number] 1{each} Take 1 [facility] ps-folate 8- Each by ity of no.1-dha 00:00: mouth [place] (VITAFOL 00 daily. Medical ULTRA) 29 Branch mg iron- 1 mg-200 mg Cap PNV 67-iron 2021-0 Yes [id number] 1{each} Take 1 [facility] ps-folate 8- Each by ity of no.1-dha 00:00: mouth [place] (VITAFOL 00 daily. Medical ULTRA) 29 Branch mg iron- 1 mg-200 mg Cap PNV 67-iron 2021-0 Yes [id number] 1{each} Take 1 [facility] ps-folate 8- Each by ity of no.1-dha 00:00: mouth [place] (VITAFOL 00 daily. Medical ULTRA) 29 Branch mg iron- 1 mg-200 mg Cap PNV 67-iron 2021-0 Yes [id number] 1{each} Take 1 [facility] ps-folate 8- Each by ity of no.1-dha 00:00: mouth [place] (VITAFOL 00 daily. Medical ULTRA) 29 Branch mg iron- 1 mg-200 mg Cap PNV 67-iron 2021-0 Yes [id number] 1{each} Take 1 [facility] ps-folate 8- Each by ity of no.1-dha 00:00: mouth [place] (VITAFOL 00 daily. Medical ULTRA) 29 Branch mg iron- 1 mg-200 mg Cap PNV 67-iron 2021-0 Yes [id number] 1{each} Take 1 [facility] ps-folate 8- Each by ity of no.1-dha 00:00: mouth [place] (VITAFOL 00 daily. Medical ULTRA) 29 Branch mg iron- 1 mg-200 mg Cap PNV 67-iron 2021-0 2022- No [id number] 1{each} Take 1 [facility] ps-folate 8- 02- Each by ity of no.1-dha 00:00: 00:00 mouth [place] (VITAFOL 00 :00 daily. Medical ULTRA) 29 Branch mg iron- 1 mg-200 mg Cap PNV 67-iron 2021-0 2022- No [id number] 1{each} Take 1 [facility] ps-folate 8- 02- Each by ity of no.1-dha 00:00: 00:00 mouth [place] (VITAFOL 00 :00 daily. Medical ULTRA) 29 Branch mg iron- 1 mg-200 mg Cap 202- No [id number] 1{tbl} Take 1 [facility] multivitami 03-04 tablet by it y of n ( 00:00: 00:00 mouth in [place] VITAMIN) 00 :00 the Medical tablet morning. Branch Immunizations Ordered Filled Date Status Comments Source Immunization Name Immunization Name [facility] 2022-11-26 Completed [facility] 00:00:00 [facility] 2022-11-26 Completed [facility] 00[facility]00:00 [facility] 2022-11-26 Completed [facility] 00:00:00 [facility] 2022-11-26 Completed [facility] 00:00:00 [facility] 2022-11-26 Completed [facility] 00:00:00 [facility] 2022-11-26 Completed [facility] 00[facility]00:00 [facility] 2022-11-26 Completed [facility] 00:00:00 [facility] 2022-11-26 Completed [facility] of 00[facility]00:00 [facility] 2022-11-26 Completed [facility] of 00:00:00 [facility] 2022-11-26 Completed [facility] 00:00:00 [facility] 2022-11-26 Completed [facility] 00:00:00 [facility] 2022-11-26 Completed [facility] 00[facility]00:00 [facility] 2022-11-26 Completed [facility] 00[facility]00:00 [facility] 2022-11-26 Completed [facility] 00:00:00 [facility] 2022-11-26 Completed [facility] of 00:00:00 [facility] 2022-11-26 Completed [facility] of 00:00:00 [facility] 2022-11-26 Completed [facility] of 00:00:00 [facility] 2014-01-06 Completed [facility] of 00:00:00 [facility] 2014-01-06 Completed [facility] of 00:00:00 [facility] 2014-01-06 Completed [facility] of 00:00:00 [facility] 2014-01-06 Completed [facility] of 00[facility]00:00 [facility] 2014-01-06 Completed [facility] of 00:00:00 [facility] 2014-01-06 Completed [facility] of 00:00:00 [facility] 2014-01-06 Completed [facility] 00:00:00 [facility] 2014-01-06 Completed [facility] of 00:00:00 [facility] TDAP 2014-01-06 Completed [facility] of 00:00:00 [facility] TDAP 2014-01-06 Completed [facility] of 00:00:00 [facility] TDAP 2014-01-06 Completed [facility] of 00:00:00 [facility] [place] [facility] TDAP 2014-01-06 Completed University of 00:00:00 [facility] TDAP 2014-01-06 Completed [facility] 00:00:00 [facility] TDAP 2014-01-06 Completed [facility] 00:00:00 [facility] TDAP 2014-01-06 Completed [facility] of 00:00:00 [facility] TDAP 2014-01-06 Completed [facility] 00:00:00 [facility] TDAP 2014-01-06 Completed [facility] of 00:00:00 [facility] TDAP 2014-01-06 Completed [facility] of 00:00:00 [facility] TDAP 2014-01-06 Completed [facility] of 00:00:00 [facility] TDAP 2014-01-06 Completed [facility] of 00:00:00 [facility] TDAP 2014-01-06 Completed [facility] of 00:00:00 [facility] TDAP 2014-01-06 Completed [facility] of 00:00:00 [facility] TDAP 2014-01-06 Completed [facility] of 00:00:00 [facility] TDAP 2014-01-06 Completed [facility] of 00:00:00 [facility] TDAP 2014-01-06 Completed [facility] of 00:00:00 [facility] TDAP 2014-01-06 Completed [facility] 00:00:00 [facility] TDAP 2014-01-06 Completed [facility] of 00:00:00 [facility] TDAP 2014-01-06 Completed [facility] of 00:00:00 [facility] TDAP 2014-01-06 Completed [facility] 00:00:00 [facility] TDAP 2014-01-06 Completed [facility] 00:00:00 [facility] TDAP 2014-01-06 Completed [facility] 00:00:00 [facility] TDAP 2014-01-06 Completed [facility] of 00:00:00 [facility] TDAP 2014-01-06 Completed [facility] 00:00:00 [facility] TDAP 2014-01-06 Completed University of [...] Branch TDAP 2014-01-06 Completed [facility] 00:00:00 [facility] TDAP 2014-01-06 Completed University of [...] Branch TDAP 2014-01-06 Completed [facility] 00:00:00 [facility] TDAP 2014-01-06 Completed [facility] 00:00:00 [facility] TDAP 2014-01-06 Completed [facility] 00:00:00 [facility] TDAP 2014-01-06 Completed [facility] 00:00:00 [facility] TDAP 2014-01-06 Completed [facility] 00:00:00 [facility] TD, NOS 2002-07-27 Completed [facility] of 00:00:00 [facility] TD, NOS 2002-07-27 Completed [facility] 00:00:00 [facility] TD, NOS 2002-07-27 Completed [facility] of 00:00:00 [facility] TD, NOS 2002-07-27 Completed University [...] Branch Td 2002-07-27 Completed [facility] 00:00:00 [facility] TD, NOS 2002-07-27 Completed [facility] 00:00:00 [facility] TD, NOS 2002-07-27 Completed [facility] 00:00:00 [facility] TD, NOS 2002-07-27 Completed [facility] 00:00:00 [facility] TD, NOS 2002-07-27 Completed University [...] TD, NOS 2002-07-27 Completed [facility] 00:00:00 [facility] TD, NOS 2002-07-27 Completed [facility] 00:00:00 [facility] TD, NOS 2002-07-27 Completed [facility] 00:00:00 [facility] TD, NOS Unknown Completed [facility] TDAP Unknown Completed [facility] TDAP Unknown Completed [facility] TD, NOS Unknown Completed [facility] TDAP Unknown Completed [facility] TDAP Unknown Completed [facility] TD, NOS Unknown Completed [facility] TDAP Unknown Completed [facility] TD, NOS Unknown Completed [facility] TDAP Unknown Completed [facility] TD, NOS Unknown Completed [facility] TDAP Unknown Completed [facility] TD, NOS Unknown Completed [facility] TDAP Unknown Completed [facility] TDAP Unknown Completed [facility] TD, NOS Unknown Completed [facility] TDAP Unknown Completed [facility] TDAP Unknown Completed [facility] TD, NOS Unknown Completed [facility] TDAP Unknown Completed [facility] TDAP Unknown Completed [facility] HPV9 Unknown Completed [facility] TD, NOS Unknown Completed [facility] TDAP Unknown Completed [facility] TDAP Unknown Completed [facility] HPV9 Unknown Completed [facility] TD, NOS Unknown Completed [facility] TDAP Unknown Completed [facility] TDAP Unknown Completed [facility] HPV9 Unknown Completed [facility] TD, NOS Unknown Completed [facility] TDAP Unknown Completed [facility] TDAP Unknown Completed [facility] HPV9 Unknown Completed [facility] TD, NOS Unknown Completed [facility] TDAP Unknown Completed [facility] TDAP Unknown Completed [facility] HPV9 Unknown Completed [facility] TD, NOS Unknown Completed [facility] TDAP Unknown Completed [facility] TDAP Unknown Completed [facility] HPV9 Unknown Completed [facility] Vital Signs Vital Name Observation Time Observation Value Comments Source Systolic blood 2023-06-24 15:58:00 100 mm[Hg] Univer sity of pressure [facility] Diastolic blood 2023-06-24 15:58:00 62 mm[Hg] Unive rsity of [facility] Heart rate 2023-06-24 15:58:00 79 /min [facility] Body temperature 2023-06-24 15:58:00 36.67 Leanna [facility] Respiratory rate 2023-06-24 15:58:00 18 /min [facility] Body height 2023-06-24 15:58:00 170.2 cm Universi ty [facility] Body weight 2023-06-24 15:58:00 134.038 kg [facility] BMI 2023-06-24 15:58:00 46.28 kg/m2 [facility] Systolic blood 2023-06-20 16:37:00 142 mm[Hg] Univer sity of pressure [facility] Diastolic blood 2023-06-20 16:37:00 74 mm[Hg] Unive rsity of pressure [facility] Heart rate 2023-06-20 16:37:00 84 /min Universi ty of [facility] Body temperature 2023-06-20 16:37:00 36.61 Leanna Univ ersity [facility] Respiratory rate 2023-06-20 16:37:00 12 /min Univ ersity of [facility] Body height 2023-06-20 16:37:00 170.2 cm [facility]i [facility] Body weight 2023-06-20 16:37:00 128.822 kg [facility]i ty [facility] BMI 2023-06-20 16:37:00 44.48 kg/m2 [facility] Oxygen saturation in 2023-06-20 16:37:00 99 /min University of Arterial blood by [facility] Pulse oximetry Branch Systolic blood 2023-06-13 18:03:00 127 mm[Hg] Univer sity of pressure [facility] Diastolic blood 2023-06-13 18:03:00 78 mm[Hg] Unive rsity of pressure [facility] Heart rate 2023-06-13 18:03:00 66 /min [facility]i ty [facility] Body temperature 2023-06-13 18:03:00 37 Leanna Univ ersity of [facility] Respiratory rate 2023-06-13 18:03:00 16 /min Univ ersity of [facility] Body height 2023-06-13 18:03:00 170.2 cm [facility]i ty of [facility] Body weight 2023-06-13 18:03:00 131.498 kg [facility]i [facility] BMI 2023-06-13 18:03:00 45.40 kg/m2 [facility]i ty of [facility] Oxygen saturation in 2023-06-13 18:03:00 100 /min University of Arterial blood by [facility] Systolic blood 2023-04-24 15:25:00 127 mm[Hg] Univer sity of pressure [facility] Diastolic blood 2023-04-24 15:25:00 77 mm[Hg] Unive rsity of pressure [facility] Heart rate 2023-04-24 15:25:00 63 /min [facility]i [facility] Body temperature 2023-04-24 15:25:00 36.61 Leanna Univ [facility] Respiratory rate 2023-04-24 15:25:00 14 /min Univ ersity of [facility] Body height 2023-04-24 15:25:00 170.2 cm [facility] Body weight 2023-04-24 15:25:00 125.147 kg [facility] BMI 2023-04-24 15:25:00 43.21 kg/m2 [facility] Oxygen saturation in 2023-04-24 15:25:00 100 /min [facility] of Arterial blood by [facility] Branch Systolic blood 2023-01-30 14:51:00 128 mm[Hg] Univer sity of pressure [facility] Diastolic blood 2023-01-30 14:51:00 71 mm[Hg] Unive rsity of pressure [facility] Heart rate 2023-01-30 14:41:00 79 /min [facility] Body temperature 2023-01-30 14:41:00 36.89 Leanna Univ [facility] Respiratory rate 2023-01-30 14:41:00 20 /min Univ ersity of [facility] Body height 2023-01-30 14:41:00 170.2 cm [facility] Body weight 2023-01-30 14:41:00 111.993 kg [facility] BMI 2023-01-30 14:41:00 38.67 kg/m2 [facility] Systolic blood 2023-01-30 14:29:00 128 mm[Hg] Univer sity of pressure [facility] Diastolic blood 2023-01-30 14:29:00 71 mm[Hg] Unive rsity of pressure [facility] Heart rate 2023-01-30 14:29:00 71 /min [facility] Body temperature 2023-01-30 14:28:00 36.89 Leanna Univ [facility] Respiratory rate 2023-01-30 14:28:00 20 /min Univ ersity of [facility] Body height 2023-01-30 14:28:00 170.2 cm [facility] Body weight 2023-01-30 14:28:00 111.84 kg [facility] BMI 2023-01-30 14:28:00 38.62 kg/m2 [facility] Systolic blood 2023-01-22 17:47:00 145 mm[Hg] Univer sity of pressure [facility] Diastolic blood 2023-01-22 17:47:00 76 mm[Hg] Unive rsity of pressure [facility] Heart rate 2023-01-22 17:47:00 84 /min [facility] Body temperature 2023-01-22 17:47:00 36.83 Leanna Univ [facility] Respiratory rate 2023-01-22 17:47:00 18 /min Univ ersity of [facility] Oxygen saturation in 2023-01-22 17:47:00 97 /min University of Arterial blood by [facility] Body height 2023-01-19 01:24:00 170.2 cm [facility] Body weight 2023-01-19 01:24:00 112.038 kg [facility] BMI 2023-01-19 01:24:00 38.69 kg/m2 [facility] Systolic blood 2023-01-19 12:52:00 107 mm[Hg] Univer sity of pressure [facility] Diastolic blood 2023-01-19 12:52:00 70 mm[Hg] Unive rsity of pressure [facility] Heart rate 2023-01-19 12:52:00 75 /min [facility] Body temperature 2023-01-19 12:52:00 36.72 Leanna Univ [facility] Respiratory rate 2023-01-19 12:52:00 18 /min Univ ersity of [facility] Oxygen saturation in 2023-01-19 12:52:00 98 /min University of Arterial blood by [facility] Branch Body height 2023-01-19 01:24:00 170.2 cm [facility] Body weight 2023-01-19 01:24:00 112.038 kg [facility] BMI 2023-01-19 01:24:00 38.69 kg/m2 [facility]i ty of [facility] Systolic blood 2023-01-16 14:16:00 116 mm[Hg] Univer sity of pressure [facility] Diastolic blood 2023-01-16 14:16:00 73 mm[Hg] Unive rsity of pressure [facility] Heart rate 2023-01-16 14:16:00 77 /min Universi ty of [facility] Body temperature 2023-01-16 14:16:00 35.94 Leanna Univ ersity of [facility] Respiratory rate 2023-01-16 14:16:00 18 /min Univ ersity of [facility] Body height 2023-01-16 14:16:00 170.2 cm [facility] Body weight 2023-01-16 14:16:00 112.628 kg [facility] BMI 2023-01-16 14:16:00 38.89 kg/m2 [facility]i ty of [facility] Systolic blood 2023-01-09 13:50:00 124 mm[Hg] Univer sity of pressure [facility] Diastolic blood 2023-01-09 13:50:00 75 mm[Hg] Unive rsity of pressure [facility] Heart rate 2023-01-09 13:50:00 87 /min [facility] Body temperature 2023-01-09 13:50:00 36 Leanna Univ [facility]ity of [facility] Respiratory rate 2023-01-09 13:50:00 18 /min Univ ersity of [facility] Body height 2023-01-09 13:50:00 170.2 cm [facility] Body weight 2023-01-09 13:50:00 112.719 kg [facility] BMI 2023-01-09 13:50:00 38.92 kg/m2 [facility] ty of [facility] Systolic blood 2022-12-31 14:39:00 124 mm[Hg] Univer sity of pressure [facility] Diastolic blood 2022-12-31 14:39:00 77 mm[Hg] Unive rsity of pressure [facility] Heart rate 2022-12-31 14:39:00 83 /min [facility]i ty [facility] Body temperature 2022-12-31 14:39:00 36.11 Leanna Univ [facility]ity of [facility] Respiratory rate 2022-12-31 14:39:00 18 /min Univ ersity of [facility] Body height 2022-12-31 14:39:00 170.2 cm [facility] Body weight 2022-12-31 14:39:00 114.505 kg [facility] BMI 2022-12-31 14:39:00 39.54 kg/m2 [facility] Systolic blood 2022-11-26 16:22:00 123 mm[Hg] Univer sity of pressure [facility] Diastolic blood 2022-11-26 16:22:00 80 mm[Hg] Unive rsity of pressure [facility] Heart rate 2022-11-26 16:22:00 81 /min [facility]i [facility] Body temperature 2022-11-26 16:22:00 36.17 Leanna Univ [facility] Respiratory rate 2022-11-26 16:22:00 18 /min Univ ersity of [facility] Body height 2022-11-26 16:22:00 170.2 cm [facility] Body weight 2022-11-26 16:22:00 115.032 kg [facility] BMI 2022-11-26 16:22:00 39.72 kg/m2 [facility] Systolic blood 2022-11-18 00:18:00 119 mm[Hg] Univer sity of pressure [facility] Diastolic blood 2022-11-18 00:18:00 55 mm[Hg] Unive rsity of pressure [facility] Heart rate 2022-11-18 00:18:00 95 /min [facility]i ty [facility] Body temperature 2022-11-18 00:18:00 36.61 Leanna Univ [facility]ity of [facility] Respiratory rate 2022-11-18 00:18:00 18 /min Univ ersity of [facility] Body height 2022-11-18 00:18:00 170.2 cm [facility] Body weight 2022-11-18 00:18:00 117.935 kg [facility] BMI 2022-11-18 00:18:00 40.72 kg/m2 Universi ty of [facility] Oxygen saturation in 2022-11-18 00:18:00 100 /min University of Arterial blood by [facility] Pulse [facility]xim[facility] Branch Systolic blood 2022-10-23 14:50:00 127 mm[Hg] Univer sity of pressure [facility] Diastolic blood 2022-10-23 14:50:00 71 mm[Hg] Unive rsity of pressure [facility] Heart rate 2022-10-23 14:50:00 87 /min [facility] ty [facility] Body temperature 2022-10-23 14:50:00 36.11 Leanna Univ [facility]ity of [facility] Respiratory rate 2022-10-23 14:50:00 18 /min Univ ersity of [facility] Body height 2022-10-23 14:50:00 170.2 cm [facility] Body weight 2022-10-23 14:50:00 119.024 kg [facility] BMI 2022-10-23 14:50:00 41.10 kg/m2 [facility] Systolic blood 2022-10-02 16:17:00 117 mm[Hg] Univer sity of pressure [facility] Diastolic blood 2022-10-02 16:17:00 70 mm[Hg] Unive rsity of pressure [facility] Heart rate 2022-10-02 16:17:00 85 /min [facility] Body temperature 2022-10-02 16:17:00 35.94 Leanna Univ [facility]ity of [facility] Respiratory rate 2022-10-02 16:17:00 18 /min Univ ersity of [facility] Body height 2022-10-02 16:17:00 170.2 cm [facility] Body weight 2022-10-02 16:17:00 114.034 kg [facility] BMI 2022-10-02 16:17:00 39.37 kg/m2 [facility] Systolic blood 2022-09-17 05:00:00 132 mm[Hg] Univer sity of pressure [facility] Diastolic blood 2022-09-17 05:00:00 75 mm[Hg] Unive rsity of pressure [facility] Heart rate 2022-09-17 05:00:00 82 /min Universi ty of [facility] Oxygen saturation in 2022-09-17 05:00:00 100 /min [facility] of Arterial blood by [facility] P[facility] Branch Body temperature 2022-09-17 04:46:00 36.72 Leanna Univ [facility]ity [facility] Respiratory rate 2022-09-17 04:46:00 17 /min Univ ersity of [facility] Body height 2022-09-17 04:46:00 170.2 cm [facility] ty [facility] Body weight 2022-09-17 04:46:00 112.946 kg [facility] BMI 2022-09-17 04:46:00 39.00 kg/m2 [facility] Systolic blood 2022-09-04 16:03:00 115 mm[Hg] Univer sity of pressure [facility] Diastolic blood 2022-09-04 16:03:00 67 mm[Hg] Unive rsity of pressure [facility] Heart rate 2022-09-04 16:03:00 83 /min [facility] Body temperature 2022-09-04 16:03:00 36.94 Leanna [facility] Respiratory rate 2022-09-04 16:03:00 20 /min Univ ersity [facility] Body height 2022-09-04 16:03:00 170.2 cm [facility] Body weight 2022-09-04 16:03:00 110.587 kg [facility] BMI 2022-09-04 16:03:00 38.18 kg/m2 [facility] Systolic blood 2022-08-06 16:19:00 119 mm[Hg] Univer sity of pressure [facility] Diastolic blood 2022-08-06 16:19:00 70 mm[Hg] Unive rsity of pressure [facility] Heart rate 2022-08-06 16:19:00 81 /min [facility] ty [facility] Body temperature 2022-08-06 16:19:00 36.94 Leanna [facility] ersity of [facility] Respiratory rate 2022-08-06 16:19:00 18 /min [facility] ersity of [facility] Body height 2022-08-06 16:19:00 170.2 cm Universi ty of [facility] Body weight 2022-08-06 16:19:00 113.881 kg Universi ty of [facility] BMI 2022-08-06 16:19:00 39.32 kg/m2 Universi ty of [facility] Systolic blood 2022-07-09 20:30:00 124 mm[Hg] Univer sity of pressure [facility] Diastolic blood 2022-07-09 20:30:00 71 mm[Hg] Unive rsity of [facility] Heart rate 2022-07-09 20:30:00 69 /min Universi ty of [facility] Body temperature 2022-07-09 20:30:00 36.39 Leanna [facility] 2022-07-09 20:30:00 18 /min [facility] ersity of [facility] Body height 2022-07-09 20:30:00 170.2 cm Universi ty of [facility] Body weight 2022-07-09 20:30:00 113.581 kg Universi ty of [facility] BMI 2022-07-09 20:30:00 39.22 kg/m2 [facility]i ty of [facility] Procedures Procedure Date / Time Performing Clinician Source Performed POCT TEST 2023-06-24 17:10:00 Evert Wisdom [facility] GARDASIL 9 (HPV 9V) 2023-06-24 16:05:43 Evert Wisdom [facility] VACCINE [facility] CONSENT/REFUSAL FOR 2023-06-20 16:33:31 Doctor Unassigned, No [facility] DIAGNOSIS AND TREATMENT [facility] ASSIGNMENT OF BENEFITS 2023-06-13 20:13:09 Doctor Unassigned, No [facility] Name [facility] XR SPINE THORACIC 2 2023-06-13 20:09:00 Royce Santiago [facility] XR CERVICAL SPINE 3 2023-06-13 20:09:00 Royce Santiago [facility] CONSENT/REFUSAL FOR 2023-06-13 17:58:40 Doctor Unassigned, No [facility] [place] [facility] Name [facility] CONSENT/REFUSAL FOR 2023-04-24 14:53:47 Doctor Unassigned, No [facility] [place] [facility] Name [facility] CBC WITH DIFF 2023-01-20 08:38:00 Mary Mg [facility] CBC WITH DIFF 2023-01-20 08:38:00 Mary Mg [facility] VENOUS CORD GAS 2023-01-19 05:38:00 Mary Mg [facility] VENOUS CORD GAS 2023-01-19 05:38:00 Mary Mg [facility] SECTION 2023-01-19 04:37:[address] [facility] SECTION 2023-01-19 04:37:[address] [facility] CBC WITH DIFF 2023-01-19 02:39:00 Mary Mg [facility] HEPATITIS B SURFACE 2023-01-19 02:39:00 Mary Mg [facility] HB ABO GROUPING 2023-01-19 02:39:00 Mary Mg [facility] RHO (D) IMMUNE GLOBULIN 2023-01-19 02:39:00 Mary Mg [facility] HIV 1/2 AG-AB WITH 2023-01-19 02:39:00 Mary Mg [facility] REFLEX [facility] SYPHILIS IGG/IGM 2023-01-19 02:39:00 Mary Mg [facility] CBC WITH DIFF 2023-01-19 02:39:00 Mary Mg [facility] HEPATITIS B SURFACE 2023-01-19 02:39:00 Mary Mg [facility] HB ABO GROUPING 2023-01-19 02:39:00 Mary Mg [facility] RHO (D) IMMUNE GLOBULIN 2023-01-19 02:39:00 Mary Mg [facility] HIV 1/2 AG-AB WITH 2023-01-19 02:39:00 Mary Mg [facility] SYPHILIS IGG/IGM 2023-01-19 02:39:00 Mary Mg [facility] HOSPITAL ADMISSION 2023-01-18 05:01:00 Doctor Unassigned, No [facility] POCT URINALYSIS 2023-01-16 14:17:00 Janet De Jesus [facility] POCT URINALYSIS 2023-01-09 13:52:00 Janet De Jesus [facility] POCT URINALYSIS 2022-12-31 14:43:00 Janet De Jesus [facility] POCT URINALYSIS 2022-11-26 17:51:00 Janet De Jesus [facility] TDAP VACCINE, >11 YRS, 2022-11-26 16:50:04 Evert Wisdom [facility] ASSIGNMENT OF BENEFITS 2022-11-17 23:49:27 Doctor Unassigned, No [facility] GLUCOSE 1 HOUR POST 2022-10-23 15:48:00 Evert Wisdom [facility] CBC WITH DIFF 2022-10-23 15:48:00 Evert Wisdom [facility] POCT URINALYSIS 2022-10-23 14:54:00 Janet De Jesus [facility] NOTICE OF RESEARCH 2022-10-06 05:01:00 Doctor Unassigned, No Uni [facility] POCT URINALYSIS 2022-10-02 00:00:00 Evert Wisdom [facility] ASSIGNMENT OF BENEFITS 2022-09-17 04:31:51 Doctor Unassigned, No [facility] NOTICE OF PRIVACY 2022-09-17 04:30:55 Doctor Unassigned, No [facility] CONSENT/REFUSAL FOR 2022-09-17 04:30:29 [facility] POCT URINALYSIS 2022-09-04 00:00:00 [facility] SECOND AND THIRD 2022-08-22 20:58:00 Janet De Jesus [facility] TRIMESTER ULTRASOUND Medical [facility] SECOND AND THIRD 2022-08-22 20:45:00 Janet De Jesus [facility] TRIMESTER ULTRASOUND Medical [facility] POCT URINALYSIS 2022-08-06 16:20:00 Evert Wisdom [facility] REPORT OF 2022-07-09 06:01:00 [facility] 2022-07-09 00:00:00 Janet De Jesus [facility] POCT URINALYSIS W/O 2022-07-09 00:00:00 Janet De Jesus [facility] Encounters Start End Encounter Admission Attending Care Care Encounter Source Date/Time Date/Time Type Type Clinicians Facility Department ID 2022-10-28 Outpatient [facility] [id number] [place] 14:25:34 [id number] Health 2023-12-31 2023-12-31 Outpatient R [facility] [id number] Univers 13:30:00 13:30:00 [facility] 2023-07-30 2023-07-30 Outpatient R [facility] [id number] Univers 13:30:00 13:30:00 [facility] 2023-06-25 2023-06-25 Telephone Alyx MOUSHA 1.2.840.114 [id number] Univers 00:00:00 00:00:00 Evert Farr CAR BODY INSPECTOR 350.1.13.10 ity [facility] 4.2.7.2.686 Trae as MATERNAL [id number] Med ical & CHILD [address] [place] [address] 2023-06-24 2023-06-24 Outpatient R ALYX [facility] [id number] Univers 10:30:00 11:16:25 EVERT blood o f [facility] 2023-06-24 2023-06-24 Office [facility] 1.2.893.902 [id number] Univers 10:30:00 11:16:25 Visit Evert Farr CAR BODY INSPECTOR 350.1.13.10 [facility] 4.2.7.2.686 Trae as MATERNAL [id number] Med ical & CHILD [address] [place] [address] 2023-06-20 2023-06-20 Emergency X MAVIS [facility] ERT [id number] Univers 10:38:00 11:10:00 CLEMENCIA blood [facility] 2023-06-20 2023-06-20 Emergency [facility] 1.2.840.114 [id number] Univers 10:38:00 11:10:00 Clemencia RANGEL 350.1.13.10 [facility] 4.2.7.2.686 [facility] [id number] [address] 2023-06-13 2023-06-13 Emergency X PAMELA, [facility] ERT [id number] Univers 12:05:00 15:27:00 ROYCE blood [facility] 2023-06-13 2023-06-13 Emergency Pamela, [facility] 1.2.141.594 [id number] Univers 12:05:00 15:27:00 Royce RANGEL 350.1.13.10 ity [facility] 4.2.7.2.686 [facility] [id number] [address] 2023-04-24 2023-04-24 Emergency X Jaycee DAMON [facility] ERT [id number] Univers 10:27:00 13:30:00 ity [facility] 2023-04-24 2023-04-24 Emergency Jaycee Damon [facility] 1.2.840.114 10 [id number] Univers 10:27:00 13:30:00 Maria Luz RANGEL 350.1.13.10 i ty [facility] 4.2.7.2.686 [place] [facility] [id number] [place] 637264 [place] 2023-03-02 2023-03-02 Outpatient TRISTIAN LAMB [facility] [id number] Univers 09:00:00 09:00:00 ity of [facility] 2023-02-22 2023-02-22 Refill Alyx [facility] 1.2.861.388 [id number] Univers 00:00:00 00:00:00 Evert C CAR BODY INSPECTOR 350.1.13.10 ity of REGIONAL 4.2.7.2.686 Trae as MATERNAL [id number] [facility] CHILD [address] [place] [address] 2023-02-06 2023-02-06 Patient Doctor [facility] 1.2.840.114 [id number] Univers 00:00:00 00:00:00 Secure Msg Unassigned, FAMILY 350.1.13.10 ity of [place] [facility] 4.2.7.2.686 Trae as CLINIC - [id number] [address] 2023-01-30 2023-01-30 Routine Alyx [facility] 1.2.797.949 [id number] Univers 09:45:00 09:59:37 Evert C CAR BODY INSPECTOR 350.1.13.10 ity of Visit REGIONAL 4.2.7.2.686 Trae as MATERNAL [id number] [facility] & CHILD [address] [place] [address] 2023-01-30 2023-01-30 [facility] 1.2 .840.114 [id number] Univers 09:00:00 09:15:00 Visit Evert Wisdom CAR BODY INSPECTOR 350.1.13. 10 ity of REGIONAL 4.2.7.2.686 Trae as MATERNAL [id number] [facility] & CHILD [address] [place] [address] 2023-01-30 2023-01-30 Outpatient R ALYX [facility] [id number] Univers 09:00:00 09:00:00 EVERT blood o f [facility] 2023-01-18 2023-01-22 [facility] ONOFRE 1.2.840.114 [id number] Univers 20:06:00 15:19:00 Encounter Ariadna NOWAKY 350.1.13.10 ity of [facility] 4.2.7.2.686 [place] [id number] [facility] [address] 2023-01-18 2023-01-22 Inpatient P NASH [facility] CAYDEN [id number] Univers 20:06:00 15:19:00 CHASEY ity of [facility] 2023-01-19 2023-01-19 Anesthesia Saúl Lawrence ONOFRE 1.2.840.114 [id number] Univers 20:01:47 20:01:47 Event HENRRY 350.1.13.10 it y of [facility] 4.2.7.2.686 Trae as [id number] [facility] [address] 2023-01-19 2023-01-19 Surgery ONOFRE Cao 1.2.840.114 [id number] Univers 07:30:00 09:12:00 Chasey HENRRY 350.1.13.10 it y of [facility] 4.2.7.2.686 [place] [id number] [facility] [address] 2023-01-18 2023-01-18 Orders Doctor ONOFRE 1.2.840.114 [id number] Univers 00:00:00 00:00:00 Only Unassigned, HENRRY 350.1.13.10 ity of [place] [facility] 4.2.7.2.686 Trae as [id number] [facility] [address] 2023-01-16 2023-01-16 Outpatient R AKINSIPE, [facility] [id number] Univers 09:15:00 09:47:35 EVERT cheryley o f [facility] 2023-01-16 2023-01-16 Routine Akinsipe, [facility] 1.2.585.175 [id number] Univers 09:15:00 09:47:35 Evert C CAR BODY INSPECTOR 350.1.13.[address] [facility] 4.2.7.2.686 Trae as MATERNAL [id number] [facility] ical & CHILD [address] [place] [address] 2023-01-09 2023-01-09 Outpatient R ALYX, [facility] [id number] Univers 09:00:00 09:38:22 EVERT ity o f [facility] 2023-01-09 2023-01-09 Routine [facility] 1.2.612.268 [id number] Univers 09:00:00 09:38:22 Evert C CAR BODY INSPECTOR 350.1.13.10 ity of Visit REGIONAL 4.2.7.2.686 Trae as MATERNAL [id number] [facility] & CHILD [address] [place] [address] 2023-01-01 2023-01-01 [facility] 1.2.840.114 [id number] Univers 00:00:00 00:00:00 Management Janet A CAR BODY INSPECTOR 350.1.13.10 ity of REGIONAL 4.2.7.2.686 Trae as MATERNAL [id number] [address] 2022-12-31 2022-12-31 Outpatient [facility] [id number] Univers 09:45:00 10:03:21 JANET ity [facility] 2022-12-31 2022-12-31 [facility] 1.2.840.114 [id number] Univers 09:45:00 10:03:21 Janet A CAR BODY INSPECTOR 350.1.13.10 ity of Visit REGIONAL 4.2.7.2.686 Trae as MATERNAL [id number] [address] 2022-12-30 2022-12-30 Outpatient [facility] [id number] Univers 12:45:00 12:45:00 JANET ity [facility] 2022-12-25 2022-12-25 Lace Finisher 2, [facility] Us Room [facility] 1 .2.840.114 [id number] Univers 10:00:00 10:30:00 Visit Maura Johnston [facility] 350.1 .13.10 ity of CLINICS 4.2.7.2.686 [place] [id number] [address] 2022-12-25 2022-12-25 Outpatient P ADAMS [facility] [id number] Univers 10:00:00 10:00:00 SOFÍA it y of S, LORENZO [facility] 2022-12-25 2022-12-25 Case Gricelda [facility] 1.2.840.114 [id number] Univers 00:00:00 00:00:00 Management Janet A CAR BODY INSPECTOR 350.1.13.10 ity of REGIONAL 4.2.7.2.686 Trae as MATERNAL [id number] Med ical & CHILD [address] [place] [address] 2022-12-23 2022-12-23 Telephone [facility] 1.2.840.114 10 [id number] Univers 00:00:00 00:00:00 Evert C CAR BODY INSPECTOR 350.1.13.10 ity of REGIONAL 4.2.7.2.686 Trae as MATERNAL [id number] [facility] & CHILD [address] [place] [address] 2022-12-15 2022-12-15 Outpatient P [facility] [id number] Univers 15:15:00 15:15:00 ity [facility] 2022-12-15 2022-12-15 Outpatient P [facility] [id number] Univers 09:00:00 09:00:00 ity [facility] 2022-12-11 2022-12-11 Outpatient R AKINSIPE, [facility] [id number] Univers 11:00:00 11:00:00 EVERT blood o [facility] 2022-11-26 2022-11-26 Outpatient R AKINSIPE, [facility] [id number] Univers 10:45:00 12:11:47 EVERT lobatoy o [facility] 2022-11-26 2022-11-26 Routine [facility] 1.2.945.363 [id number] Univers 10:45:00 12:11:47 Evert C CAR BODY INSPECTOR 350.1.13.10 ity of Visit REGIONAL 4.2.7.2.686 Trae as MATERNAL [id number] [facility] & CHILD [address] [place] [address] 2022-11-26 2022-11-26 Outpatient R AKINTADEO, [facility] [id number] Univers 10:45:00 10:45:00 EVERT blood o f [facility] 2022-11-19 2022-11-19 Patient Doctor ONOFRE 1.2.840.114 [id number] Univers 00:00:00 00:00:00 Secure Msg Unassigned, HENRRY 350.1.13.10 ity of [place] [facility] 4.2.7.2.686 Trae as [id number] [facility] [address] 2022-11-17 2022-11-17 Outpatient X HERNANDEZ-WILKERSON, FEMI [facility] O BY [id number] Univers 18:56:00 20:30:00 HERNANDEZ-WILKERSON, FEMI ity of [facility] 2022-11-17 2022-11-17 Emergency [facility] 1.2.840.114 [id number] Univers 18:56:00 20:30:00 s [facility] 350.1.13.10 ity [facility] 4.2.7.2.686 [place] [facility] [id number] [facility] [address] 2022-11-17 2022-11-17 Orders Doctor ONOFRE 1.2.840.114 [id number] Univers 00:00:00 00:00:00 Only Unassigned, HENRRY 350.1.13.10 ity of [place] [facility] 4.2.7.2.686 Trae as [id number] [facility] [address] 2022-11-13 2022-11-13 Outpatient R AKINTADEO, [facility] [id number] Univers 15:45:00 15:45:00 EVERT blood o f [facility] 2022-11-10 2022-11-10 [facility] 1.2.840.114 [id number] Univers 00:00:00 00:00:00 Janet Parkinson CAR BODY INSPECTOR 350.1.13.10 i ty [facility] 4.2.7.2.686 Trae as MATERNAL [id number] [facility] ical & CHILD [address] [place] [address] 2022-11-10 2022-11-10 Telephone [facility] 1.2.840.114 10 [id number] Univers 00:00:00 00:00:00 Evert C CAR BODY INSPECTOR 350.1.13.10 ity of REGIONAL 4.2.7.2.686 Trae as MATERNAL [id number] [facility] & [address] 2022-11-05 2022-11-05 Outpatient R R ADAMS [facility] [id number] Univers 10:00:00 10:00:00 EVERT ity o f [facility] 2022-10-28 2022-10-28 Telephone [facility] 1.2.840.114 10 [id number] Univers 00:00:00 00:00:00 Evert C CAR BODY INSPECTOR 350.1.13.10 ity of REGIONAL 4.2.7.2.686 Trae as MATERNAL [id number] [address] 2022-10-23 2022-10-23 Routine [facility] 1.2.372.787 [id number] Univers 10:15:00 10:30:31 Evert C CAR BODY INSPECTOR 350.1.13.10 ity of Visit REGIONAL 4.2.7.2.686 Trae as MATERNAL [id number] [address] 2022-10-23 2022-10-23 Outpatient R R [facility] [id number] Univers 10:15:00 10:30:31 EVERT blood o [facility] 2022-10-23 2022-10-23 Letter [facility] 1.2.462.485 [id number] Univers 00:00:00 00:00:00 (Out) Evert C CAR BODY INSPECTOR 350.1.13.10 ity of REGIONAL 4.2.7.2.686 Trae as MATERNAL [id number] [address] 2022-10-07 2022-10-07 Case [facility] 1.2.840.114 [id number] Univers 00:00:00 00:00:00 Management Janet A CAR BODY INSPECTOR 350.1.13.10 ity of REGIONAL 4.2.7.2.686 Trae as MATERNAL [id number] Med ical & CHILD [address] [place] [address] 2022-10-06 2022-10-06 Lace Finisher 1, [facility] Us Room UN[facility]ERS[facility] 1 .2.840.114 [id number] Univers 13:30:00 14:41:29 Visit Rik Florentino [facility] 350.1.13. 10 ity of CLINICS 4.2.7.2.[place] [id number] [address] 2022-10-06 2022-10-06 Outpatient P MARTIN [facility] [id number] Univers 13:30:00 13:30:00 RIK ity [facility] 2022-10-06 2022-10-06 Letter Martin [facility] 1.2.840.114 [id number] Univers 00:00:00 00:00:00 (Out) Rik Woods [facility] 350.1.13.10 ity of CLINICS 4.2.7.2.[place] [id number] [address] 2022-10-06 2022-10-06 Orders Doctor ONOFRE 1.2.840.114 [id number] Univers 00:00:00 00:00:00 Only Unassigned, HENRRY 350.1.13.10 ity of [place] [facility] 4.2.7.2.686 Trae as [id number] [address] 2022-10-02 2022-10-02 Routine [facility] 1.2.932.453 [id number] Univers 10:30:00 10:49:38 Evert Farr CAR BODY INSPECTOR 350.1.13.[address] [facility] 4.2.7.2.686 Trae as MATERNAL [id number] [facility] ical & CHILD [address] [place] [address] 2022-10-02 2022-10-02 [facility] [id number] Univers 10:30:00 10:49:38 EVERT blood o f [facility] 2022-10-02 2022-10-02 Letter [facility] 1.2.580.139 [id number] Univers 00:00:00 00:00:00 (Out) Evert C CAR BODY INSPECTOR 350.1.13.[address] [facility] 4.2.7.2.686 Trae as MATERNAL [id number] [facility] & CHILD [address] [place] [address] 2022-09-16 2022-09-16 Outpatient P LUCIUS ALBA [facility] [place] [id number] Univers 22:42:00 23:30:00 ity of [facility] 2022-09-16 2022-09-16 Hospital Lucius Alba [facility] 1.2.840.114 [id number] Univers 22:42:00 23:30:00 Encounter [place] 350.1.13.10 ity of [place] 4.2.7.2.686 [facility] [id number] [facility] 083 [place] 2022-09-16 2022-09-16 Orders Doctor ONOFRE 1.2.840.114 [id number] Univers 00:00:00 00:00:00 Only Unassigned, HENRRY 350.1.13.10 ity of [place] [facility] 4.2.7.2.686 Trae as [id number] [facility] 009 [place] 2022-09-04 2022-09-04 Out[facility] [id number] Univers 09:45:00 10:52:21 EVERT ity o f [facility] 2022-09-04 2022-09-04 Routine [facility] 1.2.012.965 [id number] Univers 09:45:00 10:52:21 Evert C CAR BODY INSPECTOR 350.1.13.[address] [facility] 4.2.7.2.686 Trae as MATERNAL [id number] [facility] & CHILD [address] [place] [address] 2022-09-04 2022-09-04 Kam[facility] 1.2.840.114 [id number] Univers 00:00:00 00:00:00 Janet Parkinson CAR BODY INSPECTOR 350.1.13.[address] [facility] 4.2.7.2.686 Trae as MATERNAL [id number] [facility] & CHILD [address] [place] [address] 2022-09-04 2022-09-04 Refill [facility] 1.2.766.249 [id number] Univers 00:00:00 00:00:00 Evert Farr CAR BODY INSPECTOR 350.1.13.10 ity of REGIONAL 4.2.7.2.686 Trae as MATERNAL [id number] [facility] CHILD [address] [place] [address] 2022-08-25 2022-08-25 Case [facility] 1.2.840.114 [id number] Univers 00:00:00 00:00:00 Management Janet Parkinson CAR BODY INSPECTOR 350.1.13.10 ity of REGIONAL 4.2.7.2.686 Trae as MATERNAL [id number] [address] 2022-08-22 2022-08-22 Lace Finisher 3, [facility] Us Room UNIVERSIT 1 .2.840.114 [id number] Univers 13:45:00 15:00:37 Visit Eliezer [facility] 350.1.13.10 ity of CLIN[place] 4[place].2.[place] [id number] [address] 2022-08-22 2022-08-22 Outpatient [facility] [id number] Univers 13:45:00 13:45:00 PRISCILA anay [facility] 2022-08-22 2022-08-22 Letter Eliezer [facility] 1.2.871.504 [id number] Univers 00:00:00 00:00:00 (Out) [facility] 350.1.13.10 ity of CL[place]ICS 4[place]2.7.2.[place] [id number] [address] 2022-08-22 2022-08-22 Telephone [facility] 1.2.840.114 10 [id number] Univers 00:00:00 00:00:00 Evert Farr CAR BODY INSPECTOR 350.1.13.10 ity of REGIONAL 4.2.7.2.686 Trae as MATERNAL [id number] [facility] CHILD [address] [place] [address] 2022-08-06 2022-08-06 Outpatient [facility] [id number] Univers 10:45:00 11:00:38 EVERT lobatoy o f [facility] 2022-08-06 2022-08-06 Routine [facility] 1.2.225.722 [id number] Univers 10:45:00 11:00:38 Evert Farr CAR BODY INSPECTOR 350.1.13.10 ity of Visit REGIONAL 4.2.7.2.686 Trae as MATERNAL [id number] Med ical & CHILD [address] [place] [address] 2022-07-23 2022-07-23 Refill [facility] 1.2.840.114 [id number] Univers 00:00:00 00:00:00 Janet A CAR BODY INSPECTOR 350.1.13.10 i ty of REGIONAL 4.2.7.2.686 Trae as MATERNAL [id number] Med ical & CHILD [address] [place] [address] 2022-07-14 2022-07-14 [facility] 1.2.840.114 [id number] Univers 00:00:00 00:00:00 Janet A CAR BODY INSPECTOR 350.1.13.10 i ty of REGIONAL 4.2.7.2.686 Trae as MATERNAL 191.2615391 Med ical & CHILD [address] [place] [address] 2022-07-13 2022-07-13 [facility] 1.2.840.114 [id number] Univers 00:00:00 00:00:00 Management Janet A CAR BODY INSPECTOR 350.1.13.10 ity of REGIONAL 4.2.7.2.686 Trae as MATERNAL [id number] Med ical & CHILD [address] [place] [address] 2022-07-10 2022-07-10 Case [facility] 1.2.840.114 [id number] Univers 00:00:00 00:00:00 Management Janet A CAR BODY INSPECTOR 350.1.13.[address] [facility] 4.2.7.2.686 Trae as MATERNAL [id number] [facility] ical & CHILD [address] [place] [address] 2022-07-09 2022-07-09 Outpatient [facility] [id number] Univers 14:45:00 15:49:21 JANET ity of [facility] 2022-07-09 2022-07-09 Initial Provider, Nolvia Powell [facility] 1 .2.840.114 [id number] Univers 14:45:00 15:49:21 Janet De Jesus CAR BODY INSPECTOR 350.1.13. [address] [facility] 4.2.7.2.686 Trae as MATERNAL [id number] Med ical & CHILD 107 [facility] 2022-07-09 2022-07-09 Orders Doctor ONOFRE 1.2.840.114 [id number] Univers 00:00:00 00:00:00 Only Unassigned, HENRRY 350.1.13.10 ity of [place] [facility] 4.2.7.2.686 Trae as [id number] [facility] [address] 2022-06-29 2022-06-29 Emergency EM Blackstone, HCACL AERS [id number] [facility] 18:51:00 20:09:[address] [place] [address] 2022-06-06 2022-06-06 Nurse ONOFRE Teixeira 1.2.840.114 [id number] Univers 00:00:00 00:00:00 Triage Nina SALES 350.1.13.10 it y of [address]686 [place] as [id number] [facility] [address] 2022-04-09 2022-04-09 Outpatient R ALYX, [facility] [id number] Univers 11:00:00 11:00:00 EVERT ledezma [facility] 2022-04-01 2022-04-01 Outpatient R ALYX, [facility] [id number] Univers 10:45:00 10:45:00 EVERT ledezma [facility] 2022-04-01 2022-04-01 Telephone [facility] 1.2.840.114 [id number] Univers 00:00:00 00:00:00 Evert Farr CAR BODY INSPECTOR 350.1.13.[address] [facility] 4.2.7.2.686 Trae as MATERNAL [id number] Med ical & CHILD [address] [place] [address] 2022-03-27 2022-03-27 Outpatient R [facility] [id number] Univers 09:30:00 09:30:00 ity [facility] 2022-03-20 2022-03-20 Outpatient R [facility] [id number] Univers 09:00:00 09:00:00 ity [facility] 2022-03-16 2022-03-16 Emergency X MAVIS [facility] ERT [id number] Univers 20:29:00 21:24:00 CLEMENCIA ity [facility] 2022-03-16 2022-03-16 Emergency [facility] 1.2.840.114 [id number] Univers 20:29:00 21:24:00 Clemencia Marcano [facility] 350.1.13.10 ity of [place] 4.2.7.2.[place] [id number] [place] 637264 [place] 2022-03-13 2022-03-13 Emergency X CHUCK [facility] ERT [id number] Univers 06:52:00 10:26:00 NADIM ity [facility] 2022-03-13 2022-03-13 Emergency [facility] 1.2.008.207 [id number] Univers 06:52:00 10:26:00 Nadim HEALTH 350.1.13.10 it y of [place].7.2.686 [place] [id number] [facility] [address] ([facility]) 2022-03-11 2022-03-11 Outpatient R [facility] [id number] Univers 09:00:00 09:00:00 ity [facility] 2022-03-10 2022-03-10 Patient Doctor [facility] 1.2.266.737 [id number] Univers 00:00:00 00:00:00 Secure Msg Unassigned, Y HEALTH 350.1.13.10 ity of [place] [facility] 4.2.7.2.686 [place] [id number] [facility] [address] 2022-03-07 2022-03-07 Telephone [facility] 1.2.840.114 [id number] Univers 00:00:00 00:00:00 Evert Farr CAR BODY INSPECTOR 350.1.13.[address] [facility] 4.2.7.2.686 [place] MATERNAL [id number] [facility] ical & CHILD [address] [place] [address] 2022-03-06 2022-03-06 Outpatient R AKINSI, [facility] [id number] Univers 10:30:00 10:30:00 EVERT ity o f [facility] 2022-03-06 2022-03-06 Outpatient R AKINSIPE, [facility] [id number] Univers 10:30:00 10:30:00 EVERT ity o f [facility] 2022-03-06 2022-03-06 Patient Doctor ONOFRE [id number] Univers 00:00:00 00:00:00 Secure Msg Unassigned, HENRRY 350.1.13.10 ity of [facility] 4.2.7.2.686 [place] [phone] [facility] 0[address] [place] 2022-03-05 2022-03-05 Emergency X [facility] ERT [id number] Univers 19:09:00 23:09:00 CLEMENCIA ity [facility] [place] 2022-03-05 2022-03-05 Emergency [facility] 1.2.840.114 [id number] Univers 19:09:00 23:09:00 Clemencia RANGEL 350.1.13.10 ity [facility] 4.2.7.2.686 [place] [facility] [id number] [place] 637264 [place] 2022-03-05 2022-03-05 Emergency [facility] [id number] Univers 19:09:00 23:09:00 CLEMENCIA ity [facility] [place] 2022-03-05 2022-03-05 Telephone [facility] 1.2.840.114 [id number] Univers 00:00:00 00:00:00 Evert Farr CAR BODY INSPECTOR 350.1.13.[address] [facility] 4.2.7.2.686 [place] MATERNAL [id number] [facility] & CHILD [address] [place] [address] 2022-03-04 2022-03-04 Outpatient R AKINSIPE, [facility] [id number] Univers 15:00:00 16:38:45 EVERT ity o [facility] 2022-03-04 2022-03-04 [facility] [id number] Univers 15:00:00 16:38:45 Evert C CAR BODY INSPECTOR 350.1.13.[address] [facility] 4.2.7.2.686 [place] MATERNAL [phone] [facility] ical & CHILD [address] [place] [address] 2022-03-04 2022-03-04 Outpatient R AKINSIPE, [facility] [id number] Univers 15:00:00 16:38:45 EVERT ity o [facility] 2022-03-04 2022-03-04 Outpatient R AKINPE, [facility] [id number] Univers 15:00:00 16:38:45 EVRET ity o [facility] 2022-03-04 2022-03-04 [facility] CENTER [id number] Univers 15:00:00 16:38:45 EVERT ity o [facility] 2022-03-04 2022-03-04 Orders Doctor ONOFRE 1.2.840.114 [id number] Univers 00:00:00 00:00:00 Only Unassigned, HENRRY [id number] ity of [place] [facility] 4.2.7.2.686 Trae as [id number] [facility] 009 Branch 2021-08-01 2021-08-01 Emergency [facility] [id number] Univers 18:30:00 21:27:00 JANEL ity [facility] 2021-08-01 2021-08-01 Emergency [facility] 1.2.840.114 [id number] Univers 18:30:00 21:27:00 [facility] [id number] i ty [facility] 4.2.7.2.686 [facility] [id number] [place] [id number] Branch 2021-05-08 2021-05-09 Emergency [facility] [id number] Univers 23:11:00 00:20:00 Senthil Rangel [id number] i ty of [place] 4.2.7.2.686 [facility] [id number] [address] 2021-05-08 2021-05-09 Emergency X [facility] ERT [id number] Univers 23:11:00 00:20:00 SENTHIL ity [facility] 2021-05-08 2021-05-09 Emergency X [facility] ERT [id number] Univers 23:11:00 00:20:00 SENTHIL ity [facility] 2021-05-08 2021-05-09 Emergency X [facility] ERT [id number] Univers 23:11:00 00:20:00 SENTHIL [facility] 2021-03-31 2021-03-31 Emergency [facility] [id number] Univers 10:56:00 12:56:00 ESTHER [facility] 2021-03-31 2021-03-31 [facility] [id number] Univers 10:56:00 12:56:00 Esther Woody Beatrice [id number] ity of [place] 4.2.7.2.686 [facility] [id number] [address] 2021-03-31 2021-03-31 Emergency X [facility] ERT [id number] Univers 10:56:00 12:56:00 [facility] 2021-03-[facility] 2021-03-31 Emergency X [facility] ERT [id number] Univers 10:56:00 12:56:00 ESTHER ity [facility] 2021-03-14 2021-03-14 Emergency [place], [facility] 1.2.840.114 [id number] Univers 17:54:00 20:59:00 Janel Beatrice 350.1.13.10 i ty of [place] 4.2.7.2.686 [facility] [id number] [address] 2021-03-14 2021-03-14 Emergency X [facility] ERT [id number] Univers 17:43:00 17:43:00 [facility] 2021-02-20 2021-02-20 Emergency [facility] 1.2.840.114 [id number] 06:57:00 07:31:00 Clemencia Rangel 350.1.13.10 [place] 4.2.7.2.686 [place] [id number] [facility] 2021-02-20 2021-02-20 Emergency [facility] 1.2.840.114 [id number] [facility] 06:57:00 07:31:00 Clemencia Rangel [id number] ity of [place] 4.2.7.2.686 [facility] [id number] [address] 2021-02-20 2021-02-20 Emergency [facility] [id number] [facility] 06:57:00 07:31:00 CLEMENCIA [facility] 2021-02-14 2021-02-14 [facility] 1.2.840.114 [id number] 16:10:00 19:05:00 Clemencia Rangel [id number] [place] 4.2.7.2.686 [place] [id number] [facility] 2021-02-14 2021-02-14 [facility] 1.2.840.114 [id number] [facility] 16:10:00 19:05:00 Clemencia Rangel [id number] ity of [place] 4.2.7.2.686 [facility] [id number] [address] 2021-02-14 2021-02-14 Emergency X [facility] ERT [id number] [facility] 15:52:00 15:52:00 [facility] Results Test Description Test Time Test Comments Results Result Comments Source POCT TEST 2023-06-24 17:10:00 Test Item Value Reference Range Interpretation Comme nts POCT PREG (test code = 1605) Negative On board controls acceptable with C Line (test code = 3574) Yes POCT PREG LOT # (test code = 3575) POCT PREG TEST DATE (test code = 3576) [id number] 17:10:00 Test Item Value Reference Range Interpretation Comments POCT PREG (test code = 1605) Negative On board controls acceptable with C Yes Line (test code = 3574) POCT PREG LOT # (test code = 3575) POCT PREG TEST DATE (test code = 3576) [facility] ONLY - SYPHILIS [id number] 16:47:56 Test Item Value Reference Range Interpretation Comments Syphilis IgG/IgM (test Non-reactive Non-reactive code = 13082-1) YAMILETH (test code = YAMILETH) Non-reactive - No serologic evidence of T. pallidum infection. Cannot exclude incubating or early syphilis. Submit a second specimen in 2-4 weeks if syphilis is clinically suspected. Equivocal - Further testing to follow. Reactive - Further testing to follow. Lab Interpretation (test Normal code = 97108-0) [facility] ONLY - SYPHILIS [id number] 16:47:56 Test Item Value Reference Range Interpretation Comments Syphilis IgG/IgM (test Non-reactive Non-reactive code = 71863-9) YAMILETH (test code = YAMILETH) Non-reactive - No serologic evidence of T. pallidum infection. Cannot exclude incubating or early syphilis. Submit a second specimen in 2-4 weeks if syphilis is clinically suspected. Equivocal - Further testing to follow. Reactive - Further testing to follow. Lab Interpretation (test Normal code = 44030-7) [facility] (D) IMMUNE [id number] 10:45:19 Test Item Value Reference Range Interpretation Comments RHIG CANDIDATE? No- see comment Patient i s not a (test code = candidate for R hIg- 5188) Patient is Rh Positive.Perfor med at [facility] Laboratory Services - [facility] Blood [address] Free: [phone] A No. [id number] [facility] (D) IMMUNE [id number] 10:45:19 Test Item Value Reference Range Interpretation Comments RHIG CANDIDATE? No- see comment Patient i s not a (test code = candidate for R hIg- 5188) Patient is Rh Positive.Perfor med at [facility] Laboratory Services - [facility] Blood [address] Free: [phone] A No. [id number] [facility] [id number] 06:03:38 Test Item Value Reference Range Interpretation Comments VENOUS BASE EXCESS, CORD -5.3 mEq/L (test code = 1918891357) VENOUS PH, CORD (test 7.25 7.25-7.45 code = 0321580622) VENOUS PC02, CORD (test 53 See_Comment H [Au tomated message] code = 7475697804) The syste m which generated this result transmitted ref erence range: 27 - 49 mmHg. The reference r pily was not used to interpret this result as normal/abnor mal. VENOUS PO2, CORD (test See_Comment L [Aut omated message] code = 2493699999) The syste m which generated this result transmitted ref erence range: 17 - 41 mmHg. The reference r pily was not used to interpret this result as normal/abnor mal. VENOUS BICARBONATE, CORD 23 See_Comment [A utomated message] (test code = 7837477635) The system which generated this result transmitted ref erence range: 12 - 29 mEq/L. The reference r pily was not used to interpret this result as normal/abnor mal. Lab Interpretation (test Abnormal code = 08374-4) [facility] Cord [id number] 06:03:38 Test Item Value Reference Range Interpretation Comments VENOUS BASE EXCESS, CORD -5.3 mEq/L (test code = 1521973908) VENOUS PH, CORD (test 7.25 7.25-7.45 code = 2643511346) VENOUS PC02, CORD (test 53 See_Comment H [Au tomated message] code = 4714428063) The syste m which generated this result transmitted ref erence range: 27 - 49 mmHg. The reference r pily was not used to interpret this result as normal/abnor mal. VENOUS PO2, CORD (test See_Comment L [Aut omated message] code = 2128103497) The syste m which generated this result transmitted ref erence range: 17 - 41 mmHg. The reference r pily was not used to interpret this result as normal/abnor mal. VENOUS BICARBONATE, CORD 23 See_Comment [A utomated message] (test code = 4453784501) The system which generated this result transmitted ref erence range: 12 - 29 mEq/L. The reference r pily was not used to interpret this result as normal/abnor mal. Lab Interpretation (test Abnormal code = 34813-3) [facility] 1/2 AG-AB WITH [id number] 05:08:06 Test Item Value Reference Range Interpretation Comments HIV 0.09 Negative Semi-quantitative (test code = 75813-0) YAMILETH (test code = Non-reactive for HIV-1 YAMILETH) antigen and HIV-1/HIV-2 antibodies. ?No laboratory evidence of HIV infection. ?Repeat in 2-4 weeks if acute HIV infection is suspected. [facility] 1/2 AG-AB WITH [id number] 05:08:06 Test Item Value Reference Range Interpretation Comments HIV 0.09 Negative Semi-quantitative (test code = 94613-3) YAMILETH (test code = Non-reactive for HIV-1 YAMILETH) antigen and HIV-1/HIV-2 antibodies. ?No laboratory evidence of HIV infection. ?Repeat in 2-4 weeks if acute HIV infection is suspected. [facility] B Surface [id number] 04:12:23 Test Item Value Reference Range Interpretation Comments HBsAg Semi-Quantitative (test code = 0.04 Negative 5195-3) [facility] B Surface [id number] 04:12:23 Test Item Value Reference Range Interpretation Comments HBsAg Semi-Quantitative (test code = 0.04 Negative 5195-3) [facility] with [id number] 02:52:03 Test Item Value Reference Range Interpretation Comments WBC (test code = 7.72 See_Comment [Automated 8551-2) message] The sy stem which generated this result transmitted reference range : 4.30 - 11.10 10*3/?L. The reference range was not used to interpret this result as normal/abnormal . RBC (test code = 3.05 See_Comment L [Automated 501-6) message] The sy stem which generated this [...] RDW-SD (test code = 44.8 fL 39.0-49.9 31288-7) RDW-CV (test code = 13.3 % 12.0-15.5 788-0) PLT (test code = 284 See_Comment [Automated 777-3) message] The sy stem which generated this result transmitted reference range : 166 - 358 10*3/ ?L. The reference r pily was not used to interpret this result as normal/abnormal . MPV (test code = 10.5 fL 9.5-12.9 52916-5) NRBC/100 WBC (test 0.0 See_Comment [Automat ed code = 4195281731) message] The system which generated this result transmitted reference range : 0.0 - 10.0 /100 WBCs. The refer ence range was not u sed to interpret th is result as normal/abnormal . NRBC x10^3 (test code See_Comment [Auto mated = 2636172330) message] The s ystem which generated this result transmitted reference range : 10*3/?L. The reference range was not used to interpret this result as normal/abnormal . GRAN MAT (NEUT) % 79.3 % (test code = 770-8) IMM GRAN % (test code 0.40 % = 5101165870) LYMPH % (test code = 14.1 % 736-9) MONO % (test code = 6.0 % 5905-5) EOS % (test code = 0.1 % 713-8) BASO % (test code = 0.1 % 706-2) GRAN MAT x10^3(ANC) 6.12 10*3/uL 1.88-7.09 (test code = 7768097605) IMM GRAN x10^3 (test 0.03 10*3/uL 0.00-0.06 code = 2869855466) LYMPH x10^3 (test code 1.09 10*3/uL 1.32-3.29 L = 731-0) MONO x10^3 (test code 0.46 10*3/uL 0.33-0.92 = 742-7) EOS x10^3 (test code = 0.03-0.39 L 711-2) BASO x10^3 (test code 0.01-0.07 = 704-7) Lab Interpretation Abnormal (test code = 49838-5) [facility] with [id number] 02:52:03 Test Item Value Reference Range Interpretation Comments WBC (test code = 7.72 See_Comment [Automated 8390-2) message] The sy stem which generated this result transmitted reference range : 4.30 - 11.10 10*3/?L. The reference range was not used to interpret this result as normal/abnormal . RBC (test code = 3.05 See_Comment L [Automated 109-8) message] The sy stem which generated this [...] RDW-SD (test code = 44.8 fL 39.0-49.9 63385-3) RDW-CV (test code = 13.3 % 12.0-15.5 788-0) PLT (test code = 284 See_Comment [Automated 837-3) message] The sy stem which generated this result transmitted reference range : 166 - 358 10*3/ ?L. The reference r pily was not used to interpret this result as normal/abnormal . MPV (test code = 10.5 fL 9.5-12.9 42125-6) NRBC/100 WBC (test 0.0 See_Comment [Automat ed code = 7457037336) message] The system which generated this result transmitted reference range : 0.0 - 10.0 /100 WBCs. The refer ence range was not u sed to interpret th is result as normal/abnormal . NRBC x10^3 (test code See_Comment [Auto mated = 2120465900) message] The s ystem which generated this result transmitted reference range : 10*3/?L. The reference range was not used to interpret this result as normal/abnormal . GRAN MAT (NEUT) % 79.3 % (test code = 770-8) IMM GRAN % (test code 0.40 % = 5310947482) LYMPH % (test code = 14.1 % 736-9) MONO % (test code = 6.0 % 5905-5) EOS % (test code = 0.1 % 713-8) BASO % (test code = 0.1 % 706-2) GRAN MAT x10^3(ANC) 6.12 10*3/uL 1.88-7.09 (test code = 4307120211) IMM GRAN x10^3 (test 0.03 10*3/uL 0.00-0.06 code = 0630192483) LYMPH x10^3 (test code 1.09 10*3/uL 1.32-3.29 L = 731-0) MONO x10^3 (test code 0.46 10*3/uL 0.33-0.92 = 742-7) EOS x10^3 (test code = 0.03-0.39 L 711-2) BASO x10^3 (test code 0.01-0.07 = 704-7) Lab Interpretation Abnormal (test code = 60963-7) [facility] BranchType and Screen - ONCE [id number] 02:45:00 Test Item Value Reference Range Interpretation Comments ABO & RH (test code = 20) O POSITIVE IAT (test code = 1185) Negative [facility] [id number] 02:45:00 Test Item Value Reference Range Interpretation Comments ABO & RH (test code = 20) O POSITIVE IAT (test code = 1185) Negative [facility] URINALYSIS W SPECIFIC [id number] 14:17:00 Test Item Value Reference Range Interpretation [...] U APPEAR (test code = 3267) . [facility] URINALYSIS W SPECIFIC [id number] 13:53:00 Test Item Value Reference Range Interpretation [...] U APPEAR (test code = 3267) . [facility] URINALYSIS W SPECIFIC [id number] 14:44:00 Test Item Value Reference Range Interpretation [...] POCT U APPEAR (test code = 3267) [facility] URINALYSIS W SPECIFIC [id number] 17:51:00 Test Item Value Reference Range Interpretation [...] U APPEAR (test code = 3267) . [facility] URINALYSIS W SPECIFIC [id number] 14:55:00 Test Item Value Reference Range Interpretation [...] U APPEAR (test code = 3267) . [facility] URINALYSIS W SPECIFIC [id number] 14:55:00 Test Item Value Reference Range Interpretation [...] U APPEAR (test code = 3267) . [facility] URINALYSIS W SPECIFIC [id number] 14:55:00 Test Item Value Reference Range Interpretation [...] U APPEAR (test code = 3267) . [facility] URINALYSIS W SPECIFIC [id number] 14:55:00 Test Item Value Reference Range Interpretation [...] U APPEAR (test code = 3267) . [facility] URINALYSIS W SPECIFIC [id number] 14:55:00 Test Item Value Reference Range Interpretation [...] U APPEAR (test code = 3267) . [facility] URINALYSIS W SPECIFIC [id number] 14:55:00 Test Item Value Reference Range Interpretation [...] U APPEAR (test code = 3267) . [facility] URINALYSIS W SPECIFIC [id number] 16:22:00 Test Item Value Reference Range Interpretation [...] U APPEAR (test code = 3267) . [facility] URINALYSIS W SPECIFIC [id number] 16:09:00 Test Item Value Reference Range Interpretation [...] U APPEAR (test code = 3267) . [facility] URINALYSIS W SPECIFIC [id number] 16:09:00 Test Item Value Reference Range Interpretation [...] U APPEAR (test code = 3267) . [facility] URINALYSIS W SPECIFIC [id number] 16:20:00 Test Item Value Reference Range Interpretation [...] POCT [facility] (test code = 3267) [id number] 20:36:00 Test Item Value Reference Range Interpretation Comments POCT PREG (test code = 1605) Positive On board controls acceptable with C Yes Line (test code = 3574) POCT PREG LOT # (test code = 3575) POCT PREG TEST DATE (test code = 3576) [facility] URINALYSIS W/O SPECIFIC [id number] 20:35:00 Test Item Value Reference Range Interpretation [...] code = 3257) trace Negative - Negative [facility] ONLY)2022-06-30 08:09:00 Test Item Value Reference Range Interpretation Comments URINE HCG TRIAGE (ER ONLY) (test POSITIVE Negative code = HCGTRIAGE) Urine Test Result: POSITIVEAre internal controls (presence of a control line & clear background) OK? YesLot # of HCG Test Kit: [id number] Date of Kit: 09/24/23Test Performed by:kat rnTest Perfomed on: 06/29/22COMMENTS: positiveUA DIPSTICK [id number] 19:53:00 Test Item Value Reference Range Interpretation Comments UA GLUCOSE DIPSTIC POC NEGATIVE NEGATIVE (test code = GLUUP) UA BILIRUBIN DIPSTICK 1+ NEGATIVE A (test code = BILU) UA KETONE DIPSTICK POC NEGATIVE NEGATIVE (test code = KETUP) UA SPECIFIC GRAVITY (test 1.015 1.005-1.030 N code = SGU) UA BLOOD DIPSTIC POC NEGATIVE NEGATIVE Perform ed by (test code = BLUP) certified gear machine operator at [facility] ed [facility] UA PH DIPSTIC POC (test 7 5.0-7.0 N code = PHUP) UA PROTEIN DIPSTICK POC NEGATIVE NEGATIVE (test code = DPROUP) UA UROBILINIOGEN QUAL 2+ 0.2-1.0 A (test code = UROQL) UA NITRITE DIPSTICK POC NEGATIVE Negative (test code = NITUP) UA LEUKOCYTE ESTERASE W TRACE NEGATIVE A REFLEX (test code = LEUUR) Notes Date/Time Note Provider Source 2022-06-29 18:57:00 [id number]:57:00 [facility] ([facility])EMERGENCY PROVIDER REPORTREPORT#:[id number] REPORT STATUS: SignedDATE:06/29/22 TIME: 1856 PATIENT: ALEXANDRIA ORTEGA UNIT #: [id number]#: [id number] ROOM/BED:AGE: 36 SEX: F PCP PHYS:SERVICE DT: AUTHOR: Rios Shelton MD * ALL edits or amendments must be made on [...] Diclegis and she will follow-up with her [employer]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 Review of Systems ROS StatementsAll system s [...] air 06/29 1853 Temp 36.8 06/29 185 3 Pulse 85 06/29 1853 Resp 18 06/29 1853 Review of Vital Signs Reviewed Basic Physical ExamBasic PE [...] pH (5.0 - 7.0) 7 Ur Specific [place] (1.005 - 1.030) 1.015 POC Urine Protein (NEGATIVE) NEGATIVE POC Ur Glucose (UA) (NEGATIVE) NEGATIVE POC Urine Ketones (NEGATIVE) NEGATIVE POC Urine Blood (NEGATIVE) NEGATIVE POC Urine Nitrite (Negative) NEGATIVE Urine Bilirubin (NEGATIVE) 1+ H POC Urine Urobilinogen (0.2 - 1.0) 2+ H POC U Leukocyte Esteras (NEGATIVE) TRACE H Re-Evaluation MDM ED CourseMedication(s) OrderedMedication(s) Ordered:Gastrointestinal Drugs Sig/Home Start alea e Last Medication Dose Route Stop Time Status Admi n Ondansetron HCl 4 MG X1ED STA 06/29 1946 DC PO 06/29 1947 Patient Discharge Departure Vital Signs/ConditionVital SignsFirst Documented: Result Date Time Pulse Ox 100 06/29 1853 B/P 109/57 06/29 1853 B/P Mean 74 06/29 1853 O2 Delivery Room air 06/29 1853 Temp 36.8 06/29 185 3 Pulse 85 06/29 185 Resp 18 06/29 1853 Last Documented: Result Date Time Pulse Ox 100 06/29 1853 B/P 109/57 06/29 185 B/P Mean 74 06/29 185 3 O2 Delivery Room air 06/29 1853 Temp 36.8 06/29 1853 Pulse 85 06/29 1853 Resp 18 06/29 1853 All vital signs available at the time of this entry have been reviewed. Clinical ImpressionClinical ImpressionPrimary Impression: Early stage of pregnancySecondary Impressions: Morning sickness Disposition DecisionDischarge )( Discharged to Home Yes )( Time 1955 )( Date 06/29/22 Discharge/Care Plan(Auto) PrescriptionsCurrent Visit ScriptsDOXYLAMINE/PYRIDOXINE (GUNNER BRAGA 05/05) 1 EACH PO ASDIR DOXYLAMINE/PYRIDOXINE (GUNNER BRAGA 05/05) 1 EACH PO ASDIR #15 TABS Two tablets at bedtime on day 1 and 2; if symptoms persist, take 1 tablet in morning and 2 tablets at bedtime on day 3; if symptoms persist, may increase to 1 tablet in morning, 1 tablet mid-afternoon, and 2 tablets at bedtime on day 4 (maximum: 4 tablets per day). Patient Instructions ED , New Dx Discharge Note I have spoken with the patient and/or caregivers. I have explained the patient'scondition, diagnoses and treatment plan based on the information available to meat this time. I have answered the patient's and/or caregiver's questions and addressed any concerns. The patient and/or caregivers have as good an understanding of the patient's diagnosis, condition and treatment johnson n as can beexpected at this point. The vital signs have been stable. The patient's condition is stable and appropriate for discharge from the emergency department. The patient will pursue further outpatient evaluation with the primary care physician or other designated or consulting physician as outlined in the discharge instructions. The patient and/or caregivers are agreeable to this planof care and follow-up instructions have been explained in detail. The patient and/or caregivers have received these instructions in written format and have expresse d an understanding of the discharge instructions. The patient and/or caregivers are aware that any significant change in condition or worsening of symptoms should prompt an immediate return to this or the closest emergency department or a call to 911. at 1958RPT #:[id number] OF REPORTCHI [facility] [id number]:57:00G.[id number] crissy jerezable for patient [id number]:58:45
[2023-06-26 19:11] LABS: Specific Gravity 1.025 (1.005-1.030); Urine Bacteria None Seen /HPF (<20); Urine Bilirubin NEGATIVE (Negative); Urine Blood Negative (Negative); Urine Clarity Clear (Clear); Urine Color Light-Yellow (Yellow); Urine Crystals Unidentified Few /HPF (None Seen); Urine Glucose NEGATIVE (Negative); Urine Mucus Slight /HPF (None Seen); Urine Protein NEGATIVE (Negative); Urine RBC <5 /HPF (None Seen); Urine Urobilinogen Normal (Normal); Urine pH 5.5 (5.0-7.0)
--- NOTE | 2023-06-26 19:13 | EDPHYS ---
Physician Documentation [facility] Name: Steven Ortega Age: 37 yrs Sex: Female : 1985 Arrival Date: 06/26/2023 Time: 17:50 Bed 10 Private MD: ED Physician Chester Dumont HPI: 06/26 18:19 This 37 yrs old Black Female presents to ER via Ambulatory with complaints of Back Pain.snw 18:19 The patient presents with pain that is acute. The symptoms are located in the low back. snw Onset: The symptoms/episode began/occurred acutely. The pain radiates to the right scapular area, right subscapular area and right mid back. Associated signs and symptoms: Pertinent positives: none. 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 Severity of symptoms: At their worst the symptoms were moderate. The patient has experienced similar episodes in the past. The patient has been recently seen at the [facility] Emergency Department, last week, for similar complaints given flexeril that apparently only makes her sleepy and then she wakes with the same pain. 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 - Social history:: Smoking status: Patient denies any tobacco usage or history of. Patient/guardian denies using alcohol, street drugs. ROS: 18:17 Constitutional: Negative for fever, chills, and weight loss, Eyes: Negative for injury, snw pain, redness, and discharge, ENT: Negative for injury, pain, and discharge, Neck: Negative for injury, pain, and swelling, Cardiovascular: Negative for chest pain, palpitations, and edema, Respiratory: Negative for shortness of breath, cough, wheezing, and pleuritic chest pain, Abdomen/GI: Negative for abdominal pain, nausea, vomiting, diarrhea, and constipation, : Negative for injury, bleeding, discharge, and swelling, Skin: Negative for injury, rash, and discoloration, Neuro: Negative for headache, weakness, numbness, tingling, and seizure, Psych: Negative for depression, anxiety, suicide ideation, homicidal ideation, and hallucinations, 18:17 Back: Positive for pain at rest, pain with movement, of the right scapular area, right subscapular area, low back area, left low back, right mid back and right low back, Exam: 18:16 Constitutional: This is a well developed, well nourished patient who is awake, alert, snw and in no acute distress. Head/Face: Normocephalic, atraumatic. Eyes: Pupils equal round and reactive to light, extra-ocular motions intact. Lids and lashes normal. Conjunctiva and sclera are non-icteric and not injected. Cornea within normal limits. Periorbital areas with no swelling, redness, or edema. ENT: Nares patent. No nasal discharge, no septal abnormalities noted. Tympanic membranes are normal and external auditory canals are clear. Oropharynx with no redness, swelling, or masses, exudates, or evidence of obstruction, uvula midline. Mucous membranes moist. Neck: Trachea midline, no thyromegaly or masses palpated, and no cervical lymphadenopathy. Supple, full range of motion without nuchal rigidity, or vertebral point tenderness. No Meningismus. Chest/axilla: Normal chest wall appearance and motion. Nontender with no deformity. No lesions are appreciated. Cardiovascular: Regular rate and rhythm with a normal S1 and S2. No gallops, murmurs, or rubs. Normal PMI, no JVD. No pulse deficits. Respiratory: Lungs have equal breath sounds bilaterally, clear to auscultation and percussion. No rales, rhonchi or wheezes noted. No increased work of breathing, no retractions or nasal flaring. Abdomen/GI: Soft, non-tender, with normal bowel sounds. No distension or tympany. No guarding or rebound. No evidence of tenderness throughout. Skin: Warm, dry with normal turgor. Normal color with no rashes, no lesions, and no evidence of cellulitis. MS/ Extremity: Pulses equal, no cyanosis. Neurovascular intact. Full, normal range of motion. Neuro: Awake and alert, GCS 15, oriented to person, place, time, and situation. Cranial nerves II-XII grossly intact. Motor strength 5/5 in all extremities. Sensory grossly intact. Cerebellar exam normal. Normal gait. Psych: Awake, alert, with orientation to person, place and time. Behavior, mood, and affect are within normal limits. 18:16 Back: pain, that is moderate, of the right scapular area, right subscapular area, low back area and right mid back, 18:16 Neuro: Orientation: is normal, Mentation: is normal, Vital Signs: 18:03 BP 138 / 73; Pulse 71; Resp 16; Temp 98.1(TE); Pulse Ox 100% ; Weight 133.81 kg; Height hb 5 ft. 7 in. ; Pain 8/10; 19:44 BP 129 / 86; Pulse 77; Resp 16; Pulse Ox 100% on R/A; km8 18:03 Body Mass Index 46.20 (133.81 kg, 170.18 cm) hb 18:03 Pain Scale: Adult hb MDM: 18:07 Patient medically screened. snw 18:18 Differential diagnosis: chronic back pain, Fatigue sprain. Data reviewed: vital signs, snw nurses notes. I considered the following discharge prescriptions or medication management in the emergency department Medications were administered in the Emergency Department. See MAR. Counseling: I had a detailed discussion with the patient and/or guardian regarding the historical points, exam findings, and any diagnostic results supporting the discharge/admit diagnosis, the need for outpatient follow up, for definitive care, to return to the emergency department if symptoms worsen or persist or if there are any questions or concerns that arise at home. Special discussion: Based on the history and exam findings, there is no indication for further emergent testing or inpatient evaluation. I discussed with the patient/guardian the need to see the primary care provider for further evaluation of the symptoms. 06/26 18:47 Order name: Urine W/Microscopic (UAM); Complete Time: 19:13 hb Administered Medications: 19:41 Drug: Diazepam PO 5 mg PO once Route: PO; km8 19:55 Follow up: Response: No adverse reaction km8 Disposition: 18:40 I was immediately available on-site in the Emergency Department for consultation in the ms3 care of the patient. Disposition Summary: 06/26/23 19:12 Discharge Ordered Notes: Location: Home snw Condition: Stable snw Diagnosis - Low back pain snw Followup: snw - With: Emergency Department - When: As needed - Reason: Worsening of condition Followup: snw - With: Private Physician - When: 2 - 3 days - Reason: Recheck today's complaints, Continuance of care, Re-evaluation by your physician Discharge Instructions: - Discharge Summary Sheet snw - Acute Back Pain, Adult snw - Musculoskeletal Pain snw - Heat Therapy snw - Back Injury Prevention snw Forms: - Medication Reconciliation Form snw - Thank You Letter snw - Antibiotic Education snw - Prescription Opioid Use snw - Patient Portal Instructions snw - Leadership Thank You Letter snw - Work release form km8 Prescriptions: - Diclofenac Sodium 75 mg Oral Tablet Sustained Release - take 1 tablet ORAL route 2 times per day; 30 tablet; Refills: 0, Product snw Selection Permitted - Pepcid 20 mg Oral Tablet - take 1 tablet ORAL route once daily; 20 tablet; Refills: 0, Product Selection snw Permitted Signatures: Dispatcher [employer] EDGabbie Ruff FNP-C BE[employer]ER [employer]ULER PUSHER-Csnw Nasra Rios RN OLEG Chester Dumont, DO ms3 Bekah Enciso RN RN km8
--- NOTE | 2023-06-26 19:13 | ER ---
Nurse's Notes [facility] Name: Steven Ortega Age: 37 yrs Sex: Female : 1985 Arrival Date: 06/26/2023 Time: 17:50 Bed 10 Private MD: Diagnosis: Low back pain Presentation: 06/26 18:01 Chief complaint: Low back pain x 1 week. Coronavirus screen: At this time, the client hb does not indicate any symptoms associated with coronavirus-19. Ebola Screen: No symptoms or risks identified at this time. Initial Sepsis Screen: Does the patient meet any 2 criteria? No. Patient's initial sepsis screen is negative. Does the patient have a suspected source of infection? No. Patient's initial sepsis screen is negative. Risk Assessment: Do you want to hurt yourself or someone else? Patient reports no desire to harm self or others. Onset of symptoms was June 19, 2023. 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 - Social history:: Smoking status: Patient denies any tobacco usage or history of. Patient/guardian denies using alcohol, street drugs. Screenin:42 [facility] ED Fall Risk Assessment (Adult) History of falling in the last 3 months, km8 including since admission No falls in past 3 months (0 pts) Confusion or Disorientation No (0 pts) Intoxicated or Sedated No (0 pts) Impaired Gait No (0 pts) Mobility Assist Device Used No (0 pt) Altered Elimination No (0 pt) Score/Fall Risk Level 0 - 2 = Low Risk Oriented to surroundings, Maintained a safe environment, Educated pt \T\ family on fall prevention, incl call for assistance when getting out of bed, Assessed \T\ reinforced patient's understanding of fall precautions. Abuse screen: Denies threats or abuse. Denies injuries from another. Nutritional screening: No deficits noted. Tuberculosis screening: No symptoms or risk factors identified. Assessment: 19:42 General: Appears in no apparent distress. comfortable, Behavior is calm, cooperative, km8 appropriate for age. Pain: Complains of pain in low back area Pain currently is 10 out of 10 on a pain scale. Neuro: Liu Agitation-Sedation Scale (RASS): 0 - Alert and Calm Level of Consciousness is awake, alert, obeys commands, Oriented to person, place, time, situation. Cardiovascular: Denies chest pain, shortness of breath, Capillary refill < 3 seconds. Respiratory: Airway is patent Respiratory effort is even, unlabored, Respiratory pattern is regular, symmetrical. GI: No signs and/or symptoms were reported involving the gastrointestinal system. : No signs and/or symptoms were reported regarding the genitourinary system. EENT: No signs and/or symptoms were reported regarding the EENT system. Derm: No signs and/or symptoms reported regarding the dermatologic system. Skin is intact, is healthy with good turgor, Skin is dry, Skin is pink, warm \T\ dry. normal, Skin temperature is warm. Musculoskeletal: Range of motion: intact in all extremities, Reports pain in low back area. Vital Signs: 18:03 BP 138 / 73; Pulse 71; Resp 16; Temp 98.1(TE); Pulse Ox 100% ; Weight 133.81 kg; Height hb 5 ft. 7 in. ; Pain 8/10; 19:44 BP 129 / 86; Pulse 77; Resp 16; Pulse Ox 100% on R/A; km8 18:03 Body Mass Index 46.20 (133.81 kg, 170.18 cm) hb 18:03 Pain Scale: Adult hb ED Course: 17:52 Patient arrived in ED. mr 17:54 Gabbie Moore, CHARAN is PHCP. snw 17:54 Chester Dumont DO is Attending Physician. snw 18:02 Triage completed. hb 18:04 Arm band placed on. hb 18:54 Urine W/Microscopic (UAM) Sent. hb 19:42 Patient has correct armband on for positive identification. Bed in low position. Call km8 light in reach. Side rails up X 1. Pulse ox on. NIBP on. 19:42 No provider procedures requiring assistance completed. Patient did not have IV access km8 during this emergency room visit. Patient maintains SpO2 saturation greater than 95% on room air. 19:44 Provided Education on: d/c teaching. km8 Administered Medications: 19:41 Drug: Diazepam PO 5 mg PO once Route: PO; km8 19:55 Follow up: Response: No adverse reaction km8 Medication: 19:42 VIS not applicable for this client. km8 Outcome: 19:12 Discharge ordered by . xiomara 19:53 Discharged to home ambulatory, with significant other, km8 19:53 Condition: good 19:53 Discharge instructions given to patient, Instructed on discharge instructions, follow up and referral plans. medication usage, Demonstrated understanding of instructions, follow-up care, medications, Prescriptions given X 2, 19:55 Patient left the ED. km8 Signatures: Gabbie Moore, EVENT SERVICES MANAGER-C EVENT SERVICES MANAGER-Csnw Padma Dean, Reg Reg mr Nasra Rios, RN RN hb Bekah Enciso RN RN km8 Corrections: (The following items were deleted from the chart) 18:04 18:03 BP 138 / 73; Pulse 71bpm; Resp 16bpm; Pulse Ox 100%; Temp 98.1F Temporal; hb hb
[2023-06-26] MEDS ORDERED: DIAZEPAM 5 MG TABLET ONE (19:48)
[2023-06-26 20:00] VITALS: TEMP 98.1; O2SAT 100
[2023-06-26 20:01] VITALS: BP 129/86
== END 2023-06-26 19:55 | disposition home or self-care (01) ==
LOC: ER 17:50
DX: M54.50 Low back pain, unspecified (principal)
CPT/HCPCS: 81001; 99284

== ENCOUNTER 2024-01-11 12:44 | Emergency (ER) | payer OTHER ==
--- OUTSIDE RECORDS SUMMARY | 2024-01-11 12:51 | XMS REPORT | Continuity of Care Document ---
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 00:00:00 Completed [facility] TD, NOS 2002-07-27 00:00:00 Completed [facility] TD, NOS 2002-07-27 00:00:00 Completed [facility] TD, NOS 2002-07-27 00:00:00 Completed [facility] TD, NOS 2002-07-27 00:00:00 Completed [facility] TD, NOS 2002-07-27 00:00:00 Completed [facility] TD, NOS 2002-07-27 00:00:00 Completed [facility] TD, NOS 2002-07-27 00:00:00 Completed [facility] TD, NOS 2002-07-27 00:00:00 Completed [facility] TD, NOS 2002-07-27 00:00:00 Completed [facility] TD, NOS 2002-07-27 00:00:00 Completed [facility] TD, NOS 2002-07-27 00:00:00 Completed [facility] TD, NOS 2002-07-27 00:00:00 Completed [facility] TD, NOS 2002-07-27 00:00:00 Completed [facility] TD, NOS 2002-07-27 00:00:00 Completed [facility] TD, NOS 2002-07-27 00:00:00 Completed [facility] TD, NOS 2002-07-27 00:00:00 Completed [facility] TD, NOS 2002-07-27 00:00:00 Completed [facility] TD, NOS 2002-07-27 00:00:00 Completed [facility] TD, NOS 2002-07-27 00:00:00 Completed [facility] TD, NOS 2002-07-27 00:00:00 Completed [facility] TD, NOS 2002-07-27 00:00:00 Completed [facility] TD, NOS 2002-07-27 00:00:00 Completed [facility] TD, NOS 2002-07-27 00:00:00 Completed [facility] TD, NOS 2002-07-27 00:00:00 Completed [facility] TD, NOS 2002-07-27 00:00:00 Completed [facility] Td 2002-07-27 00:00:00 Completed [facility] Td 2002-07-27 00:00:00 Completed [facility] Td 2002-07-27 00:00:00 Completed [facility] Td 2002-07-27 00:00:00 Completed [facility] Td 2002-07-27 00:00:00 Completed [facility] Td 2002-07-27 00:00:00 Completed [facility] Td 2002-07-27 00:00:00 Completed [facility] TD, NOS 2002-07-27 00:00:00 Completed [facility] TD, NOS 2002-07-27 00:00:00 Completed [facility] TD, NOS 2002-07-27 00:00:00 Completed [facility] TD, NOS 2002-07-27 00:00:00 Completed [facility] TD, NOS 2002-07-27 00:00:00 Completed [facility] TD, NOS 2002-07-27 00:00:00 Completed [facility] TD, NOS 2002-07-27 00:00:00 Completed [facility] TD, NOS 2002-07-27 00:00:00 Completed [facility] TD, NOS 2002-07-27 00:00:00 Completed [facility] TD, NOS 2002-07-27 00:00:00 Completed [facility] TD, NOS 2002-07-27 00:00:00 Completed [facility] TD, NOS 2002-07-27 00:00:00 Completed [facility] TD, NOS Unknown Completed [facility] TDAP Unknown Completed [facility] TDAP Unknown Completed [facility] TD, NOS Unknown Completed [facility] TDAP Unknown Completed [facility] TDAP Unknown Completed [facility] TD, NOS Unknown Completed [facility] TDAP Unknown Completed [facility] TD, NOS Unknown Completed [facility] TDAP Unknown Completed [facility] TD, NOS Unknown Completed [facility] TDAP Unknown Completed [facility] TD, NOS Unknown Completed [facility] TDAP Unknown Completed [facility] TDAP Unknown Completed [facility] TD, NOS Unknown Completed [facility] TDAP Unknown Completed [facility] TDAP Unknown Completed [facility] TD, NOS Unknown Completed [facility] TDAP Unknown Completed [facility] TDAP Unknown Completed [facility] HPV9 Unknown Completed [facility] TD, NOS Unknown Completed [facility] TDAP Unknown Completed [facility] TDAP Unknown Completed [facility] HPV9 Unknown Completed [facility] TD, NOS Unknown Completed [facility] TDAP Unknown Completed [facility] TDAP Unknown Completed [facility] HPV9 Unknown Completed [facility] TD, NOS Unknown Completed [facility] TDAP Unknown Completed [facility] TDAP Unknown Completed [facility] HPV9 Unknown Completed [facility] TD, NOS Unknown Completed [facility] TDAP Unknown Completed [facility] TDAP Unknown Completed [facility] HPV9 Unknown Completed [facility] TD, NOS Unknown Completed [facility] TDAP Unknown Completed [facility] TDAP Unknown Completed [facility] HPV9 Unknown Completed [facility] TD, NOS Unknown Completed [facility] TDAP Unknown Completed [facility] TDAP Unknown Completed [facility] HPV9 Unknown Completed [facility] TD, NOS Unknown Completed [facility] TDAP Unknown Completed [facility] TDAP Unknown Completed [facility] HPV9 Unknown Completed [facility] TD, NOS Unknown Completed [facility] TDAP Unknown Completed [facility] TDAP Unknown Completed [facility] HPV9 Unknown Completed [facility] Vital Signs Vital Name Observation Time Observation Value Comments S ource Systolic blood pressure 2023-07-13 21:08:00 123 mm[Hg] [facility] Diastolic blood pressure 2023-07-13 21:08:00 81 mm[Hg] [facility] Heart rate 2023-07-13 21:08:00 69 /[facility] 2023-07-13 21:08:00 37.22 Leanna [facility] Respiratory rate 2023-07-13 21:08:00 18 /min [facility] Body height 2023-07-13 21:08:00 170.2 cm Univ [facility] Body weight 2023-07-13 21:08:00 136.079 kg [facility] BMI 2023-07-13 21:08:00 46.99 kg/m2 [facility] Oxygen saturation in Arterial blood by Pulse oximetry 2023-07-13 21:08:00 98 /min [facility] Systolic blood pressure 2023-06-24 15:58:00 100 mm[Hg] [facility] Diastolic blood pressure 2023-06-24 15:58:00 62 mm[Hg] [facility] Heart rate 2023-06-24 15:58:00 79 /min [facility] Body temperature 2023-06-24 15:58:00 36.67 Leanna [facility] Respiratory rate 2023-06-24 15:58:00 18 /min [facility] Body height 2023-06-24 15:58:00 170.2 cm [facility] Body weight 2023-06-24 15:58:00 134.038 kg [facility] BMI 2023-06-24 15:58:00 46.28 kg/m2 [facility] Systolic blood pressure 2023-06-20 16:37:00 142 mm[Hg] [facility] Diastolic blood pressure 2023-06-20 16:37:00 74 mm[Hg] [facility] Heart rate 2023-06-20 16:37:00 84 /min [facility] Body temperature 2023-06-20 16:37:00 36.61 Leanna [facility] Respiratory rate 2023-06-20 16:37:00 12 /min [facility] Body height 2023-06-20 16:37:00 170.2 cm [facility] Body weight 2023-06-20 16:37:00 128.822 kg [facility] BMI 2023-06-20 16:37:00 44.48 kg/m2 [facility] Oxygen saturation in Arterial blood by Pulse oximetry 2023-06-20 16:37:00 99 /min [facility] Systolic blood pressure 2023-06-13 18:03:00 127 mm[Hg] [facility] Diastolic blood pressure 2023-06-13 18:03:00 78 mm[Hg] [facility] Heart rate 2023-06-13 18:03:00 66 /min [facility] Body temperature 2023-06-13 18:03:00 37 Leanna [facility] Respiratory rate 2023-06-13 18:03:00 16 /min [facility] Body height 2023-06-13 18:03:00 170.2 cm [facility] Body weight 2023-06-13 18:03:00 131.498 kg [facility] BMI 2023-06-13 18:03:00 45.40 kg/m2 [facility] Oxygen saturation in Arterial blood by Pulse oximetry 2023-06-13 18:03:00 100 /min [facility] Systolic blood pressure 2023-04-24 15:25:00 127 mm[Hg] [facility] Diastolic blood pressure 2023-04-24 15:25:00 77 mm[Hg] [facility] Heart rate 2023-04-24 15:25:00 63 /min [facility] Body temperature 2023-04-24 15:25:00 36.61 Leanna [facility] Respiratory rate 2023-04-24 15:25:00 14 /min [facility] Body height 2023-04-24 15:25:00 170.2 cm [facility] Body weight 2023-04-24 15:25:00 125.147 kg [facility] BMI 2023-04-24 15:25:00 43.21 kg/m2 [facility] Oxygen saturation in Arterial blood by Pulse oximetry 2023-04-24 15:25:00 100 /min [facility] Systolic blood pressure 2023-01-30 14:51:00 128 mm[Hg] [facility] Diastolic blood pressure 2023-01-30 14:51:00 71 mm[Hg] [facility] Heart rate 2023-01-30 14:41:00 79 /min [facility] Body temperature 2023-01-30 14:41:00 36.89 Leanna [facility] Respiratory rate 2023-01-30 14:41:00 20 /min [facility] Body height 2023-01-30 14:41:00 170.2 cm [facility] Body weight 2023-01-30 14:41:00 111.993 kg [facility] BMI 2023-01-30 14:41:00 38.67 kg/m2 [facility] Systolic blood pressure 2023-01-30 14:29:00 128 mm[Hg] [facility] Diastolic blood pressure 2023-01-30 14:29:00 71 mm[Hg] [facility] Heart rate 2023-01-30 14:29:00 71 /min [facility] Body temperature 2023-01-30 14:28:00 36.89 Leanna [facility] Respiratory rate 2023-01-30 14:28:00 20 /min [facility] Body height 2023-01-30 14:28:00 170.2 cm [facility] Body weight 2023-01-30 14:28:00 111.84 kg [facility] BMI 2023-01-30 14:28:00 38.62 kg/m2 [facility] Systolic blood pressure 2023-01-22 17:47:00 145 mm[Hg] [facility] Diastolic blood pressure 2023-01-22 17:47:00 76 mm[Hg] [facility] Heart rate 2023-01-22 17:47:00 84 /min [facility] Body temperature 2023-01-22 17:47:00 36.83 Leanna [facility] Respiratory rate 2023-01-22 17:47:00 18 /min [facility] Oxygen saturation in Arterial blood by Pulse oximetry 2023-01-22 17:47:00 97 /min [facility] Body height 2023-01-19 01:24:00 170.2 cm [facility] Body weight 2023-01-19 01:24:00 112.038 kg [facility] BMI 2023-01-19 01:24:00 38.69 kg/m2 [facility] Systolic blood pressure 2023-01-19 12:52:00 107 mm[Hg] [facility] Diastolic blood pressure 2023-01-19 12:52:00 70 mm[Hg] [facility] Heart rate 2023-01-19 12:52:00 75 /min [facility] Body temperature 2023-01-19 12:52:00 36.72 Leanna [facility] Respiratory rate 2023-01-19 12:52:00 18 /min [facility] Oxygen saturation in Arterial blood by Pulse oximetry 2023-01-19 12:52:00 98 /min [facility] Body height 2023-01-19 01:24:00 170.2 cm [facility] Body weight 2023-01-19 01:24:00 112.038 kg [facility] BMI 2023-01-19 01:24:00 38.69 kg/m2 [facility] Systolic blood pressure 2023-01-16 14:16:00 116 mm[Hg] [facility] Diastolic blood pressure 2023-01-16 14:16:00 73 mm[Hg] [facility] Heart rate 2023-01-16 14:16:00 77 /min [facility] Body temperature 2023-01-16 14:16:00 35.94 Leanna [facility] Respiratory rate 2023-01-16 14:16:00 18 /min [facility] Body height 2023-01-16 14:16:00 170.2 cm [facility] Body weight 2023-01-16 14:16:00 112.628 kg [facility] BMI 2023-01-16 14:16:00 38.89 kg/m2 [facility] Systolic blood pressure 2023-01-09 13:50:00 124 mm[Hg] [facility] Diastolic blood pressure 2023-01-09 13:50:00 75 mm[Hg] [place] [facility] Heart rate 2023-01-09 13:50:00 87 /[facility] 2023-01-09 13:50:00 36 Leanna [facility] Respiratory rate 2023-01-09 13:50:00 18 /min [facility] Body height 2023-01-09 13:50:00 [facility] 2023-01-09 13:50:00 112.719 kg [facility] BMI 2023-01-09 13:50:00 38.92 kg/m2 [facility] Systolic blood pressure 2022-12-31 14:39:00 124 mm[Hg] [facility] Diastolic blood pressure 2022-12-31 14:39:00 77 mm[Hg] [facility] Heart rate 2022-12-31 14:39:00 83 /min [facility] Body temperature 2022-12-31 14:39:00 36.11 Leanna [facility] Respiratory rate 2022-12-31 14:39:00 18 /min [facility] Body height 2022-12-31 14:39:00 170.2 cm [facility] Body weight 2022-12-31 14:39:00 114.505 kg [facility] BMI 2022-12-31 14:39:00 39.54 kg/m2 [facility] Systolic blood pressure 2022-11-26 16:22:00 123 mm[Hg] [facility] Diastolic blood pressure 2022-11-26 16:22:00 80 mm[Hg] [facility] Heart rate 2022-11-26 16:22:00 81 /min [facility] Body temperature 2022-11-26 16:22:00 36.17 Leanna [facility] Respiratory rate 2022-11-26 16:22:00 18 /min [facility] Body height 2022-11-26 16:22:00 [facility].2 [facility] Body weight 2022-11-26 16:22:00 115.032 kg [facility] BMI 2022-11-26 16:22:00 39.72 kg/m2 [facility] Systolic blood pressure 2022-11-18 00:18:00 119 mm[Hg] [facility] Diastolic blood pressure 2022-11-18 00:18:00 55 mm[Hg] [facility] Heart rate 2022-11-18 00:18:00 95 /min [facility] Body temperature 2022-11-18 00:18:00 36.61 Leanna [facility] Respiratory rate 2022-11-18 00:18:00 18 /min [facility] Body height 2022-11-18 00:18:00 170.2 cm [facility] Body weight 2022-11-18 00:18:00 117.935 kg [facility] BMI 2022-11-18 00:18:00 40.72 kg/m2 [facility] Oxygen saturation in Arterial blood by Pulse oximetry 2022-11-18 00:18:00 100 /min [facility] Systolic blood pressure 2022-10-23 14:50:00 127 mm[Hg] [facility] Diastolic blood pressure 2022-10-23 14:50:00 71 mm[Hg] [facility] Heart rate 2022-10-23 14:50:00 87 /min [facility] Body temperature 2022-10-23 14:50:00 36.11 Leanna [facility] Respiratory rate 2022-10-23 14:50:00 18 /min [facility] Body height 2022-10-23 14:50:00 170.2 cm [facility] Body weight 2022-10-23 14:50:00 119.024 kg [facility] BMI 2022-10-23 14:50:00 41.10 kg/m2 [facility] Systolic blood pressure 2022-10-02 16:17:00 117 mm[Hg] [facility] Diastolic blood pressure 2022-10-02 16:17:00 70 mm[Hg] [facility] Heart rate 2022-10-02 16:17:00 85 /min [facility] Body temperature 2022-10-02 16:17:00 35.94 Leanna [facility] Respiratory rate 2022-10-02 16:17:00 18 /min [facility] Body height 2022-10-02 16:17:00 170.2 cm [facility] Body weight 2022-10-02 16:17:00 114.034 kg [facility] BMI 2022-10-02 16:17:00 39.37 kg/m2 [facility] Systolic blood pressure 2022-09-17 05:00:00 132 mm[Hg] [facility] Diastolic blood pressure 2022-09-17 05:00:00 75 mm[Hg] [facility] Heart rate 2022-09-17 05:00:00 82 /min [facility] Oxygen saturation in Arterial blood by Pulse oximetry 2022-09-17 05:00:00 100 /min [facility] Body temperature 2022-09-17 04:46:00 36.72 Leanna [facility] Respiratory rate 2022-09-17 04:46:00 17 /min [facility] Body height 2022-09-17 04:46:00 170.2 cm [facility] Body weight 2022-09-17 04:46:00 112.946 kg [facility] BMI 2022-09-17 04:46:00 39.00 kg/m2 [facility] Systolic blood pressure 2022-09-04 16:03:00 115 mm[Hg] [facility] Diastolic blood pressure 2022-09-04 16:03:00 67 mm[Hg] [facility] Heart rate 2022-09-04 16:03:00 83 /min [facility] Body temperature 2022-09-04 16:03:00 36.94 Leanna [facility] Respiratory rate 2022-09-04 16:03:00 20 /min [facility] Body height 2022-09-04 16:03:00 170.2 cm [facility] Body weight 2022-09-04 16:03:00 110.587 kg [facility] BMI 2022-09-04 16:03:00 38.18 kg/m2 [facility] Systolic blood pressure 2022-08-06 16:19:00 119 mm[Hg] [facility] Diastolic blood pressure 2022-08-06 16:19:00 70 mm[Hg] [facility] Heart rate 2022-08-06 16:19:00 81 /min [facility] Body temperature 2022-08-06 16:19:00 36.94 Leanna [facility] Respiratory rate 2022-08-06 16:19:00 18 /min [facility] Body height 2022-08-06 16:19:00 170.2 cm [facility] Body weight 2022-08-06 16:19:00 113.881 kg [facility] BMI 2022-08-06 16:19:00 39.32 kg/m2 [facility] Systolic blood pressure 2022-07-09 20:30:00 124 mm[Hg] [facility] Diastolic blood pressure 2022-07-09 20:30:00 71 mm[Hg] [facility] Heart rate 2022-07-09 20:30:00 69 /min [facility] Body temperature 2022-07-09 20:30:00 36.39 Leanna [facility] Respiratory rate 2022-07-09 20:30:00 18 /min [facility] Body height 2022-07-09 20:30:00 170.2 cm [facility] Body weight 2022-07-09 20:30:00 113.581 kg [facility] BMI 2022-07-09 20:30:00 39.22 kg/m2 [facility] Procedures Procedure Date / Time Performed Performing Clinician Source ASSIGNMENT OF BENEFITS 2023-07-13 21:11:38 Docto r Unassigned, [place] [facility] RAPID STREP SCREEN FOR GROUP A 2023-07-13 21:00:00 Li Horn [facility] CONSENT/REFUSAL FOR DIAGNOSIS AND TREATMENT 2023-07-13 20:45:18 Doctor Unassigned, [place] [facility] POCT TEST 2023-06-24 17:10:00 Al Wisdom [facility] GARDASIL 9 (HPV 9V) VACCINE 2023-06-24 16:05:43 Evert Wisdom [facility] CONSENT/REFUSAL FOR DIAGNOSIS AND TREATMENT 2023-06-20 16:33:31 Doctor Unassigned, [place] [facility] ASSIGNMENT OF BENEFITS 2023-06-13 20:13:09 Docto r Unassigned, [place] [facility] XR SPINE THORACIC 2 VW 2023-06-13 20:09:00 Sami Santiago [facility] XR CERVICAL SPINE 3 VW 2023-06-13 20:09:00 Sami Santiago [facility] CONSENT/REFUSAL FOR DIAGNOSIS AND TREATMENT 2023-06-13 17:58:40 Doctor Unassigned, [place] [facility] CONSENT/REFUSAL FOR DIAGNOSIS AND TREATMENT 2023-04-24 14:53:47 Doctor Unassigned, [place] [facility] CBC WITH DIFF 2023-01-20 08:38:00 Mary Mg [facility] CBC WITH DIFF 2023-01-20 08:38:00 Mary Mg [facility] VENOUS CORD GAS 2023-01-19 05:38:00 Mary Mg [facility] VENOUS CORD GAS 2023-01-19 05:38:00 Mary Mg [facility] SECTION 2023-01-19 04:37:00 Chris Cao [facility] SECTION 2023-01-19 04:37:00 [facility] CBC WITH DIFF 2023-01-19 02:39:00 Mary Mg [facility] HEPATITIS B SURFACE ANTIGEN 2023-01-19 02:39:00 Mary Mg [facility] HB ABO GROUPING 2023-01-19 02:39:00 Mary Mg [facility] RHO (D) IMMUNE GLOBULIN 2023-01-19 02:39:00 Alexandra Mg [facility] HIV 1/2 AG-AB WITH REFLEX 2023-01-19 02:39:00 Mary Mg [facility] SYPHILIS IGG/IGM 2023-01-19 02:39:00 Mary Mg [facility] CBC WITH DIFF 2023-01-19 02:39:00 Mary Mg [facility] HEPATITIS B SURFACE ANTIGEN 2023-01-19 02:39:00 Mary Mg [facility] HB ABO GROUPING 2023-01-19 02:39:00 Mary Mg ne [facility] RHO (D) IMMUNE GLOBULIN 2023-01-19 02:39:00 Alexandra Mg [facility] HIV 1/2 AG-AB WITH REFLEX 2023-01-19 02:39:00 Mary Mg [facility] SYPHILIS IGG/IGM 2023-01-19 02:39:00 Mary Mg [facility] HOSPITAL ADMISSION 2023-01-18 05:01:00 Doctor Un assigned, [place] [facility] POCT URINALYSIS 2023-01-16 14:17:00 Janet Madison [facility] POCT URINALYSIS 2023-01-09 13:52:00 Janet Madison [facility] POCT URINALYSIS 2022-12-31 14:43:00 Janet Madison [facility] POCT URINALYSIS 2022-11-26 17:51:00 Janet aMdison [facility] TDAP VACCINE, >11 YRS, IM 2022-11-26 16:50:04 Evert Wisdom [facility] ASSIGNMENT OF BENEFITS 2022-11-17 23:49:27 Docto r Unassigned, [place] [facility] GLUCOSE 1 HOUR POST PRANDIAL 2022-10-23 15:48:00 Evert iWsdom [facility] CBC WITH DIFF 2022-10-23 15:48:00 Evert Wisdom [facility] POCT URINALYSIS 2022-10-23 14:54:00 Janet Madison [facility] NOTICE OF RESEARCH PARTICIPATION 2022-10-06 05:01:00 Doctor Unassigned, [place] [facility] POCT URINALYSIS 2022-10-02 00:00:00 Evert Wisdom [facility] ASSIGNMENT OF BENEFITS 2022-09-17 04:31:51 Docto r Unassigned, [place] [facility] NOTICE OF PRIVACY PRACTICES 2022-09-17 04:30:55 Doctor Unassigned, [place] [facility] CONSENT/REFUSAL FOR DIAGNOSIS AND TREATMENT 2022-09-17 04:30:29 Doctor Unassigned, [place] [facility] POCT URINALYSIS 2022-09-04 00:00:00 Janet Madison [facility] SECOND AND THIRD TRIMESTER ULTRASOUND 2022-08-22 20:58:00 Janet Madison [facility] SECOND AND THIRD TRIMESTER ULTRASOUND 2022-08-22 20:45:00 Janet Madison [facility] POCT URINALYSIS 2022-08-06 16:20:00 Evert Wisdom [facility] REPORT OF 2022-07-09 06:01:00 Doctor Vcikie sandoval, [place] [facility] POCT TEST 2022-07-09 00:00:00 Jacqui Madison [facility] POCT URINALYSIS W/O SPECIFIC GRAVITY 2022-07-09 00:00:00 Janet Madison [facility] Encounters Start Date/Time End Date/Time Encounter Type Admission Type Attending Clinicians Care Facility Care Department Encounter ID Source 2022-10-28 14:25:34 Outpatient [facility] [id number] [facility] 2024-01-11 14:00:00 2024-01-11 14:00:00 Outpatient R [facility] [id number] [facility] 2024-01-08 00:00:00 2024-01-08 09:37:50 Refill Evert Wisdom [facility] FLAP PRESSER [facility] & CHILD [facility] ..840.114 350.1.13.10 4.2.7.2.686 [id number] 107 [id number] [facility] 2023-12-31 13:30:00 2023-12-31 13:30:00 Outpatient R [facility] [id number] [facility] 2023-07-30 13:30:00 2023-07-30 13:30:00 Outpatient R [facility] [id number] [facility] 2023-07-13 16:35:00 2023-07-13 17:30:00 Emergency LEILA Matt Alberto HCACL AERS [id number] 92 [facility] 2023-07-13 15:10:00 2023-07-13 15:45:00 Emergency X LI HORN [facility] ERT [id number] [facility] 2023-07-13 15:10:00 2023-07-13 15:45:00 Emergency Li Horn [facility] 1..840.114 350.1.13.10 4.2.7.2.686 [id number] [facility] 2023-07-10 00:00:00 2023-07-10 00:00:00 Telephone Evert Wisdom [facility] FLAP [facility]ER [facility] & CHILD [facility] 1..840.114 350.1.13.10 4.2.7.2.686 [id number] [facility] 2023-07-07 11:00:00 2023-07-07 11:00:00 Outpatient R EVERT WISDOM [facility] [id number] [facility] 2023-06-25 00:00:00 2023-06-25 00:00:00 Telephone Evert Wisdom [facility] FLAP PRESSER [facility] & CHILD [facility] 1.840.114 350.1.13.10 4.2.7.2.686 [id number] 107 [id number] [facility] 2023-06-24 10:30:00 2023-06-24 11:16:25 Outpatient R EVERT WISDOM [facility] [id number] [facility] 2023-06-24 10:30:00 2023-06-24 11:16:25 Office Visit Evert Wisdom [facility] FLAP [facility] 1.840.114 350.1.13.10 4.2.7.2.686 [id number] 107 [id number] [facility] 2023-06-20 10:38:00 2023-06-20 11:10:00 Emergency X CLEMENCIA GAMBLE [facility] ERT [id number] [facility] 2023-06-20 10:38:00 2023-06-20 11:10:00 Emergency Clemencia Gamble [facility] 1..840.114 350.1.13.10 4.2.7.2.686 [id number] [facility] 2023-06-13 12:05:00 2023-06-13 15:27:00 Emergency X ROYCE SANTIAGO [facility] ERT [id number] [facility] 2023-06-13 12:05:00 2023-06-13 15:27:00 Emergency Royce Santiago [facility] 1.840.114 350.1.13.10 4.2.7.2.686 [id number] [facility] 2023-04-24 10:27:00 2023-04-24 13:30:00 Emergency X Jaycee KELLER [facility] ERT [id number] [facility] 2023-04-24 10:27:00 2023-04-24 13:30:00 Emergency Jaycee Keller [facility] 1.2.840.114 350.1.13.10 4.2.7.2.686 [id number] [facility] 2023-03-02 09:00:00 2023-03-02 09:00:00 Outpatient R TRISTIAN GAXIOLA [facility] [id number] Amanda oliva [facility] 2023-02-22 00:00:00 2023-02-22 00:00:00 Refill Evert Wisdom [facility] FLAP PRESSER [facility]ILD [facility] 1.2.840.114 350.1.13.10 4.2.7.2.686 [id number] 107 [id number] [facility] 2023-02-06 00:00:00 2023-02-06 00:00:00 Patient Secure Msg Doctor Unassigned, [place] [facility] 1.2.840.114 350.1.13.10 4.2.7.2.686 [id number] [facility] 2023-01-30 09:45:00 2023-01-30 09:59:37 Routine Visit Evert Wisdom [facility] FLAP PRESSER [facility] 1.2.840.114 350.1.13.10 4.2.7.2.686 [id number] 107 [id number] [facility] 2023-01-30 09:00:00 2023-01-30 09:15:00 Nurse Visit Visit, Ang-Rmchp Nurse Evert Wisdom [facility] FLAP PRESSER [facility] 1.840.114 350.1.13.10 4.2.7.2.686 [id number] [facility] 2023-01-30 09:00:00 2023-01-30 09:00:00 Outpatient R EVERT WISDOM [facility] [id number] [facility] 2023-01-18 20:06:00 2023-01-22 15:19:00 Hospital Encounter Ariadna Cao [facility] 1.2.840.114 350.1.13.10 4.2.7.2.686 [id number] [facility] 2023-01-18 20:06:00 2023-01-22 15:19:00 Inpatient P ARIADNA CAO [facility] [id number] [facility] 2023-01-19 20:01:47 2023-01-19 20:01:47 Anesthesia Event Lawrence Hays [facility] 1.2840.114 350.1.13.10 4.2.7.2.686 [id number] [facility] 2023-01-19 07:30:00 2023-01-19 09:12:00 [facility] 1.2.840.114 350.1.13.10 4.2.7.2.686 [id number] [facility] 2023-01-18 00:00:00 2023-01-18 00:00:00 Orders Only Doctor Unassigned, [place] [facility] 1.2.840.114 350.1.13.10 4.2.7.2.686 [id number] [facility] 2023-01-16 09:15:00 2023-01-16 09:47:35 Outpatient R EVERT WISDOM [facility] [id number] [facility] 2023-01-16 09:15:00 2023-01-16 09:47:35 Routine Visit Evert Wisdom [facility] FLAP [facility] 1.2.840.114 350.1.13.10 4.2.7.2.686 [id number] 107 [id number] [facility] 2023-01-09 09:00:00 2023-01-09 09:38:22 Outpatient R EVERT WISDOM [facility] [id number] [facility] 2023-01-09 09:00:00 2023-01-09 09:38:22 Routine Visit Evert Wisdom Chika [facility] FLAP [facility] 1.84.114 350.1.13.10 4.2.7.2.686 [id number] 107 [id number] [facility] 2023-01-01 00:00:00 2023-01-01 00:00:00 Case Management Janet Madison Tesha [facility] FLAP PRESSER [facility] 1.84.114 350.1.13.10 4.2.7.2.686 [id number] 107 [id number] [facility] 2022-12-31 09:45:00 2022-12-31 10:03:21 Outpatient R JANET MADISON [facility] [id number] [facility] 2022-12-31 09:45:00 2022-12-31 10:03:21 Routine Visit Janet Madison [facility] FLAP PRESSER [facility] 1.840.114 350.1.13.10 4.2.7.2.686 [id number] 107 [id number] [facility] 2022-12-30 12:45:00 2022-12-30 12:45:00 Outpatient R JANET MADISON [facility] [id number] [facility] 2022-12-25 10:00:00 2022-12-25 10:30:00 Advertising Job Titles Visit 2, [facility] Us Room Maura Johnson [facility] 1..114 350.1.13.10 4.2.7.2.686 [id number] [facility] 2022-12-25 10:00:00 2022-12-25 10:00:00 Outpatient P MAURA JOHNSON [facility] [id number] [facility] 2022-12-25 00:00:00 2022-12-25 00:00:00 Case Management Janet Madison [facility] FLAP [facility] 1..840.114 350.1.13.10 4.2.7.2.686 [id number] 107 [id number] [facility] 2022-12-23 00:00:00 2022-12-23 00:00:00 Telephone Evert Wisdom [facility] FLAP PRESSER [facility] ..840.114 350.1.13.10 4.2.7.2.686 [id number] 107 [id number] [facility] 2022-12-15 15:15:00 2022-12-15 15:15:00 Outpatient P [facility] [id number] [facility] 2022-12-15 09:00:00 2022-12-15 09:00:00 Outpatient P [facility] [id number] [facility] 2022-12-11 11:00:00 2022-12-11 11:00:00 Outpatient R EVERT WISDOM [facility] [id number] [facility] 2022-11-26 10:45:00 2022-11-26 12:11:47 Outpatient R EVERT WISDOM [facility] [id number] [facility] 2022-11-26 10:45:00 2022-11-26 12:11:47 Routine Visit Evert Wisdom [facility] ..840.114 350.1.13.10 4.2.7.2.686 [id number] 107 [id number] [facility] 2022-11-26 10:45:00 2022-11-26 10:45:00 Outpatient R EVERT WISDOM [facility] [id number] [facility] 2022-11-19 00:00:00 2022-11-19 00:00:00 Patient Secure Msg Doctor Unassigned, [place] [facility] 1.2.840.114 350.1.13.10 4.2.7.2.686 [id number] [facility] 2022-11-17 18:56:00 2022-11-17 20:30:00 Outpatient X HERNANDEZ-SAUNDRA S, DAISY HERNANDEZ-SAUNDRA S, DIASY [facility] [id number] [facility] 2022-11-17 18:56:00 2022-11-17 20:30:00 Emergency Hernandez-Saundra s, Daisy [facility] 1.2.840.114 350.1.13.10 4.2.7.2.686 [id number] [facility] 2022-11-17 00:00:00 2022-11-17 00:00:00 Orders Only Doctor Unassigned, [place] [facility] 1.2840.114 350.1.13.10 4.2.7.2.686 [id number] [facility] 2022-11-13 15:45:00 2022-11-13 15:45:00 Outpatient R EVERT WISDOM [facility] [id number] [facility] 2022-11-10 00:00:00 2022-11-10 00:00:00 Janet De La Garza [facility] FLAP [facility] 1.2.840.114 350.1.13.10 4.2.7.2.686 [id number] [facility] 2022-11-10 00:00:00 2022-11-10 00:00:00 Telephone Evert Wisdom [facility] FLAP [facility] 1.2.840.114 350.1.13.10 4.2.7.2.686 [id number] 107 [id number] [facility] 2022-11-05 10:00:00 2022-11-05 10:00:00 Outpatient R EVERT WISDOM [facility] [id number] [facility] 2022-10-28 00:00:00 2022-10-28 00:00:00 Telephone JessenakulpedroJose RamonEvert C [facility] FLAP PRESSER [facility] 1.2840.114 350.1.13.10 4.2.7.2.686 [id number] 107 [id number] [facility] 2022-10-23 10:15:00 2022-10-23 10:30:31 Routine Visit Evert Wisdom [facility] FLAP PRESSER [facility] 1.840.114 350.1.13.10 4.2.7.2.686 [id number] 107 [id number] [facility] 2022-10-23 10:15:00 2022-10-23 10:30:31 Outpatient R JOSE RAMON WISDOMILOLA [facility] [id number] [facility] 2022-10-23 00:00:00 2022-10-23 00:00:00 Letter (Out) JessenakulEvert vasquez [facility] FLAP PRESSER [facility] 1..840.114 350.1.13.10 4.2.7.2.686 [id number] 107 [id number] [facility] 2022-10-07 00:00:00 2022-10-07 00:00:00 Case Management Janet Madison [facility] FLAP PRESSER [facility] 1.84.114 350.1.13.10 4.2.7.2.686 [id number] 107 [id number] [facility] 2022-10-06 13:30:00 2022-10-06 14:41:29 Advertising Job Titles Visit 1, [facility] Us Room [facility] 1.114 350.1.13.10 4.2.7.2.686 [id number] [facility] 2022-10-06 13:30:00 2022-10-06 13:30:00 Outpatient P RIK SALAZAR [facility] [id number] [facility] 2022-10-06 00:00:00 2022-10-06 00:00:00 Letter (Out) Rik Salazar [facility] 1..114 350.1.13.10 4.2.7.2.686 [id number] 104 [id number] [facility] 2022-10-06 00:00:00 2022-10-06 00:00:00 Orders Only Doctor Unassigned, [place] [facility] 1.114 350.1.13.10 4.2.7.2.686 [id number] [facility] 2022-10-02 10:30:00 2022-10-02 10:49:38 Routine Visit Evert Wisdom [facility] FLAP [facility] 1..114 350.1.13.10 4.2.7.2.686 [id number] 107 [id number] [facility] 2022-10-02 10:30:00 2022-10-02 10:49:38 Outpatient R EVERT WISDOM [facility] [id number] [facility] 2022-10-02 00:00:00 2022-10-02 00:00:00 Letter (Out) Evert Wisdom [facility] FLAP [facility] 1.84.114 350.1.13.10 4.2.7.2.686 [id number] 107 [id number] [facility] 2022-09-26 03:45:00 2022-09-26 05:35:00 Emergency E ANIBAL NOBLES [id number] 2022-09-16 22:42:00 2022-09-16 23:30:00 Outpatient P LUCIUS ALBA [facility] [id number] [facility] 2022-09-16 22:42:00 2022-09-16 23:30:00 Hospital Encounter Lucius Alba [facility] 1..114 350.1.13.10 4.2.7.2.686 [id number] [facility] 2022-09-16 00:00:00 2022-09-16 00:00:00 Orders Only Doctor Unassigned, [place] [facility] 1..114 350.1.13.10 4.2.7.2.686 [id number] [facility] 2022-09-04 09:45:00 2022-09-04 10:52:21 Outpatient R EVERT WISDOM [facility] [id number] [facility] 2022-09-04 09:45:00 2022-09-04 10:52:21 Routine Visit Evert Wisdom [facility] FLAP PRESSER [facility] 1..114 350.1.13.10 4.2.7.2.686 [id number] 107 [id number] [facility] 2022-09-04 00:00:00 2022-09-04 00:00:00 Janet De La Garza [facility] FLAP [facility] 1..114 350.1.13.10 4.2.7.2.686 [id number] 107 [id number] [facility] 2022-09-04 00:00:00 2022-09-04 00:00:00 Evert Miner [facility] FLAP PRESSER [facility] 1.0.114 350.1.13.10 4.2.7.2.686 [id number] 107 [id number] [facility] 2022-08-25 00:00:00 2022-08-25 00:00:00 Case Management Janet Madison [facility] FLAP PRESSER [facility] 1..114 350.1.13.10 4.2.7.2.686 [id number] 107 [id number] [facility] 2022-08-22 13:45:00 2022-08-22 15:00:37 Advertising Job Titles Visit 3, [facility] Us Room [facility] 1..114 350.1.13.10 4.2.7.2.686 [id number] [facility] 2022-08-22 13:45:00 2022-08-22 13:45:00 Outpatient P ELIEZER [facility] [id number] [facility] 2022-08-22 00:00:00 2022-08-22 00:00:00 [facility]114 350.1.13.10 4.2.7.2.686 [id number] 104 [id number] [facility] 2022-08-22 00:00:00 2022-08-22 00:00:00 Telephone Evert Wisdom [facility] FLAP PRESSER [facility] 1..114 350.1.13.10 4.2.7.2.686 [id number] 107 [id number] [facility] 2022-08-06 10:45:00 2022-08-06 11:00:38 Outpatient R EVERT WISDOM [facility] [id number] [facility] 2022-08-06 10:45:00 2022-08-06 11:00:38 Routine Visit Evert Wisdom [facility] FLAP PRESSER [facility] 1.2.840.114 350.1.13.10 4.2.7.2.686 [id number] 107 [id number] [facility] 2022-07-23 00:00:00 2022-07-23 00:00:00 Refill Janet Madison [facility] FLAP PRESSER [facility] 1.2.840.114 350.1.13.10 4.2.7.2.686 [id number] 107 [id number] [facility] 2022-07-14 00:00:00 2022-07-14 00:00:00 Telephone Janet Madison [facility] FLAP PR[facility]ER [facility] 1.2.840.114 350.1.13.10 4.2.7.2.686 [id number] 107 [id number] [facility] 2022-07-13 00:00:00 2022-07-13 00:00:00 Case Management Janet Madison [facility] FL[facility] PR[facility]ER [facility] 1.2.840.114 350.1.13.10 4.2.7.2.686 [id number] 107 [id number] [facility] 2022-07-10 00:00:00 2022-07-10 00:00:00 Case Management Janet Madison [facility] FLAP PRESSER [facility] 1.2.840.114 350.1.13.10 4.2.7.2.686 [id number] 107 [id number] [facility] 2022-07-09 14:45:00 2022-07-09 15:49:21 Outpatient R JANET MADISON [facility] [id number] [facility] 2022-07-09 14:45:00 2022-07-09 15:49:21 Initial Visit Provider, Tommy-Rmchp Janet Jacobson [facility] 1.2.840.114 350.1.13.10 4.2.7.2.686 [id number] [facility] 2022-07-09 00:00:00 2022-07-09 00:00:00 Orders Only Doctor Unassigned, [place] [facility] 1..840.114 350.1.13.10 4.2.7.2.686 [id number] [facility] 2022-06-29 18:51:00 2022-06-29 20:09:00 Emergency EM Rios Shelton [facility] [id number] 26 [facility] 2022-06-06 00:00:00 2022-06-06 00:00:00 Nurse Triage Nina Teixeira [facility] 1..840.114 350.1.13.10 4.2.7.2.686 [id number] [facility] 2022-04-09 11:00:00 2022-04-09 11:00:00 Outpatient R EVERT WISDOM [facility] [id number] [facility] 2022-04-01 10:45:00 2022-04-01 10:45:00 Outpatient R EVERT WISDOM [facility] [id number] [facility] 2022-04-01 00:00:00 2022-04-01 00:00:00 Telephone Evert Wisdom [facility]AP [facility] 1..840.114 350.1.13.10 4.2.7.2.686 [id number] [facility] 2022-03-27 09:30:00 2022-03-27 09:30:00 Outpatient R [facility] [id number] [facility] 2022-03-20 09:00:00 2022-03-20 09:00:00 Outpatient R [facility] [id number] [facility] 2022-03-16 20:29:00 2022-03-16 21:24:00 Emergency X CLEMENCIA GAMBLE [facility] ERT [id number] [facility] 2022-03-16 20:29:00 2022-03-16 21:24:00 Emergency Clemencia Gamble [facility] 1.2.840.114 350.1.13.10 4.2.7.2.686 [id number] [facility] 2022-03-13 06:52:00 2022-03-13 10:26:00 Emergency X [facility] ERT [id number] [facility] 2022-03-13 06:52:00 2022-03-13 10:26:00 Emergency Gene [facility] ([facility] [facility]) 1..840.114 350.1.13.10 4.2.7.2.686 [id number] [facility] 2022-03-11 09:00:00 2022-03-11 09:00:00 Outpatient R [facility] [id number] [facility] 2022-03-10 00:00:00 2022-03-10 00:00:00 Patient Secure Msg Doctor Unassigned, [place] [facility] 1..840.114 350.1.13.10 4.2.7.2.686 [id number] [facility] 2022-03-07 00:00:00 2022-03-07 00:00:00 Telephone Evert Wisdom [facility] FL[facility] 1..840.114 350.1.13.10 4.2.7.2.686 [id number] [facility] 2022-03-06 10:30:00 2022-03-06 10:30:00 Outpatient R EVERT WISDOM [facility] [id number] [facility] 2022-03-06 10:30:00 2022-03-06 10:30:00 Outpatient R EVERT WISDOM [facility] [id number] [facility] 2022-03-06 00:00:00 2022-03-06 00:00:00 Patient Secure Msg Doctor Unassigned, [place] [facility] 1..840.114 350.1.13.10 4.2.7.2.686 [id number] [facility] 2022-03-05 19:09:00 2022-03-05 23:09:00 Emergency X CLEMENCIA GAMBLE [facility] ERT [id number] [facility] 2022-03-05 19:09:00 2022-03-05 23:09:00 Emergency Clemencia Gamble [facility] 1..840.114 350.1.13.10 4.2.7.2.686 [id number] [id number] [facility] 2022-03-05 19:09:00 2022-03-05 23:09:00 Emergency X CLEMENCIA GAMBLE [facility] ERT [id number] [facility] 2022-03-05 00:00:00 2022-03-05 00:00:00 Telephone Evert Wisdom [facility] ..840.114 350.1.13.10 4.2.7.2.686 [id number] [facility] 2022-03-04 15:00:00 2022-03-04 16:38:45 Outpatient R EVERT WISDOM [facility] [id number] [facility] 2022-03-04 15:00:00 2022-03-04 16:38:45 Initial Visit Evert Wisdom [facility] ..840.114 350.1.13.10 4.2.7.2.686 [id number] [facility] 2022-03-04 15:00:00 2022-03-04 16:38:45 Outpatient R EVERT WISDOM [facility] [id number] [facility] 2022-03-04 15:00:00 2022-03-04 16:38:45 Outpatient R EVERT WISDOM [facility] [id number] [facility] 2022-03-04 15:00:00 2022-03-04 16:38:45 Outpatient R EVERT WISDOM [facility] [id number] [facility] 2022-03-04 00:00:00 2022-03-04 00:00:00 Orders Only Doctor Unassigned, [place] [facility] 1.2.840.114 350.1.13.10 4.2.7.2.686 [id number] [facility] 2022-01-03 16:32:00 2022-01-03 19:45:00 Emergency E YOAN FERNANDEZ [facility] [id number] [facility] 2021-08-01 18:30:00 2021-08-01 21:27:00 Emergency X JANEL AVALOS [facility] ERT [id number] [facility] 2021-08-01 18:30:00 2021-08-01 21:27:00 Emergency Janel Avalos [facility] 1.2.840.114 350.1.13.10 4.2.7.2.686 [id number] [facility] 2021-05-08 23:11:00 2021-05-09 00:20:00 Emergency Brandon Irizarryn R [facility] 1.2.840.114 350.1.13.10 4.2.7.2.686 [id number] [id number] [facility] 2021-05-08 23:11:00 2021-05-09 00:20:00 Emergency X JUAN C SENTHIL [facility] ERT [id number] [facility] 2021-05-08 23:11:00 2021-05-09 00:20:00 Emergency X IRIZARRY, SENTHIL [facility] ERT [id number] [facility] 2021-05-08 23:11:00 2021-05-09 00:20:00 Emergency X SENTHIL IRIZARRY [facility] ERT [id number] [facility] 2021-03-31 10:56:00 2021-03-31 12:56:00 Emergency X ESTHER CLARK [facility] ERT [id number] [facility] 2021-03-31 10:56:00 2021-03-31 12:56:00 Emergency Esther Clark [facility] 1.2.840.114 350.1.13.10 4.2.7.2.686 [id number] [id number] [facility] 2021-03-31 10:56:00 2021-03-31 12:56:00 Emergency X ESTHER CLARK [facility] ERT [id number] [facility] 2021-03-31 10:56:00 2021-03-31 12:56:00 Emergency X ESTHER CLARK [facility] ERT [id number] [facility] 2021-03-14 17:54:00 2021-03-14 20:59:00 Emergency Janel Avalos [facility] 1.2.840.114 350.1.13.10 4.2.7.2.686 [id number] [facility] 2021-03-14 17:43:00 2021-03-14 17:43:00 Emergency X [facility] ERT [id number] [facility] 2021-02-20 06:57:00 2021-02-20 07:31:00 Emergency Clemencia Gamble [facility] 1.2.840.114 350.1.13.10 4.2.7.2.686 [id number] [facility] 2021-02-20 06:57:00 2021-02-20 07:31:00 Emergency X CLEMENCIA GAMBLE [facility] ERT [id number] [facility] 2021-02-20 06:57:00 2021-02-20 07:31:00 Emergency Clemencia Gamble [facility] 1.2.840.114 350.1.13.10 4.2.7.2.686 [id number] 084 [id number] 2021-02-14 16:10:00 2021-02-14 19:05:00 Emergency Clemencia Gamble [facility] 1.2.840.114 350.1.13.10 4.2.7.2.686 [id number] [id number] [facility] 2021-02-14 16:10:00 2021-02-14 19:05:00 Emergency Clemencia Gamble [facility] 1.2.840.114 350.1.13.10 4.2.7.2.686 [id number] 2021-02-14 15:52:00 2021-02-14 15:52:00 Emergency X [facility] ERT [id number] [facility] Results Test Description Test Time Test Comments Results Result Co mments Source Coronavirus 2018 nCoV [id number] 17:30:00* Test Item Value Reference Range Interpretation Comme nts Coronavirus 2019 nCoV Bedside (test code = [id number]) Negative Negative The [employer] W utilizes isothermal [place] EnzymeAmplification Reaction (NEAR) technology in the qualitativedetection of infectious diseases. With NEAR technology,amplified target detection is achieved with the use offluorescently labeled molecular beacons, comparable to PCRtechniques -----Negative results should be treated as presumptive and, ifinconsistent with clinical signs and symptoms or necessaryfor patient management, should be tested with an alternativemolecular assay. Negative results do not preclude QZXP-MqG-3nhkksnevs and should not be used as the sole basis forpatient management decisions. Negative results should beconsidered in the context of a patient's recent exposures,history, presence of clinical signs and symptoms consistentwith COVID-19. - XR CHEST 1 [id number] 17:00:00 [facility] [place] ROY : 1985 Sex: F FAX: Rios Shelton MD [place] FAX: Alberto Gutierrez MD [phone] Name: LUKE ROYARMIDATesha Barba FSED : 1985 Age/S: 37/F [address] [facility] Unit #: [id number] Loc: [place] [address] Phys: Alberto Gutierrez MD Acct: [id number] Dis Date: Status: PRE ER PHONE #: Exam Date: 07/13/2023 6867 FAX #: Reason: cough tightness EXAMS: CPT CODE: [id number] XR CHEST 1 V [id number] EXAM: - XR CHEST 1 V COMPARISON: None available at the time of interpretation. LOCATION: [facility] HISTORY: cough tightness FINDINGS:Single view of the chest. No indwelling lines or tubes. No pneumothorax. The lungs are clear without significant effusions. The mediastinal contours are unremarkable/unchanged. No acute osseous findings are present. IMPRESSION: No acute cardiopulmonary abnormality. at 1700 Reported and signed by: Cory Shankar M.D. CC: Rios Shelton MD; Alberto Gutierrez MD Technologist: Felicitas Arce RT(R)(CT) Trnscrd Date/Time/By: 07/13/2023 (170) : By: [email or web address] Orig Print D/T: S: 07/13/2023 (170) PAGE 1 Signed ReportPOCT [id number] 17:10:00* Test Item Value Reference Range Interpretation Comme nts POCT PREG (test code = 1605) Negative On board controls acceptable with C Line (test code = 3574) Yes POCT PREG LOT # (test code = 3575) POCT PREG TEST DATE ( test code = 3576) [id number] 17:10:00* Test Item Value Reference Range Interpretation Comme nts POCT PREG (test code = 1605) Negative On board controls acceptable with C Line (test code = 3574) Yes POCT PREG LOT # (test code = 3575) POCT PREG TEST DATE ( test code = 3576) [facility] ONLY - SYPHILIS [id number] 16:47:56* Test Item Value Reference Range Interpretation Comme nts Syphilis IgG/IgM (test code = 92578-9) Non-reactive Non-reactive YAMILETH (test code = YAMILETH) Non-reactive - No serologic evidence of T. pallidum infection. Cannot exclude incubating or early syphilis. Submit a second specimen in 2-4 weeks if syphilis is clinically suspected. Equivocal - Further testing to follow. Reactive - Further testing to follow. Lab Interpretation (test code = 51733-3) Normal [facility] ONLY - SYPHILIS [id number] 16:47:56* Test Item Value Reference Range Interpretation Comme nts Syphilis IgG/IgM (test code = 10234-5) Non-reactive Non-reactive YAMILETH (test code = YAMILETH) Non-reactive - No serologic evidence of T. pallidum infection. Cannot exclude incubating or early syphilis. Submit a second specimen in 2-4 weeks if syphilis is clinically suspected. Equivocal - Further testing to follow. Reactive - Further testing to follow. Lab Interpretation (test code = 40359-0) Normal [facility] (D) IMMUNE [id number] 10:45:19* Test Item Value Reference Range Interpretation Comme nts RHIG CANDIDATE? (test code = 5188) No- see comment Patient is not a candidate for RhIg- Patient is Rh Positive.Performed at [facility] Laboratory Services - [facility] Blood [address] Free: [phone] No. [id number] [facility] (D) IMMUNE [id number] 10:45:19* Test Item Value Reference Range Interpretation Comme nts RHIG CANDIDATE? (test code = 5188) No- see comment Patient is not a candidate for RhIg- Patient is Rh Positive.Performed at [facility] Laboratory Services - [facility] Blood [address] Free: [phone] No. [id number] [facility] Cord [id number] 06:03:38* Test Item Value Reference Range Interpretation Comme nts VENOUS BASE EXCESS, CORD (test code = 1431638159) -5.3 mEq/L VENOUS PH, CORD (test code = 0183127449) 7.25 7.25-7.45 VENOUS PC02, CORD (test code = 3328808143) 53 See_Comment H [Automated me ssage] The system which generated this result transmitted reference range: 27 - 49 mmHg. The reference range was not used to interpret this result as normal/abnormal. VENOUS PO2, CORD (test code = 0334703537) See_Comment L [Automated me ssage] The system which generated this result transmitted reference range: 17 - 41 mmHg. The reference range was not used to interpret this result as normal/abnormal. VENOUS BICARBONATE, CORD (test code = 9506924654) 23 See_Comment [[employer]oma bakari message] The system which generated this result transmitted reference range: 12 - 29 mEq/L. The reference range was not used to interpret this result as normal/abnormal. Lab Interpretation (test code = 61643-2) Abnormal [facility] Cord [id number] 06:03:38* Test Item Value Reference Range Interpretation Comme nts VENOUS BASE EXCESS, CORD (test code = 7572221888) -5.3 mEq/L VENOUS PH, CORD (test code = 3430057099) 7.25 7.25-7.45 VENOUS PC02, CORD (test code = 9596687764) 53 See_Comment H [Automated me ssage] The system which generated this result transmitted reference range: 27 - 49 mmHg. The reference range was not used to interpret this result as normal/abnormal. VENOUS PO2, CORD (test code = 0098709079) See_Comment L [Automated me ssage] The system which generated this result transmitted reference range: 17 - 41 mmHg. The reference range was not used to interpret this result as normal/abnormal. VENOUS BICARBONATE, CORD (test code = 3951749599) 23 See_Comment [[employer] message] The system which generated this result transmitted reference range: 12 - 29 mEq/L. The reference range was not used to interpret this result as normal/abnormal. Lab Interpretation (test code = 90772-2) [facility]normal [facility] WITH [id number] 05:08:06* Test Item Value Reference Range Interpretation Comme [facility] HIV Semi-quantitative (test code = 24008-3) 0.09 Negative YAMILETH (test code = YAMILETH) Non-reactive for HIV-1 antigen and HIV-1/HIV-2 antibodies. ?No laboratory evidence of HIV infection. ?Repeat in 2-4 weeks if acute HIV infection is suspected. [facility] WITH [id number] 05:08:06* Test Item Value Reference Range Interpretation Comme [facility] HIV Semi-quantitative (test code = 24457-6) 0.09 Negative YAMILETH (test code = YAMILETH) Non-reactive for HIV-1 antigen and HIV-1/HIV-2 antibodies. ?No laboratory evidence of HIV infection. ?Repeat in 2-4 weeks if acute HIV infection is suspected. [facility] B Surface [id number] 04:12:23 * Test Item Value Reference Range Interpretation Comme [facility] HBsAg Semi-Quantitative (windy t code = 5195-3) 0.04 Negative [facility] B Surface [id number] 04:12:23 * Test Item Value Reference Range Interpretation Comme nts HBsAg Semi-Quantitative (windy t code = 5195-3) 0.04 Negative [facility] with [id number] 02:52:03* Test Item Value Reference Range Interpretation Comme nts WBC (test code = 6690-2) 7.72 See_Comment [Automated messa ge] The system which generated this result transmitted reference range: 4.30 - 11.10 10*3/?L. The reference range was not used to interpret this result as normal/abnormal. RBC (test code = 789-8) 3.05 See_Comment L [Automated messa ge] The system which generated this result transmitted reference range: 3.93 - 5.25 10*6/?L. The reference range was not used to interpret this result as normal/abnormal. HGB (test code = 718-7) 9.3 g/dL 11.6-15.0 L HCT (test code = 4544-3) 28.3 % 35.7-45.2 L MCV (test code = 787-2) 92.8 fL 80.6-95.5 MCH (test code = 785-6) 30.5 pg 25.9-32.8 MCHC (test code = 786-4) 32.9 g/dL 31.6-35.1 RDW-SD (test code = 15126-1) 44.8 fL 39.0-49.9 RDW-CV (test code = 788-0) 13.3 % 12.0-15.5 PLT (test code = 777-3) 284 See_Comment [Automated messa ge] The system which generated this result transmitted reference range: 166 - 358 10*3/?L. The reference range was not used to interpret this result as normal/abnormal. MPV (test code = 04759-5) 10.5 fL 9.5-12.9 NRBC/100 WBC (test code = 7445653298) 0.0 See_Comment [Automated [employer] ssage] The system which generated this result transmitted reference range: 0.0 - 10.0 /100 WBCs. The reference range was not used to interpret this result as normal/abnormal. NRBC x10^3 (test code = 2784211241) See_Comment [Automated messa ge] The system which generated this result transmitted reference range: 10*3/?L. The reference range was not used to interpret this result as normal/abnormal. GRAN MAT (NEUT) % (test code = 770-8) 79.3 % IMM GRAN % (test code = 0632745351) 0.40 % LYMPH % (test code = 736-9) 14.1 % MONO % (test code = 5905-5) 6.0 % EOS % (test code = 713-8) 0.1 % BASO % (test code = 706-2) 0.1 % GRAN MAT x10^3(ANC) (test code = 4625373145) 6.12 10*3/uL 1.88-7.09 IMM GRAN x10^3 (test code = 8374569868) 0.03 10*3/uL 0.00-0.06 LYMPH x10^3 (test code = 731-0) 1.09 10*3/uL 1.32-3.29 L MONO x10^3 (test code = 742-7) 0.46 10*3/uL 0.33-0.92 EOS x10^3 (test code = 711-2) 0.03-0.39 L BASO x10^3 (test code = 704-7) 0.01-0.07 Lab Interpretation (test code = 50678-0) Abnormal [facility] with Ytipzmupqdgu1978-09-16 02:52:03* Test Item Value Reference Range Interpretation Comme nts WBC (test code = 6690-2) 7.72 See_Comment [Automated messa ge] The system which generated this result transmitted reference range: 4.30 - 11.10 10*3/?L. The reference range was not used to interpret this result as normal/abnormal. RBC (test code = 789-8) 3.05 See_Comment L [Automated messa ge] The system which generated this result transmitted reference range: 3.93 - 5.25 10*6/?L. The reference range was not used to interpret this result as normal/abnormal. HGB (test code = 718-7) 9.3 g/dL 11.6-15.0 L HCT (test code = 4544-3) 28.3 % 35.7-45.2 L MCV (test code = 787-2) 92.8 fL 80.6-95.5 MCH (test code = 785-6) 30.5 pg 25.9-32.8 MCHC (test code = 786-4) 32.9 g/dL 31.6-35.1 RDW-SD (test code = 44714-3) 44.8 fL 39.0-49.9 RDW-CV (test code = 788-0) 13.3 % 12.0-15.5 PLT (test code = 777-3) 284 See_Comment [Automated appsFreedoma ge] The system which generated this result transmitted reference range: 166 - 358 10*3/?L. The reference range was not used to interpret this result as normal/abnormal. MPV (test code = 08628-8) 10.5 fL 9.5-12.9 NRBC/100 WBC (test code = 4737087087) 0.0 See_Comment [Automated [employer] ssage] The system which generated this result transmitted reference range: 0.0 - 10.0 /100 WBCs. The reference range was not used to interpret this result as normal/abnormal. NRBC x10^3 (test code = 3400559287) See_Comment [Automated appsFreedoma ge] The system which generated this result transmitted reference range: 10*3/?L. The reference range was not used to interpret this result as normal/abnormal. GRAN MAT (NEUT) % (test code = 770-8) 79.3 % IMM GRAN % (test code = 0411565489) 0.40 % LYMPH % (test code = 736-9) 14.1 % MONO % (test code = 5905-5) 6.0 % EOS % (test code = 713-8) 0.1 % BASO % (test code = 706-2) 0.1 % GRAN MAT x10^3(ANC) (test code = 9761117451) 6.12 10*3/uL 1.88-7.09 IMM GRAN x10^3 (test code = 8320028786) 0.03 10*3/uL 0.00-0.06 LYMPH x10^3 (test code = 731-0) 1.09 10*3/uL 1.32-3.29 L MONO x10^3 (test code = 742-7) 0.46 10*3/uL 0.33-0.92 EOS x10^3 (test code = 711-2) 0.03-0.39 L BASO x10^3 (test code = 704-7) 0.01-0.07 Lab Interpretation (test code = 87433-6) [facility] [id number] 02:45:00* Test Item Value Reference Range Interpretation Comme nts ABO & RH (test code = 20) O POSITIVE IAT (test code = 1185) Negative [facility] [id number] 02:45:00* Test Item Value Reference Range Interpretation Comme nts ABO & RH (test code = 20) O POSITIVE IAT (test code = 1185) [facility] [id number] 14:17:00* Test Item Value Reference Range Interpretation Comme nts POCT U SP GRAV (test code = 3255) . 1.005-1.025 POCT PH U (test code = 3254) . 5-8 POCT U LEUK EST (test code = 3263) . Negative - N egative POCT U NIT (test code = 3262) . Negative - Negati ve POCT U PROT (test code = 3259) trace Negative - Negat raffi POCT U GLU (test code = 3256) neg Negative - Negati ve POCT U KETONE (test code = 3258) . Negative - Neg ative POCT U UROBILI (test code = 3260) . 0.2-1 POCT U BILI (test code = 3261) . Negative - Negat raffi POCT U BLD (test code = 3257) . Negative - Negati ve POCT U COLOR (test code = 3266) . POCT U APPEAR (test code = 3267) . [facility]IFIC [id number] 13:53:00* Test Item Value Reference Range Interpretation Comme nts POCT U SP GRAV (test code = 3255) . 1.005-1.025 POCT PH U (test code = 3254) . 5-8 POCT U LEUK EST (test code = 3263) . Negative - N egative POCT U NIT (test code = 3262) . Negative - Negati ve POCT U PROT (test code = 3259) trace Negative - Negat raffi POCT U GLU (test code = 3256) neg Negative - Negati ve POCT U KETONE (test code = 3258) . Negative - Neg ative POCT U UROBILI (test code = 3260) . 0.2-1 POCT U BILI (test code = 3261) . Negative - Negat raffi POCT U BLD (test code = 3257) . Negative - Negati ve POCT U COLOR (test code = 3266) . POCT U APPEAR (test code = 3267) . [facility] URINALYSIS W SPECIFIC [id number] 14:44:00* Test Item Value Reference Range Interpretation Comme nts POCT U SP GRAV (test code = 3255) . 1.005-1.025 POCT PH U (test code = 3254) 6 mg/dl 5-8 POCT U LEUK EST (test code = 3263) Trace Negative - Negative POCT U NIT (test code = 3262) Neg Negative - Negati ve POCT U PROT (test code = 3259) Trace Negative - Negat raffi POCT U GLU (test code = 3256) Neg Negative - Negati ve POCT U KETONE (test code = 3258) None Negative - Neg ative POCT U UROBILI (test code = 3260) . 0.2-1 POCT U BILI (test code = 3261) . Negative - Negat raffi POCT U BLD (test code = 3257) Trace Negative - Negati ve POCT U COLOR (test code = 3266) . POCT U APPEAR (test code = 3267) [facility] URINALYSIS W SPECIFIC [id number] 17:51:00* Test Item Value Reference Range Interpretation Comme nts POCT U SP GRAV (test code = 3255) . 1.005-1.025 POCT PH U (test code = 3254) . 5-8 POCT U LEUK EST (test code = 3263) . Negative - N egative POCT U NIT (test code = 3262) . Negative - Negati ve POCT U PROT (test code = 3259) TRACE Negative - Negat raffi POCT U GLU (test code = 3256) NEG Negative - Negati ve POCT U KETONE (test code = 3258) . Negative - Neg ative POCT U UROBILI (test code = 3260) . 0.2-1 POCT U BILI (test code = 3261) . Negative - Negat raffi POCT U BLD (test code = 3257) . Negative - Negati ve POCT U COLOR (test code = 3266) . POCT U APPEAR (test code = 3267) . [facility] URINALYSIS W SPECIFIC [id number] 14:55:00* Test Item Value Reference Range Interpretation Comme nts POCT U SP GRAV (test code = 3255) . 1.005-1.025 POCT PH U (test code = 3254) . 5-8 POCT U LEUK EST (test code = 3263) . Negative - N egative POCT U NIT (test code = 3262) . Negative - Negati ve POCT U PROT (test code = 3259) TRACE Negative - Negat raffi POCT U GLU (test code = 3256) NEG Negative - Negati ve POCT U KETONE (test code = 3258) . Negative - Neg ative POCT U UROBILI (test code = 3260) . 0.2-1 POCT U BILI (test code = 3261) . Negative - Negat raffi POCT U BLD (test code = 3257) . Negative - Negati ve POCT U COLOR (test code = 3266) . POCT U APPEAR (test code = 3267) . [facility] URINALYSIS W SPECIFIC [id number] 14:55:00* Test Item Value Reference Range Interpretation Comme nts POCT U SP GRAV (test code = 3255) . 1.005-1.025 POCT PH U (test code = 3254) . 5-8 POCT U LEUK EST (test code = 3263) . Negative - N egative POCT U NIT (test code = 3262) . Negative - Negati ve POCT U PROT (test code = 3259) TRACE Negative - Negat raffi POCT U GLU (test code = 3256) NEG Negative - Negati ve POCT U KETONE (test code = 3258) . Negative - Neg ative POCT U UROBILI (test code = 3260) . 0.2-1 POCT U BILI (test code = 3261) . Negative - Negat raffi POCT U BLD (test code = 3257) . Negative - Negati ve POCT U COLOR (test code = 3266) . POCT U APPEAR (test code = 3267) . [facility] URINALYSIS W SPECIFIC [id number] 14:55:00* Test Item Value Reference Range Interpretation Comme nts POCT U SP GRAV (test code = 3255) . 1.005-1.025 POCT PH U (test code = 3254) . 5-8 POCT U LEUK EST (test code = 3263) . Negative - N egative POCT U NIT (test code = 3262) . Negative - Negati ve POCT U PROT (test code = 3259) TRACE Negative - Negat raffi POCT U GLU (test code = 3256) NEG Negative - Negati ve POCT U KETONE (test code = 3258) . Negative - Neg ative POCT U UROBILI (test code = 3260) . 0.2-1 POCT U BILI (test code = 3261) . Negative - Negat raffi POCT U BLD (test code = 3257) . Negative - Negati ve POCT U COLOR (test code = 3266) . POCT U APPEAR (test code = 3267) . [facility] URINALYSIS W SPECIFIC [id number] 14:55:00* Test Item Value Reference Range Interpretation Comme nts POCT U SP GRAV (test code = 3255) . 1.005-1.025 POCT PH U (test code = 3254) . 5-8 POCT U LEUK EST (test code = 3263) . Negative - N egative POCT U NIT (test code = 3262) . Negative - Negati ve POCT U PROT (test code = 3259) TRACE Negative - Negat raffi POCT U GLU (test code = 3256) NEG Negative - Negati ve POCT U KETONE (test code = 3258) . Negative - Neg ative POCT U UROBILI (test code = 3260) . 0.2-1 POCT U BILI (test code = 3261) . Negative - Negat raffi POCT U BLD (test code = 3257) . Negative - Negati ve POCT U COLOR (test code = 3266) . POCT U APPEAR (test code = 3267) . [facility] URINALYSIS W SPECIFIC [id number] 14:55:00* Test Item Value Reference Range Interpretation Comme nts POCT U SP GRAV (test code = 3255) . 1.005-1.025 POCT PH U (test code = 3254) . 5-8 POCT U LEUK EST (test code = 3263) . Negative - N egative POCT U NIT (test code = 3262) . Negative - Negati ve POCT U PROT (test code = 3259) TRACE Negative - Negat raffi POCT U GLU (test code = 3256) NEG Negative - Negati ve POCT U KETONE (test code = 3258) . Negative - Neg ative POCT U UROBILI (test code = 3260) . 0.2-1 POCT U BILI (test code = 3261) . Negative - Negat raffi POCT U BLD (test code = 3257) . Negative - Negati ve POCT U COLOR (test code = 3266) . POCT U APPEAR (test code = 3267) . [facility] URINALYSIS W SPECIFIC [id number] 14:55:00* Test Item Value Reference Range Interpretation Comme nts POCT U SP GRAV (test code = 3255) . 1.005-1.025 POCT PH U (test code = 3254) . 5-8 POCT U LEUK EST (test code = 3263) . Negative - N egative POCT U NIT (test code = 3262) . Negative - Negati ve POCT U PROT (test code = 3259) TRACE Negative - Negat raffi POCT U GLU (test code = 3256) NEG Negative - Negati ve POCT U KETONE (test code = 3258) . Negative - Neg ative POCT U UROBILI (test code = 3260) . 0.2-1 POCT U BILI (test code = 3261) . Negative - Negat raffi POCT U BLD (test code = 3257) . Negative - Negati ve POCT U COLOR (test code = 3266) . POCT U APPEAR (test code = 3267) . [facility] URINALYSIS W SPECIFIC [id number] 16:22:00* Test Item Value Reference Range Interpretation Comme nts POCT U SP GRAV (test code = 3255) . 1.005-1.025 POCT PH U (test code = 3254) . 5-8 POCT U LEUK EST (test code = 3263) . Negative - Negative POCT U NIT (test code = 3262) . Negative - Negati ve POCT U PROT (test code = 3259) 1+ Negative - Negat raffi POCT U GLU (test code = 3256) negative Negative - Negati ve POCT U KETONE (test code = 3258) . Negative - Neg ative POCT U UROBILI (test code = 3260) . 0.2-1 POCT U BILI (test code = 3261) . Negative - Negat raffi POCT U BLD (test code = 3257) . Negative - Negati ve POCT U COLOR (test code = 3266) . POCT U APPEAR (test code = 3267) . [facility] URINALYSIS W SPECIFIC [id number] 16:09:00* Test Item Value Reference Range Interpretation Comme nts POCT U SP GRAV (test code = 3255) . 1.005-1.025 POCT PH U (test code = 3254) . 5-8 POCT U LEUK EST (test code = 3263) . Negative - Negative POCT U NIT (test code = 3262) . Negative - Negati ve POCT U PROT (test code = 3259) 1+ Negative - Negat raffi POCT U GLU (test code = 3256) negative Negative - Negati ve POCT U KETONE (test code = 3258) . Negative - Neg ative POCT U UROBILI (test code = 3260) . 0.2-1 POCT U BILI (test code = 3261) . Negative - Negat raffi POCT U BLD (test code = 3257) . Negative - Negati ve POCT U COLOR (test code = 3266) . POCT U APPEAR (test code = 3267) . [facility] URINALYSIS W SPECIFIC [id number] 16:09:00* Test Item Value Reference Range Interpretation Comme nts POCT U SP GRAV (test code = 3255) . 1.005-1.025 POCT PH U (test code = 3254) . 5-8 POCT U LEUK EST (test code = 3263) . Negative - Negative POCT U NIT (test code = 3262) . Negative - Negati ve POCT U PROT (test code = 3259) 1+ Negative - Negat raffi POCT U GLU (test code = 3256) negative Negative - Negati ve POCT U KETONE (test code = 3258) . Negative - Neg ative POCT U UROBILI (test code = 3260) . 0.2-1 POCT U BILI (test code = 3261) . Negative - Negat raffi POCT U BLD (test code = 3257) . Negative - Negati ve POCT U COLOR (test code = 3266) . POCT U APPEAR (test code = 3267) . [facility] URINALYSIS W SPECIFIC [id number] 16:20:00* Test Item Value Reference Range Interpretation Comme nts POCT U SP GRAV (test code = 3255) . 1.005-1.025 POCT PH U (test code = 3254) . 5-8 POCT U LEUK EST (test code = 3263) . Negative - N egative POCT U NIT (test code = 3262) . Negative - Negati ve POCT U PROT (test code = 3259) Neg Negative - Negat raffi POCT U GLU (test code = 3256) Neg Negative - Negati ve POCT U KETONE (test code = 3258) . Negative - Neg ative POCT U UROBILI (test code = 3260) . 0.2-1 POCT U BILI (test code = 3261) . Negative - Negat raffi POCT U BLD (test code = 3257) . Negative - Negati ve POCT U COLOR (test code = 3266) POCT U APPEAR (test code = 3267) [facility] [id number] 20:36:00* Test Item Value Reference Range Interpretation Comme nts POCT PREG (test code = 1605) Positive On board controls acceptable with C Line (test code = 3574) Yes POCT PREG LOT # (test code = 3575) POCT PREG TEST DATE ( test code = 3576) [facility] URINALYSIS W/O SPECIFIC [id number] 20:35:00* Test Item Value Reference Range Interpretation Comme nts POCT PH U (test code = 3254) 7 mg/dl 5-8 POCT U LEUK EST (test code = 3263) 2+ Negative - Negative POCT U NIT (test code = 3262) negative Negative - Negati ve POCT U PROT (test code = 3259) trace Negative - Negat raffi POCT U GLU (test code = 3256) normal Negative - Negati ve POCT U KETONE (test code = 3258) negative Negative - Neg ative POCT U BLD (test code = 3257) trace Negative - Negati ve [facility] HCG TRIAGE (ER ONLY)2022-06-30 08:09:00 * Test Item Value Reference Range Interpretation Comme [facility] URINE HCG TRIAGE (ER ONLY) ( test code = HCGTRIAGE) POSITIVE Negative Urine Test Result: POSITIVEAre internal controls (presence of a control line & clear background) OK? YesLot # of HCG Test Kit: [id number] Date of Kit: 09/24/23Test Performed by: kat rnTest Perfomed on: 06/29/22COMMENTS: positiveUA DIPSTICK [id number] 19:53:00* Test Item Value Reference Range Interpretation Comme nts UA GLUCOSE DIPSTIC POC (test code = GLUUP) NEGATIVE NEGATIVE UA BILIRUBIN DIPSTICK (test code = BILU) 1+ NEGATIVE A UA KETONE DIPSTICK POC (test code = KETUP) NEGATIVE NEGATIVE UA SPECIFIC GRAVITY (test code = SGU) 1.015 1.005-1.030 N UA BLOOD DIPSTIC POC (test code = BLUP) NEGATIVE NEGATIVE Performed by certified webfed offset press operator at [facility] UA PH DIPSTIC POC (test code = PHUP) 7 5.0-7.0 N UA PROTEIN DIPSTICK POC (test code = DPROUP) NEGATIVE NEGATIVE UA UROBILINIOGEN QUAL (test code = UROQL) 2+ 0.2-1.0 A UA NITRITE DIPSTICK POC (test code = NITUP) NEGATIVE Negative UA LEUKOCYTE ESTERASE W REFLEX (test code = LEUUR) TRACE NEGATIVE A Notes Date/Time Note Provider Source 2023-07-13 16:50:00 [id number]:50:00 [facility] ([facility])EMERGENCY PROVIDER REPORTREPORT#:[id number] REPORT STATUS: SignedDATE:07/13/23 TIME: 165 PATIENT: ALEXANDRIA ROY UNIT #: [id number]#: [id number] ROOM/BED:AGE: 37 SEX: F PCP PHYS: Rios Shelton MDSERVICE AUTHOR: Alberto Gutierrez MD * ALL edits or amendments must be made on the electronic/computer document * HPI-URI/Cough/Cold GeneralConfirmed Patient YesPatient Type New patientInitial Greet Date/Time 07/13/23 1638 PresentationChief Complaint Cough, non-productive, Fatigue, Fever, body aches, chest tightnessHx Obtained From PatientOnset Occurred Days ago (3)Symptom Duration Waxes and wanesContext of Onset Exposure, infectiousLocation Chest, Diffuse myalgiaQuality Aching, Tightness Free Text HPI NotesFree Text HPI [id number] female patient has no significant past medical history reports to the freestanding emergency department complaining of 3 days of flulike symptoms that include cough, bilateral chest tightness and bodyaches with positive sick contact (her 9-year-old son is also being evaluated for the same symptoms that began 5 week ago). This patient denies headache, neck pain, shortness of breath, abdominal pain, nausea, vomiting, diarrhea Review of Systems ROS StatementsAll systems rev neg except as marked. Focused Review of SystemsConstitutionalReports: Chills, Fever, Malaise. RespiratoryReports: Cough, non-productive. Additional Review of SystemsMusculoskeletalReports: Joint pain, Myalgia. Past Medical History - AdultStated Complaint COUGH, CONGESTIONAllergiesCoded Allergies:No Known Allergies (07/13/23) Home MedicationsActive ScriptsDOXYLAMINE/PYRIDOXINE (GUNNER BRAGA 05/05) 1 EACH PO ASDIR DOXYLAMINE/PYRIDOXINE (GUNNER BRAGA 05/05) 1 EACH PO ASDIR #15 TABS Prov: 06/29/22 Pt reports no significant: Past medical history, Past surgical history Physical Exam Vital SignsVital SignsFirst Documented: Result Date Time Pulse Ox 100 07/13 1635 B/P 115/67 18 1635 B/P Mean 83 07/13 1635 O2 Delivery Room air 07/13 1635 Temp 36.6 07/13 1635 Pulse 74 07/13 1635 Resp 16 07/13 1635 Last Documented: Result Date Time Pulse Ox 100 07/13 1635 B/P 115/67 07/13 1635 B/P Mean 83 07/13 1635 O2 Delivery Room air 07/13 1635 Temp 36.6 07/13 1635 Pulse 74 18 1635 Resp 16 18 1635 Review of Vital Signs Reviewed Focused PEGeneral/Const General/Const Awake, Alert, Well appearing, Not toxic appearingEyes Eyes PERRLEars/Nose/Throat Ears/Nose/Throat Atraumatic, Airway patent, Mucous membranes moist, Pharynx NL, No peritonsillar abscess, No pooling of secretions, No trismus, Tympanic membs NL Right Ear/Mastoid Fluid behind TM clear. Left Ear/Mastoid Fluid behind TM clear. Nose Turbinates swollen. MS Neck Neck Supple, No meningismus, Full range of motion, No adenopathy, No swelling, Non-tenderResp/Chest Respiratory/Chest Breath sounds NL, Breath sounds = bilat, No respiratory distress, No rales, No rhonchi, No wheezing, No retractions, No stridorCardiovascular Cardiovascular Heart rate NL, Regular rhythm, Heart sounds NL, Peripheral circulation NLAbdomen/GI Abdomen/GI Soft, Non-tender, No guarding, No reboundSkin Skin Color NL, No rash, Warm, Dry, Turgor NLNeurologic Neurologic Oriented X3, Speech NL, No motor deficits, No sensory deficits Interpretation Diagnostics Lab Results InterpretationConsiderations Independ review imaging, Reviewed prior recordsResultsLaboratory Tests: 07/13 07/13 1720 1719 Serology POC Influenza A Ag (Negative) Negative POC Influenza B Ag (Negative) Negative SARS CoV-2 RNA Rapid REMBERTO (Negative) Negative Recent Impressions:RADIOLOGY - XR CHEST 1 V 07/13 1646 Report Impression - Status: SIGNED Entered: 07/13/2023 1703 IMPRESSION:No acute cardiopulmonary abnormality.Impression By: Tip Shankar M.D. Lab Imaging StatementLaboratory radiographic studies reviewed and considered in the medical decision-making. Re-Evaluation MDM Differential DiagnosisDifferential Diagnosis Bronchitis, Influenza, Upper resp infection, Viral syndrome Free Text MDM NotesFree Text MDM NotesPatient reports flulike symptoms for the past 3 days, son has same symptoms for 5 days. Will swab for strep. Will do a chest x-ray due to cough and chest tightness Patient aware of findings discharge and follow-up instructions Patient Discharge Departure Vital Signs/ConditionVital SignsFirst Documented: Result Date Time Pulse Ox 100 07/13 1635 B/P 115/67 07/13 1635 B/P Mean 83 07/13 1635 O2 Delivery Room air 07/13 1635 Temp 36.6 07/13 1635 Pulse 74 07/13 1635 Resp 16 07/13 1635 Last Documented: Result Date Time Pulse Ox 100 07/13 1635 B/P 115/67 07/13 1635 B/P Mean 83 07/13 1635 O2 Delivery Room air 07/13 1635 Temp 36.6 07/13 1635 Pulse 74 07/13 1635 Resp 16 07/13 1635 All vital signs available at the time of this entry have been reviewed. Clinical ImpressionClinical ImpressionPrimary Impression: URI (upper respiratory infection) Disposition DecisionDischarge )( Discharged to Home Yes )( Time 1728 )( Date 07/13/23 Discharge/Care PlanCounseled Regarding Diagnosis, Lab results, Imaging studies, Prescriptions, Needfor follow-up, When to return to ED(Auto) PrescriptionsCurrent Visit ScriptsBENZONATATE (TESSALON) 100 MG PO Q8H PRN PRN COUGH BENZONATATE (TESSALON) 100 MG PO Q8H PRN PRN COUGH #30 CAPS NAPROXEN (NAPROSYN) 500 MG PO BID PRN PRN PAIN NAPROXEN (NAPROSYN) 500 MG PO BID PRN PRN PAIN #15 TABS predniSONE 50 MG PO DAILY predniSONE 50 MG PO DAILY #5 TABS Patient Instructions ED Fever Control (Adult), ED URI, Viral, No Abx (Adult)Departure FormsALVIN PCP LIST Discharge NoteI have spoken with the patient and/or caregivers. I have explained the patient'scondition, diagnoses and treatment plan based on the information available to meat this time. I have answered the patient's and/or caregiver's questions and addressed any concerns. The patient and/or caregivers have as good an understanding of the patient's diagnosis, condition and treatment plan as can beexpected at this point. The [...] these instructions in written format and have expressed an understanding of the discharge instructions. The patient and/or caregivers are aware that any significant change in condition or worsening of symptoms should prompt an immediate return to this or the closest emergency department or a call to 911. at [id number] #:[id number] OF REPORTEDEmergency department [id number]:50:00G.[id number] ilable for patient [id number]:47:00 [facility] 2022-06-29 18:57:00 [id number]:57:00 [facility] PROVIDER REPORTREPORT#:[id number] REPORT STATUS: SignedDATE:06/29/22 TIME: 1856 PATIENT: ALEXANDRIA ROY UNIT #: [id number]#: [id number] ROOM/BED:AGE: 36 SEX: F PCP PHYS:SERVICE DT: AUTHOR: Rios Shelton MD * ALL edits or amendments must be made on the electronic/computer document * HPI-Nausea/Vomit/Diarrhea GeneralInitial Greet Date/Time 06/29/221856 PresentationChief Complaint Nausea, Vomiting Free Text HPI NotesFree Text HPI Notes36 female here with about a week of morning nausea and vomiting which improved to the day. She has concern that she may be . Denies vaginal bleeding. No belly pain. Last menstrual cycle was mid March. She did have a positive test on urinalysis today. UA did not show evidence of infection. Patient has normal examination. 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 Review of Systems ROS StatementsAll systems rev neg except as marked. Focused Review of SystemsGIReports: Nausea, Vomiting. Past Medical History - AdultStated Complaint N/V,HAAllergiesCoded Allergies:No Known Allergies (06/29/22) Calculated Suicide Risk (nurs) No riskPt [...] 06/29 1853 Resp 18 06/29 1853 Last Documented: Result Date Time Pulse Ox 100 06/29 1853 B/P 109/57 06/29 1853 B/P Mean 74 06/29 1853 O2 Delivery Room air 06/29 1853 Temp 36.8 06/29 1853 Pulse 85 06/29 1853 Resp 18 06/29 1853 Review of Vital Signs Reviewed Basic Physical ExamBasic PE HEAD: Atraumatic/NC, EYES: PERRL, conj clear, ENT: Membranes moist, RESP: No resp distress, CV: Reg rate rhythm, EXT: No gross abnormality, SKIN: No rashes, warm/dry, NEURO: alert oriented, NEURO: gross movement NL, PSYCH: NL thought content Interpretation Diagnostics Lab Results InterpretationResultsLaboratory Tests: 06/29 1950 Urines POC Urine pH (5.0 - 7.0) 7 Ur Specific [place] (1.005 - 1.030) 1.015 POC Urine Protein (NEGATIVE) NEGATIVE POC Ur Glucose (UA) (NEGATIVE) NEGATIVE POC Urine Ketones (NEGATIVE) NEGATIVE POC Urine Blood (NEGATIVE) NEGATIVE POC Urine Nitrite (Negative) NEGATIVE Urine Bilirubin (NEGATIVE) 1+ H POC Urine Urobilinogen (0.2 - 1.0) 2+ H POC U Leukocyte Esteras (NEGATIVE) TRACE H Re-Evaluation [facility] ED CourseMedication(s) OrderedMedication(s) Ordered:Gastrointestinal Drugs Sig/Home Start time Last Medication Dose Route Stop Time Status Admin Ondansetron HCl 4 MG X1ED STA 06/29 1946 DC PO 06/29 1947 Patient Discharge Departure Vital Signs/ConditionVital SignsFirst Documented: Result Date Time Pulse Ox 100 06/29 185 B/P 109/57 06/29 185 B/P Mean 74 06/29 185 O2 Delivery Room air 06/29 185 Temp 36.8 06/29 1853 Pulse 85 06/29 185 Resp 18 06/29 1853 Last Documented: Result Date Time Pulse Ox 100 06/29 1853 B/P 109/57 06/29 185 B/P Mean 74 06/29 185 O2 Delivery Room air 06/29 1853 Temp [...] condition and treatment plan as can beexpected at this point. The [...] these instructions in written format and have expressed an understanding of the discharge instructions. The patient and/or caregivers are aware that any significant change in condition or worsening of symptoms should prompt an immediate return to this or the closest emergency department or a call to 911. at 1958RPT #:[id number] OF REPORTEDEmermercy hospital [facility] department [id number]:57:00G.[id number] ilable for patient [id number]:58:45 [facility]
[2024-01-11 14:20] LABS: Absolute Eosinophils 0.1 K/uL (0-0.5); Absolute Lymphocytes (CBC) 1.5 K/uL (0.7-4.9); Absolute Monocytes 0.4 K/uL (0.1-1.3); Absolute Neutrophil 3.5 K/uL (1.8-8.0); Basophils % 0.6 % (0-1.3); Eosinophils % 1.6 % (0-4.4); Hematocrit 30.5 % (36.0-45.0); MCH 29.4 pg (27.0-35.0); MCHC 32.7 g/dL (32.0-36.0); MCV 89.9 fL (80-100); MPV 8.2 fL (7.6-11.3); Monocytes % 7.3 % (3.3-12.3); Neutrophils % 63.5 % (41.7-73.7); Platelets 345 thou/uL (152-406); RBC Red Blood Cell Count 3.39 M/uL (3.86-4.86); Red Cell Distribution Width 14.7 % (12.1-15.2)
[2024-01-11 14:28] LABS: Specific Gravity 1.029 (1.005-1.030)
[2024-01-11 14:35] LABS: Albumin 3.6 g/dL (3.4-5.0); Albumin/Globulin Ratio 0.7 (1.1-1.8); Anion Gap 6.8 mEq/L (5.0-15.0); Bilirubin Total 0.3 mg/dL (0.2-1.0); Potassium 3.8 mEq/L (3.5-5.1); Protein, Total 8.6 g/dL (6.4-8.2)
[2024-01-11 14:39] LABS: Specific Gravity 1.029 (1.005-1.030); Urine Bacteria <20 /HPF (<20); Urine Bilirubin NEGATIVE (Negative); Urine Blood Negative (Negative); Urine Clarity Extremely Turbid (Clear); Urine Color Yellow (Yellow); Urine Crystals Unidentified Few /HPF (None Seen); Urine Culture Reflex Order NOT NEEDED; Urine Glucose NEGATIVE (Negative); Urine Ketones NEGATIVE (Negative); Urine Microscopic Reflex YN ORDER UMIC; Urine Mucus Slight /HPF (None Seen); Urine Nitrite NEGATIVE (Negative); Urine Protein TRACE (Negative); Urine RBC <5 /HPF (None Seen); Urine Sperm Present (None Seen); Urine Urobilinogen Normal (Normal); Urine WBC <5 /HPF (<5); Urine pH 5.5 (5.0-7.0)
[2024-01-11] MEDS ORDERED: KETOROLAC 30 MG/ML INJ ONE (14:39)
--- NOTE | 2024-01-11 16:20 | RAD REPORT ---
EXAM DESCRIPTION: US - Extrem Venous W Compress Gilberto - 01/11/2024 1:30 pm CLINICAL HISTORY: Pain, swelling COMPARISON: None. TECHNIQUE: Real-time sonographic evaluation of the bilateral lower extremity deep venous systems was performed. FINDINGS: Normal compressibility, flow augmentation, phasic flow and spontaneous flow is identified in both the left and right lower extremity deep venous systems. No intraluminal filling defects seen. IMPRESSION: No DVT in either lower extremity.
--- NOTE | 2024-01-11 17:01 | RAD REPORT ---
EXAM DESCRIPTION: CT - Spine Lumbar Wo Con - 01/11/2024 3:00 pm CLINICAL HISTORY: Pain COMPARISON: No comparisons TECHNIQUE: Axial noncontrast CT imaging of the lumbar spine was performed with coronal and sagittal re-formatted images. All CT scans are performed using dose optimization technique as appropriate and may include automated exposure control or mA/KV adjustment according to patient size. FINDINGS: No acute lumbar spine fracture seen. No aggressive marrow pattern or malalignment. Paraspinal tissues are normal in thickness. No paraspinal abscess or hematoma seen. Intervertebral disc disease assessment is inherently limited by CT. Within these limitations, no high -grade canal stenosis suspected. Endplate remodeling, Schmorl's node formation, and adjacent scleros is along the endplates at L5-S1. Endplate and facet spurring contributes to mild bilateral L5-S1 neur al foraminal narrowing. No significant central canal stenosis. IMPRESSION: No acute abnormalities. Mild degenerative changes predominantly at L5-S1, contributing to mild bilateral neural foraminal nikolay rowing. Please consider MRI follow-up for assessment of disc disease if clinically desired.
--- NOTE | 2024-01-11 18:16 | ER ---
Nurse's Notes [facility] Name: Steven Ortega Age: 38 yrs Sex: Female : 1985 Arrival Date: 01/11/2024 Time: 12:44 Bed 12 Private MD: Diagnosis: Low back pain;Pain in leg, unspecified;Pain in left ankle and joints of left foot;Pain in right ankle and joints of right foot Presentation: 01/10 12:51 Chief complaint: Patient states: B feet pain/swelling for 6 weeks. Back pain for 2 aa5 weeks since using cane to help her feet pain. Coronavirus screen: Client denies travel out of the [place] in the last 14 days. At this time, the client does not indicate any symptoms associated with coronavirus-19. Ebola Screen: Patient denies travel to an Ebola-affected area in the 21 days before illness onset. Initial Sepsis Screen: Does the patient meet any 2 criteria? No. Patient's initial sepsis screen is negative. Does the patient have a suspected source of infection? No. Patient's initial sepsis screen is negative. Risk Assessment: Do you want to hurt yourself or someone else? Patient reports no desire to harm self or others. Onset of symptoms was November 25, 2023. 12:51 Method Of Arrival: Ambulatory aa5 12:51 Acuity: HOANG 3 aa5 Triage Assessment: 12:52 General: Appears uncomfortable, Behavior is calm, cooperative, appropriate for age. ll1 Pain: Complains of pain in right foot and left foot Pain currently is 10 out of 10 on a pain scale. Quality of pain is described as aching, squeezing. Musculoskeletal: Reports B feet pain and swelling, back pain. 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 - Infectious Disease History:: Denies. - Social history:: Smoking status: Patient denies any tobacco usage or history of. Screenin:42 [facility] ED Fall Risk Assessment (Adult) History of falling in the last 3 months, as6 including since admission No falls in past 3 months (0 pts) Confusion or Disorientation No (0 pts) Intoxicated or Sedated No (0 pts) Impaired Gait No (0 pts) Mobility Assist Device Used Yes (1 pt) Altered Elimination No (0 pt) Score/Fall Risk Level 0 - 2 = Low Risk Oriented to surroundings, Maintained a safe environment, Educated pt \T\ family on fall prevention, incl call for assistance when getting out of bed, Assessed \T\ reinforced patient's understanding of fall precautions. Abuse screen: Denies threats or abuse. Denies injuries from another. Nutritional screening: No deficits noted. Tuberculosis screening: No symptoms or risk factors identified. Assessment: 14:32 Reassessment: Patient and/or family updated on plan of care and expected duration. Pain ll1 level reassessed. 16:42 Reassessment: Patient appears in no apparent distress at this time. c/o back pain. as6 18:41 Reassessment: Patient appears in no apparent distress at this time. Patient and/or as6 family updated on plan of care and expected duration. Pain level reassessed. Patient is alert, oriented x 3, equal unlabored respirations, skin warm/dry/pink. Patient states feeling better. Vital Signs: 12:51 BP 148 / 79; Pulse 66; Resp 18; Temp 97.9; Pulse Ox 100% ; Height 5 ft. 7 in. ; Pain aa5 10/10; 16:41 BP 101 / 63; Pulse 62; Resp 18; Pulse Ox 96% ; as6 18:40 BP 107 / 74; Pulse 61; Resp 16; Pulse Ox 97% ; as6 12:51 Pain Scale: Adult aa5 ED Course: 12:47 Patient arrived in ED. mr 12:49 Erick Weiner PA is PHCP. cp 12:49 Alvarado Bass MD is Attending Physician. cp 12:52 Triage completed. aa5 12:52 Arm band placed on. aa5 13:32 US Extremity Venous W Compression Gilberto In Process Unspecified. EDMS 14:13 CBC with Diff Sent. bc6 14:13 CMP Sent. bc6 14:13 Lipase Sent. bc6 14:13 Initial lab(s) drawn, by me, sent to lab. Missed attempt(s): 22 gauge in right bc6 antecubital area. Bleeding controlled, band aid applied, catheter tip intact. 14:18 Radiology exam delayed due to test not completed at this time. ls3 14:24 Test, Urine Sent. bc6 14:24 Urinalysis w/ reflexes Sent. bc6 14:27 Kana Barnhart, RN is Primary Nurse. as6 14:27 Patient placed in an exam room, on a stretcher. ll1 14:58 CT Lumbar Spine Wo Con In Process Unspecified. EDMS 16:42 Bed in low position. Call light in reach. Side rails up X 1. Warm blanket given. Pillow as6 given. 18:41 Provided Education on: rx teaching . as6 18:41 No provider procedures requiring assistance completed. IV discontinued, intact, as6 bleeding controlled, No redness/swelling at site. Pressure dressing applied. Administered Medications: 14:51 Drug: Ketorolac IVP 15 mg IVP once; if test negative Route: IVP; Site: right as6 antecubital; 17:20 Follow up: Response: No adverse reaction as6 Medication: 16:42 VIS not applicable for this client. as6 Outcome: 18:14 Discharge ordered by MD. cp 18:41 Discharged to home ambulatory, as6 18:41 Condition: stable 18:41 Discharge instructions given to patient, Instructed on discharge instructions, follow up and referral plans. medication usage, Demonstrated understanding of instructions, follow-up care, medications, Prescriptions given X 3, 18:41 Patient left the ED. as6 Signatures: Dispatcher [employer] EDMA Padma Dean, Reg Reg NapierValencia sutton RN RN aa5 Erick Weiner PA PA Michael Mckeon ls3 Cynthia Bustos RN RN ll1 Kana Barnhart, RN RN as6 Monica Bello bc6 Corrections: (The following items were deleted from the chart) 12:53 12:51 Pulse 66bpm; Resp 18bpm; Pulse Ox 100%; Temp 97.9F; Height 5 ft. 7 in.; Pain aa5 05/05, Adult; aa5
--- NOTE | 2024-01-11 18:16 | EDPHYS ---
Physician Documentation [facility] Name: Steven Ortega Age: 38 yrs Sex: Female : 1985 Arrival Date: 01/11/2024 Time: 12:44 Bed 12 Private MD: ED Physician Alvarado Bass HPI: 01/10 13:10 This 38 yrs old Black Female presents to ER via Ambulatory with complaints of Ankle cp Injury, Back Pain. 13:10 The patient presents with pain, that is acute. cp 13:10 The complaints affect the bilateral lower leg and bilateral feet. Context: resulted cp from an unknown cause, the patient can fully bear weight, the patient is able to ambulate, with moderate difficulty, can ambulate using a cane, Problem is a result from a previous injury: No. Onset: The symptoms/episode began/occurred 6 week(s) ago. Associated signs and symptoms: Pertinent positives: low back pain for weeks. Treatment prior to arrival includes: no previous treatment. Severity of symptoms: in the emergency department the symptoms are unchanged, despite home interventions. 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 - Infectious Disease History:: Denies. - Social history:: Smoking status: Patient denies any tobacco usage or history of. ROS: 13:15 Constitutional: Negative for body aches, chills, fever, poor PO intake, cp 13:15 Eyes: Negative for injury, pain, redness, and discharge, cp 13:15 Neck: Negative for pain with movement, pain at rest, stiffness, 13:15 Cardiovascular: Negative for chest pain, edema, palpitations, 13:15 Respiratory: Negative for cough, shortness of breath, wheezing, 13:15 Abdomen/GI: Negative for abdominal pain, nausea, vomiting, and diarrhea, 13:15 Back: Positive for pain at rest, pain with movement, of the low back, 13:15 : Negative for urinary symptoms, 13:15 MS/extremity: Positive for pain, of the right foot and left foot, Negative for injury or acute deformity, decreased range of motion, paresthesias, 13:15 Neuro: Negative for altered mental status, dizziness, headache, weakness, 13:15 All other systems are negative, Exam: 13:20 Constitutional: The patient appears in no acute distress, alert, awake, non-toxic, well cp developed, well nourished, obese, 13:20 Head/Face: Normocephalic, atraumatic. cp 13:20 Eyes: Periorbital structures: appear normal, Conjunctiva: normal, no exudate, no injection, Sclera: no appreciated abnormality, Lids and lashes: appear normal, bilaterally, 13:20 ENT: External ear(s): are unremarkable, Nose: is normal, Mouth: Lips: moist, Oral mucosa: pink and intact, moist, Posterior pharynx: Airway: no evidence of obstruction, patent, 13:20 Neck: ROM/movement: is normal, is supple, without pain, no range of motions limitations, 13:20 Chest/axilla: Inspection: normal, 13:20 Cardiovascular: Rate: normal, Rhythm: regular, Edema: is not appreciated, JVD: is not appreciated, 13:20 Respiratory: the patient does not display signs of respiratory distress, Respirations: normal, no use of accessory muscles, no retractions, labored breathing, is not present, Breath sounds: are clear throughout, no decreased breath sounds, no stridor, no wheezing, 13:20 Abdomen/GI: Exam negative for discomfort, distension, guarding, Inspection: abdomen appears normal, 13:20 Back: pain, that is moderate, of the lumbar area, CVA tenderness, is absent, 13:20 Musculoskeletal/extremity: Extremities: grossly normal except: noted in the right foot and left foot and right lower leg and left lower leg: pain, tenderness, Pulses: noted to be 2+ in the right dorsalis pedis artery and left dorsalis pedis artery, Sensation intact. 13:20 Skin: cellulitis, is not appreciated, no rash present. 13:20 Neuro: Orientation: to person, place \T\ time. Mentation: is normal, Motor: no acute changes, moves all fours, Vital Signs: 12:51 BP 148 / 79; Pulse 66; Resp 18; Temp 97.9; Pulse Ox 100% ; Height 5 ft. 7 in. ; Pain aa5 10/10; 16:41 BP 101 / 63; Pulse 62; Resp 18; Pulse Ox 96% ; as6 18:40 BP 107 / 74; Pulse 61; Resp 16; Pulse Ox 97% ; as6 12:51 Pain Scale: Adult aa5 MDM: 12:49 Patient medically screened. cp 18:13 Data reviewed: vital signs, nurses notes, lab test result(s), radiologic studies, CT cp scan, ultrasound, and as a result, I will discharge patient. 18:13 Differential diagnosis: sciatica, neuropathy, DVT, spinal stenosis, cauda equina. I cp considered the following discharge prescriptions or medication management in the emergency department Medications were administered in the Emergency Department. See MAR. Counseling: I had a detailed discussion with the patient and/or guardian regarding the historical points, exam findings, and any diagnostic results supporting the discharge/admit diagnosis, lab results, radiology results. Response to treatment: the patient's symptoms have mildly improved after treatment, and as a result, I will discharge patient. 01/10 13:03 Order name: CBC with Diff; Complete Time: 17:28 01/10 17:28 Interpretation: Normal except: RBC 3.39; HGB 10.0; HCT 30.5. 01/10 13:03 Order name: CMP; Complete Time: 17:28 01/10 17:28 Interpretation: Normal except: CL 108; AST 12. 01/10 13:03 Order name: Lipase; Complete Time: 17:28 01/10 13:03 Order name: Test, Urine; Complete Time: 17:28 01/10 13:03 Order name: Urinalysis w/ reflexes; Complete Time: 17:28 01/10 17:28 Interpretation: Normal except: [facility] Extremely Turbid; UPROT TRACE; SPERM Present. 01/10 13:03 Order name: US Extremity Venous W Compression Gilberto; Complete Time: 17:28 01/10 17:28 Interpretation: Report reviewed. 01/10 14:09 Order name: CT Lumbar Spine Wo Con; Complete Time: 17:28 01/10 17:29 Interpretation: Report reviewed. 01/10 13:03 Order name: IV Saline Lock; Complete Time: 14:52 01/10 13:03 Order name: Labs collected and sent; Complete Time: 14:13 cp Administered Medications: 14:51 Drug: Ketorolac IVP 15 mg IVP once; if test negative Route: IVP; Site: right as6 antecubital; 17:20 Follow up: Response: No adverse reaction as6 Disposition: 01/11 16:27 Co-signature as Attending Physician, Alvarado Bass MD I reviewed the patient's care rn provided by the Advanced Practice Provider and agree with the diagnosis and treatment plan. Disposition Summary: 01/11/24 18:14 Discharge Ordered Notes: Location: Home cp Problem: new cp Symptoms: have improved cp Condition: Stable cp Diagnosis - Low back pain cp - Pain in leg, unspecified cp - Pain in left ankle and joints of left foot cp - Pain in right ankle and joints of right foot cp Followup: cp - With: Private Physician - When: 1 week - Reason: Recheck today's complaints Discharge Instructions: - Discharge Summary Sheet cp - Acute Back Pain, Adult cp - Musculoskeletal Pain cp - Ankle Pain cp - Back Exercises cp - Form - Excuse from Work, School, or Physical Activity cp - Foot Pain cp Forms: - Medication Reconciliation Form cp - Antibiotic Education cp - Prescription Opioid Use cp - Patient Portal Instructions cp - Leadership Thank You Letter cp - Work release form ll1 Prescriptions: - Naprosyn 500 mg Oral Tablet - take 1 tablet ORAL route 2 times per day take with food; 30 tablet; Refills: 0, cp Product Selection Permitted - Neurontin 300 mg Oral capsule - take 1 capsule ORAL route At bedtime may increase to every 12 hours after 7 cp days; 30 capsule; Refills: 0, Product Selection Permitted - methocarbamol 750 mg Oral tablet - take 1 tablet ORAL route 3 times per day; 30 tablet; Refills: 0, Product cp Selection Permitted Signatures: Dispatcher [employer] EDAlvarado Mtz MD MD rn Calderon, Audri, RN RN aa5 Erick Weiner PA PA cp Kana Barnhart RN RN as6 Corrections: (The following items were deleted from the chart) 01/10 13:03 13:03 CBC+H.LAB.BRZ ordered. EDMS EDMS 13:04 13:03 COMPREHENSIVE METABOLIC PANEL+C.LAB.BRZ ordered. EDMS EDMS 13:04 13:03 LIPASE+C.LAB.BRZ ordered. EDMS EDMS 13:04 13:03 Test, Urine+UC.LAB.BRZ ordered. EDMS EDMS 13: 13:03 Urinalysis+U.LAB.BRZ ordered. EDMS EDMS 13:04 13:04 Extrem Venous W Compression Gilberto+US.RAD.BRZ ordered. EDMS EDMS 17: 17:28 Normal except: CL 108. cp cp
[2024-01-11 19:30] VITALS: BP 107/74; TEMP 97.9; O2SAT 97
== END 2024-01-11 18:41 | disposition home or self-care (01) ==
LOC: ER 12:44
DX: M54.50 Low back pain, unspecified (principal); M79.605 Pain in left leg; M25.572 Pain in left ankle and joints of left foot; M25.571 Pain in right ankle and joints of right foot
CPT/HCPCS: 36415; 72131; 80053; 81001; 81025; 83690; 85025; 93970; 96374; 99284

== ENCOUNTER 2024-04-28 10:53 | Emergency (ER) | payer OTHER ==
--- OUTSIDE RECORDS SUMMARY | 2024-04-28 10:59 | XMS REPORT | Continuity of Care Document ---
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 00:00:[address] [facility] TDAP 2014-01-06 00:00:[address] [facility] TDAP 2014-01-06 00:00:[address] [facility] TDAP 2014-01-06 00:00:[address] [facility] TDAP 2014-01-06 00:00:[address] [facility] TDAP 2014-01-06 00:00:[address] [facility] TDAP 2014-01-06 00:00:[address] [facility] TDAP 2014-01-06 00:00:[address] [facility] TDAP 2014-01-06 00:00:[address] [facility] TDAP 2014-01-06 00:00:[address] [facility] TDAP 2014-01-06 00:00:00 Completed [facility] TDAP 2014-01-06 00:00:00 Completed [facility] TDAP 2014-01-06 00:00:00 Completed [facility] TDAP 2014-01-06 00:00:00 Completed [facility] TDAP 2014-01-06 00:00:[address] [facility] TDAP 2014-01-06 00:00:00 Completed [facility] TDAP 2014-01-06 00:00:00 Completed [facility] TDAP 2014-01-06 00:00:00 Completed [facility] TDAP 2014-01-06 00:00:[address] [facility] TDAP 2014-01-06 00:00:00 Completed [facility] TDAP 2014-01-06 00:00:00 Completed [facility] TDAP 2014-01-06 00:00:00 Completed [facility] TDAP 2014-01-06 00:00:00 Completed [facility] TDAP 2014-01-06 00:00:[address] [facility] TDAP 2014-01-06 00:00:00 Completed [facility] TDAP 2014-01-06 00:00:00 Completed [facility] TDAP 2014-01-06 00:00:[address] [facility] TDAP 2014-01-06 00:00:[address] [facility] TDAP 2014-01-06 00:00:[address] [facility] TDAP 2014-01-06 00:00:[address] [facility] TDAP 2014-01-06 00:00:[address] [facility] TDAP 2014-01-06 00:00:00 Completed [facility] TD, NOS 2002-07-27 00:00:00 Completed [facility] TD, NOS 2002-07-27 00:00:00 Completed [facility] TD, NOS 2002-07-27 00:00:00 Completed [facility] TD, NOS 2002-07-27 00:00:00 Completed [facility] TD, NOS 2002-07-27 00:00:00 Completed [facility] TD, NOS 2002-07-27 00:00:00 Completed [facility] TD, NOS 2002-07-27 00:00:00 Completed [facility] TD, NOS 2002-07-27 00:00:00 Completed [facility] TD, NOS 2002-07-27 00:00:00 Completed [facility] TD, NOS 2002-07-27 00:00:00 Completed [facility] TD, NOS 2002-07-27 00:00:00 Completed [facility] TD, NOS 2002-07-27 00:00:00 Completed [facility] TD, NOS 2002-07-27 00:00:00 Completed [facility] TD, NOS 2002-07-27 00:00:00 Completed [facility] TD, NOS 2002-07-27 00:00:00 Completed [facility] TD, NOS 2002-07-27 00:00:00 Completed [facility] TD, NOS 2002-07-27 00:00:00 Completed [facility] TD, NOS 2002-07-27 00:00:00 Completed [facility] TD, NOS 2002-07-27 00:00:00 Completed [facility] TD, NOS 2002-07-27 00:00:00 Completed [facility] TD, NOS 2002-07-27 00:00:00 Completed [facility] TD, NOS 2002-07-27 00:00:00 Completed [facility] TD, NOS 2002-07-27 00:00:00 Completed [facility] TD, NOS 2002-07-27 00:00:00 Completed [facility] TD, NOS 2002-07-27 00:00:00 Completed [facility] TD, NOS 2002-07-27 00:00:00 Completed [facility] TD, NOS 2002-07-27 00:00:00 Completed [facility] TD, NOS 2002-07-27 00:00:00 Completed [facility] Td 2002-07-27 00:00:00 Completed [facility] Td 2002-07-27 00:00:00 Completed [facility] Td 2002-07-27 00:00:00 Completed [facility] Td 2002-07-27 00:00:00 Completed [facility] Td 2002-07-27 00:00:00 Completed [facility] Td 2002-07-27 00:00:00 Completed [facility] Td 2002-07-27 00:00:00 Completed [facility] TD, NOS 2002-07-27 00:00:00 Completed [facility] TD, NOS 2002-07-27 00:00:00 Completed [facility] TD, NOS 2002-07-27 00:00:00 Completed [facility] TD, NOS 2002-07-27 00:00:00 Completed [facility] TD, NOS 2002-07-27 00:00:00 Completed [facility] TD, NOS 2002-07-27 00:00:[address] [facility] TD, NOS 2002-07-27 00:00:[address] [facility] TD, NOS 2002-07-27 00:00:[address] [facility] TD, NOS 2002-07-27 00:00:[address] [facility] TD, NOS 2002-07-27 00:00:[address] [facility] TD, NOS 2002-07-27 00:00:[address] [facility] TD, NOS Unknown Completed [facility] TDAP Unknown Completed [facility] TD, NOS Unknown Completed [facility] TDAP Unknown Completed [facility] TD, NOS Unknown Completed [facility] TDAP Unknown Com[facility] TD, NOS Unknown Com[facility] TDAP Unknown [facility] TD, NOS Unknown Com[facility] TDAP Unknown [facility] TD, NOS Unknown Com[facility] TDAP Unknown [facility] TD, NOS Unknown Com[facility] TDAP Unknown [facility] TD, NOS Unknown Completed [facility] HPV9 Unknown [address] [facility] TDAP Unknown Com[facility] TD, NOS Unknown Com[facility] TDAP Unknown [facility] HPV9 Unknown [address] [facility] TD, NOS Unknown Com[facility] TDAP Unknown [address] HPV9 Unknown [address] [facility] TD, NOS Unknown Com[facility] TDAP Unknown Com[facility] HPV9 Unknown [address] [facility] TD, NOS Unknown Com[facility] TDAP Unknown [facility] HPV9 Unknown [address] [facility] TD, NOS Unknown Com[facility] TDAP Unknown [address] HPV9 Unknown [address] [facility] TD, NOS Unknown Com[facility] TDAP Unknown [facility] HPV9 Unknown [address] [facility] TD, NOS Unknown Com[facility] TDAP Unknown [address] HPV9 Unknown [address] [facility] TD, NOS Unknown Com[facility] TDAP Unknown Completed [facility] HPV9 Unknown Completed [facility] TD, NOS Unknown Completed [facility] TDAP Unknown Completed [facility] HPV9 Unknown Completed [facility] Vital Signs Vital Name Observation Time Observation Value Comments S harsh Systolic blood pressure 2024-02-24 19:30:00 135 mm[Hg] [facility] Diastolic blood pressure 2024-02-24 19:30:00 85 mm[Hg] [facility] Heart rate 2024-02-24 19:30:00 80 /min [facility] Body temperature 2024-02-24 19:30:[address] [facility] Respiratory rate 2024-02-24 19:30:00 17 /min [facility] Body height 2024-02-24 19:30:00 170.2 cm [facility] Body weight 2024-02-24 19:30:00 141.885 kg [facility] BMI 2024-02-24 19:30:00 48.99 kg/m2 [facility] Oxygen saturation in Arterial blood by Pulse oximetry 2024-02-24 19:30:00 99 /min [facility] Systolic blood pressure 2024-02-10 18:24:00 114 mm[Hg] [facility] Diastolic blood pressure 2024-02-10 18:24:00 70 mm[Hg] [facility] Heart rate 2024-02-10 18:24:00 78 /min [facility] Body temperature 2024-02-10 18:24:[address] [facility] Respiratory rate 2024-02-10 18:24:00 18 /min [facility] Body height 2024-02-10 18:24:00 170.2 cm [facility] Body weight 2024-02-10 18:24:00 143.065 kg [facility] BMI 2024-02-10 18:24:00 49.40 kg/m2 [facility] Oxygen saturation in Arterial blood by Pulse oximetry 2024-02-10 18:24:00 98 /min [facility] Systolic blood pressure 2023-07-13 21:08:00 123 mm[Hg] [facility] Diastolic blood pressure 2023-07-13 21:08:00 81 mm[Hg] [facility] Heart rate 2023-07-13 21:08:00 69 /min [facility] Body temperature 2023-07-13 21:08:[address] [facility] Respiratory rate 2023-07-13 21:08:00 18 /min [facility] Body height 2023-07-13 21:08:00 170.2 cm [facility] Body weight 2023-07-13 21:08:00 136.079 kg [facility] BMI 2023-07-13 21:08:00 46.99 kg/m2 [facility] Oxygen saturation in Arterial blood by Pulse oximetry 2023-07-13 21:08:00 98 /min [facility] Systolic blood pressure 2023-06-24 15:58:00 100 mm[Hg] [facility] Diastolic blood pressure 2023-06-24 15:58:00 62 mm[Hg] [facility] Heart rate 2023-06-24 15:58:00 79 /min [facility] Body temperature 2023-06-24 15:58:[address] [facility] Respiratory rate 2023-06-24 15:58:00 18 /min [facility] Body height 2023-06-24 15:58:00 170.2 cm [facility] Body weight 2023-06-24 15:58:00 134.038 kg [facility] BMI 2023-06-24 15:58:00 46.28 kg/m2 [facility] Systolic blood pressure 2023-06-20 16:37:00 142 mm[Hg] [facility] Diastolic blood pressure 2023-06-20 16:37:00 74 mm[Hg] [facility] Heart rate 2023-06-20 16:37:00 84 /min [facility] Body temperature 2023-06-20 16:37:[address] [facility] Respiratory rate 2023-06-20 16:37:00 12 /min [facility] Body height 2023-06-20 16:37:00 170.2 cm [facility] Body weight 2023-06-20 16:37:00 128.822 kg [facility] BMI 2023-06-20 16:37:00 44.48 kg/m2 [facility] Oxygen saturation in Arterial blood by Pulse oximetry 2023-06-20 16:37:00 99 /min [facility] Systolic blood pressure 2023-06-13 18:03:00 127 mm[Hg] [facility] Diastolic blood pressure 2023-06-13 18:03:00 78 mm[Hg] [facility] Heart rate 2023-06-13 18:03:00 66 /min [facility] Body temperature 2023-06-13 18:03:[address] [facility] Respiratory rate 2023-06-13 18:03:00 16 /min [facility] Body height 2023-06-13 18:03:00 170.2 cm [facility] Body weight 2023-06-13 18:03:00 131.498 kg [facility] BMI 2023-06-13 18:03:00 45.40 kg/m2 [facility] Oxygen saturation in Arterial blood by Pulse oximetry 2023-06-13 18:03:00 100 /min [facility] Systolic blood pressure 2023-04-24 15:25:00 127 mm[Hg] [facility] Diastolic blood pressure 2023-04-24 15:25:00 77 mm[Hg] [facility] Heart rate 2023-04-24 15:25:00 63 /min [facility] Body temperature 2023-04-24 15:25:[address] [facility] Respiratory rate 2023-04-24 15:25:00 14 /min [facility] Body height 2023-04-24 15:25:00 170.2 cm [facility] Body weight 2023-04-24 15:25:00 125.147 kg [facility] BMI 2023-04-24 15:25:00 43[facility]21 [facility]terial [facility] by Pulse oximetry 2023-04-24 15:25:00 100 /min [facility] Systolic blood pressure 2023-01-30 14:51:00 128 mm[Hg] [facility] Diastolic blood pressure 2023-01-30 14:51:00 71 mm[Hg] [facility] Heart rate 2023-01-30 14:41:00 79 /min [facility] Body temperature 2023-01-30 14:41:[address] [facility] Respiratory rate 2023-01-30 14:41:00 20 /min [facility] Body height 2023-01-30 14:41:00 170.2 cm [facility] Body weight 2023-01-30 14:41:00 111.993 kg [facility] BMI 2023-01-30 14:41:00 38.67 kg/m2 [facility] Systolic blood pressure 2023-01-30 14:29:00 128 mm[Hg] [facility] Diastolic blood pressure 2023-01-30 14:29:00 71 mm[Hg] [facility] Heart rate 2023-01-30 14:29:00 71 /min [facility] Body temperature 2023-01-30 14:28:[address] [facility] Respiratory rate 2023-01-30 14:28:00 20 /min [facility] Body height 2023-01-30 14:28:00 170.2 cm [facility] Body weight 2023-01-30 14:28:00 111.84 kg [facility] BMI 2023-01-30 14:28:00 38.62 kg/m2 [facility] Systolic blood pressure 2023-01-22 17:47:00 145 mm[Hg] [facility] Diastolic blood pressure 2023-01-22 17:47:00 76 mm[Hg] [facility] Heart rate 2023-01-22 17:47:00 84 /min [facility] Body temperature 2023-01-22 17:47:[address] [facility] Respiratory rate 2023-01-22 17:47:00 18 /min [facility] Oxygen saturation in Arterial blood by Pulse oximetry 2023-01-22 17:47:00 97 /min [facility] Body height 2023-01-19 01:24:00 170.2 cm [facility] Body weight 2023-01-19 01:24:00 112.038 kg [facility] BMI 2023-01-19 01:24:00 38.69 kg/m2 [facility] Systolic blood pressure 2023-01-19 12:52:00 107 mm[Hg] [facility] Diastolic blood pressure 2023-01-19 12:52:00 70 mm[Hg] [facility] Heart rate 2023-01-19 12:52:00 75 /min [facility] Body temperature 2023-01-19 12:52:[address] [facility] Respiratory rate 2023-01-19 12:52:00 18 /min [facility] Oxygen saturation in Arterial blood by Pulse oximetry 2023-01-19 12:52:00 98 /min [facility] Body height 2023-01-19 01:24:00 170.2 cm [facility] Body weight 2023-01-19 01:24:00 112.038 kg [facility] BMI 2023-01-19 01:24:00 38.69 kg/m2 [facility] Systolic blood pressure 2023-01-16 14:16:00 116 mm[Hg] [facility] Diastolic blood pressure 2023-01-16 14:16:00 73 mm[Hg] [facility] Heart rate 2023-01-16 14:16:00 77 /min [facility] Body temperature 2023-01-16 14:16:[address] [facility] Respiratory rate 2023-01-16 14:16:00 18 /min [facility] Body height 2023-01-16 14:16:00 170.2 cm [facility] Body weight 2023-01-16 14:16:00 112.628 kg [facility] BMI 2023-01-16 14:16:00 38.89 kg/m2 [facility] Systolic blood pressure 2023-01-09 13:50:00 124 mm[Hg] [facility] Diastolic blood pressure 2023-01-09 13:50:00 75 mm[Hg] [facility] Heart rate 2023-01-09 13:50:00 87 /min [facility] Body temperature 2023-01-09 13:50:[address] [facility] Respiratory rate 2023-01-09 13:50:00 18 /min [facility] Body height 2023-01-09 13:50:00 170.2 cm [facility] Body weight 2023-01-09 13:50:00 112.719 kg [facility] BMI 2023-01-09 13:50:00 38.92 kg/m2 [facility] Systolic blood pressure 2022-12-31 14:39:00 124 mm[Hg] [facility] Diastolic blood pressure 2022-12-31 14:39:00 77 mm[Hg] [facility] Heart rate 2022-12-31 14:39:00 83 /min [facility] Body temperature 2022-12-31 14:39:[address] [facility] Respiratory rate 2022-12-31 14:39:00 18 /min [facility] Body height 2022-12-31 14:39:00 170.2 cm [facility] Body weight 2022-12-31 14:39:00 114.505 kg [facility] BMI 2022-12-31 14:39:00 39.54 kg/m2 [facility] Systolic blood pressure 2022-11-26 16:22:00 123 mm[Hg] [facility] Diastolic blood pressure 2022-11-26 16:22:00 80 mm[Hg] [facility] Heart rate 2022-11-26 16:22:00 81 /min [facility] Body temperature 2022-11-26 16:22:[address] [facility] Respiratory rate 2022-11-26 16:22:00 18 /min [facility] Body height 2022-11-26 16:22:00 170.2 cm [facility] Body weight 2022-11-26 16:22:00 115.032 kg [facility] BMI 2022-11-26 16:22:00 39.72 kg/m2 [facility] Systolic blood pressure 2022-11-18 00:18:00 119 mm[Hg] [facility] Diastolic blood pressure 2022-11-18 00:18:00 55 mm[Hg] [facility] Heart rate 2022-11-18 00:18:00 95 /min [facility] Body temperature 2022-11-18 00:18:[address] [facility] Respiratory rate 2022-11-18 00:18:00 18 /min [facility] Body height 2022-11-18 00:18:00 170.2 cm [facility] Body weight 2022-11-18 00:18:00 117.935 kg [facility] BMI 2022-11-18 00:18:00 40.72 kg/m2 [facility] Oxygen saturation in Arterial blood by Pulse oximetry 2022-11-18 00:18:00 100 /min [facility] Systolic blood pressure 2022-10-23 14:50:00 127 mm[Hg] [facility] Diastolic blood pressure 2022-10-23 14:50:00 71 mm[Hg] [facility] Heart rate 2022-10-23 14:50:00 87 /min [facility] Body temperature 2022-10-23 14:50:[address] [facility] Respiratory rate 2022-10-23 14:50:00 18 /min [facility] Body height 2022-10-23 14:50:00 170.2 cm [facility] Body weight 2022-10-23 14:50:00 119.024 kg [facility] BMI 2022-10-23 14:50:00 41.10 kg/m2 [facility] Systolic blood pressure 2022-10-02 16:17:00 117 mm[Hg] [facility] Diastolic blood pressure 2022-10-02 16:17:00 70 mm[Hg] [facility] Heart rate 2022-10-02 16:17:00 85 /min [facility] Body temperature 2022-10-02 16:17:[address] [facility] Respiratory rate 2022-10-02 16:17:00 18 /min [facility] Body height 2022-10-02 16:17:00 170.2 cm [facility] Body weight 2022-10-02 16:17:00 114.034 kg [facility] BMI 2022-10-02 16:17:00 39.37 kg/m2 [facility] Systolic blood pressure 2022-09-17 05:00:00 132 mm[Hg] [facility] Diastolic blood pressure 2022-09-17 05:00:00 75 mm[Hg] [facility] Heart rate 2022-09-17 05:00:00 82 /min [facility] Oxygen saturation in Arterial blood by Pulse oximetry 2022-09-17 05:00:00 100 /min [facility] Body temperature 2022-09-17 04:46:[address] [facility] Respiratory rate 2022-09-17 04:46:00 17 /min [facility] Body height 2022-09-17 04:46:00 170.2 cm [facility] Body weight 2022-09-17 04:46:00 112.946 kg [facility] BMI 2022-09-17 04:46:00 39.00 kg/m2 [facility] Systolic blood pressure 2022-09-04 16:03:00 115 mm[Hg] [facility] Diastolic blood pressure 2022-09-04 16:03:00 67 mm[Hg] [facility] Heart rate 2022-09-04 16:03:00 83 /min [facility] Body temperature 2022-09-04 16:03:[address] [facility] Respiratory rate 2022-09-04 16:03:00 20 /min [facility] Body height 2022-09-04 16:03:00 170.2 cm [facility] Body weight 2022-09-04 16:03:00 110.587 kg [facility] BMI 2022-09-04 16:03:00 38.18 kg/m2 [facility] Body weight 2022-08-06 16:19:00 113.881 kg [facility] BMI 2022-08-06 16:19:00 39.32 kg/m2 [facility] Systolic blood pressure 2022-08-06 16:19:00 119 mm[Hg] [facility] Diastolic blood pressure 2022-08-06 16:19:00 70 mm[Hg] [facility] Heart rate 2022-08-06 16:19:00 81 /min [facility] Body temperature 2022-08-06 16:19:[address] [facility] Respiratory rate 2022-08-06 16:19:00 18 /min [facility] Body height 2022-08-06 16:19:00 170.2 cm [facility] Systolic blood pressure 2022-07-09 20:30:00 124 mm[Hg] [facility] Diastolic blood pressure 2022-07-09 20:30:00 71 mm[Hg] [facility] Heart rate 2022-07-09 20:30:00 69 /min [facility] Body temperature 2022-07-09 20:30:[address] [facility] Respiratory rate 2022-07-09 20:30:00 18 /min [facility] Body height 2022-07-09 20:30:00 170.2 cm [facility] Body weight 2022-07-09 20:30:00 113.581 kg [facility] BMI 2022-07-09 20:30:00 39.22 kg/m2 [facility] Procedures Procedure Date / Time Performed Performing Clinician Source ASSIGNMENT OF BENEFITS 2023-07-13 21:11:38 Docbrian r Unassigned, [place] [facility] RAPID STREP SCREEN FOR GROUP A 2023-07-13 21:00:[address] [facility] CONSENT/REFUSAL FOR DIAGNOSIS AND TREATMENT 2023-07-13 20:45:18 Doctor Unassigned, [place] [facility] POCT TEST 2023-06-24 17:10:[address] [facility] GARDASIL 9 (HPV 9V) VACCINE 2023-06-24 16:05:[address] [facility] CONSENT/REFUSAL FOR DIAGNOSIS AND TREATMENT 2023-06-20 16:33:31 Doctor Unassigned, [place] [facility] ASSIGNMENT OF BENEFITS 2023-06-13 20:13:09 Valente r Unassigned, [place] [facility] XR SPINE THORACIC 2 VW 2023-06-13 20:09:[address] [facility] XR CERVICAL SPINE 3 VW 2023-06-13 20:09:[address] [facility] CONSENT/REFUSAL FOR DIAGNOSIS AND TREATMENT 2023-06-13 17:58:40 Doctor Unassigned, [place] [facility] CONSENT/REFUSAL FOR DIAGNOSIS AND TREATMENT 2023-04-24 14:53:47 Doctor Unassigned, [place] [facility] CBC WITH DIFF 2023-01-20 08:38:[address] [facility] CBC WITH DIFF 2023-01-20 08:38:[address] [facility] VENOUS CORD GAS 2023-01-19 05:38:[address] [facility] VENOUS CORD GAS 2023-01-19 05:38:[address] [facility] SECTION 2023-01-19 04:37:[address] [facility] SECTION 2023-01-19 04:37:00 [facility] CBC WITH DIFF 2023-01-19 02:39:[address] [facility] HEPATITIS B SURFACE ANTIGEN 2023-01-19 02:39:[address] [facility] HB ABO GROUPING 2023-01-19 02:39:[address] [facility] RHO (D) IMMUNE GLOBULIN 2023-01-19 02:39:[address] [facility] HIV 1/2 AG-AB WITH REFLEX 2023-01-19 02:39:[address] [facility] SYPHILIS IGG/IGM 2023-01-19 02:39:[address] [facility] CBC WITH DIFF 2023-01-19 02:39:[address] [facility] HEPATITIS B SURFACE ANTIGEN 2023-01-19 02:39:[address] [facility] HB ABO GROUPING 2023-01-19 02:39:[address] [facility] RHO (D) IMMUNE GLOBULIN 2023-01-19 02:39:[address] [facility] HIV 1/2 AG-AB WITH REFLEX 2023-01-19 02:39:[address] [facility] SYPHILIS IGG/IGM 2023-01-19 02:39:[address] [facility] HOSPITAL ADMISSION 2023-01-18 05:01:00 Doctor Un assigned, [place] [facility] POCT URINALYSIS 2023-01-16 14:17:[address] [facility] POCT URINALYSIS 2023-01-09 13:52:[address] [facility] POCT URINALYSIS 2022-12-31 14:43:[address] [facility] POCT URINALYSIS 2022-11-26 17:51:[address] [facility] TDAP VACCINE, >11 YRS, IM 2022-11-26 16:50:[address] [facility] ASSIGNMENT OF BENEFITS 2022-11-17 23:49:27 Docto r Unassigned, [place] [facility] GLUCOSE 1 HOUR POST PRANDIAL 2022-10-23 15:48:[address] [facility] CBC WITH DIFF 2022-10-23 15:48:[address] [facility] POCT URINALYSIS 2022-10-23 14:54:[address] [facility] NOTICE OF RESEARCH PARTICIPATION 2022-10-06 05:01:00 Doctor Unassigned, [place] [facility] POCT URINALYSIS 2022-10-02 00:00:[address] [facility] ASSIGNMENT OF BENEFITS 2022-09-17 04:31:51 Docto r Unassigned, [place] [facility] NOTICE OF PRIVACY PRACTICES 2022-09-17 04:30:55 Doctor Unassigned, [place] [facility] CONSENT/REFUSAL FOR DIAGNOSIS AND TREATMENT 2022-09-17 04:30:29 Doctor Unassigned, [place] [facility] POCT URINALYSIS 2022-09-04 00:00:[address] [facility] SECOND AND THIRD TRIMESTER ULTRASOUND 2022-08-22 20:58:[address] [facility] SECOND AND THIRD TRIMESTER ULTRASOUND 2022-08-22 20:45:[address] [facility] POCT URINALYSIS 2022-08-06 16:20:[address] [facility] REPORT OF 2022-07-09 06:01:00 Doctor iVckie sandoval, [place] [facility] POCT TEST 2022-07-09 00:00:[address] [facility] POCT URINALYSIS W/O SPECIFIC GRAVITY 2022-07-09 00:00:[address] [facility] Encounters Start Date/Time End Date/Time Encounter Type Admission Type Attending [facility] Care Facility Care Department Encounter ID Source 2022-10-28 14:25:34 Outpatient [facility] [id number] [facility] 2024-02-17 00:00:00 2024-03-19 18:19:18 Patient Secure Msg Doctor Unassigned, [place] Doctor Unassigned, [place] [facility] 1.114 350.1.13.10 4.2.7.2.686 [id number] [facility] 2024-03-08 15:00:00 2024-03-08 15:00:00 Outpatient R [facility] [id number] [facility] 2024-02-24 14:30:00 2024-02-24 14:45:00 Office Visit [facility] 1.114 350.1.13.10 4.2.7.2.686 [id number] [facility] 2024-02-24 14:30:00 2024-02-24 14:30:00 Outpatient R LARISSA REESE [facility] [id number] [facility] 2024-02-19 00:00:00 2024-02-19 09:50:09 Letter (Out) Nurse, Tommy Rmchp Rgv Cprit Obgyn [facility] SENIOR PHYSICAL THERAPIST [facility] 1..114 350.1.13.10 4.2.7.2.686 [id number] [facility] 2024-02-10 13:45:00 2024-02-10 23:59:00 Outpatient R LARISSA REESE [facility] [id number] [facility] 2024-02-10 13:45:00 2024-02-10 23:59:00 Hospital Encounter Larissa Re[facility] 1..114 350.1.13.10 4.2.7.2.686 [id number] [facility] 2024-02-10 13:45:00 2024-02-10 14:24:38 Office Visit Larissa Reese [facility] 1..114 350.1.13.10 4.2.7.2.686 [id number] [facility] 2024-01-15 10:30:00 2024-01-15 10:30:00 Outpatient R KENYETTA MARIA [facility] [id number] [facility] 2024-01-11 14:00:00 2024-01-11 14:00:00 Outpatient R [facility] [id number] [facility] 2024-01-08 00:00:00 2024-01-08 09:37:50 Evert Miner [facility] SENIOR PHYSICAL THERAPIST [facility]NAL [facility] 1..114 350.1.13.10 4.2.7.2.686 [id number] [facility] 2023-12-31 13:30:00 2023-12-31 13:30:00 Outpatient R [facility] [id number] [facility] 2023-07-30 13:30:00 2023-07-30 13:30:00 Outpatient R [facility] [id number] [facility] 2023-07-13 16:35:00 2023-07-13 17:30:00 Emergency EM Alberto Gutierrez [facility]ACL AERS [id number] [facility] 2023-07-13 15:10:00 2023-07-13 15:45:00 Emergency X LI HORN [facility] ERT [id number] [facility] 2023-07-13 15:10:00 2023-07-13 15:45:00 Emergency Li Horn [facility] 1.0.114 350.1.13.10 4.2.7.2.686 [id number] [facility] 2023-07-10 00:00:00 2023-07-10 00:00:00 Telephone Evert Wisdom [facility] SENIOR PHYSICAL THERAPIST [facility] 1..840.114 350.1.13.10 4.2.7.2.686 [id number] [facility] 2023-07-07 11:00:00 2023-07-07 11:00:00 Outpatient R EVERT WISDOM [facility] [id number] [facility] 2023-06-25 00:00:00 2023-06-25 00:00:00 Telephone Evert Wisdom [facility] SENIOR PHYSICAL THERAPIST [facility] 1..840.114 350.1.13.10 4.2.7.2.686 [id number] [facility] 2023-06-24 10:30:00 2023-06-24 11:16:25 Outpatient R EVERT WISDOM [facility] [id number] [facility] 2023-06-24 10:30:00 2023-06-24 11:16:25 Office Visit Evert Wisdom [facility] SENIOR PHYSICAL THERAPIST [facility] 1.840.114 350.1.13.10 4.2.7.2.686 [id number] [facility] 2023-06-20 10:38:00 2023-06-20 11:10:00 Emergency X CLEMENCIA GAMBLE [facility] E[facility] [id number] [facility] 2023-06-20 10:38:00 2023-06-20 11:10:00 Emergency Clemencia Gamble [facility] 1.840.114 350.1.13.10 4.2.7.2.686 [id number] [facility] 2023-06-13 12:05:00 2023-06-13 15:27:00 Emergency X ROYCE SANTIAGO [facility] ERT [id number] [facility] 2023-06-13 12:05:00 2023-06-13 15:27:00 Emergency Royce Santiago E [facility] 1.0.114 350.1.13.10 4.2.7.2.686 [id number] [facility] 2023-04-24 10:27:00 2023-04-24 13:30:00 Emergency X Jaycee KELLER [facility] ERT [id number] [facility] 2023-04-24 10:27:00 2023-04-24 13:30:00 Emergency Jaycee Keller Maria Luz [facility] 1..114 350.1.13.10 4.2.7.2.686 [id number] [facility] 2023-03-02 09:00:00 2023-03-02 09:00:00 Outpatient R TRISTIAN GAXIOLA [facility] [id number] Karla s [facility] 2023-02-22 00:00:00 2023-02-22 00:00:00 Refill Evert Wisdom [facility] SENIOR PHYSICAL THERAPIST [facility] 1..114 350.1.13.10 4.2.7.2.686 [id number] [facility] 2023-02-06 00:00:00 2023-02-06 00:00:00 Patient Secure Msg Doctor Unassigned, [place] [facility]IC[facility] 1..114 350.1.13.10 4.2.7.2.686 [id number] [facility] 2023-01-30 09:45:00 2023-01-30 09:59:37 Routine Visit Evert Wisdom [facility] SENIOR PHYSICAL THERAPIST [facility] 1.2.840.114 350.1.13.10 4.2.7.2.686 [id number] [facility] 2023-01-30 09:00:00 2023-01-30 09:15:00 Nurse Visit Visit, Ang-Rmchp Nurse Evert Wisdom [facility] SENIOR PHYSICAL THERAPIST [facility] 1..114 350.1.13.10 4.2.7.2.686 [id number] [facility] 2023-01-30 09:00:00 2023-01-30 09:00:00 Outpatient R EVERT WISDOM [facility] [id number] [facility] 2023-01-18 20:06:00 2023-01-22 15:19:00 [facility] 1.114 350.1.13.10 4.2.7.2.686 [id number] [facility] 2023-01-18 20:06:00 2023-01-22 15:19:00 Inpatient P ARIADNA CAO [facility] [id number] [facility] 2023-01-19 20:01:47 2023-01-19 20:01:47 Anesthesia Event Lawrence Hays [facility] .114 350.1.13.10 4.2.7.2.686 [id number] [facility] 2023-01-19 07:30:00 2023-01-19 09:12:00 Surgery Dusty [facility] 1..114 350.1.13.10 4.2.7.2.686 [id number] [facility] 2023-01-18 00:00:00 2023-01-18 00:00:00 Orders Only Doctor Unassigned, [place] [facility] 1..114 350.1.13.10 4.2.7.2.686 [id number] [facility] 2023-01-16 09:15:00 2023-01-16 09:47:35 Outpatient R CLEMENTEEVERT PIEDRA [facility] [id number] [facility] 2023-01-16 09:15:00 2023-01-16 09:47:35 Routine Visit Evert Wisdom [facility] SENIOR PHYSICAL THERAPIST [facility] .840.114 350.1.13.10 4.2.7.2.686 [id number] [facility] 2023-01-09 09:00:00 2023-01-09 09:38:22 Outpatient R EVERT WISDOM [facility] [id number] [facility] 2023-01-09 09:00:00 2023-01-09 09:38:22 Routine Visit Evert Wisdom [facility] SENIOR PHYSICAL THERAPIST [facility] .840.114 350.1.13.10 4.2.7.2.686 [id number] [facility] 2023-01-01 00:00:00 2023-01-01 00:00:00 Case Management Janet Madison [facility] SENIOR PHYSICAL THERAPIST [facility] .840.114 350.1.13.10 4.2.7.2.686 [id number] [facility] 2022-12-31 09:45:00 2022-12-31 10:03:21 Outpatient R JANET MADISON [facility] [id number] [facility] 2022-12-31 09:45:00 2022-12-31 10:03:21 Routine Visit Janet Madison [facility] SENIOR PHYSICAL THERAPIST [facility] .840.114 350.1.13.10 4.2.7.2.686 [id number] [facility] 2022-12-30 12:45:00 2022-12-30 12:45:00 Outpatient R JANET MADISON [facility] [id number] [facility] 2022-12-25 10:00:00 2022-12-25 10:30:00 Spring Layer Visit 2, [facility] Us Room Maura Johnson [facility] 1.2840.114 350.1.13.10 4.2.7.2.686 [id number] [facility] 2022-12-25 10:00:00 2022-12-25 10:00:00 Outpatient P MAURA JOHNSON [facility] [id number] [facility] 2022-12-25 00:00:00 2022-12-25 00:00:00 Case Management Janet Madison [facility] SENIOR PHYSICAL THERAPIST [facility] 1.2.840.114 350.1.13.10 4.2.7.2.686 [id number] [facility] 2022-12-23 00:00:00 2022-12-23 00:00:00 Telephone Evert Wisdom [facility] SENIOR PHYSICAL THERAPIST [facility] 1.2.840.114 350.1.13.10 4.2.7.2.686 [id number] [facility] 2022-12-15 15:15:00 2022-12-15 15:15:00 Outpatient P [facility] [id number] [facility] 2022-12-15 09:00:00 2022-12-15 09:00:00 Outpatient P [facility] [id number] [facility] 2022-12-11 11:00:00 2022-12-11 11:00:00 Outpatient R EVERT WISDOM [facility] [id number] [facility] 2022-11-26 10:45:00 2022-11-26 12:11:47 Outpatient R EVERT WISDOM [facility] [id number] [facility] 2022-11-26 10:45:00 2022-11-26 12:11:47 Routine Visit Evert Wisdom [facility] SENIOR PHYSICAL THERAPIST [facility] 1.840.114 350.1.13.10 4.2.7.2.686 [id number] [facility] 2022-11-26 10:45:00 2022-11-26 10:45:00 Outpatient R EVERT WISDOM [facility] [id number] [facility] 2022-11-19 00:00:00 2022-11-19 00:00:00 Patient Secure Msg Doctor Unassigned, [place] [facility] 1.840.114 350.1.13.10 4.2.7.2.686 [id number] [facility] 2022-11-17 18:56:00 2022-11-17 20:30:00 Outpatient X HERNANDZE-SAUNDRA S, DAISY HERNANDEZ-SAUNDRA S, DAISY [facility] [id number] [facility] 2022-11-17 18:56:00 2022-11-17 20:30:00 Emergency Hernandez-Saundra s, Daisy [facility] 1.840.114 350.1.13.10 4.2.7.2.686 [id number] [facility] 2022-11-17 00:00:00 2022-11-17 00:00:00 Orders Only Doctor Unassigned, [place] [facility] 1.840.114 350.1.13.10 4.2.7.2.686 [id number] [facility] 2022-11-13 15:45:00 2022-11-13 15:45:00 Outpatient R EVERT WISDOM [facility] [id number] [facility] 2022-11-10 00:00:00 2022-11-10 00:00:00 Janet De La Garza [facility] SENIOR PHYSICAL THERAPIST [facility] 1.2.840.114 350.1.13.10 4.2.7.2.686 [id number] [facility] 2022-11-10 00:00:00 2022-11-10 00:00:00 Telephone Evert Wisdom [facility] SENIOR PHYSICAL THERAPIST [facility] 1.2.840.114 350.1.13.10 4.2.7.2.686 [id number] [facility] 2022-11-05 10:00:00 2022-11-05 10:00:00 Outpatient R EVERT WISDOM [facility] [id number] [facility] 2022-10-28 00:00:00 2022-10-28 00:00:00 Telephone Evert Wisdom [facility] SENIOR PHYSICAL THERAPIST [facility] 1.2.840.114 350.1.13.10 4.2.7.2.686 [id number] [facility] 2022-10-23 10:15:00 2022-10-23 10:30:31 Routine Visit Evert Wsidom [facility] SENIOR PHYSICAL THERAPIST [facility] 1.2.840.114 350.1.13.10 4.2.7.2.686 [id number] [facility] 2022-10-23 10:15:00 2022-10-23 10:30:31 Outpatient R EVERT WISDOM [facility] [id number] [facility] 2022-10-23 00:00:00 2022-10-23 00:00:00 Letter (Out) Evetr Wisdom [facility] SENIOR PHYSICAL THERAPIST [facility] 1.840.114 350.1.13.10 4.2.7.2.686 [id number] [facility] 2022-10-07 00:00:00 2022-10-07 00:00:00 Case Management Janet Madison [facility] SENIOR PHYSICAL THERAPIST [facility] 1.0.114 350.1.13.10 4.2.7.2.686 [id number] [facility] 2022-10-06 13:30:00 2022-10-06 14:41:29 Spring Layer Visit 1, [facility] Us Room [facility] 1.0.114 350.1.13.10 4.2.7.2.686 [id number] [facility] 2022-10-06 13:30:00 2022-10-06 13:30:00 Outpatient P MISHEL [facility] [id number] [facility] 2022-10-06 00:00:00 2022-10-06 00:00:00 Letter (Out) [facility] 1.0.114 350.1.13.10 4.2.7.2.686 [id number] [facility] 2022-10-06 00:00:00 2022-10-06 00:00:00 Orders Only Doctor Unassigned, [place] [facility] 1.840.114 350.1.13.10 4.2.7.2.686 [id number] [facility] 2022-10-02 10:30:00 2022-10-02 10:49:38 Routine Visit Evert Wisdom [facility] SENIOR PHYSICAL THERAPIST [facility] 1.840.114 350.1.13.10 4.2.7.2.686 [id number] [facility] 2022-10-02 10:30:00 2022-10-02 10:49:38 Outpatient R EVERT WISDOM [facility] [id number] [facility] 2022-10-02 00:00:00 2022-10-02 00:00:00 Letter (Out) Evert Wisdom [facility] SENIOR PHYSICAL THERAPIST [facility] 1.840.114 350.1.13.10 4.2.7.2.686 [id number] [facility] 2022-09-26 03:45:00 2022-09-26 05:35:00 Emergency E ANIBAL NOBLES [id number] 2022-09-16 22:42:00 2022-09-16 23:30:00 Outpatient P LUCIUS ALBA [facility] [id number] [facility] 2022-09-16 22:42:00 2022-09-16 23:30:00 Hospital Encounter Lucius Alba [facility] 1.840.114 350.1.13.10 4.2.7.2.686 [id number] [facility] 2022-09-16 00:00:00 2022-09-16 00:00:00 Orders Only Doctor Unassigned, [place] [facility] .840.114 350.1.13.10 4.2.7.2.686 [id number] [facility] 2022-09-04 09:45:00 2022-09-04 10:52:21 Outpatient R EVERT WISDOM [facility] [id number] [facility] 2022-09-04 09:45:00 2022-09-04 10:52:21 Routine Visit Evert Wisdom [facility] SENIOR PHYSICAL THERAPIST [facility] 1.2.840.114 350.1.13.10 4.2.7.2.686 [id number] [facility] 2022-09-04 00:00:00 2022-09-04 00:00:00 Refill Janet Madison [facility] SENIOR PHYSICAL THERAPIST [facility] 1.2.840.114 350.1.13.10 4.2.7.2.686 [id number] [facility] 2022-09-04 00:00:00 2022-09-04 00:00:00 Refill Evert Wisdom [facility] SENIOR PHYSICAL THERAPIST [facility] 1.2.840.114 350.1.13.10 4.2.7.2.686 [id number] 107 [id number] [facility] 2022-08-25 00:00:00 2022-08-25 00:00:00 Case Management Janet Madison [facility] SENIOR PHYSICAL THERAPIST [facility] 1.840.114 350.1.13.10 4.2.7.2.686 [id number] [facility] 2022-08-22 13:45:00 2022-08-22 15:00:37 Spring [place] Visit 3, [place] [facility] Us Room Iron [facility] 1..114 350.1.13.10 4.2.7.2.686 [id number] [facility] 2022-08-22 13:45:00 2022-08-22 13:45:00 Outpatient P PRISCILA MARTINS [facility] [id number] [facility] 2022-08-22 00:00:00 2022-08-22 00:00:00 Letter (Out) [place] [facility] 1.840.114 350.1.13.10 4.2.7.2.686 [id number] [facility] 2022-08-22 00:00:00 2022-08-22 00:00:00 Telephone Evert Wisdom [facility] SENIOR PHYSICAL THERAPIST [facility] 1.2.840.114 350.1.13.10 4.2.7.2.686 [id number] [facility] 2022-08-06 10:45:00 2022-08-06 11:00:38 Outpatient R EVERT WISDOM [facility] [id number] [facility] 2022-08-06 10:45:00 2022-08-06 11:00:38 Routine Visit Evert Wisdom [facility] 1.2.840.114 350.1.13.10 4.2.7.2.686 [id number] [facility] 2022-07-23 00:00:00 2022-07-23 00:00:00 Refill Janet Madison [facility] 1.2.840.114 350.1.13.10 4.2.7.2.686 [id number] 107 [id number] [facility] [facility]14 00:00:00 2022-07-14 00:00:00 Telephone Janet Madison [facility] 1.2.840.114 350.1.13.10 4.2.7.2.686 [id number] [facility] 2022-07-13 00:00:00 2022-07-13 00:00:00 Case Management Janet Madison [facility] 1.2.840.114 350.1.13.10 4.2.7.2.686 [id number] [facility] 2022-07-10 00:00:00 2022-07-10 00:00:00 Case Management Janet Madison [facility] SENIOR PHYSICAL THERAPIST [facility] 1.2.840.114 350.1.13.10 4.2.7.2.686 [id number] [facility] 2022-07-09 14:45:00 2022-07-09 15:49:21 Outpatient R JANET MADSION [facility] [id number] [facility] 2022-07-09 14:45:00 2022-07-09 15:49:21 [facility] Green [facility] SENIOR PHYSICAL THERAPIST [facility] 1..840.114 350.1.13.10 4.2.7.2.686 [id number] [facility] 2022-07-09 00:00:00 2022-07-09 00:00:00 Orders Only Doctor Unassigned, [place] [facility] 1..840.114 350.1.13.10 4.2.7.2.686 [id number] [facility] 2022-06-29 18:51:00 2022-06-29 20:09:00 Emergency EM Rios Shelton [facility] AERS [id number] [facility] 2022-06-06 00:00:00 2022-06-06 00:00:00 Nurse Triage Nina Teixeira [facility] 1..840.114 350.1.13.10 4.2.7.2.686 [id number] [facility] 2022-04-09 11:00:00 2022-04-09 11:00:00 Outpatient EVERT WHATLEY [facility] [id number] [facility] 2022-04-01 10:45:00 2022-04-01 10:45:00 Outpatient EVERT WHATLEY [facility] [id number] [facility] 2022-04-01 00:00:00 2022-04-01 00:00:00 Telephone Evert Wisdom [facility] SENIOR PHYSICAL THERAPIST [facility] 1.840.114 350.1.13.10 4.2.7.2.686 [id number] [facility] 2022-03-27 09:30:00 2022-03-27 09:30:00 Outpatient R [facility] [id number] [facility] 2022-03-20 09:00:00 2022-03-20 09:00:00 Outpatient R [facility] [id number] [facility] 2022-03-16 20:29:00 2022-03-16 21:24:00 Emergency X CLEMENCIA GAMBLE [facility] ERT [id number] [facility] 2022-03-16 20:29:00 2022-03-16 21:24:00 Emergency Clemencia Gamble [facility] 1.840.114 350.1.13.10 4.2.7.2.686 [id number] [facility] 2022-03-13 06:52:00 2022-03-13 10:26:00 Emergency X [facility] E[facility] [id number] [facility] 2022-03-13 06:52:00 2022-03-13 10:26:00 Emergency Gene [facility] ([facility]) 1.840.114 350.1.13.10 4.2.7.2.686 [id number] [facility] 2022-03-11 09:00:00 2022-03-11 09:00:00 Outpatient R [facility] [id number] [facility] 2022-03-10 00:00:00 2022-03-10 00:00:00 Patient Secure Msg Doctor Unassigned, [place] [facility] 1..114 350.1.13.10 4.2.7.2.686 [id number] [facility] 2022-03-07 00:00:00 2022-03-07 00:00:00 Telephone Evert Wisdom [facility] SENIOR PHYSICAL THERAPIST [facility] 1..840.114 350.1.13.10 4.2.7.2.686 [id number] [facility] 2022-03-06 10:30:00 2022-03-06 10:30:00 Outpatient R EVERT WISDOM [facility] [id number] [facility] 2022-03-06 10:30:00 2022-03-06 10:30:00 Outpatient R EVERT WISDOM [facility] [id number] [facility] 2022-03-06 00:00:00 2022-03-06 00:00:00 Patient Secure Msg Doctor Unassigned, [place] [facility] 1.840.114 350.1.13.10 4.2.7.2.686 [id number] [facility] 2022-03-05 19:09:00 2022-03-05 23:09:00 Emergency X CLEMENCIA GAMBLE [facility] ERT [id number] [facility] 2022-03-05 19:09:00 2022-03-05 23:09:00 Emergency Clemencia Gamble [facility] .840.114 350.1.13.10 4.2.7.2.686 [id number] [facility] 2022-03-05 19:09:00 2022-03-05 23:09:00 Emergency X CLEMENCIA GAMBLE [facility] ERT [id number] [facility] 2022-03-05 00:00:00 2022-03-05 00:00:00 Telephone Evert Wisdom [facility] SENIOR PHYSICAL THERAPIST [facility] 1.840.114 350.1.13.10 4.2.7.2.686 [id number] [facility] 2022-03-04 15:00:00 2022-03-04 16:38:45 Outpatient R EVERT WISDOM [facility] [id number] [facility] 2022-03-04 15:00:00 2022-03-04 16:38:45 Initial Visit Evert Wisdom [facility] SENIOR PHYSICAL THERAPIST [facility] 1..840.114 350.1.13.10 4.2.7.2.686 [id number] [facility] 2022-03-04 15:00:00 2022-03-04 16:38:45 Outpatient R EVERT WISDOM [facility] [id number] [facility] 2022-03-04 15:00:00 2022-03-04 16:38:45 Outpatient R EVERT WISDOM [facility] [id number] [facility] 2022-03-04 15:00:00 2022-03-04 16:38:45 Outpatient R EVERT WISDOM [facility] [id number] [facility] 2022-03-04 00:00:00 2022-03-04 00:00:00 Orders Only Doctor Unassigned, [place] [facility] 1..840.114 350.1.13.10 4.2.7.2.686 [id number] [facility] 2022-01-03 16:32:00 2022-01-03 19:45:00 Emergency E YAON FERNANDEZ [facility] [address] [facility] 2021-08-01 18:30:00 2021-08-01 21:27:00 Emergency X JANEL AVALOS [facility] ERT [id number] [facility] 2021-08-01 18:30:00 2021-08-01 21:27:00 Emergency Janel Avalos [facility] 1.2.840.114 350.1.13.10 4.2.7.2.686 [id number] [facility] 2021-05-08 23:11:00 2021-05-09 00:20:00 Emergency Senthil Irizarry [facility] 1.2.840.114 350.1.13.10 4.2.7.2.686 [id number] [id number] [facility] 2021-05-08 23:11:00 2021-05-09 00:20:00 Emergency X SENTHIL IRIZARRY [facility] ERT [id number] [facility] 2021-05-08 23:11:00 2021-05-09 00:20:00 Emergency X SENTHIL IRIZARRY [facility] ERT [id number] [facility] 2021-05-08 23:11:00 2021-05-09 00:20:00 Emergency X SENTHIL IRIZARRY [facility] ERT [id number] [facility] 2021-03-31 10:56:00 2021-03-31 12:56:00 Emergency X ESTHER CLARK [facility] ERT [id number] [facility] 2021-03-31 10:56:00 2021-03-31 12:56:00 Emergency Esther Clark [facility] 1.2.840.114 350.1.13.10 4.2.7.2.686 [id number] [facility] 2021-03-31 10:56:00 2021-03-31 12:56:00 Emergency X ESTHER CLARK [facility] ERT [id number] [facility] 2021-03-31 10:56:00 2021-03-31 12:56:00 Emergency X ESTHER CLARK [facility] ERT [id number] [facility] 2021-03-14 17:54:00 2021-03-14 20:59:00 Emergency Janel Avalos [facility] 1.2.840.114 350.1.13.10 4.2.7.2.686 [id number] [facility] 2021-03-14 17:43:00 2021-03-14 17:43:00 Emergency X [facility] ERT [id number] [facility] 2021-02-20 06:57:00 2021-02-20 07:31:00 Emergency Clemencia Gamble [facility] 1.2.840.114 350.1.13.10 4.2.7.2.686 [id number] [facility] 2021-02-20 06:57:00 2021-02-20 07:31:00 Emergency X CLEMENCIA GAMBLE [facility] ERT [id number] [facility] 2021-02-20 06:57:00 2021-02-20 07:31:00 Emergency Clemencia Gamble [facility] 1.2.840.114 350.1.13.10 4.2.7.2.686 [id number] 2021-02-14 16:10:00 2021-02-14 19:05:00 Emergency Clemencia Gamble [facility] 1.2.840.114 350.1.13.10 4.2.7.2.686 [id number] [facility] 2021-02-14 16:10:00 2021-02-14 19:05:00 Emergency Clemencia Gamble [facility] 1.2.840.114 350.1.13.10 4.2.7.2.686 [id number] 2021-02-14 15:52:00 2021-02-14 15:52:00 Emergency X [facility] ERT [id number] [facility] Results Test Description Test Time Test Comments Results Result Co mments Source Coronavirus 2019 nCoV [id number] 17:30:00* Test Item Value Reference Range Interpretation Comme nts Coronavirus 2019 nCoV Bedside (test code = [id number]) Negative Negative The [employer] ID NO W utilizes isothermal [place] EnzymeAmplification Reaction (NEAR) technology in the qualitativedetection of infectious diseases. With NEAR technology,amplified target detection is achieved with the use offluorescently labeled molecular beacons, comparable to PCRtechniques -----Negative results should be treated as presumptive and, ifinconsistent with clinical signs and symptoms or necessaryfor patient management, should be tested with an alternativemolecular assay. Negative results do not preclude DPPI-HzE-6kbtjfmnwj and should not be used as the sole basis forpatient management decisions. Negative results should beconsidered in the context of a patient's recent exposures,history, presence of clinical signs and symptoms consistentwith COVID-19. - XR CHEST 1 [id number] 17:00:00 [facility] : 1985 Sex: F FAX: Rios Shelton MD [place]: [place] St: PRE FAX: Alberto Gutierrez MD [phone] Name: ALEXANDRIA ROY FSED : 1985 Age/S: 37/F [address] Unit #: [id number] Loc: [place], [place] [address] Phys: Alberto Gutierrez MD Acct: [id number] Dis Date: Status: PRE ER PHONE #: Exam Date: 07/13/2023 1643 FAX #: Reason: cough tightness EXAMS: CPT CODE: [id number] XR CHEST 1 V 08733 EXAM: - XR CHEST 1 V COMPARISON: None available at the time of interpretation. LOCATION: H47 HISTORY: cough tightness FINDINGS: Single view of the chest. No indwelling lines or tubes. No pneumothorax. The lungs are clear without significant effusions. The mediastinal contours are unremarkable/unchanged. No acute osseous findings are present. IMPRESSION: No acute cardiopulmonary abnormality. at 1700 Reported and signed by: Cory Shankar M.D. CC: Rios Shelton MD; Alberto Gutierrez MD Technologist: Felicitas Arce RT(R)(CT) Trnscrd Date/Time/By: 07/13/2023 (170) : By: [email or web address] Orig Print D/T: S: 07/13/2023 (1702) PAGE 1 Signed ReportPOCT [id number] 17:10:00* Test Item Value Reference Range Interpretation Comme nts POCT PREG (test code = 1605) Negative On board controls acceptable with C Line (test code = 3574) Yes POCT PREG LOT # (test code = 3575) POCT PREG TEST DATE ( test code = 3576) [id number] 17:10:00* Test Item Value Reference Range Interpretation Comme nts POCT PREG (test code = 1605) Negative On board controls acceptable with C Line (test code = 3574) Yes POCT PREG LOT # (test code = 3575) POCT PREG TEST DATE ( test code = 3576) [facility] - [facility] [id number] 16:47:56* Test Item Value Reference Range Interpretation Comme nts Syphilis IgG/IgM (test code = 65981-5) Non-reactive Non-reactive YAMILETH (test code = YAMILETH) Non-reactive - No serologic evidence of T. pallidum infection. Cannot exclude incubating or early syphilis. Submit a second specimen in 2-4 weeks if syphilis is clinically suspected. Equivocal - Further testing to follow. Reactive - Further testing to follow. Lab Interpretation (test code = 54797-9) Normal [facility] ONLY - SYPHILIS IGG/[id number] 16:47:56* Test Item Value Reference Range Interpretation Comme nts Syphilis IgG/IgM (test code = 04033-9) Non-reactive Non-reactive YAMILETH (test code = YAMILETH) Non-reactive - No serologic evidence of T. pallidum infection. Cannot exclude incubating or early syphilis. Submit a second specimen in 2-4 weeks if syphilis is clinically suspected. Equivocal - Further testing to follow. Reactive - Further testing to follow. Lab Interpretation (test code = 80409-8) Normal [facility] (D) IMMUNE [id number] 10:45:19* Test Item Value Reference Range Interpretation Comme nts RHIG CANDIDATE? (test code = 5188) No- see comment Patient is not a candidate for RhIg- Patient is Rh Positive.Performed at [facility] Laboratory Services - [facility] Blood [address] [address]Vboq Free: [phone] No. [id number] [facility] (D) IMMUNE [id number] 10:45:19* Test Item Value Reference Range Interpretation Comme nts RHIG CANDIDATE? (test code = 5188) No- see comment Patient is not a candidate for RhIg- Patient is Rh Positive.Performed at [facility] Laboratory Services - [facility] Blood [address] [address]Aqwb Free: [phone] No. [id number] [facility] Cord [id number] 06:03:38* Test Item Value Reference Range Interpretation Comme nts VENOUS BASE EXCESS, CORD (test code = 7477428456) -5.3 mEq/L VENOUS PH, CORD (test code = 3887376478) 7.25 7.25-7.45 VENOUS PC02, CORD (test code = 1077493123) 53 See_Comment H [Automated me ssage] The system which generated this result transmitted reference range: 27 - 49 mmHg. The reference range was not used to interpret this result as normal/abnormal. VENOUS PO2, CORD (test code = 2328059146) See_Comment L [Automated me ssage] The system which generated this result transmitted reference range: 17 - 41 mmHg. The reference range was not used to interpret this result as normal/abnormal. VENOUS BICARBONATE, CORD (test code = 6303083867) 23 See_Comment [Automa bakari message] The system which generated this result transmitted reference range: 12 - 29 mEq/L. The reference range was not used to interpret this result as normal/abnormal. Lab Interpretation (test code = 50504-1) Abnormal [facility] [id number] 06:03:38* Test Item Value Reference Range Interpretation Comme nts VENOUS BASE EXCESS, CORD (test code = 9910637421) -5.3 mEq/L VENOUS PH, CORD (test code = 1527662306) 7.25 7.25-7.45 VENOUS PC02, CORD (test code = 6236154744) 53 See_Comment H [Automated me ssage] The system which generated this result transmitted reference range: 27 - 49 mmHg. The reference range was not used to interpret this result as normal/abnormal. VENOUS PO2, CORD (test code = 5314943174) See_Comment L [Automated me ssage] The system which generated this result transmitted reference range: 17 - 41 mmHg. The reference range was not used to interpret this result as normal/abnormal. VENOUS BICARBONATE, CORD (test code = 1272276136) 23 See_Comment [Automa bakari message] The system which generated this result transmitted reference range: 12 - 29 mEq/L. The reference range was not used to interpret this result as normal/abnormal. Lab Interpretation (test code = 08176-0) Abnormal [facility]2 AG-AB WITH [id number] 05:08:06* Test Item Value Reference Range Interpretation Comme nts HIV Semi-quantitative (test code = 39646-8) 0.09 Negative YAMILETH (test code = YAMILETH) Non-reactive for HIV-1 antigen and HIV-1/HIV-2 antibodies. ?No laboratory evidence of HIV infection. ?Repeat in 2-4 weeks if acute HIV infection is suspected. [facility]2 AG-AB WITH [id number] 05:08:06* Test Item Value Reference Range Interpretation Comme nts HIV Semi-quantitative (test code = 85259-7) 0.09 Negative YAMILETH (test code = YAMILETH) Non-reactive for HIV-1 antigen and HIV-1/HIV-2 antibodies. ?No laboratory evidence of HIV infection. ?Repeat in 2-4 weeks if acute HIV infection is suspected. [facility] B Surface [id number] 04:12:23 * Test Item Value Reference Range Interpretation Comme nts HBsAg Semi-Quantitative (windy t code = 5195-3) 0.04 Negative [facility] B Surface [id number] 04:12:23 * Test Item Value Reference Range Interpretation Comme nts HBsAg Semi-Quantitative (windy t code = 5195-3) 0.[address] [facility] with Vgjgmnlhyayc2097-06-40 02:52:03* Test Item Value Reference Range Interpretation Comme nts WBC (test code = 6690-2) 7.72 See_Comment [Automated Pickiea ge] The system which generated this result transmitted reference range: 4.30 - 11.10 10*3/?L. The reference range was not used to interpret this result as normal/abnormal. RBC (test code = 789-8) 3.05 See_Comment L [Automated Pickiea ge] The system which generated this result [...] 32.9 g/dL 31.6-35.1 RDW-SD (test code = 64795-1) 44.8 fL 39.0-49.9 RDW-CV (test code = 788-0) 13.3 % 12.0-15.5 PLT (test code = 777-3) 284 See_Comment [Automated messa ge] The system which generated this result transmitted reference range: 166 - 358 10*3/?L. The reference range was not used to interpret this result as normal/abnormal. MPV (test code = 30229-7) 10.5 fL 9.5-12.9 NRBC/100 WBC (test code = 8816525655) 0.0 See_Comment [Automated Klique ssage] The system which generated this result transmitted reference range: 0.0 - 10.0 /100 WBCs. The reference range was not used to interpret this result as normal/abnormal. NRBC x10^3 (test code = 8542471890) See_Comment [Automated messa ge] The system which generated this result transmitted reference range: 10*3/?L. The reference range was not used to interpret this result as normal/abnormal. GRAN MAT (NEUT) % (test code = 770-8) 79.3 % IMM GRAN % (test code = 6482526214) 0.40 % LYMPH % (test code = 736-9) 14.1 % MONO % (test code = 5905-5) 6.0 % EOS % (test code = 713-8) 0.1 % BASO % (test code = 706-2) 0.1 % GRAN MAT x10^3(ANC) (test code = 8030426431) 6.12 10*3/uL 1.88-7.09 IMM GRAN x10^3 (test code = 6607200512) 0.03 10*3/uL 0.00-0.06 LYMPH x10^3 (test code = 731-0) 1.09 10*3/uL 1.32-3.29 L MONO x10^3 (test code = 742-7) 0.46 10*3/uL 0.33-0.92 EOS x10^3 (test code = 711-2) 0.03-0.39 L BASO x10^3 (test code = 704-7) 0.01-0.07 Lab Interpretation (test code = 83540-8) Abnormal [facility] with [id number] 02:52:03* Test Item Value Reference Range Interpretation [...] 32.9 g/dL 31.6-35.1 RDW-SD (test code = 67719-5) 44.8 fL 39.0-49.9 RDW-CV (test code = 788-0) 13.3 % 12.0-15.5 PLT (test code = 777-3) 284 See_Comment [Automated messa ge] The system which generated this result transmitted reference range: 166 - 358 10*3/?L. The reference range was not used to interpret this result as normal/abnormal. MPV (test code = 19807-4) 10.5 fL 9.5-12.9 NRBC/100 WBC (test code = 2041709433) 0.0 See_Comment [Automated Klique ssage] The system which generated this result transmitted reference range: 0.0 - 10.0 /100 WBCs. The reference range was not used to interpret this result as normal/abnormal. NRBC x10^3 (test code = 2404931497) See_Comment [Automated messa ge] The system which generated this result transmitted reference range: 10*3/?L. The reference range was not used to interpret this result as normal/abnormal. GRAN MAT (NEUT) % (test code = 770-8) 79.3 % IMM GRAN % (test code = 0388611408) 0.40 % LYMPH % (test code = 736-9) 14.1 % MONO % (test code = 5905-5) 6.0 % EOS % (test code = 713-8) 0.1 % BASO % (test code = 706-2) 0.1 % GRAN MAT x10^3(ANC) (test code = 5060041442) 6.12 10*3/uL 1.88-7.09 IMM GRAN x10^3 (test code = 0169393149) 0.03 10*3/uL 0.00-0.06 LYMPH x10^3 (test code = 731-0) 1.09 10*3/uL 1.32-3.29 L MONO x10^3 (test code = 742-7) 0.46 10*3/uL 0.33-0.92 EOS x10^3 (test code = 711-2) 0.03-0.39 L BASO x10^3 (test code = 704-7) 0.01-0.07 Lab Interpretation (test code = 88133-9) [facility]normal [facility] - ONCE [id number] 02:45:00* Test Item Value Reference Range Interpretation Comme nts ABO & RH (test code = 20) O POSITIVE IAT (test code = 1185) Negative [facility] [id number] 02:45:00* Test Item Value Reference Range Interpretation Comme nts ABO & RH (test code = 20) O POSITIVE IAT (test code = 1185) Negative [facility] W SPECIFIC [id number] 14:17:00* Test Item Value Reference Range Interpretation [...] U APPEAR (test code = 3267) . [facility] URINALYSIS W SPECIFIC [id number] 13:53:00* Test Item Value Reference Range Interpretation [...] U APPEAR (test code = 3267) . [facility] URINALYSIS W SPECIFIC [id number] 14:44:00* Test Item Value Reference Range Interpretation [...] code = 3261) . Negative - Negat arffi POCT U BLD (test code = 3257) Trace Negative - Negati ve POCT U COLOR (test code = 3266) . POCT U APPEAR (test code = 3267) [facility] URINALYSIS W SPECIFIC [id number] 17:51:00* Test Item Value Reference Range Interpretation [...] U APPEAR (test code = 3267) . [facility] URINALYSIS W SPECIFIC [id number] 14:55:00* Test Item Value Reference Range Interpretation [...] U APPEAR (test code = 3267) . [facility] URINALYSIS W SPECIFIC [id number] 14:55:00* Test Item Value Reference Range Interpretation [...] U APPEAR (test code = 3267) . [facility] URINALYSIS W SPECIFIC [id number] 14:55:00* Test Item Value Reference Range Interpretation [...] U APPEAR (test code = 3267) . [facility] URINALYSIS W SPECIFIC [id number] 14:55:00* Test Item Value Reference Range Interpretation [...] U APPEAR (test code = 3267) . [facility] URINALYSIS W SPECIFIC [id number] 14:55:00* Test Item Value Reference Range Interpretation [...] U APPEAR (test code = 3267) . [facility] URINALYSIS W SPECIFIC [id number] 14:55:00* Test Item Value Reference Range Interpretation [...] U APPEAR (test code = 3267) . [facility] URINALYSIS W SPECIFIC [id number] 16:22:00* Test Item Value Reference Range Interpretation [...] U APPEAR (test code = 3267) . [facility] URINALYSIS W SPECIFIC [id number] 16:09:00* Test Item Value Reference Range Interpretation [...] U APPEAR (test code = 3267) . [facility] URINALYSIS W SPECIFIC [id number] 16:09:00* Test Item Value Reference Range Interpretation [...] U APPEAR (test code = 3267) . [facility] URINALYSIS W SPECIFIC [id number] 16:20:00* Test Item Value Reference Range Interpretation [...] POCT U APPEAR (test code = 3267) [facility] [id number] 20:36:00* Test Item Value Reference Range Interpretation Comme nts POCT PREG (test code = 1605) Positive On board controls acceptable with C Line (test code = 3574) Yes POCT PREG LOT # (test code = 3575) POCT PREG TEST DATE ( test code = 3576) [facility] URINALYSIS W/O SPECIFIC [id number] 20:35:00* Test Item Value Reference Range Interpretation [...] = 3257) trace Negative - Negati ve [facility] ([facility] ONLY)2022-06-30 08:09:00 * Test Item Value Reference Range Interpretation Comme nts URINE HCG TRIAGE (ER ONLY) ( test code = HCGTRIAGE) POSITIVE Negative Urine Test Result: POSITIVEAre internal controls (presence of a control line & clear background) OK? YesLot # of HCG Test Kit: [id number] Date of Kit: 09/24/23Test Performed by: kat rnTest Perfomed on: 06/29/22COMMENTS: positiveUA DIPSTICK [id number] 19:53:00* Test Item Value Reference Range Interpretation Comme nts UA GLUCOSE DIPSTIC POC (test code = GLUUP) NEGATIVE NEGATIVE UA BILIRUBIN DIPSTICK (test code = BILU) 1+ NEGATIVE A UA KETONE DIPSTICK POC (test code = KETUP) NEGATIVE NEGATIVE UA SPECIFIC GRAVITY (test code = SGU) 1.015 1.005-1.030 N UA BLOOD DIPSTIC POC (test code = BLUP) NEGATIVE NEGATIVE Performed by certified soldering machine operator helper at [facility] UA PH DIPSTIC POC (test code = PHUP) 7 5.0-7.0 N UA PROTEIN DIPSTICK POC (test code = DPROUP) NEGATIVE NEGATIVE UA UROBILINIOGEN QUAL (test code = UROQL) 2+ 0.2-1.0 A UA NITRITE DIPSTICK POC (test code = NITUP) NEGATIVE Negative UA LEUKOCYTE ESTERASE W REFLEX (test code = LEUUR) TRACE NEGATIVE A Notes Date/Time Note Provider Source 2024-02-17 15:41:16 , please call [facility]. Thank you for using [employer]. Kindly contact Rheumatology to schedule an appointment, as we have received a referral. You can contact the Rheumatology clinic at [phone] to schedule this appointment. Thank you, [facility]ILY [facility]ICINE STAFF [facility] 2023-07-13 16:50:00 [facility] ([facility] EMERGENCY PROVIDER REPORT REPORT#:[id number] REPORT STATUS: Signed DATE:07/13/23 TIME: 1649 PATIENT: ALEXANDRIA ROY UNIT #: [id number] ROOM/BED: AGE: 37 SEX: F PCP PHYS: Rios Shelton MD SERVICE AUTHOR: Alberto Guteirrez MD * ALL edits or amendments must be made on the electronic/computer document * HPI-URI/Cough/Cold General Confirmed Patient Yes Patient Type New patient Initial Greet Date/Time 07/13/23 1638 Presentation Chief Complaint Cough, non-productive, Fatigue, Fever, body aches, chest tightness Hx Obtained From Patient Onset Occurred Days ago (3) Symptom Duration Waxes and wanes Context of Onset Exposure, infectious Location Chest, Diffuse myalgia Quality Aching, Tightness Free Text HPI Notes Free Text HPI Notes 37-year-old female patient has no significant past medical history reports to the [facility] emergency department complaining of 3 days of flulike symptoms that include cough, bilateral chest tightness and bodyaches with positive sick contact (her 9-year-old son is also being evaluated for the same symptoms that began 5 week ago). This patient denies headache, neck pain, shortness of breath , abdominal pain, nausea, vomiting, diarrhea Review of Systems ROS Statements All systems rev neg except as marked. Focused Review of Systems Constitutional Reports: Chills, Fever, Malaise. Respiratory Reports: Cough, non-productive. Additional Review of Systems Musculoskeletal Reports: Joint pain, Myalgia. Past Medical History - Adult Stated Complaint COUGH, CONGESTION Allergies Coded Allergies: No Known Allergies (07/13/23) Home Medications Active Scripts DOXYLAMINE/PYRIDOXINE (GUNNER BRAGA 05/05) 1 EACH PO ASDIR DOXYLAMINE/PYRIDOXINE (GUNNER BRAGA 05/05) 1 EACH PO ASDIR #15 TABS Prov: 06/29/22 Pt reports no significant: Past medical history, Past surgical history Physical Exam Vital Signs Vital Signs First Documented: Result Date Time Pulse Ox 100 [...] 74 07/13 1635 Resp 16 07/13 1635 Review of Vital Signs Reviewed Focused PE General/Const General/Const Awake, Alert, Well appearing, Not toxic appearing Eyes Eyes PERRL Ears/Nose/Throat Ears/Nose/Throat Atraumatic, Airway patent, Mucous membranes moist, Pharynx NL, No peritonsillar abscess, No pooling of secretions, No trismus, Tympanic membs NL Right Ear/Mastoid Fluid behind TM clear. Left Ear/Mastoid Fluid behind TM clear. Nose Turbinates swollen. MS Neck Neck Supple, No meningismus, Full range of motion, No adenopathy, No swelling , Non-tender Resp/Chest Respiratory/Chest Breath sounds NL, Breath sounds = bilat, No respiratory distress, No rales, No rhonchi, No wheezing, No retractions, No stridor Cardiovascular Cardiovascular Heart rate NL, Regular rhythm, Heart sounds NL, Peripheral circulation NL Abdomen/GI Abdomen/GI Soft, Non-tender, No guarding, No rebound Skin Skin Color NL, No rash, Warm, Dry, Turgor NL Neurologic Neurologic Oriented X3, Speech NL, No motor deficits, No sensory deficits Interpretation Diagnostics Lab Results Interpretation Considerations Independ review imaging, Reviewed prior records Results Laboratory Tests: 07/13 07/13 1720 1719 Serology POC Influenza A Ag (Negative) Negative POC Influenza B Ag (Negative) Negative SARS CoV-2 RNA Rapid REMBERTO (Negative) Negative Recent Impressions: RADIOLOGY - XR CHEST 1 V 07/13 1646 Report Impression - Status: SIGNED Entered: 07/13/2023 1703 IMPRESSION: No acute cardiopulmonary abnormality. Impression By: PatricHVEphraim Shankar M.D. Lab Imaging Statement Laboratory radiographic studies reviewed and considered in the medical decision-making. Re-Evaluation MDM Differential Diagnosis Differential Diagnosis Bronchitis, Influenza, Upper resp infection, Viral syndrome Free Text MDM Notes Free Text MDM Notes Patient reports flulike symptoms for the past 3 days, son has same symptoms for 5 days. Will swab for strep. Will do a chest x-ray due to cough and chest tightness Patient aware of findings discharge and follow-up instructions Patient Discharge Departure Vital Signs/Condition Vital Signs First Documented: Result Date Time Pulse Ox 100 07/13 1635 B/P 115/67 07/13 1635 B/P Mean 83 07/13 1635 O2 Delivery Room air 07/13 1635 Temp 36.6 07/13 1635 Pulse 74 07/13 1635 Resp 16 07/13 1635 Last Documented: Result Date Time Pulse Ox 100 07/13 163 B/P 115/67 07/13 163 B/P Mean 83 07/13 163 O2 Delivery Room air 07/13 1635 Temp 36.6 07/13 1635 Pulse 74 07/13 163 Resp 16 07/13 163 All vital signs available at the time of this entry have been reviewed. Clinical Impression Clinical Impression Primary Impression: URI (upper respiratory infection) Disposition Decision Discharge )( Discharged to Home Yes )( Time 1728 )( Date 07/13/23 Discharge/Care Plan Counseled Regarding Diagnosis, Lab results, Imaging studies, Prescriptions, Need for follow-up, When to return to ED (Auto) Prescriptions Current Visit Scripts BENZONATATE (TESSALON) 100 MG PO Q8H PRN PRN COUGH BENZONATATE (TESSALON) 100 MG PO Q8H PRN PRN COUGH #30 CAPS NAPROXEN (NAPROSYN) 500 MG PO BID PRN PRN PAIN NAPROXEN (NAPROSYN) 500 MG PO BID PRN PRN PAIN #15 TABS predniSONE 50 MG PO DAILY predniSONE 50 MG PO DAILY #5 TABS Patient Instructions ED Fever Control (Adult), ED URI, Viral, No Abx (Adult) Departure Forms RAQUEL PCP LIST Discharge Note I have spoken with the patient and/or caregivers. I have explained the patient's condition, diagnoses and treatment plan based on the information available to me at this time. I have answered the patient's and/or caregiver's questions and addressed any concerns. The patient and/or caregivers have as good an understanding of the patient's diagnosis, condition and treatment plan as can be expected at this point. The vital signs have been stable. The patient's condition is stable and appropriate for discharge from the emergency department. The patient will pursue further outpatient evaluation with the primary care physician or other designated or consulting physician as outlined in the discharge instructions. The patient and/or caregivers are agreeable to this plan of care and follow-up instructions have been explained in detail. The patient and/or caregivers have received these instructions in written format and have expressed an understanding of the discharge instructions. The patient and/or caregivers are aware that any significant change in condition or worsening of symptoms should prompt an immediate return to this or the closest emergency department or a call to 911. at 2046 RPT #:[id number] END OF REPORT [facility] 2022-06-29 18:57:00 [facility] ([facility]) EMERGENCY PROVIDER REPORT REPORT#:[id number] REPORT STATUS: Signed DATE:06/29/22 TIME: 1856 PATIENT: ALEXANDRIA ROY UNIT #: [id number] ROOM/BED: AGE: 36 SEX: F PCP PHYS: SERVICE DT: AUTHOR: Rios Shelton MD * ALL edits or amendments must be made on the electronic/computer document * HPI-Nausea/Vomit/Diarrhea General Initial Greet Date/Time 06/29/221856 Presentation Chief Complaint Nausea, Vomiting Free Text HPI Notes Free Text HPI Notes 36 female here with about a week of [...] Diclegis and she will follow-up with her [place] doctor that she sees at [facility]. Review of Systems ROS Statements All systems rev neg except as marked. Focused Review of Systems GI Reports: Nausea, Vomiting. Past Medical History - Adult Stated Complaint N/V,[place] Allergies Coded Allergies: No Known Allergies (06/29/22) Calculated Suicide Risk (nurs) No risk Pt reports no significant: Past medical history, Past surgical history, Family history, Social history Smoking status for patients 13 years old or older: Never Smoker Physical Exam Vital Signs Vital Signs First Documented: Result Date Time Pulse Ox 100 06/29 1853 B/P 109/57 06/29 185 B/P Mean 74 06/29 185 O2 Delivery Room air 06/29 1853 Temp 36.8 06/29 1853 Pulse 85 06/29 185 Resp 18 06/29 1853 Last Documented: Result Date Time Pulse Ox 100 06/29 1853 B/P 109/57 06/29 185 B/P Mean 74 06/29 1853 O2 Delivery Room air 06/29 1853 Temp 36.8 06/29 1853 Pulse 85 12/1852 Resp 18 06/29 1853 Review of Vital Signs Reviewed Basic Physical Exam Basic PE HEAD: Atraumatic/NC, EYES: PERRL, conj clear, ENT: Membranes moist, RESP: No resp distress, CV: Reg rate rhythm, EXT: No gross abnormality, SKIN: No rashes, warm/dry, NEURO: alert oriented, NEURO: gross movement NL, PSYCH: NL thought content Interpretation Diagnostics Lab Results Interpretation Results Laboratory Tests: 06/29 1950 Urines POC Urine pH (5.0 - 7.0) 7 Ur Specific [place] (1.005 - 1.030) 1.015 POC Urine Protein (NEGATIVE) NEGATIVE POC Ur Glucose (UA) (NEGATIVE) NEGATIVE POC Urine Ketones (NEGATIVE) NEGATIVE POC Urine Blood (NEGATIVE) NEGATIVE POC Urine Nitrite (Negative) NEGATIVE Urine Bilirubin (NEGATIVE) 1+ H POC Urine Urobilinogen (0.2 - 1.0) 2+ H POC U Leukocyte Esteras (NEGATIVE) TRACE H Re-Evaluation MDM ED Course Medication(s) Ordered Medication(s) Ordered: Gastrointestinal Drugs Sig/Home Start time Last Medication Dose Route Stop Time Status Admin Ondansetron HCl 4 MG X1ED STA 06/29 1946 DC PO 06/29 1947 Patient Discharge Departure Vital Signs/Condition Vital Signs First Documented: Result Date Time Pulse Ox 100 06/29 185 B/P 109/57 06/29 185 B/P Mean 74 06/29 185 O2 Delivery Room air 06/29 1853 Temp 36.8 06/29 185 Pulse 85 06/29 185 Resp 18 06/29 1853 Last Documented: Result Date Time Pulse Ox 100 06/29 185 B/P 109/57 06/29 185 B/P Mean 74 06/29 185 O2 Delivery Room air 06/29 1853 Temp 36.8 06/29 185 Pulse 85 06/29 185 Resp 18 06/29 1853 All vital signs available at the time of this entry have been reviewed. Clinical Impression Clinical Impression Primary Impression: Early stage of Secondary Impressions: Morning sickness Disposition Decision Discharge )( Discharged to Home Yes )( Time 1955 )( Date 06/29/22 Discharge/Care Plan (Auto) Prescriptions Current Visit Scripts DOXYLAMINE/PYRIDOXINE (GUNNER BRAGA 05/05) 1 EACH PO [...] patient and/or caregivers. I have explained the patient's condition, diagnoses and treatment plan based on the information available to me at this time. I have answered the patient's and/or caregiver's questions and addressed any concerns. The patient and/or caregivers have as good an understanding of the patient's diagnosis, condition and treatment plan as can be expected at this point. The vital signs have been stable. The patient's condition is stable and appropriate for discharge from the emergency department. The patient will pursue further outpatient evaluation with the primary care physician or other designated or consulting physician as outlined in the discharge instructions. The patient and/or caregivers are agreeable to this plan of care and follow-up instructions have been explained in detail. The patient and/or caregivers have received these instructions in written format and have expressed an understanding of the discharge instructions. The patient and/or caregivers are aware that any significant change in condition or worsening of symptoms should prompt an immediate return to this or the closest emergency department or a call to 911. at 1958 [facility] #:[id number] END OF REPORT [facility]
--- NOTE | 2024-04-28 11:24 | EDPHYS ---
Physician Documentation [facility] Name: Steven Ortega Age: 38 yrs Sex: Female : 1985 Arrival Date: 04/28/2024 Time: 10:53 Bed DX4 Private MD: ED Physician Chester Dumont HPI: 04/28 11:21 This 38 yrs old Black Female presents to ER via Unassigned with complaints of Pain All ms3 Over. 11:21 38-year-old female with no past medical history presents to the emergency department ms3 for generalized bodyaches that has been ongoing for 9 months. Patient states her discomfort is a 9/10 and has become worse over the last few days. Patient denies fevers, chills, nausea, vomiting. Patient states her primary care physician is currently working her up for a autoimmune disorder.. 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 - Infectious Disease History:: Denies. - Social history:: Smoking status: Patient denies any tobacco usage or history of. ROS: 11:21 Constitutional: Negative for fever, and chills. Cardiovascular: Negative for chest ms3 pain, and palpitations. Respiratory: Negative for shortness of breath, cough, wheezing, and pleuritic chest pain, Abdomen/GI: Negative for abdominal pain, nausea, vomiting, diarrhea, and constipation, Skin: Negative for injury, rash, and discoloration, 11:21 MS/extremity: Positive for bodyaches, Exam: 11:21 Constitutional: This is a well developed, well nourished patient who is awake, alert, ms3 and in no acute distress. Chest/axilla: Normal chest wall appearance and motion. Nontender with no deformity. Cardiovascular: Regular rate and rhythm with a normal S1 and S2. No gallops, murmurs, or rubs. Normal PMI, no JVD. No pulse deficits. Respiratory: Lungs have equal breath sounds bilaterally, clear to auscultation and percussion. No rales, rhonchi or wheezes noted. No increased work of breathing, no retractions or nasal flaring. Abdomen/GI: Soft, non-tender, with normal bowel sounds. No distension or tympany. No guarding or rebound. No evidence of tenderness throughout. Skin: Warm, dry with normal turgor. Normal color with no rashes, no lesions, and no evidence of cellulitis. MS/ Extremity: Pulses equal, no cyanosis. Neurovascular intact. Full, normal range of motion. Vital Signs: 11:25 Pulse 72; Resp 16; Temp 98.5(O); Pulse Ox 100% on R/A; Weight 136.08 kg; Height 5 ft. 7 ss in. ; Pain 7/10; 11:28 BP 133 / 75; Pulse 77; Resp 15; Temp 98.5(O); Pulse Ox 100% on R/A; Weight 136.08 kg; ss Height 5 ft. 7 in. ; Pain 7/10; 11:28 Body Mass Index 46.99 (136.08 kg, 170.18 cm) ss 11:25 Pain Scale: Adult ss 11:28 Pain Scale: Adult ss MDM: 11:18 Patient medically screened. ms3 11:21 Differential Diagnosis Myalgias vs autoimmune disorder vs msk pain. Data reviewed: ms3 vital signs, nurses notes, and as a result, I will discharge patient. I considered the following discharge prescriptions or medication management in the emergency department Medications were administered in the Emergency Department. See MAR. Counseling: I had a detailed discussion with the patient and/or guardian regarding the historical points, exam findings, and any diagnostic results supporting the discharge/admit diagnosis, the need for outpatient follow up, to return to the emergency department if symptoms worsen or persist or if there are any questions or concerns that arise at home. ED course: Discussed physical exam findings with patient. Patient to follow-up with pain management in 2 to 3 days. Patient understands and agrees with plan. All questions were answered. Return precautions discussed include worsening symptoms, or any other concerns. Administered Medications: 12:00 Drug: predniSONE PO 60 mg PO once Route: PO; tm6 12:00 Follow up: Response: Medication administered at discharge. tm6 Disposition Summary: 04/28/24 11:23 Discharge Ordered Notes: Location: Home ms3 Condition: Stable ms3 Diagnosis - Myalgia ms3 Followup: ms3 - With: Jose Cope MD - When: 2 - 3 days - Reason: Recheck today's complaints Discharge Instructions: - Discharge Summary Sheet ms3 - Musculoskeletal Pain ms3 Forms: - Medication Reconciliation Form ms3 - Antibiotic Education ms3 - Prescription Opioid Use ms3 - Patient Portal Instructions ms3 - Leadership Thank You Letter ms3 Prescriptions: - Prednisone 20 mg Oral Tablet - take 1 tablet ORAL route once daily for 5 days; 5 tablet; Refills: 0, Product ms3 Selection Permitted Signatures: Judith Mosher, RN RN ss Chester Dumont DO DO ms3 Farhat Barger RN RN tm6
[2024-04-28] MEDS ORDERED: predniSONE 20 MG TAB ONE (11:52)
--- NOTE | 2024-04-28 12:06 | ER ---
Nurse's Notes [facility] Name: Steven Ortega Age: 38 yrs Sex: Female : 1985 Arrival Date: 04/28/2024 Time: 10:53 Bed DX4 Private MD: Diagnosis: Myalgia Presentation: 04/28 11:25 Chief complaint: Patient states: pain all over, but has gotten worse in the past two ss days. Pt reports she has an appointment to try to figure out which autoimmune disorder she has going on, but her appt is not until July of next year. Coronavirus screen: Client denies travel out of the [place] in the last 14 days. Ebola Screen: Patient denies exposure to infectious person. Patient denies travel to an Ebola-affected area in the 21 days before illness onset. Initial Sepsis Screen: Does the patient meet any 2 criteria? No. Patient's initial sepsis screen is negative. Does the patient have a suspected source of infection? No. Patient's initial sepsis screen is negative. Risk Assessment: Do you want to hurt yourself or someone else? Patient reports no desire to harm self or others. Onset of symptoms is unknown. 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 - Infectious Disease History:: Denies. - Social history:: Smoking status: Patient denies any tobacco usage or history of. Screenin:45 [facility] ED Fall Risk Assessment (Adult) History of falling in the last 3 months, tm6 including since admission No falls in past 3 months (0 pts) Confusion or Disorientation No (0 pts) Intoxicated or Sedated No (0 pts) Impaired Gait No (0 pts) Mobility Assist Device Used No (0 pt) Altered Elimination No (0 pt) Score/Fall Risk Level 0 - 2 = Low Risk Oriented to surroundings, Maintained a safe environment, Educated pt \T\ family on fall prevention, incl call for assistance when getting out of bed. Abuse screen: Denies threats or abuse. Denies injuries from another. Nutritional screening: No deficits noted. Tuberculosis screening: No symptoms or risk factors identified. Assessment: 11:45 General: Appears in no apparent distress. Behavior is calm, cooperative. Pain: tm6 Complains of pain in all over. Neuro: Level of Consciousness is awake, alert, obeys commands, Oriented to person, place, time, situation. Cardiovascular: Patient's skin is warm and dry. Respiratory: Airway is patent Respiratory effort is even, unlabored, Respiratory pattern is regular, symmetrical. GI: No signs and/or symptoms were reported involving the gastrointestinal system. : No signs and/or symptoms were reported regarding the genitourinary system. EENT: No signs and/or symptoms were reported regarding the EENT system. Derm: No signs and/or symptoms reported regarding the dermatologic system. Musculoskeletal: Reports pain all over. Vital Signs: 11:25 Pulse 72; Resp 16; Temp 98.5(O); Pulse Ox 100% on R/A; Weight 136.08 kg; Height 5 ft. 7 ss in. ; Pain 7/10; 11:28 BP 133 / 75; Pulse 77; Resp 15; Temp 98.5(O); Pulse Ox 100% on R/A; Weight 136.08 kg; ss Height 5 ft. 7 in. ; Pain 7/10; 11:28 Body Mass Index 46.99 (136.08 kg, 170.18 cm) ss 11:25 Pain Scale: Adult ss 11:28 Pain Scale: Adult ss ED Course: 10:56 Patient arrived in ED. mg5 11:03 Chester Dumont DO is Attending Physician. ms3 11:23 Jose Cope MD is Referral Physician. ms3 11:28 Triage completed. ss 11:28 Arm band placed on right wrist. ss 11:45 Patient has correct armband on for positive identification. Provided Education on: use tm6 of prescription medication. 11:45 No provider procedures requiring assistance completed. Patient did not have IV access tm6 during this emergency room visit. Administered Medications: 12:00 Drug: predniSONE PO 60 mg PO once Route: PO; tm6 12:00 Follow up: Response: Medication administered at discharge. tm6 Medication: 11:45 VIS not applicable for this client. tm6 Outcome: 11:23 Discharge ordered by . ms3 11:45 Discharged to tm6 11:45 Condition: stable 12:05 Discharged to home ambulatory, with family, tm6 12:05 Discharge instructions given to patient, family, Instructed on discharge instructions, follow up and referral plans. medication usage, Demonstrated understanding of instructions, follow-up care, medications, Prescriptions given X 1, 12:05 Patient left the ED. tm6 Signatures: Judith Mosher, RN RN Chester Dumont DO DO ms3 Melina Yin mg5 Farhat Barger RN RN tm6
[2024-04-29 00:25] VITALS: TEMP 98.5; O2SAT 100
[2024-04-29 00:27] VITALS: BP 133/75
== END 2024-04-28 12:05 | disposition home or self-care (01) ==
LOC: ER 10:53
DX: M79.10 Myalgia, unspecified site (principal); Z87.820 Personal history of traumatic brain injury
CPT/HCPCS: 99283; J7512